=== PATIENT | male | born 1950 | race Two or more races ===

== ENCOUNTER 2016-09-25 20:20 | Inpatient (IN) | payer MEDICAID, MEDICARE, OTHER ==
[~2016-09-25] VITALS: Ht 185.4 cm; Wt 59.0 kg
[~2016-09-25 20:20] MED LIST: AMANTADINE50 MG/5 ML ORAL; AMITRIPTYLINE100 M1 ORAL; LEVAQUIN500 MG ORAL; LITHIUM CARBON300 MG ORAL
[2016-09-25] MEDS ORDERED: NS 1000ml 1,900 ML IVLG ONE (21:15)
[2016-09-25] MEDS ORDERED: Acetaminophen 500mg (ES) tab ORAL ONE (21:15)
[2016-09-25 21:49] LABS: MEAN CORPUSCULAR HEMOGLOBIN 29.8 PG (27.0-31.0); MEAN CORPUSCULAR HGB CONC 32.4 G/DL (32.0-36.0); MEAN CORPUSCULAR VOLUME 92 FL (80-99); MEAN PLATELET VOLUME 7.3 FL (6.5-10.1); PLATELET COUNT 110 K/UL (150-450); RED BLOOD COUNT 4.32 M/UL (4.70-6.10); RED CELL DISTRIBUTION WIDTH 12.6 % (11.6-14.8)
[2016-09-25 22:00] VITALS: BP 161/104
[2016-09-25 22:06] LABS: TROPONIN I < 0.30 ng/mL (<=0.30)
[2016-09-25 22:09] LABS: CALCIUM 9.4 mg/dL (8.6-10.2); CREATININE 1.5 mg/dL (0.7-1.2); GLOMERULAR FILTRATION RATE 46.7 mL/min (>60); POTASSIUM 4.1 mEQ/L (3.4-4.9); TOTAL PROTEIN 7.4 g/dL (6.6-8.7)
[2016-09-25] MEDS ORDERED: Piperacillin/Tazobactam 3.375 GM in NS 110 ML IVPB ONE (22:15)
[2016-09-25 22:19] LABS: CKMB 3.3 ng/mL (< 6.7)
[2016-09-25] MEDS ORDERED: Zosyn 3.375gm inj ONE (22:23)
[2016-09-25 22:26] LABS: REFLEX LACTIC ACID YES OR NO YES
[2016-09-25 22:37] LABS: BAND NEUTROPHILS % (MANUAL) 14 % (0-8); LYMPHOCYTES % (MANUAL) 4 % (20-45); NEUTROPHILS % (MANUAL) 81 % (45-75); TOTAL CELLS COUNTED 100
[2016-09-25 22:38] LABS: BASOPHILS % (MANUAL) 0 % (0-2); EOSINOPHILS % (MANUAL) 0 % (0-3); PLATELET ESTIMATE DECREASED; PLATELET MORPHOLOGY NORMAL
[2016-09-25 23:00] VITALS: BP 108/69
[2016-09-25] MEDS ORDERED: Nitroglycerin Subl 0.4mg tab (Bottle Of 25) SL PRN (23:15)
[2016-09-25] MEDS ORDERED: Morphine Sulfate 2mg/ml Inj IVP PRN (23:15)
[2016-09-25] MEDS ORDERED: Miralax 17gm pkt ORAL PRN (23:15)
--- NOTE | 2016-09-25 23:27 | Emergency Room Report ---
History of Present Illness General Chief Complaint: Fever Source: Patient, Family Member Present Illness HPI This is a 65-year-old male with a history of COPD. Brought in by family for weakness and shaky. Onset the last couple days. Patient said he's been coughing. [place] cold. Also with subjective fever. Coughing is nonproductive in nature. No urinary complaint. Denies any other symptom. No chest pain. Per family not eating or drinking the last couple days. Allergies: Coded Allergies: No Known Allergies (Unverified , 09/22/14) Patient History Past Medical History: see triage record, old chart reviewed Past Surgical History: other Pertinent Family History: none Social History: Denies: drug use Immunizations: other Reviewed Nursing Documentation: PMH: Agreed, PSxH: Agreed Nursing Documentation-PMH Past Medical History: No History, Except For Hx Cardiac Problems: No Hx COPD: Yes Hx Cancer: No Hx Gastrointestinal Problems: No Hx Neurological Problems: No Review of Systems Constitutional: Reports: fever, malaise, weakness Eye: Denies: blurred vision, eye pain ENT: Denies: ear pain, nose congestion, throat swelling Respiratory: Reports: cough, shortness of breath Cardiovascular: Denies: chest pain, palpitations Gastrointestinal: Denies: abdominal pain, diarrhea, nausea, vomiting Musculoskeletal: Denies: back pain, joint pain Skin: Denies: rash Neurological: Denies: headache, numbness Endocrine: Denies: increased thirst, increased urine Hematologic/Lymphatic: Denies: easy bruising All Other Systems: negative except mentioned in HPI Physical Exam Vital Signs Date Time Temp Pulse Resp B/P Pulse Ox O2 Delivery O2 Flow Rate FiO2 09/25/16 20:31 100.2 118 16 155/83 99 Room Air vitals with fever Sp02 EP Interpretation: reviewed, normal General Appearance: alert, mild distress, thin Head: normocephalic, atraumatic Eyes: bilateral eye EOMI, bilateral eye PERRL ENT: hearing grossly normal, normal pharynx Neck: full range of motion, supple, no meningismus Respiratory: chest non-tender, rhonchi Cardiovascular #1: regular rate, rhythm, no murmur, tachycardia Gastrointestinal: normal bowel sounds, non tender, no mass, no organomegaly, no bruit, non-distended Musculoskeletal: back normal, gait/station normal, normal range of motion Psychiatric: mood/affect normal Skin: warm/dry Procedures Critical Care Time Critical Care Time Critical care is mandated in this patient who presented with severe sepsis from pneumonia. Patient require my urgent intervention to attenuate the risks of metabolic collapse which may lead to cardiovascular collapse and . Critical care time is 35 minutes excluding any reportable procedure. Critical care time included evaluation, multiple reevaluation, looking at old charts, interpreting laboratory and diagnostic data, discussing case with patient and family and consultants, and charting. Medical Decision Making Diagnostic Impression: Primary Impression: Severe sepsis Additional Impression: Pneumonia Qualified Codes: J18.9 - Pneumonia, unspecified organism ER Course patient with sepsis from pneumonia. lactic acid is elevated. He has rigors and then hypoxia here. he is elevated white count with bandemia. Wide spectrum antibiotics given. IV fluid given per protocol. Patient felt better and blood pressure better. Heart rate improved. I discussed the case with Dr. Rider who will be writing orders for Dr. Elam. Lab Results Impression labs with leukocytosis EKG Diagnostic Results EKG Time: 23:26 Rate: tachycardiac Rhythm: other - baseline tremors. NSST changes Rhythm Strip Diag. Results Rhythm Strip Time: 23:26 EP Interpretation: yes Rate: 114 Rhythm: NSR, no PVC's, no ectopy Chest X-Ray Diagnostic Results Chest X-Ray Diagnostic Results : Chest X-Ray Ordered: Yes # of Views/Limited/Complete: 1 View Indication: Shortness of Breath EP Interpretation: Yes Interpretation: no effusion, no pneumothorax, other - b/l interstitial infiltrates Impression: Other - b/l interstitial infiltrates Interpreting ER Provider: Electronically signed by Navjot Silva MD Last Vital Signs Date Time Temp Pulse Resp B/P Pulse Ox O2 Delivery O2 Flow Rate FiO2 09/25/16 22:37 103.7 09/25/16 22:00 119 40 161/104 97 Room Air Status: improved Disposition: ADMITTED INPATIENT Condition: Serious Referrals: NOT CHOSEN RAKEL/,REFERRING (PCP) NAVJOT SILVA M.D. Sep 25, 2016 23:27
[2016-09-26] VITALS (8 sets, daily range): BP systolic 105–148; BP diastolic 58–88
[2016-09-26] MEDS ORDERED: Rx Monitoring Vancomycin MISC PRN (00:15)
[2016-09-26] MEDS: DuoNeb 0.5-3(2.5)mg/3ml neb HHN PRN (00:18)
[2016-09-26] MEDS ORDERED: Vancomycin 1gm inj IVPB ONE (00:21)
[2016-09-26] MEDS: Vancomycin 1 GM in D5W 275 ML IVPB SCH (00:27)
[2016-09-26] MEDS: Heparin 5000 units/ml inj SUBQ SCH ×2 (09:00→20:54)
[2016-09-26 09:23] LABS: MEAN CORPUSCULAR HEMOGLOBIN 28.9 PG (27.0-31.0); MEAN CORPUSCULAR HGB CONC 31.5 G/DL (32.0-36.0); MEAN CORPUSCULAR VOLUME 92 FL (80-99); MEAN PLATELET VOLUME 8.4 FL (6.5-10.1); PLATELET COUNT 79 K/UL (150-450); RED BLOOD COUNT 4.43 M/UL (4.70-6.10); RED CELL DISTRIBUTION WIDTH 12.7 % (11.6-14.8)
[2016-09-26 09:24] LABS: WHITE BLOOD COUNT 24.9 K/UL (4.8-10.8)
[2016-09-26 09:37] LABS: ALBUMIN/GLOBULIN RATIO 0.8 (1.0-2.7); CALCIUM 8.6 mg/dL (8.6-10.2); CREATININE 1.8 mg/dL (0.7-1.2); GLOMERULAR FILTRATION RATE 37.8 mL/min (>60); POTASSIUM 4.3 mEQ/L (3.4-4.9); TOTAL PROTEIN 6.7 g/dL (6.6-8.7)
--- NOTE | 2016-09-26 09:52 | Diagnostic Imaging Report ---
Indication: Dyspnea Comparison: None A single view chest radiograph was obtained. Findings: Interstitium of the lungs is prominent. Pulmonary vascularity is mildly prominent. Heart is borderline enlarged. Impression: Development of mild interstitial edema
[2016-09-26 10:06] LABS: MAGNESIUM 1.5 mg/dL (1.7-2.5); PHOSPHORUS 4.4 mg/dL (2.5-4.8); URIC ACID 5.6 mg/dL (3.0-7.5)
[2016-09-26] MEDS: Cefepime HCl 2 GM in D5W 110 ML IV SCH (10:15)
[2016-09-26 10:28] LABS: BAND NEUTROPHILS % (MANUAL) 12 % (0-8); BASOPHILS % (MANUAL) 0 % (0-2); EOSINOPHILS % (MANUAL) 0 % (0-3); LYMPHOCYTES % (MANUAL) 4 % (20-45); NEUTROPHILS % (MANUAL) 78 % (45-75); PLATELET ESTIMATE DECREASED; PLATELET MORPHOLOGY NORMAL; TOTAL CELLS COUNTED 100
[2016-09-26 10:29] LABS: HYPOCHROMASIA 1+
[2016-09-26 11:23] LABS: APPEARANCE,URINE SLIGHTLY CLOUDY; KETONES,URINE NEGATIVE (NEGATIVE); LEUKOCYTE ESTERASE ,URINE 3+ (NEGATIVE); NITRITE,URINE POSITIVE (NEGATIVE); PH,URINE 6 (4.5-8.0); PROTEIN,URINE 3+ (NEGATIVE); UROBILINOGEN,URINE 1 MG/DL (0.0-1.0)
[2016-09-26 11:36] LABS: BACTERIA,URINE FEW /HPF; RBC,URINE 60-80 /HPF (0 - 0); SQUAMOUS EPITHELIAL CELL,UR OCCASIONAL /LPF (NONE/OCC)
--- NOTE | 2016-09-26 13:18 | Consultation ---
History of Present Illness General Date patient seen: Sep 26, 2016 Chief Complaint: Fever Referring physician: Dr. Elam Reason for Consultation: Dyspnea Present Illness HPI 65-year-old male with a history of COPD, bipolar, Brought in by family for weakness and shakiness for couple days. Patient said he's been coughing. [place] cold. Also with subjective fever. Coughing is nonproductive in nature. No urinary complaint. Denies any other symptom. No chest pain. Per family not eating or drinking the last couple days. Allergies: Coded Allergies: No Known Allergies (Unverified , 09/22/14) Medication History Scheduled Amantadine HCl (Amantadine), 100 MG ORAL DAILY, (Reported) Amitriptyline Hcl* (Amitriptyline Hcl*), 150 MG ORAL BEDTIME, (Reported) [place] Carbonate* ([place]*), 300 MG ORAL EVERY 8 HOURS, (Reported) Discontinued Medications Levofloxacin* (Levaquin*), 500 MG ORAL DAILY Discontinued Reason: Therapy completed Patient History Healthcare decision maker Resuscitation status Full Code Advanced Directive on File Past Medical/Surgical History Past Medical/Surgical History: (1) COPD (chronic obstructive pulmonary disease) (2) Protein-calorie malnutrition, severe (3) Bipolar disorder Review of Systems All Other Systems: negative except mentioned in HPI Physical Exam General Appearance: WD/WN, no apparent distress Lines, tubes and drains: peripheral, central line HEENT: normocephalic, anicteric Neck: non-tender, normal alignment Respiratory/Chest: chest wall non-tender, lungs clear Abdomen: normal bowel sounds, non tender Genitourinary/Rectal: normal genital exam, normal rectal exam Last 24 Hour Vital Signs Date Time Temp Pulse Resp B/P Pulse Ox O2 Delivery O2 Flow Rate FiO2 09/26/16 11:57 98.2 108 20 130/70 93 Simple Mask 10.0 108 09/26/16 08:35 97.9 112 21 148/72 93 Simple Mask 112 09/26/16 04:03 99.9 119 22 123/61 96 Venturi Mask 09/26/16 04:00 115 09/26/16 02:15 98.2 113 22 105/63 95 Venturi Mask 14.0 55 09/26/16 02:10 116 09/26/16 01:15 101.5 116 35 109/58 98 Venturi Mask 14.0 55 09/26/16 01:01 101.5 116 35 109/58 98 Venturi Mask 14.0 55 09/26/16 00:27 117 15 96 Venturi Mask 14.0 55 09/26/16 00:25 Venturi Mask 14.0 55 09/26/16 00:25 96 Venturi Mask 14.0 55 09/26/16 00:18 114 23 99 Non-Rebreather 15.0 100 09/26/16 00:17 114 23 Non-Rebreather 15.0 100 09/26/16 00:00 103.7 119 48 129/58 98 Non-Rebreather 10.0 09/25/16 23:00 117 37 108/69 87 Nasal Cannula 4.0 09/25/16 22:37 103.7 09/25/16 22:00 119 40 161/104 97 Room Air 09/25/16 20:31 100.2 118 16 155/83 99 Room Air Intake and Output 09/25/16 09/26/16 19:00 07:00 Intake Total 500 ml Balance 500 ml Intake Oral 0 ml IV Total 500 ml Laboratory Tests Test 09/25/16 21:20 09/25/16 23:40 09/26/16 08:40 09/26/16 11:10 White Blood Count 20.0 K/UL (4.8-10.8) H 24.9 K/UL (4.8-10.8) *H Red Blood Count 4.32 M/UL (4.70-6.10) L 4.43 M/UL (4.70-6.10) L Hemoglobin 12.9 G/DL (14.2-18.0) L 12.8 G/DL (14.2-18.0) L Hematocrit 39.8 % (42.0-52.0) L 40.6 % (42.0-52.0) L Mean Corpuscular Volume 92 FL (80-99) 92 FL (80-99) Mean Corpuscular Hemoglobin 29.8 PG (27.0-31.0) 28.9 PG (27.0-31.0) Mean Corpuscular Hemoglobin Concent 32.4 G/DL (32.0-36.0) 31.5 G/DL (32.0-36.0) L Red Cell Distribution Width 12.6 % (11.6-14.8) 12.7 % (11.6-14.8) Platelet Count 110 K/UL (150-450) L 79 K/UL (150-450) L Mean Platelet Volume 7.3 FL (6.5-10.1) 8.4 FL (6.5-10.1) Neutrophils (%) (Auto) % (45.0-75.0) % (45.0-75.0) Lymphocytes (%) (Auto) % (20.0-45.0) % (20.0-45.0) Monocytes (%) (Auto) % (1.0-10.0) % (1.0-10.0) Eosinophils (%) (Auto) % (0.0-3.0) % (0.0-3.0) Basophils (%) (Auto) % (0.0-2.0) % (0.0-2.0) Differential Total Cells Counted 100 100 Neutrophils % (Manual) 81 % (45-75) H 78 % (45-75) H Lymphocytes % (Manual) 4 % (20-45) L 4 % (20-45) L Monocytes % (Manual) 1 % (1-10) 6 % (1-10) Eosinophils % (Manual) 0 % (0-3) 0 % (0-3) Basophils % (Manual) 0 % (0-2) 0 % (0-2) Band Neutrophils 14 % (0-8) H 12 % (0-8) H Platelet Estimate Decreased L Decreased L Platelet Morphology Normal Normal Red Blood Cell Morphology Normal Sodium Level 133 mEQ/L (135-145) L 140 mEQ/L (135-145) Potassium Level 4.1 mEQ/L (3.4-4.9) 4.3 mEQ/L (3.4-4.9) Chloride Level 98 mEQ/L (98-107) 100 mEQ/L (98-107) Carbon Dioxide Level 20 mEQ/L (20-30) 15 mEQ/L (20-30) L Anion Gap 15 (5-15) 25 (5-15) H Blood Urea Nitrogen 15 mg/dL (7-23) 20 mg/dL (7-23) Creatinine 1.5 mg/dL (0.7-1.2) H 1.8 mg/dL (0.7-1.2) H Estimat Glomerular Filtration Rate 46.7 mL/min (>60) 37.8 mL/min (>60) Glucose Level 209 mg/dL (74-106) H 145 mg/dL (74-106) H Lactic Acid Level 4.90 mmol/L (0.66-2.22) H 4.10 mmol/L (0.66-2.22) H Calcium Level 9.4 mg/dL (8.6-10.2) 8.6 mg/dL (8.6-10.2) Total Bilirubin 0.5 mg/dL (0.0-1.2) 0.7 mg/dL (0.0-1.2) Aspartate Amino Transf (AST/SGOT) 24 U/L (5-40) 52 U/L (5-40) H Alanine Aminotransferase (ALT/SGPT) 16 U/L (3-41) 16 U/L (3-41) Alkaline Phosphatase 108 U/L (40-129) 91 U/L (40-129) Total Creatine Kinase 399 U/L (38-174) H 1077 U/L (38-174) H Creatine Kinase MB 3.3 ng/mL (< 6.7) Creatine Kinase MB Relative Index 0.8 Troponin I < 0.30 ng/mL (<=0.30) Total Protein 7.4 g/dL (6.6-8.7) 6.7 g/dL (6.6-8.7) Albumin 3.7 g/dL (3.5-5.2) 3.0 g/dL (3.5-5.2) L Globulin 3.7 g/dL 3.7 g/dL Albumin/Globulin Ratio 1.0 (1.0-2.7) 0.8 (1.0-2.7) L Hypochromasia 1+ Plasma/Serum Osmolality Pending Uric Acid 5.6 mg/dL (3.0-7.5) Phosphorus Level 4.4 mg/dL (2.5-4.8) Magnesium Level 1.5 mg/dL (1.7-2.5) L Free Thyroxine 1.19 ng/dL (0.86-1.85) Urine Color Yellow Urine Appearance Slightly cloudy Urine pH 6 (4.5-8.0) Urine Specific [place] 1.005 (1.005-1.035) Urine Protein 3+ (NEGATIVE) H Urine Glucose (UA) Negative (NEGATIVE) Urine Ketones Negative (NEGATIVE) Urine Occult Blood 5+ (NEGATIVE) H Urine Nitrite Positive (NEGATIVE) H Urine Bilirubin Negative (NEGATIVE) Urine Urobilinogen 1 MG/DL (0.0-1.0) H Urine Leukocyte Esterase 3+ (NEGATIVE) H Urine RBC 60-80 /HPF (0 - 0) H Urine WBC 10-15 /HPF (0 - 0) H Urine Squamous Epithelial Cells Occasional /LPF Urine Bacteria Few /HPF (NONE) Urine Eosinophils None seen Urine Random Sodium 24 mmol/L Urine Random Chloride 15 mmol/L Urine Potassium Timed 25 mmol/L Height (Feet): 6 Height (Inches): 1.00 Weight (Pounds): 155 Medications Current Medications Medications (Trade) Dose Ordered Sig/Ramiro Route PRN Reason Start Time Stop Time Status Last Admin Dose Admin Acetaminophen (Tylenol) 650 mg Q4H PRN ORAL fever 09/25/16 23:15 10/25/16 23:14 Albuterol/ Ipratropium 3 ml 3 ml Q4H PRN HHN Shortness of Breath 09/25/16 23:15 09/30/16 23:14 09/26/16 00:18 Amitriptyline HCl (Elavil) 150 mg BEDTIME ORAL 09/26/16 21:00 10/26/16 20:59 Cefepime HCl 2 gm/ Dextrose 110 ml @ 220 mls/hr Q24H IV 09/26/16 09:00 10/03/16 08:59 09/26/16 10:15 Clonidine HCl (Catapres) 0.1 mg Q4H PRN ORAL For High Blood Pressure 09/25/16 23:30 10/25/16 23:29 Dextrose (Dextrose 50%) STAT PRN IV Hypoglycemia 09/25/16 23:15 10/25/16 23:14 Heparin Sodium (Porcine) (Heparin 5000 units/ml) 5,000 units EVERY 12 HOURS SUBQ 09/26/16 09:00 10/26/16 08:59 [place] Carbonate 300 mg 300 mg EVERY 8 HOURS ORAL 09/26/16 06:00 10/26/16 05:59 09/26/16 10:14 Morphine Sulfate (Morphine Sulfate) 2 mg Q4H PRN IVP Moderate Pain (Pain Scale 4-6) 09/25/16 23:15 10/02/16 23:14 Nitroglycerin (Ntg) 0.4 mg Every 5 Minutes PRN SL Prn Chest Pain 09/25/16 23:15 10/25/16 23:14 Ondansetron HCl (Zofran) 4 mg Q6H PRN IVP Nausea & Vomiting 09/25/16 23:15 10/25/16 23:14 Polyethylene Glycol (Miralax) 17 gm DAILYPRN PRN ORAL Constipation 09/25/16 23:15 10/25/16 23:14 Sodium Chloride (Sodium Chloride 1000ml bag) 1,000 ml @ 100 mls/hr Q10H IVLG 09/26/16 00:21 10/26/16 00:20 09/26/16 10:24 Temazepam (Restoril) 15 mg HSPRN PRN ORAL Insomnia 09/25/16 23:15 10/02/16 23:14 Vancomycin HCl (Rx Monitoring Vancomycin) 1 ea DAILY PRN MISC PER PROTOCOL 09/26/16 00:15 10/26/16 00:14 Vancomycin HCl/ Dextrose (Vancomycin/D5W) 275 ml @ 183.3 mls/ hr Q24H IVPB 09/26/16 01:00 10/01/16 00:59 09/26/16 00:27 Assessment/Plan Problem List: (1) Severe sepsis ICD Codes: A41.9 - Sepsis, unspecified organism; R65.20 - Severe sepsis without septic shock SNOMED: 89763881 (2) Tachycardia ICD Codes: R00.0 - Tachycardia, unspecified SNOMED: 8346193 (3) Protein-calorie malnutrition, severe ICD Codes: E43 - Unspecified severe protein-calorie malnutrition SNOMED: 324153210 (4) Bipolar disorder ICD Codes: F31.9 - Bipolar disorder, unspecified SNOMED: 08089641 (5) COPD (chronic obstructive pulmonary disease) ICD Codes: J44.9 - Chronic obstructive pulmonary disease, unspecified SNOMED: 06728867 Assessment/Plan nick culture Iv antibiotics ID evaluation respiratory treatment social service consult Keep teli as long as DELMI Stearns Sep 26, 2016 13:18
--- NOTE | 2016-09-26 14:01 | Consultation ---
History of Present Illness General Chief Complaint: Fever Referring physician: Dr. Elam Reason for Consultation: Dyspnea Present Illness HPI 65-year-old male with a history of COPD, bipolar, Brought in by family for weakness and shakiness for couple days. During the eval the pt didn't know the date but knew the year and situation he is in. the pt endorses anxiety and stated that he wants to be discharged. the pt had memory impairment however his manic/depressive sxs were stable. the pt is on lithium. he lacks capacity to leave ama. Allergies: Coded Allergies: No Known Allergies (Unverified , 09/22/14) Medication History Scheduled Amantadine HCl (Amantadine), 100 MG ORAL DAILY, (Reported) Amitriptyline Hcl* (Amitriptyline Hcl*), 150 MG ORAL BEDTIME, (Reported) [place] Carbonate* ([place]*), 300 MG ORAL EVERY 8 HOURS, (Reported) Discontinued Medications Levofloxacin* (Levaquin*), 500 MG ORAL DAILY Discontinued Reason: Therapy completed Patient History Limited by: medical condition History Provided By: Patient, Medical Record, PMD Healthcare decision maker Resuscitation status Full Code Advanced Directive on File Past Medical/Surgical History Past Medical/Surgical History: (1) Syncope, cardiogenic (2) NSTEMI (non-ST elevated myocardial infarction) (3) Syncope (4) Leukocytosis (5) UTI (urinary tract infection) (6) Pneumonia (7) Severe sepsis (8) COPD (chronic obstructive pulmonary disease) (9) Bipolar disorder (10) Protein-calorie malnutrition, severe (11) Tachycardia Review of Systems Constitutional: Reports: malaise, weakness Psychiatric: Reports: anxiety, depressed feelings, emotional problems, prior hx All Other Systems: negative except mentioned in HPI Physical Exam General Appearance: alert, mild distress, thin Neurologic: alert, oriented x 3, responsive, depressed affect Last 24 Hour Vital Signs Date Time Temp Pulse Resp B/P Pulse Ox O2 Delivery O2 Flow Rate FiO2 09/26/16 11:57 98.2 108 20 130/70 93 Simple Mask 10.0 108 09/26/16 08:35 97.9 112 21 148/72 93 Simple Mask 112 09/26/16 08:00 110 09/26/16 04:03 99.9 119 22 123/61 96 Venturi Mask 09/26/16 04:00 115 09/26/16 02:15 98.2 113 22 105/63 95 Venturi Mask 14.0 55 09/26/16 02:10 116 09/26/16 01:15 101.5 116 35 109/58 98 Venturi Mask 14.0 55 09/26/16 01:01 101.5 116 35 109/58 98 Venturi Mask 14.0 55 09/26/16 00:27 117 15 96 Venturi Mask 14.0 55 09/26/16 00:25 Venturi Mask 14.0 55 09/26/16 00:25 96 Venturi Mask 14.0 55 09/26/16 00:18 114 23 99 Non-Rebreather 15.0 100 09/26/16 00:17 114 23 Non-Rebreather 15.0 100 09/26/16 00:00 103.7 119 48 129/58 98 Non-Rebreather 10.0 09/25/16 23:00 117 37 108/69 87 Nasal Cannula 4.0 09/25/16 22:37 103.7 09/25/16 22:00 119 40 161/104 97 Room Air 09/25/16 20:31 100.2 118 16 155/83 99 Room Air Intake and Output 09/25/16 09/26/16 19:00 07:00 Intake Total 500 ml Balance 500 ml Intake Oral 0 ml IV Total 500 ml Laboratory Tests Test 09/25/16 21:20 09/25/16 23:40 09/26/16 08:40 09/26/16 11:10 White Blood Count 20.0 K/UL (4.8-10.8) H 24.9 K/UL (4.8-10.8) *H Red Blood Count 4.32 M/UL (4.70-6.10) L 4.43 M/UL (4.70-6.10) L Hemoglobin 12.9 G/DL (14.2-18.0) L 12.8 G/DL (14.2-18.0) L Hematocrit 39.8 % (42.0-52.0) L 40.6 % (42.0-52.0) L Mean Corpuscular Volume 92 FL (80-99) 92 FL (80-99) Mean Corpuscular Hemoglobin 29.8 PG (27.0-31.0) 28.9 PG (27.0-31.0) Mean Corpuscular Hemoglobin Concent 32.4 G/DL (32.0-36.0) 31.5 G/DL (32.0-36.0) L Red Cell Distribution Width 12.6 % (11.6-14.8) 12.7 % (11.6-14.8) Platelet Count 110 K/UL (150-450) L 79 K/UL (150-450) L Mean Platelet Volume 7.3 FL (6.5-10.1) 8.4 FL (6.5-10.1) Neutrophils (%) (Auto) % (45.0-75.0) % (45.0-75.0) Lymphocytes (%) (Auto) % (20.0-45.0) % (20.0-45.0) Monocytes (%) (Auto) % (1.0-10.0) % (1.0-10.0) Eosinophils (%) (Auto) % (0.0-3.0) % (0.0-3.0) Basophils (%) (Auto) % (0.0-2.0) % (0.0-2.0) Differential Total Cells Counted 100 100 Neutrophils % (Manual) 81 % (45-75) H 78 % (45-75) H Lymphocytes % (Manual) 4 % (20-45) L 4 % (20-45) L Monocytes % (Manual) 1 % (1-10) 6 % (1-10) Eosinophils % (Manual) 0 % (0-3) 0 % (0-3) Basophils % (Manual) 0 % (0-2) 0 % (0-2) Band Neutrophils 14 % (0-8) H 12 % (0-8) H Platelet Estimate Decreased L Decreased L Platelet Morphology Normal Normal Red Blood Cell Morphology Normal Sodium Level 133 mEQ/L (135-145) L 140 mEQ/L (135-145) Potassium Level 4.1 mEQ/L (3.4-4.9) 4.3 mEQ/L (3.4-4.9) Chloride Level 98 mEQ/L (98-107) 100 mEQ/L (98-107) Carbon Dioxide Level 20 mEQ/L (20-30) 15 mEQ/L (20-30) L Anion Gap 15 (5-15) 25 (5-15) H Blood Urea Nitrogen 15 mg/dL (7-23) 20 mg/dL (7-23) Creatinine 1.5 mg/dL (0.7-1.2) H 1.8 mg/dL (0.7-1.2) H Estimat Glomerular Filtration Rate 46.7 mL/min (>60) 37.8 mL/min (>60) Glucose Level 209 mg/dL (74-106) H 145 mg/dL (74-106) H Lactic Acid Level 4.90 mmol/L (0.66-2.22) H 4.10 mmol/L (0.66-2.22) H Calcium Level 9.4 mg/dL (8.6-10.2) 8.6 mg/dL (8.6-10.2) Total Bilirubin 0.5 mg/dL (0.0-1.2) 0.7 mg/dL (0.0-1.2) Aspartate Amino Transf (AST/SGOT) 24 U/L (5-40) 52 U/L (5-40) H Alanine Aminotransferase (ALT/SGPT) 16 U/L (3-41) 16 U/L (3-41) Alkaline Phosphatase 108 U/L (40-129) 91 U/L (40-129) Total Creatine Kinase 399 U/L (38-174) H 1077 U/L (38-174) H Creatine Kinase MB 3.3 ng/mL (< 6.7) Creatine Kinase MB Relative Index 0.8 Troponin I < 0.30 ng/mL (<=0.30) Total Protein 7.4 g/dL (6.6-8.7) 6.7 g/dL (6.6-8.7) Albumin 3.7 g/dL (3.5-5.2) 3.0 g/dL (3.5-5.2) L Globulin 3.7 g/dL 3.7 g/dL Albumin/Globulin Ratio 1.0 (1.0-2.7) 0.8 (1.0-2.7) L Hypochromasia 1+ Plasma/Serum Osmolality Pending Uric Acid 5.6 mg/dL (3.0-7.5) Phosphorus Level 4.4 mg/dL (2.5-4.8) Magnesium Level 1.5 mg/dL (1.7-2.5) L Free Thyroxine 1.19 ng/dL (0.86-1.85) Urine Color Yellow Urine Appearance Slightly cloudy Urine pH 6 (4.5-8.0) Urine Specific [place] 1.005 (1.005-1.035) Urine Protein 3+ (NEGATIVE) H Urine Glucose (UA) Negative (NEGATIVE) Urine Ketones Negative (NEGATIVE) Urine Occult Blood 5+ (NEGATIVE) H Urine Nitrite Positive (NEGATIVE) H Urine Bilirubin Negative (NEGATIVE) Urine Urobilinogen 1 MG/DL (0.0-1.0) H Urine Leukocyte Esterase 3+ (NEGATIVE) H Urine RBC 60-80 /HPF (0 - 0) H Urine WBC 10-15 /HPF (0 - 0) H Urine Squamous Epithelial Cells Occasional /LPF Urine Bacteria Few /HPF (NONE) Urine Eosinophils None seen Urine Random Sodium 24 mmol/L Urine Random Chloride 15 mmol/L Urine Potassium Timed 25 mmol/L Height (Feet): 6 Height (Inches): 1.00 Weight (Pounds): 155 Medications Current Medications Medications (Trade) Dose Ordered Sig/Ramiro Route PRN Reason Start Time Stop Time Status Last Admin Dose Admin Acetaminophen (Tylenol) 650 mg Q4H PRN ORAL fever 09/25/16 23:15 10/25/16 23:14 Albuterol/ Ipratropium 3 ml 3 ml Q4H PRN HHN Shortness of Breath 09/25/16 23:15 09/30/16 23:14 09/26/16 00:18 Amitriptyline HCl (Elavil) 150 mg BEDTIME ORAL 09/26/16 21:00 10/26/16 20:59 Cefepime HCl 2 gm/ Dextrose 110 ml @ 220 mls/hr Q24H IV 09/26/16 09:00 10/03/16 08:59 09/26/16 10:15 Clonidine HCl (Catapres) 0.1 mg Q4H PRN ORAL For High Blood Pressure 09/25/16 23:30 10/25/16 23:29 Dextrose (Dextrose 50%) STAT PRN IV Hypoglycemia 09/25/16 23:15 10/25/16 23:14 Heparin Sodium (Porcine) (Heparin 5000 units/ml) 5,000 units EVERY 12 HOURS SUBQ 09/26/16 09:00 10/26/16 08:59 [place] Carbonate 300 mg 300 mg EVERY 8 HOURS ORAL 09/26/16 06:00 10/26/16 05:59 09/26/16 10:14 Morphine Sulfate (Morphine Sulfate) 2 mg Q4H PRN IVP Moderate Pain (Pain Scale 4-6) 09/25/16 23:15 10/02/16 23:14 Nitroglycerin (Ntg) 0.4 mg Every 5 Minutes PRN SL Prn Chest Pain 09/25/16 23:15 10/25/16 23:14 Ondansetron HCl (Zofran) 4 mg Q6H PRN IVP Nausea & Vomiting 09/25/16 23:15 10/25/16 23:14 Polyethylene Glycol (Miralax) 17 gm DAILYPRN PRN ORAL Constipation 09/25/16 23:15 10/25/16 23:14 Sodium Chloride (Sodium Chloride 1000ml bag) 1,000 ml @ 100 mls/hr Q10H IVLG 09/26/16 00:21 10/26/16 00:20 09/26/16 10:24 Temazepam (Restoril) 15 mg HSPRN PRN ORAL Insomnia 09/25/16 23:15 10/02/16 23:14 Vancomycin HCl (Rx Monitoring Vancomycin) 1 ea DAILY PRN MISC PER PROTOCOL 09/26/16 00:15 10/26/16 00:14 Vancomycin HCl/ Dextrose (Vancomycin/D5W) 275 ml @ 183.3 mls/ hr Q24H IVPB 09/26/16 01:00 10/01/16 00:59 09/26/16 00:27 Assessment/Plan Status: stable Assessment/Plan Bipolar d/o, lacks capacity to leave ama. change lithium to 900mg qhs Elda Hernandez M.D. Sep 26, 2016 14:01
--- NOTE | 2016-09-26 15:38 | History & Physical ---
History and Physical History & Physicial Billy Elam MD Sep 26, 2016 15:38
[2016-09-26] MEDS ORDERED: Tubing IV Secondary IV ONE (16:47)
--- NOTE | 2016-09-26 17:08 | Consultation ---
Consult Note Consult Note Infectious Diseass consult noted dictated, covering for Dr. Razo. Wade Motley M.D. Sep 26, 2016 17:08
[2016-09-26 18:38] LABS: REFLEX LACTIC ACID YES OR NO YES
[2016-09-26] MEDS: Amitriptyline 100mg tab ORAL SCH (20:43)
--- NOTE | 2016-09-26 23:45 | History and Physical Report ---
DATE OF ADMISSION: 09/25/2016 CHIEF COMPLAINT: Shortness of breath and fever. HISTORY OF PRESENT ILLNESS: This is a 65-year-old gentleman with past medical history significant for schizophrenia as well as chronic obstructive pulmonary disease, who was brought into the emergency room accompanied with the family members due to the weakness and shaking. It has been going on for the past couple of days. The patient said that he has been having coughing and felt like having flu-like symptoms and subjective fever. Coughing is nonproductive in nature. No dysuria. Denies any loss of consciousness. Denies any palpitations. As per family member, the patient has been decreasing p.o. intake and not drinking or eating. Shortly after initial evaluation in the emergency room, the patient was admitted to the hospital due to sepsis, possibly due to pneumonia or acute urinary tract infection. PAST MEDICAL HISTORY/PAST SURGICAL HISTORY: Significant for bipolar disorder as well as chronic obstructive pulmonary disease. MEDICATIONS AT HOME: Significant for amantadine 100 mg daily, amitriptyline 150 at bedtime, and lithium 300 mg every 8 hours. ALLERGIES: No known drug allergies. SOCIAL HISTORY: The patient has a history of smoking. No substance abuse. FAMILY HISTORY: Noncontributory. REVIEW OF SYSTEMS: Mostly as above. Denies any dysuria or frequency. Complained about cough. Denies any hemoptysis or hematochezia. Complained about fever and chills. Denies any loss of consciousness. Denies any suicidal or homicidal ideation. PHYSICAL EXAMINATION: VITAL SIGNS: On admission, temperature of 100.2 degrees, T-max was 103.7 degrees, pulse of 118, respirations 16, and blood pressure 155/83 and repeat one was 148/72. GENERAL: The patient is awake, responsive, and in no acute distress. On a Ventimask. HEENT: Pupils reactive to light. Anicteric. NECK: Supple. No JVD. LUNGS: Good air entry. No wheezing or rhonchi. Decreased air in the bases. HEART: S1 and S2. Tachycardic. No murmur. ABDOMEN: Soft, nondistended, and nontender. Positive bowel sounds. EXTREMITIES: No cyanosis, clubbing, or edema. NEUROLOGIC: Cranial nerves II through XII are grossly intact. The patient is moving all the extremities. Gait was not assessed due to the patient's status, too weak to stand up. GENITOURINARY/RECTAL: Refused and deferred. PSYCHIATRIC: Bipolar. LABORATORY DATA: On admission from the ER, sodium 140, potassium 4.2, chloride 100, bicarb is 15, BUN is 20, and creatinine 1.8. Glucose is 145. Lactic acid level is 4.9. Calcium is 8.6. Total bilirubin of 0.7. AST of 52 and ALT of 16. Total CK level was 1077. Free T4 is 1.19. The patient's troponin is less than 0.30. WBC of 20, hemoglobin of 15, hematocrit 39, and platelets is 110,000 and repeat 179,000. UA is +2 protein, +5 occult blood, nitrites negative, and +3 leukocytes. Rapid human immunodeficiency virus test is negative. The patient's chest x-ray showed that there was mild interstitial edema. ASSESSMENT: 1. Fever and chills, possible sepsis secondary to the urinary tract infection versus pneumonia. 2. Severe protein-calorie malnutrition. 3. Bipolar disorder. 4. Thrombocytopenia. 5. Urinary tract infection. 6. Tachycardia. 7. History of chronic obstructive pulmonary disease. 8. Chronic kidney disease. 9. Bandemia, most likely due to the acute infection. 10. Elevated creatinine kinase level, possible early rhabdomyolysis. PLAN: Admit the patient to telemetry. Aggressive IV hydration. Broad-spectrum antibiotics with cefepime, Flagyl, and vancomycin. Follow up with the cultures. Dr. Rider from [facility] continued oxygenation with a Ventimask and we will monitor laboratory in the morning as well as culture. Psychiatry consultation with Dr. Hernandez. We will follow up with the Infectious Disease consultation. At this time, I will sign off because Dr. Lopez will be covering this patient as per request by the insurance company. Code status is Full Code. DVT prophylaxis with heparin subcutaneous. Billy Elam M.D. DR: JOHN JOB#: [id number] CC:
[2016-09-27] VITALS (7 sets, daily range): BP systolic 112–156; BP diastolic 74–97
[2016-09-27] MEDS: Vancomycin 1 GM in D5W 275 ML IVPB SCH (01:26)
--- NOTE | 2016-09-27 03:15 | Consultation ---
DATE OF CONSULTATION: 09/26/2016 INFECTIOUS DISEASES CONSULTATION Covering for Dr. Razo. CONSULTING PHYSICIAN: Wade Motley M.D. REQUESTING PHYSICIAN: Carrol Rider M.D. REASON FOR CONSULTATION: Fever, sepsis, and possible pneumonia. HISTORY OF PRESENT ILLNESS: The patient is a 65-year-old male, with a history of COPD and bipolar disease, who was brought to the emergency room last night for two to three days of subjective fevers, weakness, and shakiness. The patient complains of a dry nonproductive cough and a subjective sensation of feeling cold. The patient denies any dysuria, increased urinary frequency, or diarrhea. He denies any nausea or vomiting and denies any abdominal pain. The patient has had very poor p.o. intake in the last few days. Upon admission to the hospital, he had a single-view chest x-ray, which demonstrated prominent interstitium of the lungs and increased pulmonary vascularity, but no obvious infiltrate and no effusion. His laboratory upon admission were notable for a leukocytosis of 20 with a left shift, and that leukocytosis has now increased this morning to 24.9. He also had anemia with a hemoglobin of 12.9 and a decreased platelet count of 110,000, with no baseline prior for comparison. His chemistry panel was remarkable for a lactic acidosis with a serum bicarbonate level of 15 and initial serum lactate level of 4.9, which decreased to 4.1 at two hours after initial presentation. He also was noted to have a mild elevation in his AST at 52, but a normal ALT and normal bilirubin and a normal alkaline phosphatase. He has a mild hypoalbuminemia of 3 and his creatinine kinase was elevated at 1077. A rapid HIV screening test was negative. He also had a urinalysis that was positive for leukocyte esterases and positive for nitrites. Urinalysis also had a few bacteria and a small pyuria with 10 to 15 white blood cells. Urine and blood cultures were sent and are still pending or no growth to date less than 24 hours. PAST MEDICAL HISTORY: COPD and bipolar affective disorder. HOME MEDICATIONS: Amantadine, amitriptyline, and lithium. HOSPITAL MEDICATIONS: Cefepime, vancomycin, lithium, amitriptyline, subcutaneous heparin for DVT prophylaxis, and p.r.n. medications including as-needed Tylenol and albuterol with ipratropium nebulizer treatment. ALLERGIES: No known drug allergies. SOCIAL HISTORY: None reported. REVIEW OF SYSTEMS: A 11-point review of systems negative other than described as above. PHYSICAL EXAMINATION: GENERAL: The patient is in no distress. VITAL SIGNS: Temperature of 98.2 degrees Fahrenheit with a temperature maximum of 103.7 degrees Fahrenheit, blood pressure is 130/70, heart rate is 108 and regular, respiratory rate is 20, and the patient is saturating on 93% wearing a simple oxygen face mask with a 10-liter per minute oxygen flow rate. HEENT: Oral mucosa dry with poor dental hygiene. Sclerae anicteric. No conjunctival injection. HEART: He has a tachycardic rate. No murmurs. No S3 or S4. PULMONARY: Faint rhonchi diffusely. No dullness to percussion. ABDOMEN: Soft, nontender, and nondistended. EXTREMITIES: Cachectic. There is no edema. SKIN: No rash. LABORATORY DATA: Reviewed. As above. RADIOLOGY: Reviewed. As above in the HPI. ASSESSMENT: The patient is a 65-year-old male, admitted for fevers, severe leukocytosis, and lactic acidosis with history and exam suggestive of pneumonia, but chest x-ray on admission without infiltrate. He has no evidence of urinary tract infection at this time and I suspect up on continued intravenous fluid resuscitation once his dehydration is resolved, will be able to see an infiltrate. If he does not show clinical improvement over the next 24 hours with resolution of fevers and improvement in lactic acidosis despite empiric antibiotics and volume resuscitation, we would need to consider alternative imaging including a CT scan of his abdomen and pelvis to exclude alternative etiologies for his fevers and leukocytosis. DIAGNOSES: 1. Probable pneumonia. 2. Fevers. 3. Leukocytosis. 4. Lactic acidosis. PLAN: 1. Continue empiric intravenous cefepime and intravenous vancomycin, dose per pharmacy. 2. Monitor blood and urine cultures, which are pending. 3. Continue volume resuscitation. 4. Recheck serum lactate now to document improvement. 5. threshold. 6. CT abdomen and pelvis if no clinical improvement. Thank you for this consult, please contact me with any questions. Phone number is . Wade Motley MD DR: WES JOB#: [id number] CC:
--- NOTE | 2016-09-27 08:32 | Diagnostic Imaging Report ---
Indications: DYSPNEA Technique: Portable AP chest Findings: Comparison: 09/25/16 Inspiratory effort has improved. Diffuse bilateral interstitial infiltrates persist, mildly increased. Cardiac silhouette remains upper limits of normal in size. Pulmonary vascular redistribution persists. No pleural abnormality demonstrated. IMPRESSION: Apparent worsening of bilateral congestive changes. Underlying chronic interstitial disease not excludable.
[2016-09-27 09:00] LABS: MEAN CORPUSCULAR HEMOGLOBIN 30.1 PG (27.0-31.0); MEAN CORPUSCULAR HGB CONC 32.6 G/DL (32.0-36.0); MEAN CORPUSCULAR VOLUME 92 FL (80-99); PLATELET COUNT 75 K/UL (150-450); RED BLOOD COUNT 4.04 M/UL (4.70-6.10); RED CELL DISTRIBUTION WIDTH 13.1 % (11.6-14.8)
[2016-09-27] MEDS: Cefepime HCl 2 GM in D5W 110 ML IV SCH (09:00)
[2016-09-27] MEDS: Heparin 5000 units/ml inj SUBQ SCH ×2 (09:00→21:00)
[2016-09-27] MEDS ORDERED: Tubing IV Secondary IV ONE (09:03)
[2016-09-27 09:06] LABS: ALBUMIN/GLOBULIN RATIO 0.8 (1.0-2.7); CALCIUM 9.3 mg/dL (8.6-10.2); CREATININE 2.1 mg/dL (0.7-1.2); GLOMERULAR FILTRATION RATE 31.7 mL/min (>60); POTASSIUM 4.6 mEQ/L (3.4-4.9); TOTAL PROTEIN 6.3 g/dL (6.6-8.7)
--- NOTE | 2016-09-27 09:06 | Diagnostic Imaging Report ---
Indications: Elevated renal function tests Technique: Transabdominal real-time grayscale and duplex Doppler imaging of the kidneys, retroperitoneum, and urinary bladder was performed Findings: Comparison: None Right kidney measures 13.4 cm in length. Normal contour, echotexture, cortical thickness. No stones, other focal lesions, hydronephrosis, or obvious perinephric abnormalities. Left kidney measures 12.3 cm in length. Normal contour, echotexture, cortical thickness. No stones, other focal lesions, hydronephrosis, or obvious perinephric abnormalities. The intrahepatic portion of inferior vena cava is patent and normal caliber. The urinary bladder is distended, estimated volume 769 mL. Prostate estimated volume 20 mL.. IMPRESSION: Sonographically unremarkable kidneys Distended urinary bladder. Query outlet obstruction.
[2016-09-27 09:10] LABS: WHITE BLOOD COUNT 24.7 K/UL (4.8-10.8)
[2016-09-27 10:38] LABS: BAND NEUTROPHILS % (MANUAL) 5 % (0-8); BASOPHILS % (MANUAL) 0 % (0-2); EOSINOPHILS % (MANUAL) 0 % (0-3); LYMPHOCYTES % (MANUAL) 2 % (20-45); NEUTROPHILS % (MANUAL) 92 % (45-75); PLATELET ESTIMATE DECREASED; PLATELET MORPHOLOGY NORMAL
[2016-09-27 10:48] LABS: TOTAL CELLS COUNTED 100
--- NOTE | 2016-09-27 11:57 | Infectious Diseases Prog Note ---
Assessment/Plan Assessment/Plan 65-year-old AAM with Gram negative bacteremia of unknown, possibly urine, cannot r/o occult intraabdominal source. Initially admitted for fevers, severe leukocytosis, GASTON and lactic acidosis with history and exam suggestive of pneumonia, but chest x-ray on admission without infiltrate, and repeat CXR now with subtly worsening interstitium and increased venous congestion along with markedly elevated BNP blood cx from 7/6 PM now growing 4 of 4 bottle gram negative rods, and his u/a on admission w/o overt pyuria and scant 10k cfu of GNR. He has now defervesced , serum lactate downtrending, hemodynamically stable now, but still with profound leukocytosis, so although some clinical improvement until we can r/o intraabominal source, will change cefepime to zosyn renally dosed to provide empiric anaerobic coverage as well. his LFTs are only mildly abnormal, so i think cholecystitis or other biliary source unlikely, and he's not known to have cirrhosis but in the setting of his GASTON will obtain abd u/s now to r/o cirrhosis, acute biliary disease, or ascites. renal u/s suggested a fairly distended, so with scant GNR in his urine prostatitis is still possible, in which case might expect acutely elevated PSA d/t inflammation. DIAGNOSES: Gram negative sepsis and bacteremia, high grade Probable pneumonia. Fevers, resolved Leukocytosis, severe, persistent Lactic acidosis PLAN: continue empiric IV vancomcyin day #2 d/c cefepime, s/p #2 days, start renally dosed zosyn 3.375gm IV q12hr, first dose now monitor blood and urine cx identification and sensi of GNR abdominal u/s surveillance blood cx x2sets now PSA Subjective Constitutional: Reports: no symptoms Gastrointestinal/Abdominal: Reports: no symptoms Skin: Reports: no symptoms Allergies: Coded Allergies: No Known Allergies (Unverified , 09/22/14) Objective Vital Signs Last 24 Hour Vital Signs Date Time Temp Pulse Resp B/P Pulse Ox O2 Delivery O2 Flow Rate FiO2 09/27/16 08:10 Venturi Mask 14.0 55 09/27/16 08:10 95 Venturi Mask 14.0 55 09/27/16 08:08 102 22 Venturi Mask 14.0 55 09/27/16 08:00 96 09/27/16 07:52 97.7 93 20 139/83 95 Simple Mask 3.0 09/27/16 04:00 98.1 104 20 112/74 94 Venturi Mask 14.0 55 09/27/16 04:00 99 09/27/16 00:00 104 09/27/16 00:00 98.1 107 20 132/81 94 Venturi Mask 14.0 55 09/26/16 20:00 108 09/26/16 20:00 98.1 108 20 132/83 94 Venturi Mask 14.0 55 09/26/16 19:20 Venturi Mask 14.0 55 09/26/16 19:20 94 Venturi Mask 14.0 55 09/26/16 19:20 110 20 Venturi Mask 14.0 55 09/26/16 16:24 98.1 106 21 136/88 97 Simple Mask 10.0 106 09/26/16 16:00 114 09/26/16 12:00 109 09/26/16 11:57 98.2 108 20 130/70 93 Simple Mask 10.0 108 Height (Feet): 6 Height (Inches): 1.00 Weight (Pounds): 155 General Appearance: no acute distress HEENT: anicteric Respiratory/Chest: rhonchi - bilaterally Cardiovascular: normal rate, regular rhythm Abdomen: soft, non tender, hyperactive bowel sounds, distended Genitourinary: normal external genitalia Extremities: no clubbing, other - clubbing Skin: no rash Microbiology Date/Time Source Procedure Growth Status 09/25/16 21:20 Blood Blood Culture - Preliminary Gram Negative Eliud Resulted 09/25/16 21:00 Blood Blood Culture - Preliminary Gram Negative Eliud Resulted 09/26/16 11:10 Urine,Clean Catch Urine Culture - Preliminary Gram Negative Eliud Resulted Laboratory Tests Test 09/26/16 17:20 09/27/16 07:50 Lactic Acid Level 2.90 mmol/L (0.66-2.22) H White Blood Count 24.7 K/UL (4.8-10.8) *H Red Blood Count 4.04 M/UL (4.70-6.10) L Hemoglobin 12.1 G/DL (14.2-18.0) L Hematocrit 37.3 % (42.0-52.0) L Mean Corpuscular Volume 92 FL (80-99) Mean Corpuscular Hemoglobin 30.1 PG (27.0-31.0) Mean Corpuscular Hemoglobin Concent 32.6 G/DL (32.0-36.0) Red Cell Distribution Width 13.1 % (11.6-14.8) Platelet Count 75 K/UL (150-450) L Mean Platelet Volume 8.0 FL (6.5-10.1) Neutrophils (%) (Auto) % (45.0-75.0) Lymphocytes (%) (Auto) % (20.0-45.0) Monocytes (%) (Auto) % (1.0-10.0) Eosinophils (%) (Auto) % (0.0-3.0) Basophils (%) (Auto) % (0.0-2.0) Differential Total Cells Counted 100 Neutrophils % (Manual) 92 % (45-75) H Lymphocytes % (Manual) 2 % (20-45) L Monocytes % (Manual) 1 % (1-10) Eosinophils % (Manual) 0 % (0-3) Basophils % (Manual) 0 % (0-2) Band Neutrophils 5 % (0-8) Platelet Estimate Decreased L Platelet Morphology Normal Red Blood Cell Morphology Normal Sodium Level 148 mEQ/L (135-145) H Potassium Level 4.6 mEQ/L (3.4-4.9) Chloride Level 118 mEQ/L (98-107) H Carbon Dioxide Level 17 mEQ/L (20-30) L Anion Gap 13 (5-15) Blood Urea Nitrogen 34 mg/dL (7-23) H Creatinine 2.1 mg/dL (0.7-1.2) H Estimat Glomerular Filtration Rate 31.7 mL/min (>60) Glucose Level 130 mg/dL (74-106) H Calcium Level 9.3 mg/dL (8.6-10.2) Total Bilirubin 0.6 mg/dL (0.0-1.2) Aspartate Amino Transf (AST/SGOT) 44 U/L (5-40) H Alanine Aminotransferase (ALT/SGPT) 19 U/L (3-41) Alkaline Phosphatase 66 U/L (40-129) Pro-B-Type Natriuretic Peptide 54267 pg/mL (0-125) H Total Protein 6.3 g/dL (6.6-8.7) L Albumin 2.8 g/dL (3.5-5.2) L Globulin 3.5 g/dL Albumin/Globulin Ratio 0.8 (1.0-2.7) L Current Medications Medications (Trade) Dose Ordered Sig/Ramiro Route PRN Reason Start Time Stop Time Status Last Admin Dose Admin Acetaminophen (Tylenol) 650 mg Q4H PRN ORAL fever 09/25/16 23:15 10/25/16 23:14 Albuterol/ Ipratropium 3 ml 3 ml Q4H PRN HHN Shortness of Breath 09/25/16 23:15 09/30/16 23:14 09/26/16 00:18 Amitriptyline HCl (Elavil) 150 mg BEDTIME ORAL 09/26/16 21:00 10/26/16 20:59 09/26/16 20:43 Clonidine HCl (Catapres) 0.1 mg Q4H PRN ORAL For High Blood Pressure 09/25/16 23:30 10/25/16 23:29 Dextrose (Dextrose 50%) STAT PRN IV Hypoglycemia 09/25/16 23:15 10/25/16 23:14 Heparin Sodium (Porcine) (Heparin 5000 units/ml) 5,000 units EVERY 12 HOURS SUBQ 09/26/16 09:00 10/26/16 08:59 [place] Carbonate 900 mg 900 mg BEDTIME ORAL 09/26/16 21:00 10/26/16 20:59 09/26/16 20:43 Morphine Sulfate (Morphine Sulfate) 2 mg Q4H PRN IVP Moderate Pain (Pain Scale 4-6) 09/25/16 23:15 10/02/16 23:14 Nitroglycerin (Ntg) 0.4 mg Every 5 Minutes PRN SL Prn Chest Pain 09/25/16 23:15 10/25/16 23:14 Ondansetron HCl (Zofran) 4 mg Q6H PRN IVP Nausea & Vomiting 09/25/16 23:15 10/25/16 23:14 Piperacillin Sod/ Tazobactam Sod/ Dextrose (Zosyn/D5W) 110 ml @ 27.5 mls/hr EVERY 12 HOURS IVPB 09/27/16 12:00 10/07/16 11:59 UNV Polyethylene Glycol (Miralax) 17 gm DAILYPRN PRN ORAL Constipation 09/25/16 23:15 10/25/16 23:14 Temazepam (Restoril) 15 mg HSPRN PRN ORAL Insomnia 09/25/16 23:15 10/02/16 23:14 Vancomycin HCl (Rx Monitoring Vancomycin) 1 ea DAILY PRN MISC PER PROTOCOL 09/26/16 00:15 10/26/16 00:14 Vancomycin HCl/ Dextrose (Vancomycin/D5W) 275 ml @ 183.3 mls/ hr Q24H IVPB 09/26/16 01:00 10/01/16 00:59 09/27/16 01:26 Wade Motley M.D. Sep 27, 2016 11:57
[2016-09-27] MEDS: Piperacillin/Tazobactam 3.375 GM in D5W 110 ML IVPB SCH ×2 (13:00→21:29)
[2016-09-27] MEDS: Amitriptyline 100mg tab ORAL SCH (21:29)
--- NOTE | 2016-09-28 00:09 | General Progress Note ---
Assessment/Plan Status: doing well, stable Subjective Date patient seen: Sep 27, 2016 Neurologic/Psychiatric: Reports: anxiety, depressed, emotional problems Allergies: Coded Allergies: No Known Allergies (Unverified , 09/22/14) All Systems: reviewed and negative except above Objective Last 24 Hour Vital Signs Date Time Temp Pulse Resp B/P Pulse Ox O2 Delivery O2 Flow Rate FiO2 09/27/16 20:18 104 09/27/16 20:00 99.1 106 24 154/89 91 Venturi Mask 09/27/16 15:37 101 09/27/16 15:31 98.7 101 21 156/97 92 Simple Mask 15.0 09/27/16 12:00 101 09/27/16 11:55 98.1 92 20 131/89 96 Nasal Cannula 3.0 09/27/16 08:10 Venturi Mask 14.0 55 09/27/16 08:10 95 Venturi Mask 14.0 55 09/27/16 08:08 102 22 Venturi Mask 14.0 55 09/27/16 08:00 96 09/27/16 07:52 97.7 93 20 139/83 95 Simple Mask 3.0 09/27/16 04:00 98.1 104 20 112/74 94 Venturi Mask 14.0 55 09/27/16 04:00 99 Intake and Output 09/27/16 09/28/16 19:00 07:00 Intake Total 460 ml Output Total 2200 ml 1500 ml Balance -1740 ml -1500 ml Intake Oral 460 ml Output Urine Total 2200 ml 1000 ml Emesis 500 ml # Voids 3 1 # Bowel Movements 1 Laboratory Tests 09/27/16 07:50: White Blood Count 24.7*H, Red Blood Count 4.04L, Hemoglobin 12.1L, Hematocrit 37.3L, Mean Corpuscular Volume 92, Mean Corpuscular Hemoglobin 30.1, Mean Corpuscular Hemoglobin Concent 32.6, Red Cell Distribution Width 13.1, Platelet Count 75L, Mean Platelet Volume 8.0, Neutrophils (%) (Auto) , Lymphocytes (%) ( Auto) , Monocytes (%) (Auto) , Eosinophils (%) (Auto) , Basophils (%) (Auto) , Differential Total Cells Counted 100, Neutrophils % (Manual) 92H, Lymphocytes % (Manual) 2L, Monocytes % (Manual) 1, Eosinophils % (Manual) 0, Basophils % ( Manual) 0, Band Neutrophils 5, Platelet Estimate DecreasedL, Platelet Morphology Normal, Red Blood Cell Morphology Normal, Sodium Level 148H, Potassium Level 4.6, Chloride Level 118H, Carbon Dioxide Level 17L, Anion Gap 13 , Blood Urea Nitrogen 34H, Creatinine 2.1H, Estimat Glomerular Filtration Rate 31.7, Glucose Level 130H, Calcium Level 9.3, Total Bilirubin 0.6, Aspartate Amino Transf (AST/SGOT) 44H, Alanine Aminotransferase (ALT/SGPT) 19, Alkaline Phosphatase 66, Pro-B-Type Natriuretic Peptide 66092E, Total Protein 6.3L, Albumin 2.8L, Globulin 3.5, Albumin/Globulin Ratio 0.8L 09/27/16 12:35: Prostate Specific Antigen 2.1 Height (Feet): 6 Height (Inches): 1.00 Weight (Pounds): 155 General Appearance: no apparent distress, alert, thin Neurologic: alert, oriented x 3, responsive, depressed affect Elda Hernandez M.D. Sep 28, 2016 00:09
[2016-09-28 00:13] VITALS: BP 139/91
--- NOTE | 2016-09-28 00:15 | Consultation ---
DATE OF CONSULTATION: INTERNAL MEDICINE/PULMONARY CONSULTATION HISTORY OF PRESENT ILLNESS: This is a 65-year-old male with schizophrenia and COPD, who was brought to the hospital with shortness of breath as well as fevers. He was found to have marked leukocytosis. He was admitted to the hospital by Dr. Elam due to insurance being verified, his care is to myself. PAST MEDICAL HISTORY: Schizoaffective disorder and COPD. MEDICATIONS: Home medications, amantadine, amitriptyline, and lithium. ALLERGIES: None. SOCIAL HISTORY: He has a history of tobacco use. No substance abuse. REVIEW OF SYSTEMS: The patient at this time denies any shortness of breath or cough, urinary symptoms, or abdominal pain. PHYSICAL EXAMINATION: GENERAL: Reveals a 65-year-old male. HEENT: Unremarkable. LUNGS: Clear breath sounds bilaterally. ABDOMEN: Soft. EXTREMITIES: There is no edema. NEUROLOGIC: Nonfocal. LABORATORY AND DIAGNOSTIC DATA: Lab testing shows sodium of 148 and creatinine 2.1. ProBNP 15,291. Albumin is 2.8. White count 24.7, hemoglobin 12.1, and platelet count 25,000. Urinalysis is negative except 10 to 15 WBCs. HIV test is negative. Imaging studies, x-ray of the chest has been obtained, which shows chronic interstitial lung disease. IMPRESSION: 1. Leukocytosis. 2. Hypernatremia. 3. Renal dysfunction. 4. Schizoaffective disorder. 5. Possible pneumonia. 6. Questionable urinary tract infection. DISCUSSION: I agree with present medications. The patient has been seen by Infectious Diseases specialist as well and has been resumed on Zosyn, , Elavil, lithium, subcutaneous heparin, vancomycin, clonidine, breathing treatments, Tylenol, and morphine. We will consult Nephrology. Continue medications. We will follow as inbound sales representative and justice court deputy clerk. Rahul Lopez M.D. DR: ELIAZAR JOB#: [id number] CC:
[2016-09-28] MEDS: Vancomycin 1 GM in D5W 275 ML IVPB SCH (01:30)
[2016-09-28 04:00] VITALS: BP 145/90
[2016-09-28] MEDS: Piperacillin/Tazobactam 3.375 GM in D5W 110 ML IVPB SCH ×3 (05:27→21:29)
[2016-09-28 05:55] LABS: ABG BASE EXCESS -2.5
[2016-09-28 05:56] LABS: ABG ALLEN TEST POSITIVE
[2016-09-28 07:55] VITALS: BP 139/97
[2016-09-28 08:16] LABS: MEAN CORPUSCULAR HEMOGLOBIN 29.7 PG (27.0-31.0); MEAN CORPUSCULAR VOLUME 93 FL (80-99); MEAN PLATELET VOLUME 8.9 FL (6.5-10.1); PLATELET COUNT 82 K/UL (150-450); RED BLOOD COUNT 3.95 M/UL (4.70-6.10); RED CELL DISTRIBUTION WIDTH 13.6 % (11.6-14.8)
[2016-09-28 08:17] LABS: CALCIUM 9.8 mg/dL (8.6-10.2); GLOMERULAR FILTRATION RATE 33.5 mL/min (>60); POTASSIUM 4.2 mEQ/L (3.4-4.9)
[2016-09-28 08:26] LABS: WHITE BLOOD COUNT 24.4 K/UL (4.8-10.8)
[2016-09-28] MEDS: Heparin 5000 units/ml inj SUBQ SCH ×2 (09:00→21:00)
[2016-09-28 09:04] LABS: BAND NEUTROPHILS % (MANUAL) 2 % (0-8); BASOPHILS % (MANUAL) 0 % (0-2); EOSINOPHILS % (MANUAL) 0 % (0-3); LYMPHOCYTES % (MANUAL) 4 % (20-45); NEUTROPHILS % (MANUAL) 87 % (45-75); PLATELET ESTIMATE DECREASED; TOTAL CELLS COUNTED 100
[2016-09-28 09:05] LABS: ANISOCYTOSIS 1+; PLATELET MORPHOLOGY NORMAL
--- NOTE | 2016-09-28 09:51 | Pulmonology Progress Note ---
Assessment/Plan Assessment/Plan 1. Leukocytosis. Persistent 2. Hypernatremia. 3. Renal dysfunction. 4. Schizoaffective disorder. 5. Possible pneumonia. 6. Questionable urinary tract infection. DISCUSSION: I agree with present medications. The patient has been seen by Infectious Diseases specialist as well and has been resumed on Zosyn, , Elavil, lithium, subcutaneous heparin, vancomycin, clonidine, breathing treatments, Tylenol, and morphine. Will order CT chest ABG adequate Subjective Interval Events: Tachypnic this AM Constitutional: Reports: no symptoms HEENT: Repors: no symptoms Respiratory: Reports: no symptoms Cardiovascular: Reports: no symptoms Gastrointestinal/Abdominal: Reports: no symptoms Allergies: Coded Allergies: No Known Allergies (Unverified , 09/22/14) Objective Last 24 Hour Vital Signs Date Time Temp Pulse Resp B/P Pulse Ox O2 Delivery O2 Flow Rate FiO2 09/28/16 08:09 96 Venturi Mask 14.0 55 09/28/16 08:09 Venturi Mask 14.0 55 09/28/16 08:09 101 20 Venturi Mask 14.0 55 09/28/16 07:55 97.5 105 20 139/97 Simple Mask 09/28/16 04:29 110 09/28/16 04:00 97.7 115 24 145/90 92 Venturi Mask 15.0 55 09/28/16 00:13 98.4 110 22 139/91 95 Venturi Mask 15.0 55 09/28/16 00:00 111 09/27/16 20:30 97.3 108 22 155/91 93 Venturi Mask 15.0 55 09/27/16 20:18 104 09/27/16 20:00 99.1 106 24 154/89 91 Venturi Mask 09/27/16 15:37 101 09/27/16 15:31 98.7 101 21 156/97 92 Simple Mask 15.0 09/27/16 12:00 101 09/27/16 11:55 98.1 92 20 131/89 96 Nasal Cannula 3.0 Intake and Output 09/27/16 09/28/16 19:00 07:00 Intake Total 460 ml Output Total 2200 ml 3200 ml Balance -1740 ml -3200 ml Intake Oral 460 ml Output Urine Total 2200 ml 2700 ml Emesis 500 ml # Voids 3 1 # Bowel Movements 1 General Appearance: no acute distress HEENT: normocephalic Respiratory/Chest: chest wall non-tender, decreased breath sounds Cardiovascular: normal peripheral pulses, normal rate Abdomen: normal bowel sounds Microbiology Date/Time Source Procedure Growth Status 09/25/16 21:20 Blood Blood Culture - Preliminary Gram Negative Eliud Resulted 09/25/16 21:00 Blood Blood Culture - Preliminary Gram Negative Eliud Resulted 09/26/16 11:10 Urine,Clean Catch Urine Culture - Preliminary Gram Negative Eliud Resulted Laboratory Tests 09/27/16 12:35: Prostate Specific Antigen 2.1 09/28/16 00:31: Vancomycin Level Trough 7.3 09/28/16 05:46: Arterial Blood pH 7.443, Arterial Blood Partial Pressure CO2 31.0L, Arterial Blood Partial Pressure O2 < 64.0L, Arterial Blood HCO3 20.7L, Arterial Blood Oxygen Saturation 87.6L, Arterial Blood Base Excess -2.5, Jace Test Positive 09/28/16 06:55: White Blood Count 24.4*H, Red Blood Count 3.95L, Hemoglobin 11.7L, Hematocrit 36.7L, Mean Corpuscular Volume 93, Mean Corpuscular Hemoglobin 29.7, Mean Corpuscular Hemoglobin Concent 32.0, Red Cell Distribution Width 13.6, Platelet Count 82L, Mean Platelet Volume 8.9, Neutrophils (%) (Auto) , Lymphocytes (%) ( Auto) , Monocytes (%) (Auto) , Eosinophils (%) (Auto) , Basophils (%) (Auto) , Differential Total Cells Counted 100, Neutrophils % (Manual) 87H, Lymphocytes % (Manual) 4L, Monocytes % (Manual) 7, Eosinophils % (Manual) 0, Basophils % ( Manual) 0, Band Neutrophils 2, Platelet Estimate DecreasedL, Platelet Morphology Normal, Anisocytosis 1+, Sodium Level 146H, Potassium Level 4.2, Chloride Level 115H, Carbon Dioxide Level 17L, Anion Gap 14, Blood Urea Nitrogen 35H, Creatinine 2.0H, Estimat Glomerular Filtration Rate 33.5, Glucose Level 138H, Calcium Level 9.8, Pro-B-Type Natriuretic Peptide [id number] Current Medications Medications (Trade) Dose Ordered Sig/Ramiro Route PRN Reason Start Time Stop Time Status Last Admin Dose Admin Acetaminophen (Tylenol) 650 mg Q4H PRN ORAL fever 09/25/16 23:15 10/25/16 23:14 Albuterol/ Ipratropium 3 ml 3 ml Q4H PRN HHN Shortness of Breath 09/25/16 23:15 09/30/16 23:14 09/26/16 00:18 Amitriptyline HCl (Elavil) 150 mg BEDTIME ORAL 09/26/16 21:00 10/26/16 20:59 09/27/16 21:29 Clonidine HCl (Catapres) 0.1 mg Q4H PRN ORAL For High Blood Pressure 09/25/16 23:30 10/25/16 23:29 Dextrose (Dextrose 50%) STAT PRN IV Hypoglycemia 09/25/16 23:15 10/25/16 23:14 Heparin Sodium (Porcine) (Heparin 5000 units/ml) 5,000 units EVERY 12 HOURS SUBQ 09/26/16 09:00 10/26/16 08:59 [place] Carbonate 900 mg 900 mg BEDTIME ORAL 09/26/16 21:00 10/26/16 20:59 09/27/16 21:29 Morphine Sulfate (Morphine Sulfate) 2 mg Q4H PRN IVP Moderate Pain (Pain Scale 4-6) 09/25/16 23:15 10/02/16 23:14 Nitroglycerin (Ntg) 0.4 mg Every 5 Minutes PRN SL Prn Chest Pain 09/25/16 23:15 10/25/16 23:14 Ondansetron HCl (Zofran) 4 mg Q6H PRN IVP Nausea & Vomiting 09/25/16 23:15 10/25/16 23:14 Piperacillin Sod/ Tazobactam Sod/ Dextrose (Zosyn/D5W) 110 ml @ 27.5 mls/hr Q8HR@0500,1300,2100 IVPB 09/27/16 13:00 10/04/16 12:59 09/28/16 05:27 Polyethylene Glycol (Miralax) 17 gm DAILYPRN PRN ORAL Constipation 09/25/16 23:15 10/25/16 23:14 Temazepam (Restoril) 15 mg HSPRN PRN ORAL Insomnia 09/25/16 23:15 10/02/16 23:14 Vancomycin HCl (Rx Monitoring Vancomycin) 1 ea DAILY PRN MISC PER PROTOCOL 09/26/16 00:15 10/26/16 00:14 Vancomycin HCl/ Dextrose (Vancomycin/D5W) 275 ml @ 183.3 mls/ hr Q24H IVPB 09/26/16 01:00 10/01/16 00:59 09/28/16 01:30 Rahul Lopez MD Sep 28, 2016 09:51
[2016-09-28 12:11] VITALS: BP 148/94
[2016-09-28] MEDS: DuoNeb 0.5-3(2.5)mg/3ml neb HHN PRN (12:17)
[2016-09-28 16:00] VITALS: BP 149/98
--- NOTE | 2016-09-28 16:06 | Infectious Diseases Prog Note ---
Assessment/Plan Assessment/Plan 65-year-old AAM with Gram negative bacteremia of unknown origin, with ucx now negative except for scant diphtheroids which I consider a contaminant. Although he has defervesced, with his persistent leukocytosis despite empiric zosyn, normal PSA, bland urine, I am increasingly concerned for occult intraabominal abscess as soruce. Now with worsening pulmonary status with evidence of pulmonary edema. his LFTs are only mildly abnormal, so i think cholecystitis or other biliary source unlikely, and he's not known to have cirrhosis but in the setting of his GASTON will obtain abd u/s now to r/o cirrhosis , acute biliary disease, or ascites. Would prefer to get CT a/p with contrast, but given his acute GASTON, I think the abd u/s is preferred to start with. If that is non diagnostic and leukocytosis persists despite appropriate antibiotics , would then recommend CT a/p with IV contrast. DIAGNOSES: Gram negative sepsis and bacteremia, high grade Probable pneumonia. Fevers, resolved Leukocytosis, severe, persistent Lactic acidosis, improving PLAN: continue IV zosyn day #3 d/c IV vancomcyin as no gram positive identified. further abx recs pending identification and sensitivies of GNR abdominal u/s monitor surveillance blood cx x2sets sent 09/27 Subjective Constitutional: Reports: no symptoms Respiratory: Reports: shortness of breath Allergies: Coded Allergies: No Known Allergies (Unverified , 09/22/14) Objective Vital Signs Last 24 Hour Vital Signs Date Time Temp Pulse Resp B/P Pulse Ox O2 Delivery O2 Flow Rate FiO2 09/28/16 12:23 115 24 90 Non-Rebreather 15.0 100 09/28/16 12:20 114 24 91 Non-Rebreather 15.0 100 09/28/16 12:12 175/99 09/28/16 12:11 98.2 108 22 148/94 91 09/28/16 12:00 128 09/28/16 08:09 96 Venturi Mask 14.0 55 09/28/16 08:09 Venturi Mask 14.0 55 09/28/16 08:09 101 20 Venturi Mask 14.0 55 09/28/16 08:00 109 09/28/16 07:55 97.5 105 20 139/97 Simple Mask 09/28/16 04:29 110 09/28/16 04:00 97.7 115 24 145/90 92 Venturi Mask 15.0 55 09/28/16 00:13 98.4 110 22 139/91 95 Venturi Mask 15.0 55 09/28/16 00:00 111 09/27/16 20:30 97.3 108 22 155/91 93 Venturi Mask 15.0 55 09/27/16 20:18 104 09/27/16 20:00 99.1 106 24 154/89 91 Venturi Mask Height (Feet): 6 Height (Inches): 1.00 Weight (Pounds): 155 General Appearance: other - increased work of breathing, tachypneic, face mask with high flow O2. HEENT: other - + JVD Respiratory/Chest: crackles/rales, rhonchi - bilaterally Cardiovascular: tachycardia Abdomen: soft, non tender, hypoactive bowel sounds Extremities: no cyanosis, no edema Skin: no rash Microbiology Date/Time Source Procedure Growth Status 09/25/16 21:20 Blood Blood Culture - Preliminary Gram Negative Eliud Resulted 09/25/16 21:00 Blood Blood Culture - Preliminary Gram Negative Eliud Resulted 09/26/16 11:10 Urine,Clean Catch Urine Culture - Final Diphtheroids Complete Laboratory Tests Test 09/28/16 00:31 09/28/16 05:46 09/28/16 06:55 Vancomycin Level Trough 7.3 ug/mL (5.0-12.0) Arterial Blood pH 7.443 (7.350-7.450) Arterial Blood Partial Pressure CO2 31.0 mmHg (35.0-45.0) L Arterial Blood Partial Pressure O2 < 64.0 mmHg (75.0-100.0) L Arterial Blood HCO3 20.7 mmol/L (22.0-26.0) L Arterial Blood Oxygen Saturation 87.6 % (92.0-98.0) L Arterial Blood Base Excess -2.5 Jace Test Positive White Blood Count 24.4 K/UL (4.8-10.8) *H Red Blood Count 3.95 M/UL (4.70-6.10) L Hemoglobin 11.7 G/DL (14.2-18.0) L Hematocrit 36.7 % (42.0-52.0) L Mean Corpuscular Volume 93 FL (80-99) Mean Corpuscular Hemoglobin 29.7 PG (27.0-31.0) Mean Corpuscular Hemoglobin Concent 32.0 G/DL (32.0-36.0) Red Cell Distribution Width 13.6 % (11.6-14.8) Platelet Count 82 K/UL (150-450) L Mean Platelet Volume 8.9 FL (6.5-10.1) Neutrophils (%) (Auto) % (45.0-75.0) Lymphocytes (%) (Auto) % (20.0-45.0) Monocytes (%) (Auto) % (1.0-10.0) Eosinophils (%) (Auto) % (0.0-3.0) Basophils (%) (Auto) % (0.0-2.0) Differential Total Cells Counted 100 Neutrophils % (Manual) 87 % (45-75) H Lymphocytes % (Manual) 4 % (20-45) L Monocytes % (Manual) 7 % (1-10) Eosinophils % (Manual) 0 % (0-3) Basophils % (Manual) 0 % (0-2) Band Neutrophils 2 % (0-8) Platelet Estimate Decreased L Platelet Morphology Normal Anisocytosis 1+ Sodium Level 146 mEQ/L (135-145) H Potassium Level 4.2 mEQ/L (3.4-4.9) Chloride Level 115 mEQ/L (98-107) H Carbon Dioxide Level 17 mEQ/L (20-30) L Anion Gap 14 (5-15) Blood Urea Nitrogen 35 mg/dL (7-23) H Creatinine 2.0 mg/dL (0.7-1.2) H Estimat Glomerular Filtration Rate 33.5 mL/min (>60) Glucose Level 138 mg/dL (74-106) H Calcium Level 9.8 mg/dL (8.6-10.2) Pro-B-Type Natriuretic Peptide 04486 pg/mL (0-125) H Current Medications Medications (Trade) Dose Ordered Sig/Ramiro Route PRN Reason Start Time Stop Time Status Last Admin Dose Admin Acetaminophen (Tylenol) 650 mg Q4H PRN ORAL fever 09/25/16 23:15 10/25/16 23:14 Albuterol/ Ipratropium 3 ml 3 ml Q4H PRN HHN Shortness of Breath 09/25/16 23:15 09/30/16 23:14 09/28/16 12:17 Amitriptyline HCl (Elavil) 150 mg BEDTIME ORAL 09/26/16 21:00 10/26/16 20:59 09/27/16 21:29 Clonidine HCl (Catapres) 0.1 mg Q4H PRN ORAL For High Blood Pressure 09/25/16 23:30 10/25/16 23:29 09/28/16 12:12 Dextrose (Dextrose 50%) STAT PRN IV Hypoglycemia 09/25/16 23:15 10/25/16 23:14 Heparin Sodium (Porcine) (Heparin 5000 units/ml) 5,000 units EVERY 12 HOURS SUBQ 09/26/16 09:00 10/26/16 08:59 [place] Carbonate 900 mg 900 mg BEDTIME ORAL 09/26/16 21:00 10/26/16 20:59 09/27/16 21:29 Morphine Sulfate (Morphine Sulfate) 2 mg Q4H PRN IVP Moderate Pain (Pain Scale 4-6) 09/25/16 23:15 10/02/16 23:14 Nitroglycerin (Ntg) 0.4 mg Every 5 Minutes PRN SL Prn Chest Pain 09/25/16 23:15 10/25/16 23:14 Ondansetron HCl (Zofran) 4 mg Q6H PRN IVP Nausea & Vomiting 09/25/16 23:15 10/25/16 23:14 Piperacillin Sod/ Tazobactam Sod/ Dextrose (Zosyn/D5W) 110 ml @ 27.5 mls/hr Q8HR@0500,1300,2100 IVPB 09/27/16 13:00 10/04/16 12:59 09/28/16 13:16 Polyethylene Glycol (Miralax) 17 gm DAILYPRN PRN ORAL Constipation 09/25/16 23:15 10/25/16 23:14 Temazepam (Restoril) 15 mg HSPRN PRN ORAL Insomnia 09/25/16 23:15 10/02/16 23:14 Vancomycin HCl (Rx Monitoring Vancomycin) 1 ea DAILY PRN MISC PER PROTOCOL 09/26/16 00:15 10/26/16 00:14 Vancomycin HCl/ Dextrose (Vancomycin/D5W) 275 ml @ 183.3 mls/ hr Q24H IVPB 09/26/16 01:00 10/01/16 00:59 09/28/16 01:30 Wade Motley M.D. Sep 28, 2016 16:06
--- NOTE | 2016-09-28 17:51 | Cardiology Report ---
APPROVED REPORT EKG Measurement Heart [id number] Sinus tachycardia with frequent premature ventricular complexes Left atrial enlargement Marked ST abnormality, possible inferior subendocardial injury Marked ST abnormality, possible anterolateral subendocardial injury Abnormal ECG
[2016-09-28 20:21] VITALS: BP 142/102
[2016-09-28] MEDS ORDERED: Haloperidol 5mg/ml Inj IM PRN (20:30)
[2016-09-28] MEDS: Amitriptyline 100mg tab ORAL SCH (21:00)
[2016-09-29] VITALS (10 sets, daily range): BP systolic 84–132; BP diastolic 46–95
[2016-09-29] MEDS: Piperacillin/Tazobactam 3.375 GM in D5W 110 ML IVPB SCH ×3 (05:03→21:10)
[2016-09-29 07:52] LABS: MEAN CORPUSCULAR HEMOGLOBIN 29.2 PG (27.0-31.0); MEAN CORPUSCULAR HGB CONC 31.2 G/DL (32.0-36.0); MEAN CORPUSCULAR VOLUME 94 FL (80-99); MEAN PLATELET VOLUME 9.8 FL (6.5-10.1); PLATELET COUNT 105 K/UL (150-450); RED BLOOD COUNT 4.46 M/UL (4.70-6.10); RED CELL DISTRIBUTION WIDTH 13.4 % (11.6-14.8); WHITE BLOOD COUNT 21.9 K/UL (4.8-10.8)
[2016-09-29 08:06] LABS: CALCIUM 10.4 mg/dL (8.6-10.2); CREATININE 2.5 mg/dL (0.7-1.2); GLOMERULAR FILTRATION RATE 25.9 mL/min (>60); POTASSIUM 4.4 mEQ/L (3.4-4.9)
[2016-09-29 08:37] LABS: LYMPHOCYTES % (MANUAL) 7 % (20-45); NEUTROPHILS % (MANUAL) 89 % (45-75); TOTAL CELLS COUNTED 100
[2016-09-29 08:38] LABS: BAND NEUTROPHILS % (MANUAL) 0 % (0-8); BASOPHILS % (MANUAL) 0 % (0-2); EOSINOPHILS % (MANUAL) 0 % (0-3); HYPOCHROMASIA 1+; PLATELET MORPHOLOGY NORMAL
[2016-09-29 08:39] LABS: PLATELET ESTIMATE DECREASED
[2016-09-29 08:50] LABS: ABG ALLEN TEST POSITIVE
[2016-09-29] MEDS: Heparin 5000 units/ml inj SUBQ SCH ×2 (09:00→21:13)
--- NOTE | 2016-09-29 11:58 | Cardiology Report ---
APPROVED REPORT EKG Measurement Heart [id number] Sinus rhythm with 1st degree AV block with occasional premature atrial complexes ST elevation, consider inferior injury or acute infarct Prolonged QT Consider right ventricular involvement in acute inferior infarct Abnormal ECG
--- NOTE | 2016-09-29 13:37 | Pulmonology Progress Note ---
Assessment/Plan Assessment/Plan 1. Leukocytosis. Persistent 2. Hypernatremia. 3. Renal dysfunction. 4. Schizoaffective disorder. 5. Possible pneumonia. 6. Questionable urinary tract infection. DISCUSSION: Will consult renal Will review CT chest Ct abx O2 Subjective Interval Events: Hypernatremic; renal fxn worse; ABG adequate Constitutional: Reports: fatigue HEENT: Repors: no symptoms Respiratory: Reports: shortness of breath Cardiovascular: Reports: no symptoms Gastrointestinal/Abdominal: Reports: no symptoms Allergies: Coded Allergies: No Known Allergies (Unverified , 09/22/14) Objective Last 24 Hour Vital Signs Date Time Temp Pulse Resp B/P Pulse Ox O2 Delivery O2 Flow Rate FiO2 09/29/16 12:32 97.9 57 24 118/66 93 Non-Rebreather 15.0 09/29/16 09:00 77 09/29/16 08:04 98.6 111 24 102/55 99 Non-Rebreather 15.0 09/29/16 07:54 98.6 73 24 93/55 98 Non-Rebreather 15.0 09/29/16 07:01 Non-Rebreather 15.0 100 09/29/16 07:01 100 Non-Rebreather 15.0 100 09/29/16 07:01 58 21 Non-Rebreather 15.0 100 09/29/16 04:00 97.7 82 24 132/52 99 Non-Rebreather 09/29/16 04:00 68 09/29/16 00:00 98.7 60 24 115/70 98 Non-Rebreather 09/29/16 00:00 57 09/28/16 20:21 99.1 111 28 142/102 97 Non-Rebreather 15.0 100 09/28/16 20:00 111 09/28/16 19:15 Non-Rebreather 15.0 100 09/28/16 19:15 95 20 Venturi Mask 14.0 55 09/28/16 19:15 96 Non-Rebreather 15.0 100 09/28/16 16:00 111 09/28/16 16:00 98.4 121 22 149/98 96 Intake and Output 09/28/16 09/29/16 19:00 07:00 Intake Total 110.0 ml Output Total 2850 ml 1500 ml Balance -2740.0 ml -1500 ml IV Total 110.0 ml Output Urine Total 2850 ml 1500 ml General Appearance: no acute distress HEENT: normocephalic Respiratory/Chest: chest wall non-tender, decreased breath sounds Cardiovascular: normal peripheral pulses, normal rate Abdomen: normal bowel sounds, soft, non tender Microbiology Date/Time Source Procedure Growth Status 09/27/16 12:35 Blood Blood Culture - Preliminary NO GROWTH AFTER 24 HOURS Resulted 09/27/16 12:00 Blood Blood Culture - Preliminary NO GROWTH AFTER 24 HOURS Resulted Laboratory Tests 09/29/16 07:00: White Blood Count 21.9H, Red Blood Count 4.46L, Hemoglobin 13.0L, Hematocrit 41.7L, Mean Corpuscular Volume 94, Mean Corpuscular Hemoglobin 29.2, Mean Corpuscular Hemoglobin Concent 31.2L, Red Cell Distribution Width 13.4, Platelet Count 105L, Mean Platelet Volume 9.8, Neutrophils (%) (Auto) , Lymphocytes (%) (Auto) , Monocytes (%) (Auto) , Eosinophils (%) (Auto) , Basophils (%) (Auto) , Differential Total Cells Counted 100, Neutrophils % ( Manual) 89H, Lymphocytes % (Manual) 7L, Monocytes % (Manual) 4, Eosinophils % ( Manual) 0, Basophils % (Manual) 0, Band Neutrophils 0, Platelet Estimate DecreasedL, Platelet Morphology Normal, Hypochromasia 1+, Sodium Level 159H, Potassium Level 4.4, Chloride Level 122H, Carbon Dioxide Level 20, Anion Gap 17H , Blood Urea Nitrogen 58H, Creatinine 2.5H, Estimat Glomerular Filtration Rate 25.9, Glucose Level 183H, Calcium Level 10.4H 09/29/16 08:29: Arterial Blood pH 7.385, Arterial Blood Partial Pressure CO2 35.7, Arterial Blood Partial Pressure O2 143.8H, Arterial Blood HCO3 20.9L, Arterial Blood Oxygen Saturation 98.3H, Arterial Blood Base Excess -3.5, Jace Test Positive Current Medications Medications (Trade) Dose Ordered Sig/Ramiro Route PRN Reason Start Time Stop Time Status Last Admin Dose Admin Acetaminophen (Tylenol) 650 mg Q4H PRN ORAL fever 09/25/16 23:15 10/25/16 23:14 Albuterol/ Ipratropium (DuoNeb 0.5-3(2.5)mg/3ml) 3 ml Q4H PRN HHN Shortness of Breath 09/25/16 23:15 09/30/16 23:14 09/28/16 12:17 Amitriptyline HCl (Elavil) 150 mg BEDTIME ORAL 09/26/16 21:00 10/26/16 20:59 09/27/16 21:29 Clonidine HCl (Catapres) 0.1 mg Q4H PRN ORAL For High Blood Pressure 09/25/16 23:30 10/25/16 23:29 09/28/16 12:12 Dextrose (Dextrose 50%) STAT PRN IV Hypoglycemia 09/25/16 23:15 10/25/16 23:14 Heparin Sodium (Porcine) (Heparin 5000 units/ml) 5,000 units EVERY 12 HOURS SUBQ 09/26/16 09:00 10/26/16 08:59 [place] Carbonate 900 mg 900 mg BEDTIME ORAL 09/26/16 21:00 10/26/16 20:59 09/27/16 21:29 Morphine Sulfate (Morphine Sulfate) 2 mg Q4H PRN IVP Moderate Pain (Pain Scale 4-6) 09/25/16 23:15 10/02/16 23:14 Nitroglycerin (Ntg) 0.4 mg Every 5 Minutes PRN SL Prn Chest Pain 09/25/16 23:15 10/25/16 23:14 Ondansetron HCl (Zofran) 4 mg Q6H PRN IVP Nausea & Vomiting 09/25/16 23:15 10/25/16 23:14 Piperacillin Sod/ Tazobactam Sod/ Dextrose (Zosyn/D5W) 110 ml @ 27.5 mls/hr Q8HR@0500,1300,2100 IVPB 09/27/16 13:00 10/04/16 12:59 09/29/16 05:03 Polyethylene Glycol (Miralax) 17 gm DAILYPRN PRN ORAL Constipation 09/25/16 23:15 10/25/16 23:14 Temazepam (Restoril) 15 mg HSPRN PRN ORAL Insomnia 09/25/16 23:15 10/02/16 23:14 Rahul Lopez MD Sep 29, 2016 13:37
--- NOTE | 2016-09-29 15:14 | Diagnostic Imaging Report ---
Indication: Abdominal distention, elevated renal function tests, elevated liver function tests Technique: Mckenna-scale and duplex images of the upper abdomen were obtained Comparison: None Findings: Gallbladder demonstrates sludge. No stones. No wall thickening or pericholecystic fluid Sonographic Leon's sign is negative. Common bile duct measures 5 mm in diameter. No intrahepatic biliary ductal dilatation. Liver demonstrates normal echogenicity, no focal abnormality. Portal vein and hepatic veins are patent. Pancreas is unremarkable. Spleen is unremarkable. Left kidney measures 10.4 cm in length. Right kidney measures 12.9 cm length. Both kidneys demonstrate normal echogenicity. There is no hydronephrosis. No focal abnormality . There is a fusiform aneurysm of the infrarenal abdominal, which measures 4 cm in diameter. This demonstrates mural thrombus which occupies about half of the aortic lumen. Impression: 4 cm diameter infrarenal abdominal aortic aneurysm with mural thrombus Gallbladder sludge. Negative for stones or dilated ducts
[2016-09-29] MEDS ORDERED: Tubing IV Secondary IV ONE (16:21)
--- NOTE | 2016-09-29 16:50 | Diagnostic Imaging Report ---
Indication: Post nasogastric tube placement Technique: One view of the abdomen Comparison: none Findings: There is a nasogastric tube present, tip projected at the expected region of the left lower lobe bronchus. Bowel gas pattern is unremarkable. Lungs demonstrate diffuse interstitial disease. Impression: Malposition of nasogastric tube, tip in a left lower lobe bronchus. Patient's nurse notified of this critical value at the time of interpretation
[2016-09-29] MEDS ORDERED: D5 1/2NS 1,000 ML IV SCH (17:00)
--- NOTE | 2016-09-29 17:50 | Infectious Diseases Prog Note ---
Assessment/Plan Assessment/Plan 65-year-old AAM with E coli bacteremia of unknown origin, with ucx now negative except for scant diphtheroids which I consider a contaminant. he has defervesced almost 72 hrs ago, a profound leukocytosis has declined slightly to 24.9 with resolution of prior bandemia. With his persistent leukocytosis despite empiric zosyn, normal PSA, bland urine, I am increasingly concerned for occult intraabominal abscess as soruce, and his abdominal u/s does not suggest biliary soruce. Increased O2 requirement on NRB with pulmonary edema. since abd u/s not diagnostic, will need CT a/p with contrast, but given his acute GASTON, he'll need hydration which will be difficult given his pulmonary status. Continue current therapy, plan for CT a/p when possible. although his E coli is sensitive to ceftriaxone, wouldn't narrow him now as I'd continue empiric anaerobic coverage as well. surveillance blood cx from 09/27 so far are negative. DIAGNOSES: E coli septicemia, high grade Pulmonary edema Fevers, resolved Leukocytosis, severe, persistent Lactic acidosis, improving PLAN: continue IV zosyn day #4 s/p 09/28 D#2 IV vancomycin monitor surveillance blood cx x2sets sent 09/27 CT a/p with IV contrast in next 1-2 days if no significant improvement to r/o occult intraabdominal abscess Subjective Constitutional: Reports: drenching sweats, fatigue HEENT: Reports: visual change Respiratory: Reports: dry cough, shortness of breath Allergies: Coded Allergies: No Known Allergies (Unverified , 09/22/14) Objective Vital Signs Last 24 Hour Vital Signs Date Time Temp Pulse Resp B/P Pulse Ox O2 Delivery O2 Flow Rate FiO2 09/29/16 15:49 98.7 110 24 124/95 95 Non-Rebreather 15.0 09/29/16 12:32 97.9 57 24 118/66 93 Non-Rebreather 15.0 09/29/16 12:00 79 09/29/16 09:00 77 09/29/16 08:04 98.6 111 24 102/55 99 Non-Rebreather 15.0 09/29/16 07:54 98.6 73 24 93/55 98 Non-Rebreather 15.0 09/29/16 07:01 Non-Rebreather 15.0 100 09/29/16 07:01 100 Non-Rebreather 15.0 100 09/29/16 07:01 58 21 Non-Rebreather 15.0 100 09/29/16 04:00 97.7 82 24 132/52 99 Non-Rebreather 09/29/16 04:00 68 09/29/16 00:00 98.7 60 24 115/70 98 Non-Rebreather 09/29/16 00:00 57 09/28/16 20:21 99.1 111 28 142/102 97 Non-Rebreather 15.0 100 09/28/16 20:00 111 09/28/16 19:15 Non-Rebreather 15.0 100 09/28/16 19:15 95 20 Venturi Mask 14.0 55 09/28/16 19:15 96 Non-Rebreather 15.0 100 Height (Feet): 6 Height (Inches): 1.00 Weight (Pounds): 155 General Appearance: cachetic, other - labored breathing on NRB, intermittent tachycardiac HEENT: atraumatic, anicteric Respiratory/Chest: crackles/rales Cardiovascular: regular rhythm, tachycardia Abdomen: soft, non tender, other - palpable large pulsatbile AAA Genitourinary: normal external genitalia, other - raymond with concentrated urine Extremities: no cyanosis, no clubbing Skin: no rash, no lesions Lymphatic: no neck adenopathy Microbiology Date/Time Source Procedure Growth Status 09/27/16 12:35 Blood Blood Culture - Preliminary NO GROWTH AFTER 24 HOURS Resulted 09/27/16 12:00 Blood Blood Culture - Preliminary NO GROWTH AFTER 24 HOURS Resulted Laboratory Tests Test 09/29/16 07:00 09/29/16 08:29 White Blood Count 21.9 K/UL (4.8-10.8) H Red Blood Count 4.46 M/UL (4.70-6.10) L Hemoglobin 13.0 G/DL (14.2-18.0) L Hematocrit 41.7 % (42.0-52.0) L Mean Corpuscular Volume 94 FL (80-99) Mean Corpuscular Hemoglobin 29.2 PG (27.0-31.0) Mean Corpuscular Hemoglobin Concent 31.2 G/DL (32.0-36.0) L Red Cell Distribution Width 13.4 % (11.6-14.8) Platelet Count 105 K/UL (150-450) L Mean Platelet Volume 9.8 FL (6.5-10.1) Neutrophils (%) (Auto) % (45.0-75.0) Lymphocytes (%) (Auto) % (20.0-45.0) Monocytes (%) (Auto) % (1.0-10.0) Eosinophils (%) (Auto) % (0.0-3.0) Basophils (%) (Auto) % (0.0-2.0) Differential Total Cells Counted 100 Neutrophils % (Manual) 89 % (45-75) H Lymphocytes % (Manual) 7 % (20-45) L Monocytes % (Manual) 4 % (1-10) Eosinophils % (Manual) 0 % (0-3) Basophils % (Manual) 0 % (0-2) Band Neutrophils 0 % (0-8) Platelet Estimate Decreased L Platelet Morphology Normal Hypochromasia 1+ Sodium Level 159 mEQ/L (135-145) H Potassium Level 4.4 mEQ/L (3.4-4.9) Chloride Level 122 mEQ/L (98-107) H Carbon Dioxide Level 20 mEQ/L (20-30) Anion Gap 17 (5-15) H Blood Urea Nitrogen 58 mg/dL (7-23) H Creatinine 2.5 mg/dL (0.7-1.2) H Estimat Glomerular Filtration Rate 25.9 mL/min (>60) Glucose Level 183 mg/dL (74-106) H Calcium Level 10.4 mg/dL (8.6-10.2) H Arterial Blood pH 7.385 (7.350-7.450) Arterial Blood Partial Pressure CO2 35.7 mmHg (35.0-45.0) Arterial Blood Partial Pressure O2 143.8 mmHg (75.0-100.0) H Arterial Blood HCO3 20.9 mmol/L (22.0-26.0) L Arterial Blood Oxygen Saturation 98.3 % (92.0-98.0) H Arterial Blood Base Excess -3.5 Jace Test Positive Radiology Patient : MIKE GRIMM Referring Physician: Wade Motley M.D. ID Number: [id number] Service Date: 09/29/16 : 1950 Report Date: 09/29/16 Gender: M Accession No.: [id number] Location: 2E Procedure: US ABD Complete Indication: Abdominal distention, elevated renal function tests, elevated liver function tests Technique: Mckenna-scale and duplex images of the upper abdomen were obtained Comparison: None Findings: Gallbladder demonstrates sludge. No stones. No wall thickening or pericholecystic fluid Sonographic Leon's sign is negative. Common bile duct measures 5 mm in diameter. No intrahepatic biliary ductal dilatation. Liver demonstrates normal echogenicity, no focal abnormality. Portal vein and hepatic veins are patent. Pancreas is unremarkable. Spleen is unremarkable. Left kidney measures 10.4 cm in length. Right kidney measures 12.9 cm length. Both kidneys demonstrate normal echogenicity. There is no hydronephrosis. No focal abnormality . There is a fusiform aneurysm of the infrarenal abdominal, which measures 4 cm in diameter. This demonstrates mural thrombus which occupies about half of the aortic lumen. Impression: 4 cm diameter infrarenal abdominal aortic aneurysm with mural thrombus Gallbladder sludge. Negative for stones or dilated ducts Dictated By: JASMYNE MENDIETA M.D. Electronically Signed By: JASMYNE MENDIETA M.D. Signed Date/Time 09/29/16 1514 Current Medications Medications (Trade) Dose Ordered Sig/Ramiro Route PRN Reason Start Time Stop Time Status Last Admin Dose Admin Acetaminophen (Tylenol) 650 mg Q4H PRN ORAL fever 09/25/16 23:15 10/25/16 23:14 Albuterol/ Ipratropium (DuoNeb 0.5-3(2.5)mg/3ml) 3 ml Q4H PRN HHN Shortness of Breath 09/25/16 23:15 09/30/16 23:14 09/28/16 12:17 Amitriptyline HCl (Elavil) 150 mg BEDTIME ORAL 09/26/16 21:00 10/26/16 20:59 09/27/16 21:29 Clonidine HCl (Catapres) 0.1 mg Q4H PRN ORAL For High Blood Pressure 09/25/16 23:30 10/25/16 23:29 09/28/16 12:12 Dextrose (Dextrose 50%) STAT PRN IV Hypoglycemia 09/25/16 23:15 10/25/16 23:14 Dextrose/Sodium Chloride (D5 0.45% NS) 1,000 ml @ 75 mls/hr [id number] IV 09/29/16 17:00 10/29/16 16:59 09/29/16 17:24 Heparin Sodium (Porcine) (Heparin 5000 units/ml) 5,000 units EVERY 12 HOURS SUBQ 09/26/16 09:00 10/26/16 08:59 [place] Carbonate 900 mg 900 mg BEDTIME ORAL 09/26/16 21:00 10/26/16 20:59 09/27/16 21:29 Morphine Sulfate (Morphine Sulfate) 2 mg Q4H PRN IVP Moderate Pain (Pain Scale 4-6) 09/25/16 23:15 10/02/16 23:14 Nitroglycerin (Ntg) 0.4 mg Every 5 Minutes PRN SL Prn Chest Pain 09/25/16 23:15 10/25/16 23:14 Ondansetron HCl (Zofran) 4 mg Q6H PRN IVP Nausea & Vomiting 09/25/16 23:15 10/25/16 23:14 Piperacillin Sod/ Tazobactam Sod 3.375 gm/Dextrose 110 ml @ 27.5 mls/hr Q8HR@0500,1300,2100 IVPB 09/27/16 13:00 10/04/16 12:59 09/29/16 13:00 Polyethylene Glycol (Miralax) 17 gm DAILYPRN PRN ORAL Constipation 09/25/16 23:15 10/25/16 23:14 Temazepam (Restoril) 15 mg HSPRN PRN ORAL Insomnia 09/25/16 23:15 10/02/16 23:14 Wade Motley M.D. Sep 29, 2016 17:50
--- NOTE | 2016-09-29 18:15 | General Progress Note ---
Assessment/Plan Status: deteriorating Assessment/Plan Delirium -cont current meds -recommend low dose antipsychotics Subjective Allergies: Coded Allergies: No Known Allergies (Unverified , 09/22/14) Subjective the pt was asleep, 1:1 sitter. confused and has episodes of agitation Objective Last 24 Hour Vital Signs Date Time Temp Pulse Resp B/P Pulse Ox O2 Delivery O2 Flow Rate FiO2 09/29/16 15:49 98.7 110 24 124/95 95 Non-Rebreather 15.0 09/29/16 12:32 97.9 57 24 118/66 93 Non-Rebreather 15.0 09/29/16 12:00 79 09/29/16 09:00 77 09/29/16 08:04 98.6 111 24 102/55 99 Non-Rebreather 15.0 09/29/16 07:54 98.6 73 24 93/55 98 Non-Rebreather 15.0 09/29/16 07:01 Non-Rebreather 15.0 100 09/29/16 07:01 100 Non-Rebreather 15.0 100 09/29/16 07:01 58 21 Non-Rebreather 15.0 100 09/29/16 04:00 97.7 82 24 132/52 99 Non-Rebreather 09/29/16 04:00 68 09/29/16 00:00 98.7 60 24 115/70 98 Non-Rebreather 09/29/16 00:00 57 09/28/16 20:21 99.1 111 28 142/102 97 Non-Rebreather 15.0 100 09/28/16 20:00 111 09/28/16 19:15 Non-Rebreather 15.0 100 09/28/16 19:15 95 20 Venturi Mask 14.0 55 09/28/16 19:15 96 Non-Rebreather 15.0 100 Intake and Output 09/28/16 09/29/16 19:00 07:00 Intake Total 110.0 ml Output Total 2850 ml 1500 ml Balance -2740.0 ml -1500 ml IV Total 110.0 ml Output Urine Total 2850 ml 1500 ml Laboratory Tests 09/29/16 07:00: White Blood Count 21.9H, Red Blood Count 4.46L, Hemoglobin 13.0L, Hematocrit 41.7L, Mean Corpuscular Volume 94, Mean Corpuscular Hemoglobin 29.2, Mean Corpuscular Hemoglobin Concent 31.2L, Red Cell Distribution Width 13.4, Platelet Count 105L, Mean Platelet Volume 9.8, Neutrophils (%) (Auto) , Lymphocytes (%) (Auto) , Monocytes (%) (Auto) , Eosinophils (%) (Auto) , Basophils (%) (Auto) , Differential Total Cells Counted 100, Neutrophils % ( Manual) 89H, Lymphocytes % (Manual) 7L, Monocytes % (Manual) 4, Eosinophils % ( Manual) 0, Basophils % (Manual) 0, Band Neutrophils 0, Platelet Estimate DecreasedL, Platelet Morphology Normal, Hypochromasia 1+, Sodium Level 159H, Potassium Level 4.4, Chloride Level 122H, Carbon Dioxide Level 20, Anion Gap 17H , Blood Urea Nitrogen 58H, Creatinine 2.5H, Estimat Glomerular Filtration Rate 25.9, Glucose Level 183H, Calcium Level 10.4H 09/29/16 08:29: Arterial Blood pH 7.385, Arterial Blood Partial Pressure CO2 35.7, Arterial Blood Partial Pressure O2 143.8H, Arterial Blood HCO3 20.9L, Arterial Blood Oxygen Saturation 98.3H, Arterial Blood Base Excess -3.5, Jace Test Positive Height (Feet): 6 Height (Inches): 1.00 Weight (Pounds): 155 General Appearance: no apparent distress, confused, agitated, thin Neurologic: disoriented, unresponsive Elda Hernandez M.D. Sep 29, 2016 18:15
--- NOTE | 2016-09-29 18:28 | Emergency Room Report ---
History of Present Illness General Chief Complaint: Fever Source: Patient, Medical Record, PMD Present Illness Allergies: Coded Allergies: No Known Allergies (Unverified , 09/22/14) Nursing Documentation-[facility] Past Medical History: No History, Except For Hx Cardiac Problems: No Hx COPD: Yes Hx Cancer: No Hx Gastrointestinal Problems: No Hx Neurological Problems: No Physical Exam Vital Signs Date Time Temp Pulse Resp B/P Pulse Ox O2 Delivery O2 Flow Rate FiO2 09/25/16 20:31 100.2 118 16 155/83 99 Room Air 09/25/16 23:00 4.0 09/26/16 00:17 100 Procedures Intubation Intubation : Consent: Emergent Time of Intubation: 18:15 Intubation Method: orotracheal Tube Size (cm): 7.5 Medications: Etomidate Breath Sounds after Intubation: equal Intubation Complications: no complications Post Intubation Xray: Yes Progress/Xray Impression: Appropriate tube placement Attempts: One Patient Tolerated: Well Complications: None Progress This patient was intubated without competition or incident. The patient was being bagged and the medical staffing coordinator did not have the medications radiate for intubation. Therefore, they intubated without medications. There were no complications. Etomidate was given after intubation for sedation. Medical Decision Making Diagnostic Impression: Primary Impression: Severe sepsis Additional Impression: Pneumonia Qualified Codes: J18.9 - Pneumonia, unspecified organism ER Course I was called to the bedside of this patient. The patient had been admitted for severe sepsis and pneumonia. Apparently he had declined and became unresponsive with hypoxemia prior to my arrival. There was an [employer] called on this patient prior to my arrival. I was called to the bedside for in addition. See my procedure note. The patient was intubated without competition or incident. The patient is under the care of the inpatient physician for further evaluation and treatment. Chest X-Ray Diagnostic Results Chest X-Ray Diagnostic Results : Chest X-Ray Ordered: Yes # of Views/Limited/Complete: 1 View Indication: Other EP Interpretation: Yes Interpretation: other Impression: Other - Appropriate tube placement Interpreting ER Provider: Missy Osuna Vital Signs Date Time Temp Pulse Resp B/P Pulse Ox O2 Delivery O2 Flow Rate FiO2 09/29/16 15:49 98.7 110 24 124/95 95 Non-Rebreather 15.0 09/29/16 07:01 100 Disposition: ADMITTED INPATIENT Condition: Serious Referrals: NOT CHOSEN IPA/MD,REFERRING (PCP) JHONATAN DIAZ D.O. Sep 29, 2016 18:28
[2016-09-29 21:46] LABS: ABG PCO2 49.5 mmHg (35.0-45.0)
[2016-09-29 21:47] LABS: ABG BASE EXCESS -4.7
[2016-09-29] MEDS: D5 1/2NS 1,000 ML IV SCH (23:16)
[2016-09-30] VITALS (25 sets, daily range): BP systolic 97–139; BP diastolic 60–84
[2016-09-30 05:18] LABS: BASOPHILS % (AUTO) 0.6 % (0.0-2.0); EOSINOPHILS % (AUTO) 0.1 % (0.0-3.0); LYMPHOCYTES % (AUTO) 6.9 % (20.0-45.0); MEAN CORPUSCULAR HEMOGLOBIN 29.3 PG (27.0-31.0); MEAN CORPUSCULAR HGB CONC 30.7 G/DL (32.0-36.0); MEAN CORPUSCULAR VOLUME 95 FL (80-99); MEAN PLATELET VOLUME 8.6 FL (6.5-10.1); MONOCYTES % (AUTO) 9.1 % (1.0-10.0); NEUTROPHILS % (AUTO) 83.4 % (45.0-75.0); PLATELET COUNT 100 K/UL (150-450); RED BLOOD COUNT 4.36 M/UL (4.70-6.10); RED CELL DISTRIBUTION WIDTH 13.8 % (11.6-14.8); WHITE BLOOD COUNT 17.8 K/UL (4.8-10.8)
[2016-09-30] MEDS: Piperacillin/Tazobactam 3.375 GM in D5W 110 ML IVPB SCH ×3 (05:23→20:44)
--- NOTE | 2016-09-30 05:31 | Consultation ---
DATE OF CONSULTATION: CARDIOLOGY CONSULTATION REFERRING PHYSICIAN: Dr. Rahul Cardenas. REASON FOR CONSULTATION: Cardiac arrhythmias. HISTORY OF PRESENT ILLNESS: This is a 65-year-old male, admitted to the hospital almost a week ago with fevers and chills as well as a dry nonproductive cough. He was started on antibiotics for a community-acquired pneumonia. He also was started on IV fluids for lactic acidosis. Over the past few days, his condition has worsened. He has become increasingly withdrawn and lethargic. He has had abnormal cardiac rhythm prompting this consultation. PAST MEDICAL HISTORY: Includes bipolar disorder and COPD. ALLERGIES: None. SOCIAL HISTORY: Active smoker. No history of alcohol or substance abuse. FAMILY HISTORY: Noncontributory. MEDICATIONS: Currently reviewed and reconciled. REVIEW OF SYSTEMS: Cannot be reliably obtained from the patient at this time, as he is withdrawn and lethargic. However, review of records revealed no prior history of cardiac arrhythmias or structural heart disease. PHYSICAL EXAMINATION: GENERAL: Withdrawn lethargic poorly responsive on a face mask at this time and frail. VITALS SIGNS: Blood pressure 124/95, heart rate 110, respirations 24, afebrile. HEENT: Temporal wasting. Dry mucous membranes. NECK: Supple. Some accessory muscle use. LUNGS: With diminished breath sounds and rhonchi. CARDIAC: Regular rhythm. Rapid rate. Normal S1, S2. No murmur. ABDOMEN: Soft and nontender. EXTREMITIES: No edema. DIAGNOSTIC DATA: The patient's workup in the hospital to date has included an echocardiogram that revealed ejection fraction of about 40% to 45% with global hypokinesis. No significant valvular disease. The patient's cardiac rhythms today have been characterized as episodes of sinus rhythm, sinus arrhythmias, and sinus rhythm with PACs. There have been episodes of sinus rhythm with AV block and junctional escape rhythm at rate of 60. LABORATORY DATA: White count 21.9, hemoglobin 13. Sodium 159, potassium 4.4, chloride 122, bicarb 20, BUN 58, and creatinine 2.5. Calcium 10.4. Pronatriuretic peptide yesterday was 39,000 increased from [id number]. IMPRESSION: 1. Metabolic encephalopathy. 2. Pneumonia. 3. Sepsis. 4. Paroxysmal atrial arrhythmias. 5. Conduction system disease of the heart. 6. Severe dehydration and hypernatremia. 7. Hyperchloremia. 8. Acute renal failure. 9. Hypercalcemia. 10. Acute on chronic systolic and diastolic congestive heart failure. PLAN: 1. Hypotonic IV fluids. 2. No diuresis. 3. Discontinue lithium. 4. Haldol has already been discontinued. 5. We will hold amitriptyline at this time as well. 6. Check lithium levels. 7. Check ionized calcium levels. 8. No antiarrhythmics indicated. 9. Metabolic derangements should be corrected first. 10. Continue cardiac monitoring. Donald Baldwin M.D. DR: YENNIFER JOB#: [id number] CC:
[2016-09-30 05:38] LABS: CALCIUM 9.3 mg/dL (8.6-10.2); CREATININE 2.7 mg/dL (0.7-1.2); GLOMERULAR FILTRATION RATE 23.7 mL/min (>60); POTASSIUM 4.2 mEQ/L (3.4-4.9)
[2016-09-30] MEDS: D5 1/2NS 1,000 ML IV SCH ×4 (05:57→21:00)
[2016-09-30] MEDS ORDERED: Nitroglycerin Subl 0.4mg tab (Bottle Of 25) SL PRN (06:15)
[2016-09-30 06:27] LABS: TROPONIN I 39.27 ng/mL (<=0.30)
[2016-09-30] MEDS ORDERED: Miralax 17gm pkt ORAL PRN (06:51)
[2016-09-30] MEDS ORDERED: Morphine Sulfate 2mg/ml Inj IVP PRN (07:15)
[2016-09-30] MEDS ORDERED: DuoNeb 0.5-3(2.5)mg/3ml neb HHN PRN (07:15)
--- NOTE | 2016-09-30 08:22 | Pulmonology Progress Note ---
Assessment/Plan Assessment/Plan 1. Leukocytosis. Persistent 2. Hypernatremia. 3. Renal dysfunction. 4. Schizoaffective disorder. 5. Acute DE 6. Questionable urinary tract infection. 7. Respiratory failure DISCUSSION: Continue vent Abx Cardiology following IV fluids Subjective Interval Events: Intubated yesterday; elevated troponin noted Constitutional: Reports: no symptoms HEENT: Repors: no symptoms Respiratory: Reports: no symptoms Cardiovascular: Reports: no symptoms Gastrointestinal/Abdominal: Reports: no symptoms Genitourinary: Reports: no symptoms Allergies: Coded Allergies: No Known Allergies (Unverified , 09/22/14) Objective Last 24 Hour Vital Signs Date Time Temp Pulse Resp B/P Pulse Ox O2 Delivery O2 Flow Rate FiO2 09/30/16 07:09 114 34 50 09/30/16 07:00 111 35 123/83 96 Mechanical Ventilator 50 09/30/16 06:00 114 34 125/83 96 Mechanical Ventilator 50 09/30/16 05:13 113 37 50 09/30/16 05:00 111 34 129/84 96 Mechanical Ventilator 50 09/30/16 04:00 99.4 111 35 123/83 96 Mechanical Ventilator 50 09/30/16 04:00 108 09/30/16 03:30 112 36 50 09/30/16 03:00 111 35 126/82 96 Mechanical Ventilator 50 09/30/16 02:00 110 35 139/84 96 Mechanical Ventilator 50 09/30/16 01:30 110 36 50 09/30/16 01:00 110 35 126/83 96 Mechanical Ventilator 50 09/30/16 00:00 98.8 112 34 126/83 96 Mechanical Ventilator 50 09/30/16 00:00 110 09/29/16 23:30 113 35 50 09/29/16 23:00 112 35 116/76 96 Mechanical Ventilator 100 09/29/16 22:00 114 33 113/74 98 Mechanical Ventilator 100 09/29/16 21:30 115 37 50 09/29/16 21:00 111 34 115/73 98 Mechanical Ventilator 100 09/29/16 20:00 109 09/29/16 19:41 109 36 100 09/29/16 19:30 100 Mechanical Ventilator 100 09/29/16 19:30 109 32 Mechanical Ventilator 100 09/29/16 19:30 Mechanical Ventilator 09/29/16 18:45 97.5 77 29 84/46 100 Mechanical Ventilator 100 09/29/16 15:49 98.7 110 24 124/95 95 Non-Rebreather 15.0 09/29/16 12:32 97.9 57 24 118/66 93 Non-Rebreather 15.0 09/29/16 12:00 79 09/29/16 09:00 77 Intake and Output 09/29/16 09/30/16 19:00 07:00 Intake Total 1650 ml Output Total 650 ml 1550 ml Balance -650 ml 100 ml IV Total 1650 ml Output Urine Total 650 ml 1550 ml # Voids 1 1 General Appearance: no acute distress HEENT: normocephalic Respiratory/Chest: chest wall non-tender, decreased breath sounds Cardiovascular: normal peripheral pulses Abdomen: normal bowel sounds Extremities: no cyanosis Microbiology Date/Time Source Procedure Growth Status 09/27/16 12:35 Blood Blood Culture - Preliminary NO GROWTH AFTER 48 HOURS Resulted 09/27/16 12:00 Blood Blood Culture - Preliminary NO GROWTH AFTER 48 HOURS Resulted Laboratory Tests 09/29/16 08:29: Arterial Blood pH 7.273L, Arterial Blood Partial Pressure CO2 49.5H, Arterial Blood Partial Pressure O2 308.1H, Arterial Blood HCO3 22.4, Arterial Blood Oxygen Saturation 98.9H, Arterial Blood Base Excess -4.7, Jace Test Positive 09/30/16 04:50: White Blood Count 17.8H, Red Blood Count 4.36L, Hemoglobin 12.8L, Hematocrit 41.6L, Mean Corpuscular Volume 95, Mean Corpuscular Hemoglobin 29.3, Mean Corpuscular Hemoglobin Concent 30.7L, Red Cell Distribution Width 13.8, Platelet Count 100L, Mean Platelet Volume 8.6, Neutrophils (%) (Auto) 83.4H, Lymphocytes (%) (Auto) 6.9L, Monocytes (%) (Auto) 9.1, Eosinophils (%) (Auto) 0.1, Basophils (%) (Auto) 0.6, Sodium Level 158H, Potassium Level 4.2, Chloride Level 125H, Carbon Dioxide Level 22, Anion Gap 11, Blood Urea Nitrogen 70H, Creatinine 2.7H, Estimat Glomerular Filtration Rate 23.7, Glucose Level 191H, Calcium Level 9.3, Ionized Calcium (Measured) 1.25, Magnesium Level 2.8H, Troponin I 39.27*H, Pro-B-Type Natriuretic Peptide 41668O, [place] Level [ Pending] Current Medications Medications (Trade) Dose Ordered Sig/Ramiro Route PRN Reason Start Time Stop Time Status Last Admin Dose Admin Acetaminophen (Tylenol) 650 mg Q4H PRN ORAL fever 09/30/16 07:15 10/30/16 07:14 Albuterol/ Ipratropium (DuoNeb 0.5-3(2.5)mg/3ml) 3 ml Q4H PRN HHN Shortness of Breath 09/30/16 07:15 10/05/16 07:14 Clonidine HCl (Catapres) 0.1 mg Q4H PRN ORAL For High Blood Pressure 09/30/16 06:49 10/30/16 06:48 Dextrose (Dextrose 50%) STAT PRN IV Hypoglycemia 09/30/16 06:50 10/30/16 06:49 Dextrose/Sodium Chloride 1,000 ml @ 150 mls/hr Q6H40M IV 09/30/16 07:00 10/30/16 06:59 09/30/16 07:51 Heparin Sodium (Porcine) (Heparin 5000 units/ml) 5,000 units EVERY 12 HOURS SUBQ 09/30/16 09:00 10/30/16 08:59 Morphine Sulfate (Morphine Sulfate) 2 mg Q4H PRN IVP Moderate Pain (Pain Scale 4-6) 09/30/16 07:15 10/07/16 07:14 Nitroglycerin (Ntg) 0.4 mg Every 5 Minutes PRN SL Prn Chest Pain 09/30/16 06:15 10/30/16 06:14 Ondansetron HCl (Zofran) 4 mg Q6H PRN IVP Nausea & Vomiting 09/30/16 06:51 10/30/16 06:50 Piperacillin Sod/ Tazobactam Sod/ Dextrose (Zosyn/D5W) 110 ml @ 27.5 mls/hr Q8HR@0500,1300,2100 IVPB 09/30/16 13:00 10/07/16 12:59 Polyethylene Glycol (Miralax) 17 gm DAILYPRN PRN ORAL Constipation 09/30/16 06:51 10/30/16 06:50 Temazepam (Restoril) 15 mg HSPRN PRN ORAL Insomnia 09/30/16 06:52 10/07/16 06:51 Rahul Lopez MD Sep 30, 2016 08:22
[2016-09-30 08:39] LABS: ABG ALLEN TEST POSITIVE; ABG BASE EXCESS -3.7; ABG PCO2 40.4 mmHg (35.0-45.0)
--- NOTE | 2016-09-30 08:51 | Diagnostic Imaging Report ---
Indication: Intubation Comparison: 09/27/16 Findings: Endotracheal tube is several centimeters above the agnes in good position. Heart is enlarged. Interstitial edema is present. Impression: Interstitial edema/CHF. Endotracheal tube satisfactory in position
[2016-09-30] MEDS ORDERED: Heparin 5000 units/ml inj SUBQ SCH (09:00)
[2016-09-30] MEDS ORDERED: NS 275ml ONE (10:41)
[2016-09-30] MEDS ORDERED: D5 1/2NS 1000ml IV ONE (10:41)
--- NOTE | 2016-09-30 12:34 | Infectious Diseases Prog Note ---
Assessment/Plan Assessment/Plan 65-year-old E coli septicemia, high grade UTI ? intra-abd sepsis Pulmonary edema Fevers, low grade Leukocytosis, improving Lactic acidosis, improving PLAN: continue IV zosyn day # 5 / s/p / D#2 IV vancomycin monitor surveillance blood cx x2sets sent 09/27 CT a/p with IV contrast in next 1-2 days if no significant improvement to r/o occult intraabdominal abscess Subjective Constitutional: Denies: anorexia, chills, drenching sweats, fatigue, fever, no symptoms, other Allergies: Coded Allergies: No Known Allergies (Unverified , 09/22/14) Objective Vital Signs Last 24 Hour Vital Signs Date Time Temp Pulse Resp B/P Pulse Ox O2 Delivery O2 Flow Rate FiO2 09/30/16 11:11 114 33 40 09/30/16 11:00 113 35 118/74 96 Mechanical Ventilator 40 09/30/16 10:27 97.9 09/30/16 10:00 97.9 113 36 113/72 96 Mechanical Ventilator 40 09/30/16 09:00 100.5 115 35 121/75 92 Mechanical Ventilator 40 09/30/16 08:35 113 32 40 09/30/16 08:00 99.9 111 35 120/77 96 Mechanical Ventilator 50 09/30/16 08:00 111 09/30/16 07:09 114 34 50 09/30/16 07:00 111 35 123/83 96 Mechanical Ventilator 50 09/30/16 06:00 114 34 125/83 96 Mechanical Ventilator 50 09/30/16 05:13 113 37 50 09/30/16 05:00 111 34 129/84 96 Mechanical Ventilator 50 09/30/16 04:00 99.4 111 35 123/83 96 Mechanical Ventilator 50 09/30/16 04:00 108 09/30/16 03:30 112 36 50 09/30/16 03:00 111 35 126/82 96 Mechanical Ventilator 50 09/30/16 02:00 110 35 139/84 96 Mechanical Ventilator 50 09/30/16 01:30 110 36 50 09/30/16 01:00 110 35 126/83 96 Mechanical Ventilator 50 09/30/16 00:00 98.8 112 34 126/83 96 Mechanical Ventilator 50 09/30/16 00:00 110 09/29/16 23:30 113 35 50 09/29/16 23:00 112 35 116/76 96 Mechanical Ventilator 100 09/29/16 22:00 114 33 113/74 98 Mechanical Ventilator 100 09/29/16 21:30 115 37 50 09/29/16 21:00 111 34 115/73 98 Mechanical Ventilator 100 09/29/16 20:00 109 09/29/16 19:41 109 36 100 09/29/16 19:30 100 Mechanical Ventilator 100 09/29/16 19:30 109 32 Mechanical Ventilator 100 09/29/16 19:30 Mechanical Ventilator 09/29/16 18:45 97.5 77 29 84/46 100 Mechanical Ventilator 100 09/29/16 15:49 98.7 110 24 124/95 95 Non-Rebreather 15.0 Height (Feet): 6 Height (Inches): 1.00 Weight (Pounds): 131 HEENT: anicteric Respiratory/Chest: no respiratory distress Cardiovascular: regular rhythm Abdomen: non distended Microbiology Date/Time Source Procedure Growth Status 09/27/16 12:35 Blood Blood Culture - Preliminary NO GROWTH AFTER 48 HOURS Resulted Laboratory Tests Test 09/30/16 04:50 09/30/16 08:31 White Blood Count 17.8 K/UL (4.8-10.8) H Red Blood Count 4.36 M/UL (4.70-6.10) L Hemoglobin 12.8 G/DL (14.2-18.0) L Hematocrit 41.6 % (42.0-52.0) L Mean Corpuscular Volume 95 FL (80-99) Mean Corpuscular Hemoglobin 29.3 PG (27.0-31.0) Mean Corpuscular Hemoglobin Concent 30.7 G/DL (32.0-36.0) L Red Cell Distribution Width 13.8 % (11.6-14.8) Platelet Count 100 K/UL (150-450) L Mean Platelet Volume 8.6 FL (6.5-10.1) Neutrophils (%) (Auto) 83.4 % (45.0-75.0) H Lymphocytes (%) (Auto) 6.9 % (20.0-45.0) L Monocytes (%) (Auto) 9.1 % (1.0-10.0) Eosinophils (%) (Auto) 0.1 % (0.0-3.0) Basophils (%) (Auto) 0.6 % (0.0-2.0) Sodium Level 158 mEQ/L (135-145) H Potassium Level 4.2 mEQ/L (3.4-4.9) Chloride Level 125 mEQ/L (98-107) H Carbon Dioxide Level 22 mEQ/L (20-30) Anion Gap 11 (5-15) Blood Urea Nitrogen 70 mg/dL (7-23) H Creatinine 2.7 mg/dL (0.7-1.2) H Estimat Glomerular Filtration Rate 23.7 mL/min (>60) Glucose Level 191 mg/dL (74-106) H Calcium Level 9.3 mg/dL (8.6-10.2) Ionized Calcium (Measured) 1.25 mmol/L (1.10-1.35) Magnesium Level 2.8 mg/dL (1.7-2.5) H Troponin I 39.27 ng/mL (<=0.30) *H Pro-B-Type Natriuretic Peptide 32764 pg/mL (0-125) H [place] Level Pending Arterial Blood pH 7.347 (7.350-7.450) Arterial Blood Partial Pressure CO2 40.4 mmHg (35.0-45.0) Arterial Blood Partial Pressure O2 155.2 mmHg (75.0-100.0) H Arterial Blood HCO3 21.7 mmol/L (22.0-26.0) L Arterial Blood Oxygen Saturation 98.7 % (92.0-98.0) H Arterial Blood Base Excess -3.7 Jace Test Positive Current Medications Medications (Trade) Dose Ordered Sig/Ramiro Route PRN Reason Start Time Stop Time Status Last Admin Dose Admin Acetaminophen (Tylenol) 650 mg Q4H PRN ORAL fever 09/30/16 07:15 10/30/16 07:14 09/30/16 09:28 Albuterol/ Ipratropium (DuoNeb 0.5-3(2.5)mg/3ml) 3 ml Q4H PRN HHN Shortness of Breath 09/30/16 07:15 10/05/16 07:14 Clonidine HCl (Catapres) 0.1 mg Q4H PRN ORAL For High Blood Pressure 09/30/16 06:49 10/30/16 06:48 Dextrose (Dextrose 50%) STAT PRN IV Hypoglycemia 7/11/17 06:50 10/30/16 06:49 Dextrose/Sodium Chloride 1,000 ml @ 150 mls/hr Q6H40M IV 09/30/16 07:00 10/30/16 06:59 09/30/16 07:51 Morphine Sulfate (Morphine Sulfate) 2 mg Q4H PRN IVP Moderate Pain (Pain Scale 4-6) 09/30/16 07:15 10/07/16 07:14 Nitroglycerin (Ntg) 0.4 mg Every 5 Minutes PRN SL Prn Chest Pain 09/30/16 06:15 10/30/16 06:14 Ondansetron HCl (Zofran) 4 mg Q6H PRN IVP Nausea & Vomiting 09/30/16 06:51 10/30/16 06:50 Pantoprazole (Protonix) 40 mg EVERY 12 HOURS IVP 09/30/16 21:00 10/30/16 20:59 Piperacillin Sod/ Tazobactam Sod/ Dextrose (Zosyn/D5W) 110 ml @ 27.5 mls/hr Q8HR@0500,1300,2100 IVPB 09/30/16 13:00 10/07/16 12:59 Polyethylene Glycol (Miralax) 17 gm DAILYPRN PRN ORAL Constipation 09/30/16 06:51 10/30/16 06:50 Temazepam (Restoril) 15 mg HSPRN PRN ORAL Insomnia 09/30/16 06:52 10/07/16 06:51 RADHA VARELA M.D. Sep 30, 2016 12:34
--- NOTE | 2016-09-30 13:08 | Infectious Diseases Prog Note ---
Assessment/Plan Assessment/Plan 65-year-old E coli septicemia, high grade UTI ? intra-abd sepsis Pulmonary edema Fevers, low grade Leukocytosis, improving Lactic acidosis, improving VDRF on vent 09/29 ALOC 09/29 PLAN: continue IV zosyn day # 5 / s/p 7/ D#2 IV vancomycin monitor surveillance blood cx x2sets sent 09/27 CT a/p with IV contrast in next 1-2 days if no significant improvement to r/o occult intraabdominal abscess Subjective Allergies: Coded Allergies: No Known Allergies (Unverified , 09/22/14) Subjective intubated yesterday Objective Vital Signs Last 24 Hour Vital Signs Date Time Temp Pulse Resp B/P Pulse Ox O2 Delivery O2 Flow Rate FiO2 09/30/16 12:42 110 36 40 09/30/16 12:00 113 09/30/16 12:00 97.9 111 36 111/73 97 Mechanical Ventilator 40 09/30/16 11:11 114 33 40 09/30/16 11:00 113 35 118/74 96 Mechanical Ventilator 40 09/30/16 10:27 97.9 09/30/16 10:00 97.9 113 36 113/72 96 Mechanical Ventilator 40 09/30/16 09:00 100.5 115 35 121/75 92 Mechanical Ventilator 40 09/30/16 08:35 113 32 40 09/30/16 08:00 99.9 111 35 120/77 96 Mechanical Ventilator 50 09/30/16 08:00 111 09/30/16 07:09 114 34 50 09/30/16 07:00 111 35 123/83 96 Mechanical Ventilator 50 09/30/16 06:00 114 34 125/83 96 Mechanical Ventilator 50 09/30/16 05:13 113 37 50 09/30/16 05:00 111 34 129/84 96 Mechanical Ventilator 50 09/30/16 04:00 99.4 111 35 123/83 96 Mechanical Ventilator 50 09/30/16 04:00 108 09/30/16 03:30 112 36 50 09/30/16 03:00 111 35 126/82 96 Mechanical Ventilator 50 09/30/16 02:00 110 35 139/84 96 Mechanical Ventilator 50 09/30/16 01:30 110 36 50 09/30/16 01:00 110 35 126/83 96 Mechanical Ventilator 50 09/30/16 00:00 98.8 112 34 126/83 96 Mechanical Ventilator 50 09/30/16 00:00 110 09/29/16 23:30 113 35 50 09/29/16 23:00 112 35 116/76 96 Mechanical Ventilator 100 09/29/16 22:00 114 33 113/74 98 Mechanical Ventilator 100 09/29/16 21:30 115 37 50 09/29/16 21:00 111 34 115/73 98 Mechanical Ventilator 100 09/29/16 20:00 109 09/29/16 19:41 109 36 100 09/29/16 19:30 100 Mechanical Ventilator 100 09/29/16 19:30 109 32 Mechanical Ventilator 100 09/29/16 19:30 Mechanical Ventilator 09/29/16 18:45 97.5 77 29 84/46 100 Mechanical Ventilator 100 09/29/16 15:49 98.7 110 24 124/95 95 Non-Rebreather 15.0 Height (Feet): 6 Height (Inches): 1.00 Weight (Pounds): 131 HEENT: anicteric Respiratory/Chest: normal breath sounds Cardiovascular: normal rate Abdomen: no mass Laboratory Tests Test 09/30/16 04:50 09/30/16 08:31 White Blood Count 17.8 K/UL (4.8-10.8) H Red Blood Count 4.36 M/UL (4.70-6.10) L Hemoglobin 12.8 G/DL (14.2-18.0) L Hematocrit 41.6 % (42.0-52.0) L Mean Corpuscular Volume 95 FL (80-99) Mean Corpuscular Hemoglobin 29.3 PG (27.0-31.0) Mean Corpuscular Hemoglobin Concent 30.7 G/DL (32.0-36.0) L Red Cell Distribution Width 13.8 % (11.6-14.8) Platelet Count 100 K/UL (150-450) L Mean Platelet Volume 8.6 FL (6.5-10.1) Neutrophils (%) (Auto) 83.4 % (45.0-75.0) H Lymphocytes (%) (Auto) 6.9 % (20.0-45.0) L Monocytes (%) (Auto) 9.1 % (1.0-10.0) Eosinophils (%) (Auto) 0.1 % (0.0-3.0) Basophils (%) (Auto) 0.6 % (0.0-2.0) Sodium Level 158 mEQ/L (135-145) H Potassium Level 4.2 mEQ/L (3.4-4.9) Chloride Level 125 mEQ/L (98-107) H Carbon Dioxide Level 22 mEQ/L (20-30) Anion Gap 11 (5-15) Blood Urea Nitrogen 70 mg/dL (7-23) H Creatinine 2.7 mg/dL (0.7-1.2) H Estimat Glomerular Filtration Rate 23.7 mL/min (>60) Glucose Level 191 mg/dL (74-106) H Calcium Level 9.3 mg/dL (8.6-10.2) Ionized Calcium (Measured) 1.25 mmol/L (1.10-1.35) Magnesium Level 2.8 mg/dL (1.7-2.5) H Troponin I 39.27 ng/mL (<=0.30) *H Pro-B-Type Natriuretic Peptide 82279 pg/mL (0-125) H [place] Level Pending Arterial Blood pH 7.347 (7.350-7.450) Arterial Blood Partial Pressure CO2 40.4 mmHg (35.0-45.0) Arterial Blood Partial Pressure O2 155.2 mmHg (75.0-100.0) H Arterial Blood HCO3 21.7 mmol/L (22.0-26.0) L Arterial Blood Oxygen Saturation 98.7 % (92.0-98.0) H Arterial Blood Base Excess -3.7 Jace Test Positive Current Medications Medications (Trade) Dose Ordered Sig/Ramiro Route PRN Reason Start Time Stop Time Status Last Admin Dose Admin Acetaminophen (Tylenol) 650 mg Q4H PRN ORAL fever 09/30/16 07:15 10/30/16 07:14 09/30/16 09:28 Albuterol/ Ipratropium (DuoNeb 0.5-3(2.5)mg/3ml) 3 ml Q4H PRN HHN Shortness of Breath 09/30/16 07:15 10/05/16 07:14 Clonidine HCl (Catapres) 0.1 mg Q4H PRN ORAL For High Blood Pressure 09/30/16 06:49 10/30/16 06:48 Dextrose (Dextrose 50%) STAT PRN IV Hypoglycemia 09/30/16 06:50 10/30/16 06:49 Dextrose/Sodium Chloride 1,000 ml @ 150 mls/hr Q6H40M IV 09/30/16 07:00 10/30/16 06:59 09/30/16 07:51 Morphine Sulfate (Morphine Sulfate) 2 mg Q4H PRN IVP Moderate Pain (Pain Scale 4-6) 09/30/16 07:15 10/07/16 07:14 Nitroglycerin (Ntg) 0.4 mg Every 5 Minutes PRN SL Prn Chest Pain 09/30/16 06:15 10/30/16 06:14 Ondansetron HCl (Zofran) 4 mg Q6H PRN IVP Nausea & Vomiting 09/30/16 06:51 10/30/16 06:50 Pantoprazole (Protonix) 40 mg EVERY 12 HOURS IVP 09/30/16 21:00 10/30/16 20:59 Piperacillin Sod/ Tazobactam Sod/ Dextrose (Zosyn/D5W) 110 ml @ 27.5 mls/hr Q8HR@0500,1300,2100 IVPB 09/30/16 13:00 10/07/16 12:59 Polyethylene Glycol (Miralax) 17 gm DAILYPRN PRN ORAL Constipation 09/30/16 06:51 10/30/16 06:50 Temazepam (Restoril) 15 mg HSPRN PRN ORAL Insomnia 09/30/16 06:52 10/07/16 06:51 RADHA VARELA M.D. Sep 30, 2016 13:08
--- NOTE | 2016-09-30 13:30 | Diagnostic Imaging Report ---
Indication: Endotracheal tube placement Comparison: 09/29/2016 A single view chest radiograph was obtained. Findings: The endotracheal tube is in good position a few centimeters above the agnes. Nasogastric tube is high and should be advanced further. The tip is in the stomach but the side-port is above the EG junction. Interstitial edema again noted within the lungs. Cardiomegaly is stable. Impression: Endotracheal tube in the position Nasogastric tube is high and should be advanced several centimeters. Interstitial edema
[2016-09-30] MEDS ORDERED: Metoprolol 25mg tab ORAL ONE (14:00)
[2016-09-30 15:43] LABS: TROPONIN I 17.71 ng/mL (<=0.30)
--- NOTE | 2016-09-30 15:53 | GI Initial Consult Note ---
AlyssaPamdain Wolfe N.PKrunal 09/30/16 1553: History of Present Illness General Date patient seen: Sep 30, 2016 Time patient seen: 15:46 Reason for Hospitalization: Fever Referring physician: Dr. Elam Reason for Consultation: COFFEE GROUNDS Present Illness HPI This is a 65-year-old gentleman with past medical history significant for schizophrenia as well as chronic obstructive pulmonary disease, who was brought into the emergency room accompanied with the family members due to the weakness and shaking. It has been going on for the past couple of days. The patient said that he has been having coughing and felt like having flu-like symptoms and subjective fever. Coughing is nonproductive in nature. No dysuria. Denies any loss of consciousness. Denies any palpitations. As per family member, the patient has been decreasing p.o. intake and not drinking or eating. Shortly after initial evaluation in the emergency room, the patient was admitted to the hospital due to sepsis, possibly due to pneumonia or acute urinary tract infection. GI Consult. HPI as noted above. GI consulted for report of coffee ground emesis. ROS limited, patient in ICU intubated. Presents today with elevated troponin levels, leukocytosis, and possible UGIB. Unknown history of endoscopic procedures. Home Meds Reported Medications Amitriptyline Hcl* (AMITRIPTYLINE HCL*) 100 Mg Tablet, 150 MG ORAL BEDTIME, TAB 09/24/14 [place] Carbonate* (LITHIUM*) 300 Mg Capsule, 300 MG ORAL EVERY 8 HOURS, CAP 0 Refills 09/24/14 Amantadine HCl (Amantadine) 50 Mg/5 Ml Syrup, 100 MG ORAL DAILY, ML 09/22/14 Discontinued Scripts Levofloxacin* (LEVAQUIN*) 500 Mg Tablet, 500 MG ORAL DAILY, #10 TAB Prov:Rahul Lopez MD 09/26/14 Allergies: Coded Allergies: No Known Allergies (Unverified , 09/22/14) Patient History Limited by: medical condition History Provided By: Medical Record [facility] Narrative PAST MEDICAL HISTORY/PAST SURGICAL HISTORY: Significant for bipolar disorder as well as chronic obstructive pulmonary disease. Review of Systems All Other Systems: limited Physical Exam Vital Signs Date Time Temp Pulse Resp B/P Pulse Ox O2 Delivery O2 Flow Rate FiO2 09/26/16 08:00 110 09/26/16 08:35 97.9 21 148/72 93 Simple Mask 09/26/16 10:23 14.0 55 Sp02 EP Interpretation: reviewed Labs Laboratory Tests Test 09/30/16 04:50 09/30/16 08:31 09/30/16 15:00 White Blood Count 17.8 K/UL (4.8-10.8) H Red Blood Count 4.36 M/UL (4.70-6.10) L Hemoglobin 12.8 G/DL (14.2-18.0) L Hematocrit 41.6 % (42.0-52.0) L Mean Corpuscular Volume 95 FL (80-99) Mean Corpuscular Hemoglobin 29.3 PG (27.0-31.0) Mean Corpuscular Hemoglobin Concent 30.7 G/DL (32.0-36.0) L Red Cell Distribution Width 13.8 % (11.6-14.8) Platelet Count 100 K/UL (150-450) L Mean Platelet Volume 8.6 FL (6.5-10.1) Neutrophils (%) (Auto) 83.4 % (45.0-75.0) H Lymphocytes (%) (Auto) 6.9 % (20.0-45.0) L Monocytes (%) (Auto) 9.1 % (1.0-10.0) Eosinophils (%) (Auto) 0.1 % (0.0-3.0) Basophils (%) (Auto) 0.6 % (0.0-2.0) Sodium Level 158 mEQ/L (135-145) H Potassium Level 4.2 mEQ/L (3.4-4.9) Chloride Level 125 mEQ/L (98-107) H Carbon Dioxide Level 22 mEQ/L (20-30) Anion Gap 11 (5-15) Blood Urea Nitrogen 70 mg/dL (7-23) H Creatinine 2.7 mg/dL (0.7-1.2) H Estimat Glomerular Filtration Rate 23.7 mL/min (>60) Glucose Level 191 mg/dL (74-106) H Calcium Level 9.3 mg/dL (8.6-10.2) Ionized Calcium (Measured) 1.25 mmol/L (1.10-1.35) Magnesium Level 2.8 mg/dL (1.7-2.5) H Troponin I 39.27 ng/mL (<=0.30) *H 17.71 ng/mL (<=0.30) *H Pro-B-Type Natriuretic Peptide 82067 pg/mL (0-125) H [place] Level Pending Arterial Blood pH 7.347 (7.350-7.450) Arterial Blood Partial Pressure CO2 40.4 mmHg (35.0-45.0) Arterial Blood Partial Pressure O2 155.2 mmHg (75.0-100.0) H Arterial Blood HCO3 21.7 mmol/L (22.0-26.0) L Arterial Blood Oxygen Saturation 98.7 % (92.0-98.0) H Arterial Blood Base Excess -3.7 Jace Test Positive General Appearance: well appearing, no apparent distress, alert Head: normocephalic Neck: supple Respiratory: other - mech vent Cardiovascular: normal rate Gastrointestinal: normal inspection, ngt Skin: normal inspection, normal color, no rash, warm/dry, palpation normal Lymphatic: normal inspection, no adenopathy Current Medications Current Medications Medications (Trade) Dose Ordered Sig/Ramiro Route PRN Reason Start Time Stop Time Status Last Admin Dose Admin Acetaminophen (Tylenol) 650 mg Q4H PRN ORAL fever 09/30/16 07:15 10/30/16 07:14 09/30/16 09:28 Albuterol/ Ipratropium (DuoNeb 0.5-3(2.5)mg/3ml) 3 ml Q4H PRN HHN Shortness of Breath 09/30/16 07:15 10/05/16 07:14 Clonidine HCl (Catapres) 0.1 mg Q4H PRN ORAL For High Blood Pressure 09/30/16 06:49 10/30/16 06:48 Dextrose (Dextrose 50%) STAT PRN IV Hypoglycemia 09/30/16 06:50 10/30/16 06:49 Dextrose/Sodium Chloride 1,000 ml @ 150 mls/hr Q6H40M IV 09/30/16 07:00 10/30/16 06:59 09/30/16 13:58 Metoprolol Tartrate (Lopressor) 25 mg Q12HR ORAL 09/30/16 21:00 10/30/16 20:59 Morphine Sulfate (Morphine Sulfate) 2 mg Q4H PRN IVP Moderate Pain (Pain Scale 4-6) 09/30/16 07:15 7/18/17 07:14 Nitroglycerin (Ntg) 0.4 mg Every 5 Minutes PRN SL Prn Chest Pain 09/30/16 06:15 10/30/16 06:14 Ondansetron HCl (Zofran) 4 mg Q6H PRN IVP Nausea & Vomiting 09/30/16 06:51 10/30/16 06:50 Pantoprazole (Protonix) 40 mg EVERY 12 HOURS IVP 09/30/16 21:00 10/30/16 20:59 Piperacillin Sod/ Tazobactam Sod/ Dextrose (Zosyn/D5W) 110 ml @ 27.5 mls/hr Q8HR@0500,1300,2100 IVPB 09/30/16 13:00 10/07/16 12:59 09/30/16 13:58 Polyethylene Glycol (Miralax) 17 gm DAILYPRN PRN ORAL Constipation 09/30/16 06:51 10/30/16 06:50 Temazepam (Restoril) 15 mg HSPRN PRN ORAL Insomnia 09/30/16 06:52 10/07/16 06:51 GI: Plan Problems: (1) Coffee ground emesis (2) Severe sepsis (3) Leukocytosis (4) Protein-calorie malnutrition, severe Plan hold GI procedures, will require cardiac clearance given elevated troponin levels supportive care ordered ppi gtt ordered 500cc gastric lavage OB stool r/o GI bleed monitor H&H, transfuse prn abx fu labs Discussed with Dr. Tellez. Thank you for referring this patient, we will follow. STEVEN TELLEZ 10/03/16 0913: History of Present Illness General Reason for Hospitalization: Fever Present Illness Home Meds Reported Medications Amitriptyline Hcl* (AMITRIPTYLINE HCL*) 100 Mg Tablet, 150 MG ORAL BEDTIME, TAB 09/24/14 [place] Carbonate* (LITHIUM*) 300 Mg Capsule, 300 MG ORAL EVERY 8 HOURS, CAP 0 Refills 09/24/14 Amantadine HCl (Amantadine) 50 Mg/5 Ml Syrup, 100 MG ORAL DAILY, ML 09/22/14 Discontinued Scripts Levofloxacin* (LEVAQUIN*) 500 Mg Tablet, 500 MG ORAL DAILY, #10 TAB Prov:Rahul Lopez MD 09/26/14 Allergies: Coded Allergies: No Known Allergies (Unverified , 09/22/14) GI: Plan Plan The patient was seen and examined at bedside and all new and available data was reviewed in the patients chart. I agree with the above findings, impression and plan. (Patient seen earlier today. Signature stamp does not reflect patient encounter time.). -Steven [facility]En[facility] Aiden N.P. Sep 30, 2016 15:53 STEVEN TELLEZ Oct 03, 2016 09:13
[2016-09-30] MEDS: Pantoprazole 80 MG in NS 250 ML IV SCH (17:03)
[2016-09-30] MEDS: Nitroglycerin 50mg/250ml btl 250 ML IV SCH (17:42)
[2016-09-30] MEDS ORDERED: Metoprolol 5mg/5ml Inj IVPB STA (20:38)
[2016-09-30] MEDS: Metoprolol 25mg tab ORAL SCH (20:44)
[2016-09-30] MEDS ORDERED: Pantoprazole Inj IVP SCH (21:00)
[2016-09-30] MEDS ORDERED: Metoprolol Tartrate 10 MG in NS 55 ML IVPB ONE (21:15)
[2016-09-30] MEDS ORDERED: Aspirin Baby 81mg NG SCH (22:00)
[2016-09-30] MEDS ORDERED: Enoxaparin 60mg Inj SUBQ SCH (22:00)
--- NOTE | 2016-09-30 22:20 | General Progress Note ---
Assessment/Plan Status: not improved Assessment/Plan Delirium -cont current meds -recommend low dose antipsychotics Subjective Neurologic/Psychiatric: Reports: depressed, emotional problems Allergies: Coded Allergies: No Known Allergies (Unverified , 09/22/14) Subjective confused and has episodes of agitation Objective Last 24 Hour Vital Signs Date Time Temp Pulse Resp B/P Pulse Ox O2 Delivery O2 Flow Rate FiO2 09/30/16 21:29 95 36 40 09/30/16 21:06 113 104/66 09/30/16 20:44 113 108/66 09/30/16 20:00 112 09/30/16 19:22 112 34 40 09/30/16 19:18 111 34 109/66 98 Mechanical Ventilator 40 09/30/16 19:00 113 34 106/66 98 Mechanical Ventilator 40 09/30/16 18:16 15.0 40 09/30/16 18:00 111 34 112/71 97 Mechanical Ventilator 40 09/30/16 17:42 112/79 09/30/16 17:00 110 35 112/79 96 Mechanical Ventilator 40 09/30/16 16:30 108 34 40 09/30/16 16:00 98.1 106 34 108/68 98 Mechanical Ventilator 40 09/30/16 16:00 104 09/30/16 15:00 105 35 103/73 98 Mechanical Ventilator 40 09/30/16 14:30 111 34 40 09/30/16 14:10 111 117/77 09/30/16 14:00 107 35 118/73 96 Mechanical Ventilator 40 09/30/16 13:00 110 35 117/77 96 Mechanical Ventilator 40 09/30/16 12:42 110 36 40 09/30/16 12:00 113 09/30/16 12:00 97.9 111 36 111/73 97 Mechanical Ventilator 40 09/30/16 11:11 114 33 40 09/30/16 11:00 113 35 118/74 96 Mechanical Ventilator 40 09/30/16 10:27 97.9 09/30/16 10:00 97.9 113 36 113/72 96 Mechanical Ventilator 40 09/30/16 09:00 100.5 115 35 121/75 92 Mechanical Ventilator 40 09/30/16 08:35 113 32 40 09/30/16 08:00 99.9 111 35 120/77 96 Mechanical Ventilator 50 09/30/16 08:00 111 09/30/16 07:09 114 34 50 09/30/16 07:00 111 35 123/83 96 Mechanical Ventilator 50 09/30/16 06:00 114 34 125/83 96 Mechanical Ventilator 50 09/30/16 05:13 113 37 50 09/30/16 05:00 111 34 129/84 96 Mechanical Ventilator 50 09/30/16 04:00 99.4 111 35 123/83 96 Mechanical Ventilator 50 09/30/16 04:00 108 09/30/16 03:30 112 36 50 09/30/16 03:00 111 35 126/82 96 Mechanical Ventilator 50 09/30/16 02:00 110 35 139/84 96 Mechanical Ventilator 50 09/30/16 01:30 110 36 50 09/30/16 01:00 110 35 126/83 96 Mechanical Ventilator 50 09/30/16 00:00 98.8 112 34 126/83 96 Mechanical Ventilator 50 09/30/16 00:00 110 09/29/16 23:30 113 35 50 09/29/16 23:00 112 35 116/76 96 Mechanical Ventilator 100 Intake and Output 09/29/16 09/30/16 19:00 07:00 Intake Total 1800 ml Output Total 650 ml 1550 ml Balance -650 ml 250 ml IV Total 1800 ml Output Urine Total 650 ml 1550 ml # Voids 1 1 Laboratory Tests 09/30/16 04:50: White Blood Count 17.8H, Red Blood Count 4.36L, Hemoglobin 12.8L, Hematocrit 41.6L, Mean Corpuscular Volume 95, Mean Corpuscular Hemoglobin 29.3, Mean Corpuscular Hemoglobin Concent 30.7L, Red Cell Distribution Width 13.8, Platelet Count 100L, Mean Platelet Volume 8.6, Neutrophils (%) (Auto) 83.4H, Lymphocytes (%) (Auto) 6.9L, Monocytes (%) (Auto) 9.1, Eosinophils (%) (Auto) 0.1, Basophils (%) (Auto) 0.6, Sodium Level 158H, Potassium Level 4.2, Chloride Level 125H, Carbon Dioxide Level 22, Anion Gap 11, Blood Urea Nitrogen 70H, Creatinine 2.7H, Estimat Glomerular Filtration Rate 23.7, Glucose Level 191H, Calcium Level 9.3, Ionized Calcium (Measured) 1.25, Magnesium Level 2.8H, Troponin I 39.27*H, Pro-B-Type Natriuretic Peptide [id number], [place] Level [ Pending] 09/30/16 08:31: Arterial Blood pH 7.347L, Arterial Blood Partial Pressure CO2 40.4, Arterial Blood Partial Pressure O2 155.2H, Arterial Blood HCO3 21.7L, Arterial Blood Oxygen Saturation 98.7H, Arterial Blood Base Excess -3.7, Jace Test Positive 09/30/16 15:00: Troponin I 17.71*H Height (Feet): 6 Height (Inches): 1.00 Weight (Pounds): 131 General Appearance: no apparent distress, confused, thin Neurologic: disoriented Elda Hernandez M.D. Sep 30, 2016 22:20
--- NOTE | 2016-09-30 22:55 | Diagnostic Imaging Report ---
APPROVED REPORT CPT Code: 10098 Present Symptoms Shortness of breath BILATERAL: Imaging reveals a patent deep venous system bilaterally. There is no evidence of thrombus within the femoral, popliteal or tibial segments. The greater saphenous veins are also within normal limits. Doppler indicates normal spontaneous flow within these segments.
--- NOTE | 2016-09-30 23:48 | Nephrology Progress Note ---
Assessment/Plan Problem List: (1) Hypernatremia (2) Acute kidney injury superimposed on chronic kidney disease (3) COPD (chronic obstructive pulmonary disease) (4) NSTEMI (non-ST elevated myocardial infarction) Plan Consider changing IVF to D5W if Na continues to rise. Increase FW flush via NGT. WIll follow. Thanks. See consultation note to follow. Subjective Subjective 65 y/o male admitted with respiratory failure. in ICU. on vent. Na 158. Objective Objective Last 24 Hour Vital Signs Date Time Temp Pulse Resp B/P Pulse Ox O2 Delivery O2 Flow Rate FiO2 09/30/16 23:25 97 34 40 09/30/16 23:00 99.7 97 35 104/66 99 Mechanical Ventilator 40 09/30/16 22:00 91 35 97/60 97 Mechanical Ventilator 40 09/30/16 21:29 95 36 40 09/30/16 21:06 113 104/66 09/30/16 21:00 93 35 97/60 97 Mechanical Ventilator 40 09/30/16 20:44 113 108/66 09/30/16 20:00 98.0 113 36 104/66 97 Mechanical Ventilator 40 09/30/16 20:00 112 09/30/16 19:22 112 34 40 09/30/16 19:18 111 34 109/66 98 Mechanical Ventilator 40 09/30/16 19:00 113 34 106/66 98 Mechanical Ventilator 40 09/30/16 18:16 15.0 40 09/30/16 18:00 111 34 112/71 97 Mechanical Ventilator 40 09/30/16 17:42 112/79 09/30/16 17:00 110 35 112/79 96 Mechanical Ventilator 40 09/30/16 16:30 108 34 40 09/30/16 16:00 98.1 106 34 108/68 98 Mechanical Ventilator 40 09/30/16 16:00 104 09/30/16 15:00 105 35 103/73 98 Mechanical Ventilator 40 09/30/16 14:30 111 34 40 09/30/16 14:10 111 117/77 09/30/16 14:00 107 35 118/73 96 Mechanical Ventilator 40 09/30/16 13:00 110 35 117/77 96 Mechanical Ventilator 40 09/30/16 12:42 110 36 40 09/30/16 12:00 113 09/30/16 12:00 97.9 111 36 111/73 97 Mechanical Ventilator 40 09/30/16 11:11 114 33 40 09/30/16 11:00 113 35 118/74 96 Mechanical Ventilator 40 09/30/16 10:27 97.9 09/30/16 10:00 97.9 113 36 113/72 96 Mechanical Ventilator 40 09/30/16 09:00 100.5 115 35 121/75 92 Mechanical Ventilator 40 09/30/16 08:35 113 32 40 09/30/16 08:00 99.9 111 35 120/77 96 Mechanical Ventilator 50 09/30/16 08:00 111 09/30/16 07:09 114 34 50 09/30/16 07:00 111 35 123/83 96 Mechanical Ventilator 50 09/30/16 06:00 114 34 125/83 96 Mechanical Ventilator 50 09/30/16 05:13 113 37 50 09/30/16 05:00 111 34 129/84 96 Mechanical Ventilator 50 09/30/16 04:00 99.4 111 35 123/83 96 Mechanical Ventilator 50 09/30/16 04:00 108 09/30/16 03:30 112 36 50 09/30/16 03:00 111 35 126/82 96 Mechanical Ventilator 50 09/30/16 02:00 110 35 139/84 96 Mechanical Ventilator 50 09/30/16 01:30 110 36 50 09/30/16 01:00 110 35 126/83 96 Mechanical Ventilator 50 09/30/16 00:00 98.8 112 34 126/83 96 Mechanical Ventilator 50 09/30/16 00:00 110 Intake and Output 09/29/16 09/30/16 19:00 07:00 Intake Total 1800 ml Output Total 650 ml 1550 ml Balance -650 ml 250 ml IV Total 1800 ml Output Urine Total 650 ml 1550 ml # Voids 1 1 Laboratory Tests 09/30/16 04:50: White Blood Count 17.8H, Red Blood Count 4.36L, Hemoglobin 12.8L, Hematocrit 41.6L, Mean Corpuscular Volume 95, Mean Corpuscular Hemoglobin 29.3, Mean Corpuscular Hemoglobin Concent 30.7L, Red Cell Distribution Width 13.8, Platelet Count 100L, Mean Platelet Volume 8.6, Neutrophils (%) (Auto) 83.4H, Lymphocytes (%) (Auto) 6.9L, Monocytes (%) (Auto) 9.1, Eosinophils (%) (Auto) 0.1, Basophils (%) (Auto) 0.6, Sodium Level 158H, Potassium Level 4.2, Chloride Level 125H, Carbon Dioxide Level 22, Anion Gap 11, Blood Urea Nitrogen 70H, Creatinine 2.7H, Estimat Glomerular Filtration Rate 23.7, Glucose Level 191H, Calcium Level 9.3, Ionized Calcium (Measured) 1.25, Magnesium Level 2.8H, Troponin I 39.27*H, Pro-B-Type Natriuretic Peptide 20808I, Seffner Level [ Pending] 09/30/16 08:31: Arterial Blood pH 7.347L, Arterial Blood Partial Pressure CO2 40.4, Arterial Blood Partial Pressure O2 155.2H, Arterial Blood HCO3 21.7L, Arterial Blood Oxygen Saturation 98.7H, Arterial Blood Base Excess -3.7, Jace Test Positive 09/30/16 15:00: Troponin I 17.71*H Height (Feet): 6 Height (Inches): 1.00 Weight (Pounds): 131 GENE BRIONES Sep 30, 2016 23:48
[2016-10-01] VITALS (24 sets, daily range): BP systolic 106–135; BP diastolic 63–79
--- NOTE | 2016-10-01 | Progress Note ---
DATE: 09/30/2016 CARDIOLOGY PROGRESS NOTE SUBJECTIVE: The patient is remaining in the intensive care unit. Condition remains critical. Prognosis guarded. The patient was transferred into the intensive care unit last after noon after he was noted by me to be bradycardic and hypoxic. He required intubation and mechanical ventilation. His electrocardiogram revealed sinus tachycardia with diffuse ST depressions. His troponin level yanelis to almost 4. EKG today reveals sinus rhythm, evidence of ST elevations inferiorly and reciprocal lateral depression. The patient is orally intubated and unresponsive. NG tube is to LIMS - with coffee ground drainage since AM. OBJECTIVE: VITAL SIGNS: Blood pressure 108/66, pulse 113, respiratory rate 24, and no fevers. HEENT: Temporal wasting. Orally intubated. LUNGS: Bilateral rhonchi. HEART: Regular rhythm. Rapid rate. Normal S1 and S2. ABDOMEN: Soft. EXTREMITIES: No edema. LABORATORY AND DIAGNOSTIC DATA: Chest x-ray reveals bilateral infiltrates. White count is decreased to 17.8 and hemoglobin 12.8. Potassium is 4.2, sodium 158, chloride 125, bicarbonate 22, BUN 70 and creatinine 2.7. Pro-natriuretic peptide is 17,000. IMPRESSION: 1. Acute myocardial infarction, possible ST elevation type. 2. Acute respiratory failure. 3. Hypoxia. 4. Pneumonia. 5. Acute renal failure. 6. Severe dehydration. 7. Hypernatremia. 8. Hyperchloremia. 9. Acute on chronic diastolic and systolic congestive heart failure. 10. GI bleeding. 11. Case was discussed with the patient's brother at bedside. He is made aware of patient's critical condition and guarded prognosis. PLAN: Intravenous nitroglycerin and beta blockade. Not a candidate for intervention at this time nor thrombolytics therapy in view of his altered mentation. Hypotonic IV fluids being continued, antibiotics, ventilator support. We are holding aspirin and anti-coagulation due to active GI bleeding. Donald Baldwin M.D. DR: NETTA JOB#: [id number] CC: JUAN LUIS
[2016-10-01] MEDS: Pantoprazole 80 MG in NS 250 ML IV SCH ×2 (03:12→12:58)
[2016-10-01 05:10] LABS: MEAN CORPUSCULAR HEMOGLOBIN 28.6 PG (27.0-31.0); MEAN CORPUSCULAR HGB CONC 29.7 G/DL (32.0-36.0); MEAN CORPUSCULAR VOLUME 96 FL (80-99); MEAN PLATELET VOLUME 9.1 FL (6.5-10.1); PLATELET COUNT 109 K/UL (150-450); RED BLOOD COUNT 4.25 M/UL (4.70-6.10); WHITE BLOOD COUNT 18.8 K/UL (4.8-10.8)
[2016-10-01] MEDS: D5 1/2NS 1,000 ML IV SCH (05:23)
[2016-10-01] MEDS: Piperacillin/Tazobactam 3.375 GM in D5W 110 ML IVPB SCH ×3 (05:23→21:27)
[2016-10-01 05:24] LABS: CALCIUM 9.1 mg/dL (8.6-10.2); CREATININE 2.1 mg/dL (0.7-1.2); GLOMERULAR FILTRATION RATE 31.7 mL/min (>60); POTASSIUM 4.2 mEQ/L (3.4-4.9)
[2016-10-01 06:45] LABS: TROPONIN I 14.64 ng/mL (<=0.30)
[2016-10-01] MEDS: Metoprolol 25mg tab ORAL SCH ×2 (08:09→20:55)
[2016-10-01 08:30] LABS: ABG ALLEN TEST POSITIVE; ABG BASE EXCESS -7.1; ABG PCO2 35.9 mmHg (35.0-45.0)
[2016-10-01 08:33] LABS: BAND NEUTROPHILS % (MANUAL) 0 % (0-8); BASOPHILS % (MANUAL) 0 % (0-2); EOSINOPHILS % (MANUAL) 1 % (0-3); LYMPHOCYTES % (MANUAL) 9 % (20-45); NEUTROPHILS % (MANUAL) 82 % (45-75); PLATELET ESTIMATE DECREASED; PLATELET MORPHOLOGY NORMAL; TOTAL CELLS COUNTED 100
--- NOTE | 2016-10-01 09:45 | Pulmonology Progress Note ---
Assessment/Plan Assessment/Plan 1. Leukocytosis. Persistent 2. Hypernatremia. 3. Renal dysfunction. 4. Schizoaffective disorder. 5. Acute MO 6. Questionable urinary tract infection. 7. Respiratory failure DISCUSSION: Continue vent Abx Cardiology following IV fluids Subjective Interval Events: Remains intubated; u nable to wean Constitutional: Reports: no symptoms HEENT: Repors: no symptoms Respiratory: Reports: no symptoms Cardiovascular: Reports: no symptoms Allergies: Coded Allergies: No Known Allergies (Unverified , 09/22/14) Objective Last 24 Hour Vital Signs Date Time Temp Pulse Resp B/P Pulse Ox O2 Delivery O2 Flow Rate FiO2 10/01/16 09:06 94 34 40 10/01/16 09:00 94 33 106/65 100 Mechanical Ventilator 40 10/01/16 08:09 103 106/66 10/01/16 08:00 100.5 102 36 106/66 100 Mechanical Ventilator 40 10/01/16 07:00 102 33 123/73 100 Mechanical Ventilator 40 10/01/16 06:57 102 35 40 10/01/16 06:00 100 33 122/76 100 Mechanical Ventilator 40 10/01/16 05:06 101 35 40 10/01/16 05:00 100 33 122/79 98 Mechanical Ventilator 40 10/01/16 04:00 102 10/01/16 04:00 98.7 101 32 116/77 98 Mechanical Ventilator 40 10/01/16 04:00 40 10/01/16 03:13 102 37 40 10/01/16 03:00 98.7 101 35 111/63 98 Mechanical Ventilator 40 10/01/16 02:00 99.0 100 35 110/67 98 Mechanical Ventilator 40 10/01/16 01:29 101 35 40 10/01/16 01:00 99.2 100 35 109/63 98 Mechanical Ventilator 40 10/01/16 00:00 96 10/01/16 00:00 40 10/01/16 00:00 99.4 103 35 110/72 99 Mechanical Ventilator 40 09/30/16 23:58 99.4 09/30/16 23:25 97 34 40 09/30/16 23:00 99.7 97 35 104/66 99 Mechanical Ventilator 40 09/30/16 22:00 91 35 97/60 97 Mechanical Ventilator 40 09/30/16 21:29 95 36 40 09/30/16 21:06 113 104/66 09/30/16 21:00 93 35 97/60 97 Mechanical Ventilator 40 09/30/16 20:44 113 108/66 09/30/16 20:00 40 09/30/16 20:00 98.0 113 36 104/66 97 Mechanical Ventilator 40 09/30/16 20:00 112 09/30/16 19:22 112 34 40 09/30/16 19:18 111 34 109/66 98 Mechanical Ventilator 40 09/30/16 19:00 113 34 106/66 98 Mechanical Ventilator 40 09/30/16 18:16 15.0 40 09/30/16 18:00 111 34 112/71 97 Mechanical Ventilator 40 09/30/16 17:42 112/79 09/30/16 17:00 110 35 112/79 96 Mechanical Ventilator 40 09/30/16 16:30 108 34 40 09/30/16 16:00 98.1 106 34 108/68 98 Mechanical Ventilator 40 09/30/16 16:00 104 09/30/16 15:00 105 35 103/73 98 Mechanical Ventilator 40 09/30/16 14:30 111 34 40 09/30/16 14:10 111 117/77 09/30/16 14:00 107 35 118/73 96 Mechanical Ventilator 40 09/30/16 13:00 110 35 117/77 96 Mechanical Ventilator 40 09/30/16 12:42 110 36 40 09/30/16 12:00 113 09/30/16 12:00 97.9 111 36 111/73 97 Mechanical Ventilator 40 09/30/16 11:11 114 33 40 09/30/16 11:00 113 35 118/74 96 Mechanical Ventilator 40 09/30/16 10:00 97.9 113 36 113/72 96 Mechanical Ventilator 40 Intake and Output 09/30/16 10/01/16 19:00 07:00 Intake Total 1861.5 ml 2308.0 ml Output Total 1900 ml 1200 ml Balance -38.5 ml 1108.0 ml Free Water 50 ml 400 ml IV Total 1811.5 ml 1808.0 ml Other 100 ml Output Urine Total 1900 ml 1200 ml General Appearance: no acute distress HEENT: normocephalic Respiratory/Chest: chest wall non-tender, lungs clear Cardiovascular: normal peripheral pulses, normal rate Laboratory Tests 09/30/16 15:00: Troponin I 17.71*H 10/01/16 03:55: Troponin I 14.64*H, White Blood Count 18.8H, Red Blood Count 4.25L, Hemoglobin 12.2L, Hematocrit 40.9L, Mean Corpuscular Volume 96, Mean Corpuscular Hemoglobin 28.6, Mean Corpuscular Hemoglobin Concent 29.7L, Red Cell Distribution Width 14.0, Platelet Count 109L, Mean Platelet Volume 9.1, Neutrophils (%) (Auto) , Lymphocytes (%) (Auto) , Monocytes (%) (Auto) , Eosinophils (%) (Auto) , Basophils (%) (Auto) , Differential Total Cells Counted 100, Neutrophils % (Manual) 82H, Lymphocytes % (Manual) 9L, Monocytes % (Manual) 8, Eosinophils % (Manual) 1, Basophils % (Manual) 0, Band Neutrophils 0 , Platelet Estimate DecreasedL, Platelet Morphology Normal, Red Blood Cell Morphology Normal, Sodium Level 167*H, Potassium Level 4.2, Chloride Level 138H , Carbon Dioxide Level 20, Anion Gap 9, Blood Urea Nitrogen 48H, Creatinine 2.1H , Estimat Glomerular Filtration Rate 31.7, Glucose Level 221H, Calcium Level 9.1 , Pro-B-Type Natriuretic Peptide 7286H 10/01/16 08:14: Arterial Blood pH 7.320L, Arterial Blood Partial Pressure CO2 35.9, Arterial Blood Partial Pressure O2 134.9H, Arterial Blood HCO3 18.2L, Arterial Blood Oxygen Saturation 98.3H, Arterial Blood Base Excess -7.1, Jace Test Positive Current Medications Medications (Trade) Dose Ordered Sig/Ramiro Route PRN Reason Start Time Stop Time Status Last Admin Dose Admin Acetaminophen (Tylenol) 650 mg Q4H PRN ORAL fever 09/30/16 07:15 10/30/16 07:14 10/01/16 08:09 Albuterol/ Ipratropium (DuoNeb 0.5-3(2.5)mg/3ml) 3 ml Q4H PRN HHN Shortness of Breath 09/30/16 07:15 10/05/16 07:14 Clonidine HCl (Catapres) 0.1 mg Q4H PRN ORAL For High Blood Pressure 09/30/16 06:49 10/30/16 06:48 Dextrose (D5W 1000ml) 1,000 ml @ 100 mls/hr Q10H IV 10/01/16 06:15 10/31/16 06:14 10/01/16 06:21 Dextrose (Dextrose 50%) STAT PRN IV Hypoglycemia 09/30/16 06:50 10/30/16 06:49 Metoprolol Tartrate 25 mg 25 mg Q12HR ORAL 09/30/16 21:00 10/30/16 20:59 10/01/16 08:09 Morphine Sulfate (Morphine Sulfate) 2 mg Q4H PRN IVP Moderate Pain (Pain Scale 4-6) 09/30/16 07:15 10/07/16 07:14 Nitroglycerin 250 ml @ 1.5 mls/hr Q24H IV 09/30/16 17:00 10/30/16 16:59 09/30/16 17:42 Nitroglycerin (Ntg) 0.4 mg Every 5 Minutes PRN SL Prn Chest Pain 09/30/16 06:15 10/30/16 06:14 Ondansetron HCl (Zofran) 4 mg Q6H PRN IVP Nausea & Vomiting 09/30/16 06:51 10/30/16 06:50 Pantoprazole 80 mg/Sodium Chloride 250 ml @ 25 mls/hr Q10H IV 09/30/16 17:00 10/30/16 16:59 10/01/16 03:12 Piperacillin Sod/ Tazobactam Sod/ Dextrose (Zosyn/D5W) 110 ml @ 27.5 mls/hr Q8HR@0500,1300,2100 IVPB 09/30/16 13:00 10/07/16 12:59 10/01/16 05:23 Polyethylene Glycol (Miralax) 17 gm DAILYPRN PRN ORAL Constipation 09/30/16 06:51 10/30/16 06:50 Temazepam (Restoril) 15 mg HSPRN PRN ORAL Insomnia 09/30/16 06:52 10/07/16 06:51 Rahul Lopez MD Oct 01, 2016 09:45
[2016-10-01] MEDS ORDERED: Tubing IV Secondary IV ONE (10:48)
[2016-10-01] MEDS ORDERED: Sterile Water Irrig 1000ml IRRIG ONE (10:48)
[2016-10-01] MEDS ORDERED: D5 1/2NS 1000ml IV ONE (10:48)
--- NOTE | 2016-10-01 10:54 | Diagnostic Imaging Report ---
Indication: Dyspnea Technique: One view of the chest Comparison: 09/30/2016 Findings: Stable satisfactory position of endotracheal tube. Interim advancement of nasogastric tube, tip now projecting beyond the edge of the image, well within the stomach.. The lungs and pleural spaces remain clear. Heart size is normal. Aorta is tortuous and calcified. Some hyperinflation and scarring are seen in the upper lungs bilaterally. Lines are unchanged Impression: Improved nasogastric tube position, over one day Other stable findings as described
--- NOTE | 2016-10-01 14:07 | GI Progress Note ---
Assessment/Plan Problems: (1) Coffee ground emesis ICD Codes: K92.0 - Hematemesis SNOMED: 76976896, 178609679 (2) Severe sepsis ICD Codes: A41.9 - Sepsis, unspecified organism; R65.20 - Severe sepsis without septic shock SNOMED: 76306143 (3) Leukocytosis ICD Codes: D72.829 - Leukocytosis SNOMED: 534362024 (4) Protein-calorie malnutrition, severe ICD Codes: E43 - Unspecified severe protein-calorie malnutrition SNOMED: 451196875 Status: unchanged Status Narrative Discussed with Dr. Marion. Assessment/Plan gastric lavage >> no blood noted hold GI procedures, will require cardiac clearance given elevated troponin levels supportive care monitor H&H, transfuse prn ppi gtt >> BID OB stool r/o GI bleed bowel regime abx fu labs Subjective Subjective limited Objective Last 24 Hour Vital Signs Date Time Temp Pulse Resp B/P Pulse Ox O2 Delivery O2 Flow Rate FiO2 10/01/16 13:17 101 34 40 10/01/16 12:00 99 33 112/72 97 Mechanical Ventilator 40 10/01/16 12:00 100 10/01/16 11:00 100 33 111/63 97 Mechanical Ventilator 40 10/01/16 10:55 95 34 40 10/01/16 10:00 96 33 123/68 100 Mechanical Ventilator 40 10/01/16 09:08 98.9 10/01/16 09:06 94 34 40 10/01/16 09:00 94 33 106/65 100 Mechanical Ventilator 40 10/01/16 08:09 103 106/66 10/01/16 08:00 104 10/01/16 08:00 100.5 102 36 106/66 100 Mechanical Ventilator 40 10/01/16 07:00 102 33 123/73 100 Mechanical Ventilator 40 10/01/16 06:57 102 35 40 10/01/16 06:00 100 33 122/76 100 Mechanical Ventilator 40 10/01/16 05:06 101 35 40 10/01/16 05:00 100 33 122/79 98 Mechanical Ventilator 40 10/01/16 04:00 102 10/01/16 04:00 98.7 101 32 116/77 98 Mechanical Ventilator 40 10/01/16 04:00 40 10/01/16 03:13 102 37 40 10/01/16 03:00 98.7 101 35 111/63 98 Mechanical Ventilator 40 10/01/16 02:00 99.0 100 35 110/67 98 Mechanical Ventilator 40 10/01/16 01:29 101 35 40 10/01/16 01:00 99.2 100 35 109/63 98 Mechanical Ventilator 40 10/01/16 00:00 96 10/01/16 00:00 40 10/01/16 00:00 99.4 103 35 110/72 99 Mechanical Ventilator 40 09/30/16 23:25 97 34 40 09/30/16 23:00 99.7 97 35 104/66 99 Mechanical Ventilator 40 09/30/16 22:00 91 35 97/60 97 Mechanical Ventilator 40 09/30/16 21:29 95 36 40 09/30/16 21:06 113 104/66 09/30/16 21:00 93 35 97/60 97 Mechanical Ventilator 40 09/30/16 20:44 113 108/66 09/30/16 20:00 40 09/30/16 20:00 98.0 113 36 104/66 97 Mechanical Ventilator 40 09/30/16 20:00 112 09/30/16 19:22 112 34 40 09/30/16 19:18 111 34 109/66 98 Mechanical Ventilator 40 09/30/16 19:00 113 34 106/66 98 Mechanical Ventilator 40 09/30/16 18:16 15.0 40 09/30/16 18:00 111 34 112/71 97 Mechanical Ventilator 40 09/30/16 17:42 112/79 09/30/16 17:00 110 35 112/79 96 Mechanical Ventilator 40 09/30/16 16:30 108 34 40 09/30/16 16:00 98.1 106 34 108/68 98 Mechanical Ventilator 40 09/30/16 16:00 104 09/30/16 15:00 105 35 103/73 98 Mechanical Ventilator 40 09/30/16 14:30 111 34 40 09/30/16 14:10 111 117/77 Intake and Output 09/30/16 10/01/16 19:00 07:00 Intake Total 1861.5 ml 2308.0 ml Output Total 1900 ml 1200 ml Balance -38.5 ml 1108.0 ml Free Water 50 ml 400 ml IV Total 1811.5 ml 1808.0 ml Other 100 ml Output Urine Total 1900 ml 1200 ml Laboratory Tests Test 09/30/16 15:00 10/01/16 03:55 10/01/16 08:14 Troponin I 17.71 ng/mL (<=0.30) *H 14.64 ng/mL (<=0.30) *H White Blood Count 18.8 K/UL (4.8-10.8) H Red Blood Count 4.25 M/UL (4.70-6.10) L Hemoglobin 12.2 G/DL (14.2-18.0) L Hematocrit 40.9 % (42.0-52.0) L Mean Corpuscular Volume 96 FL (80-99) Mean Corpuscular Hemoglobin 28.6 PG (27.0-31.0) Mean Corpuscular Hemoglobin Concent 29.7 G/DL (32.0-36.0) L Red Cell Distribution Width 14.0 % (11.6-14.8) Platelet Count 109 K/UL (150-450) L Mean Platelet Volume 9.1 FL (6.5-10.1) Neutrophils (%) (Auto) % (45.0-75.0) Lymphocytes (%) (Auto) % (20.0-45.0) Monocytes (%) (Auto) % (1.0-10.0) Eosinophils (%) (Auto) % (0.0-3.0) Basophils (%) (Auto) % (0.0-2.0) Differential Total Cells Counted 100 Neutrophils % (Manual) 82 % (45-75) H Lymphocytes % (Manual) 9 % (20-45) L Monocytes % (Manual) 8 % (1-10) Eosinophils % (Manual) 1 % (0-3) Basophils % (Manual) 0 % (0-2) Band Neutrophils 0 % (0-8) Platelet Estimate Decreased L Platelet Morphology Normal Red Blood Cell Morphology Normal Sodium Level 167 mEQ/L (135-145) *H Potassium Level 4.2 mEQ/L (3.4-4.9) Chloride Level 138 mEQ/L (98-107) H Carbon Dioxide Level 20 mEQ/L (20-30) Anion Gap 9 (5-15) Blood Urea Nitrogen 48 mg/dL (7-23) H Creatinine 2.1 mg/dL (0.7-1.2) H Estimat Glomerular Filtration Rate 31.7 mL/min (>60) Glucose Level 221 mg/dL (74-106) H Calcium Level 9.1 mg/dL (8.6-10.2) Pro-B-Type Natriuretic Peptide 7286 pg/mL (0-125) H Arterial Blood pH 7.320 (7.350-7.450) Arterial Blood Partial Pressure CO2 35.9 mmHg (35.0-45.0) Arterial Blood Partial Pressure O2 134.9 mmHg (75.0-100.0) H Arterial Blood HCO3 18.2 mmol/L (22.0-26.0) L Arterial Blood Oxygen Saturation 98.3 % (92.0-98.0) H Arterial Blood Base Excess -7.1 Jace Test Positive Microbiology Date/Time Source Procedure Growth Status 09/30/16 18:00 Sputum Gram Stain - Final Resulted 09/30/16 18:00 Sputum Sputum Culture Pending Resulted Height (Feet): 6 Height (Inches): 1.00 Weight (Pounds): 127 General Appearance: no apparent distress, alert, thin Cardiovascular: normal rate Respiratory/Chest: other - [facility] prebleh vent Abdominal Exam: other - NGT Pam Shah N.PKrunal Oct 01, 2016 14:07
--- NOTE | 2016-10-01 15:40 | Consultation ---
History of Present Illness General Chief Complaint: Fever Referring physician: Dr. Elam Reason for Consultation: Hypernatremia, acute on CKD Present Illness HPI This is a 65-year-old male with a PMHx significant for COPD and bipolar disorder, admitted to the hospital a week ago with fevers and chills as well as a dry nonproductive cough and was started on antibiotics for community-acquired pneumonia, started also on IV fluids for lactic acidosis. Over the past few days, his condition has worsened. He has become increasingly withdrawn and lethargic. He has elevated sodium level and acute renal failure on CKD which prompted this consult. Allergies: Coded Allergies: No Known Allergies (Unverified , 09/22/14) Medication History Scheduled Amantadine HCl (Amantadine), 100 MG ORAL DAILY, (Reported) Amitriptyline Hcl* (Amitriptyline Hcl*), 150 MG ORAL BEDTIME, (Reported) [place] Carbonate* ([place]*), 300 MG ORAL EVERY 8 HOURS, (Reported) Discontinued Medications Levofloxacin* (Levaquin*), 500 MG ORAL DAILY Discontinued Reason: Therapy completed Patient History Healthcare decision maker Resuscitation status Full Code Advanced Directive on File Past Medical/Surgical History Past Medical/Surgical History: (1) COPD (chronic obstructive pulmonary disease) (2) Bipolar disorder (3) Protein-calorie malnutrition, severe Social History Social History: (1) Current every day smoker (2) No history of alcohol use (3) No illicit drug use Review of Systems ROS Narrative Intubated in ICU Physical Exam General Appearance: no apparent distress Neck: non-tender Respiratory/Chest: on vent Cardiovascular/Chest: normal rate, regular rhythm, no JVD Abdomen: soft, no organomegaly Extremities: other - raymond Skin Exam: normal pigmentation Neurologic: unresponsiveness Last 24 Hour Vital Signs Date Time Temp Pulse Resp B/P Pulse Ox O2 Delivery O2 Flow Rate FiO2 10/01/16 15:04 101 34 40 10/01/16 15:00 101 33 131/79 97 Mechanical Ventilator 40 10/01/16 14:00 101 33 123/67 97 Mechanical Ventilator 40 10/01/16 13:17 101 34 40 10/01/16 13:00 94 33 111/68 97 Mechanical Ventilator 40 10/01/16 12:00 99 33 112/72 97 Mechanical Ventilator 40 10/01/16 12:00 98.7 10/01/16 12:00 100 7/12/17 11:00 100 33 111/63 97 Mechanical Ventilator 40 10/01/16 10:55 95 34 40 10/01/16 10:00 96 33 123/68 100 Mechanical Ventilator 40 10/01/16 09:08 98.9 10/01/16 09:06 94 34 40 10/01/16 09:00 94 33 106/65 100 Mechanical Ventilator 40 10/01/16 08:09 103 106/66 10/01/16 08:00 104 10/01/16 08:00 100.5 102 36 106/66 100 Mechanical Ventilator 40 10/01/16 07:00 102 33 123/73 100 Mechanical Ventilator 40 10/01/16 06:57 102 35 40 10/01/16 06:00 100 33 122/76 100 Mechanical Ventilator 40 10/01/16 05:06 101 35 40 10/01/16 05:00 100 33 122/79 98 Mechanical Ventilator 40 10/01/16 04:00 102 10/01/16 04:00 98.7 101 32 116/77 98 Mechanical Ventilator 40 10/01/16 04:00 40 10/01/16 03:13 102 37 40 10/01/16 03:00 98.7 101 35 111/63 98 Mechanical Ventilator 40 10/01/16 02:00 99.0 100 35 110/67 98 Mechanical Ventilator 40 10/01/16 01:29 101 35 40 10/01/16 01:00 99.2 100 35 109/63 98 Mechanical Ventilator 40 10/01/16 00:00 96 10/01/16 00:00 40 10/01/16 00:00 99.4 103 35 110/72 99 Mechanical Ventilator 40 09/30/16 23:25 97 34 40 09/30/16 23:00 99.7 97 35 104/66 99 Mechanical Ventilator 40 09/30/16 22:00 91 35 97/60 97 Mechanical Ventilator 40 09/30/16 21:29 95 36 40 09/30/16 21:06 113 104/66 09/30/16 21:00 93 35 97/60 97 Mechanical Ventilator 40 09/30/16 20:44 113 108/66 09/30/16 20:00 40 09/30/16 20:00 98.0 113 36 104/66 97 Mechanical Ventilator 40 09/30/16 20:00 112 09/30/16 19:22 112 34 40 09/30/16 19:18 111 34 109/66 98 Mechanical Ventilator 40 09/30/16 19:00 113 34 106/66 98 Mechanical Ventilator 40 09/30/16 18:16 15.0 40 09/30/16 18:00 111 34 112/71 97 Mechanical Ventilator 40 09/30/16 17:42 112/79 09/30/16 17:00 110 35 112/79 96 Mechanical Ventilator 40 09/30/16 16:30 108 34 40 09/30/16 16:00 98.1 106 34 108/68 98 Mechanical Ventilator 40 09/30/16 16:00 104 Intake and Output 09/30/16 10/01/16 19:00 07:00 Intake Total 1861.5 ml 2308.0 ml Output Total 1900 ml 1200 ml Balance -38.5 ml 1108.0 ml Free Water 50 ml 400 ml IV Total 1811.5 ml 1808.0 ml Other 100 ml Output Urine Total 1900 ml 1200 ml Laboratory Tests Test 10/01/16 03:55 10/01/16 08:14 White Blood Count 18.8 K/UL (4.8-10.8) H Red Blood Count 4.25 M/UL (4.70-6.10) L Hemoglobin 12.2 G/DL (14.2-18.0) L Hematocrit 40.9 % (42.0-52.0) L Mean Corpuscular Volume 96 FL (80-99) Mean Corpuscular Hemoglobin 28.6 PG (27.0-31.0) Mean Corpuscular Hemoglobin Concent 29.7 G/DL (32.0-36.0) L Red Cell Distribution Width 14.0 % (11.6-14.8) Platelet Count 109 K/UL (150-450) L Mean Platelet Volume 9.1 FL (6.5-10.1) Neutrophils (%) (Auto) % (45.0-75.0) Lymphocytes (%) (Auto) % (20.0-45.0) Monocytes (%) (Auto) % (1.0-10.0) Eosinophils (%) (Auto) % (0.0-3.0) Basophils (%) (Auto) % (0.0-2.0) Differential Total Cells Counted 100 Neutrophils % (Manual) 82 % (45-75) H Lymphocytes % (Manual) 9 % (20-45) L Monocytes % (Manual) 8 % (1-10) Eosinophils % (Manual) 1 % (0-3) Basophils % (Manual) 0 % (0-2) Band Neutrophils 0 % (0-8) Platelet Estimate Decreased L Platelet Morphology Normal Red Blood Cell Morphology Normal Sodium Level 167 mEQ/L (135-145) *H Potassium Level 4.2 mEQ/L (3.4-4.9) Chloride Level 138 mEQ/L (98-107) H Carbon Dioxide Level 20 mEQ/L (20-30) Anion Gap 9 (5-15) Blood Urea Nitrogen 48 mg/dL (7-23) H Creatinine 2.1 mg/dL (0.7-1.2) H Estimat Glomerular Filtration Rate 31.7 mL/min (>60) Glucose Level 221 mg/dL (74-106) H Calcium Level 9.1 mg/dL (8.6-10.2) Troponin I 14.64 ng/mL (<=0.30) *H Pro-B-Type Natriuretic Peptide 7286 pg/mL (0-125) H Arterial Blood pH 7.320 (7.350-7.450) Arterial Blood Partial Pressure CO2 35.9 mmHg (35.0-45.0) Arterial Blood Partial Pressure O2 134.9 mmHg (75.0-100.0) H Arterial Blood HCO3 18.2 mmol/L (22.0-26.0) L Arterial Blood Oxygen Saturation 98.3 % (92.0-98.0) H Arterial Blood Base Excess -7.1 Jace Test Positive Microbiology Date/Time Source Procedure Growth Status 09/30/16 18:00 Sputum Gram Stain - Final Resulted 09/30/16 18:00 Sputum Sputum Culture Pending Resulted Height (Feet): 6 Height (Inches): 1.00 Weight (Pounds): 127 Medications Current Medications Medications (Trade) Dose Ordered Sig/Ramiro Route PRN Reason Start Time Stop Time Status Last Admin Dose Admin Acetaminophen (Tylenol) 650 mg Q4H PRN ORAL fever 09/30/16 07:15 10/30/16 07:14 10/01/16 08:09 Albuterol/ Ipratropium (DuoNeb 0.5-3(2.5)mg/3ml) 3 ml Q4H PRN HHN Shortness of Breath 09/30/16 07:15 10/05/16 07:14 Clonidine HCl (Catapres) 0.1 mg Q4H PRN ORAL For High Blood Pressure 09/30/16 06:49 10/30/16 06:48 Dextrose (D5W 1000ml) 1,000 ml @ 100 mls/hr Q10H IV 10/01/16 06:15 10/31/16 06:14 10/01/16 06:21 Dextrose (Dextrose 50%) STAT PRN IV Hypoglycemia 09/30/16 06:50 10/30/16 06:49 Metoprolol Tartrate 25 mg 25 mg Q12HR ORAL 09/30/16 21:00 10/30/16 20:59 10/01/16 08:09 Morphine Sulfate (Morphine Sulfate) 2 mg Q4H PRN IVP Moderate Pain (Pain Scale 4-6) 09/30/16 07:15 10/07/16 07:14 Nitroglycerin 250 ml @ 1.5 mls/hr Q24H IV 09/30/16 17:00 10/30/16 16:59 09/30/16 17:42 Nitroglycerin (Ntg) 0.4 mg Every 5 Minutes PRN SL Prn Chest Pain 09/30/16 06:15 10/30/16 06:14 Ondansetron HCl (Zofran) 4 mg Q6H PRN IVP Nausea & Vomiting 09/30/16 06:51 10/30/16 06:50 Pantoprazole (Protonix) 40 mg DAILY IVP 10/02/16 09:00 11/01/16 08:59 Piperacillin Sod/ Tazobactam Sod/ Dextrose (Zosyn/D5W) 110 ml @ 27.5 mls/hr Q8HR@0500,1300,2100 IVPB 09/30/16 13:00 10/07/16 12:59 10/01/16 14:17 Polyethylene Glycol (Miralax) 17 gm DAILYPRN PRN ORAL Constipation 09/30/16 06:51 10/30/16 06:50 Temazepam (Restoril) 15 mg HSPRN PRN ORAL Insomnia 09/30/16 06:52 10/07/16 06:51 Assessment/Plan Problem List: (1) Pneumonia ICD Codes: J18.9 - Pneumonia, unspecified organism SNOMED: 482659898 Qualifiers: Qualified Codes: J18.9 - Pneumonia, unspecified organism (2) Severe sepsis ICD Codes: A41.9 - Sepsis, unspecified organism; R65.20 - Severe sepsis without septic shock SNOMED: 70627825 (3) Hypernatremia ICD Codes: E87.0 - Hyperosmolality and hypernatremia SNOMED: 60391078 (4) Acute kidney injury superimposed on chronic kidney disease ICD Codes: N17.9 - Acute kidney failure, unspecified; N18.9 - Chronic kidney disease, unspecified SNOMED: 45300933, 209893284 (5) UTI (urinary tract infection) ICD Codes: N39.0 - Urinary tract infection, site not specified SNOMED: 70380812 (6) Protein-calorie malnutrition, severe ICD Codes: E43 - Unspecified severe protein-calorie malnutrition SNOMED: 514867527 (7) NSTEMI (non-ST elevated myocardial infarction) ICD Codes: I21.4 - Non-ST elevation (NSTEMI) myocardial infarction SNOMED: 038353762 Assessment/Plan Continue current IVF Monitor electrolytes Monitor renal function Avoid nephrotoxic agents Abx per ID Cardio following Monitor neuro status AM labs Shobha Nuñez N.P. Oct 01, 2016 15:40
[2016-10-01 16:49] LABS: GLOMERULAR FILTRATION RATE 33.5 mL/min (>60); POTASSIUM 3.9 mEQ/L (3.4-4.9)
--- NOTE | 2016-10-01 16:58 | Cardiology Report ---
APPROVED REPORT EKG Measurement Heart [id number] [id number] Sinus tachycardia Moderate voltage criteria for LVH, may be normal variant ST elevation, consider inferior injury or acute infarct Consider right ventricular involvement in acute inferior infarct Abnormal ECG
--- NOTE | 2016-10-01 17:58 | Geriatric Progress Note ---
Assessment/Plan Assessment/Plan intubated obtunded. critical Subjective Psychiatric: Reports: see HPI Neurologic: Reports: see HPI Subjective the pt isintubated not engaged Geriatric Geriatric Last 24 Hour Vital Signs Date Time Temp Pulse Resp B/P Pulse Ox O2 Delivery O2 Flow Rate FiO2 10/01/16 17:11 105 34 40 10/01/16 15:04 101 34 40 10/01/16 15:00 101 33 131/79 97 Mechanical Ventilator 40 10/01/16 14:00 101 33 123/67 97 Mechanical Ventilator 40 10/01/16 13:17 101 34 40 10/01/16 13:00 94 33 111/68 97 Mechanical Ventilator 40 10/01/16 12:00 99 33 112/72 97 Mechanical Ventilator 40 10/01/16 12:00 98.7 10/01/16 12:00 100 10/01/16 11:00 100 33 111/63 97 Mechanical Ventilator 40 10/01/16 10:55 95 34 40 10/01/16 10:00 96 33 123/68 100 Mechanical Ventilator 40 10/01/16 09:08 98.9 10/01/16 09:06 94 34 40 10/01/16 09:00 94 33 106/65 100 Mechanical Ventilator 40 10/01/16 08:09 103 106/66 10/01/16 08:00 104 10/01/16 08:00 100.5 102 36 106/66 100 Mechanical Ventilator 40 10/01/16 07:00 102 33 123/73 100 Mechanical Ventilator 40 10/01/16 06:57 102 35 40 10/01/16 06:00 100 33 122/76 100 Mechanical Ventilator 40 10/01/16 05:06 101 35 40 10/01/16 05:00 100 33 122/79 98 Mechanical Ventilator 40 10/01/16 04:00 102 10/01/16 04:00 98.7 101 32 116/77 98 Mechanical Ventilator 40 10/01/16 04:00 40 10/01/16 03:13 102 37 40 10/01/16 03:00 98.7 101 35 111/63 98 Mechanical Ventilator 40 10/01/16 02:00 99.0 100 35 110/67 98 Mechanical Ventilator 40 10/01/16 01:29 101 35 40 10/01/16 01:00 99.2 100 35 109/63 98 Mechanical Ventilator 40 10/01/16 00:00 96 10/01/16 00:00 40 10/01/16 00:00 99.4 103 35 110/72 99 Mechanical Ventilator 40 09/30/16 23:25 97 34 40 09/30/16 23:00 99.7 97 35 104/66 99 Mechanical Ventilator 40 09/30/16 22:00 91 35 97/60 97 Mechanical Ventilator 40 09/30/16 21:29 95 36 40 09/30/16 21:06 113 104/66 09/30/16 21:00 93 35 97/60 97 Mechanical Ventilator 40 09/30/16 20:44 113 108/66 09/30/16 20:00 40 09/30/16 20:00 98.0 113 36 104/66 97 Mechanical Ventilator 40 09/30/16 20:00 112 09/30/16 19:22 112 34 40 09/30/16 19:18 111 34 109/66 98 Mechanical Ventilator 40 09/30/16 19:00 113 34 106/66 98 Mechanical Ventilator 40 09/30/16 18:16 15.0 40 09/30/16 18:00 111 34 112/71 97 Mechanical Ventilator 40 Intake and Output 09/30/16 10/01/16 19:00 07:00 Intake Total 1861.5 ml 2308.0 ml Output Total 1900 ml 1200 ml Balance -38.5 ml 1108.0 ml Free Water 50 ml 400 ml IV Total 1811.5 ml 1808.0 ml Other 100 ml Output Urine Total 1900 ml 1200 ml Laboratory Tests Test 10/01/16 03:55 10/01/16 08:14 10/01/16 16:07 White Blood Count 18.8 K/UL (4.8-10.8) H Red Blood Count 4.25 M/UL (4.70-6.10) L Hemoglobin 12.2 G/DL (14.2-18.0) L Hematocrit 40.9 % (42.0-52.0) L Mean Corpuscular Volume 96 FL (80-99) Mean Corpuscular Hemoglobin 28.6 PG (27.0-31.0) Mean Corpuscular Hemoglobin Concent 29.7 G/DL (32.0-36.0) L Red Cell Distribution Width 14.0 % (11.6-14.8) Platelet Count 109 K/UL (150-450) L Mean Platelet Volume 9.1 FL (6.5-10.1) Neutrophils (%) (Auto) % (45.0-75.0) Lymphocytes (%) (Auto) % (20.0-45.0) Monocytes (%) (Auto) % (1.0-10.0) Eosinophils (%) (Auto) % (0.0-3.0) Basophils (%) (Auto) % (0.0-2.0) Differential Total Cells Counted 100 Neutrophils % (Manual) 82 % (45-75) H Lymphocytes % (Manual) 9 % (20-45) L Monocytes % (Manual) 8 % (1-10) Eosinophils % (Manual) 1 % (0-3) Basophils % (Manual) 0 % (0-2) Band Neutrophils 0 % (0-8) Platelet Estimate Decreased L Platelet Morphology Normal Red Blood Cell Morphology Normal Sodium Level 167 mEQ/L (135-145) *H 166 mEQ/L (135-145) *H Potassium Level 4.2 mEQ/L (3.4-4.9) 3.9 mEQ/L (3.4-4.9) Chloride Level 138 mEQ/L (98-107) H 135 mEQ/L (98-107) H Carbon Dioxide Level 20 mEQ/L (20-30) 21 mEQ/L (20-30) Anion Gap 9 (5-15) 10 (5-15) Blood Urea Nitrogen 48 mg/dL (7-23) H 41 mg/dL (7-23) H Creatinine 2.1 mg/dL (0.7-1.2) H 2.0 mg/dL (0.7-1.2) H Estimat Glomerular Filtration Rate 31.7 mL/min (>60) 33.5 mL/min (>60) Glucose Level 221 mg/dL (74-106) H 192 mg/dL (74-106) H Calcium Level 9.1 mg/dL (8.6-10.2) 9.0 mg/dL (8.6-10.2) Troponin I 14.64 ng/mL (<=0.30) *H Pro-B-Type Natriuretic Peptide 7286 pg/mL (0-125) H Arterial Blood pH 7.320 (7.350-7.450) Arterial Blood Partial Pressure CO2 35.9 mmHg (35.0-45.0) Arterial Blood Partial Pressure O2 134.9 mmHg (75.0-100.0) H Arterial Blood HCO3 18.2 mmol/L (22.0-26.0) L Arterial Blood Oxygen Saturation 98.3 % (92.0-98.0) H Arterial Blood Base Excess -7.1 Jace Test Positive Current Medications Medications (Trade) Dose Ordered Sig/Ramiro Route PRN Reason Start Time Stop Time Status Last Admin Dose Admin Acetaminophen (Tylenol) 650 mg Q4H PRN ORAL fever 09/30/16 07:15 10/30/16 07:14 10/01/16 08:09 Albuterol/ Ipratropium (DuoNeb 0.5-3(2.5)mg/3ml) 3 ml Q4H PRN HHN Shortness of Breath 09/30/16 07:15 10/05/16 07:14 Clonidine HCl (Catapres) 0.1 mg Q4H PRN ORAL For High Blood Pressure 09/30/16 06:49 10/30/16 06:48 Dextrose (D5W 1000ml) 1,000 ml @ 100 mls/hr Q10H IV 10/01/16 06:15 10/31/16 06:14 10/01/16 16:09 Dextrose (Dextrose 50%) STAT PRN IV Hypoglycemia 09/30/16 06:50 10/30/16 06:49 Metoprolol Tartrate 25 mg 25 mg Q12HR ORAL 09/30/16 21:00 10/30/16 20:59 10/01/16 08:09 Morphine Sulfate (Morphine Sulfate) 2 mg Q4H PRN IVP Moderate Pain (Pain Scale 4-6) 09/30/16 07:15 10/07/16 07:14 Nitroglycerin 250 ml @ 1.5 mls/hr Q24H IV 09/30/16 17:00 10/30/16 16:59 09/30/16 17:42 Nitroglycerin (Ntg) 0.4 mg Every 5 Minutes PRN SL Prn Chest Pain 09/30/16 06:15 10/30/16 06:14 Ondansetron HCl (Zofran) 4 mg Q6H PRN IVP Nausea & Vomiting 09/30/16 06:51 10/30/16 06:50 Pantoprazole (Protonix) 40 mg DAILY IVP 10/02/16 09:00 11/01/16 08:59 Piperacillin Sod/ Tazobactam Sod/ Dextrose (Zosyn/D5W) 110 ml @ 27.5 mls/hr Q8HR@0500,1300,2100 IVPB 09/30/16 13:00 10/07/16 12:59 10/01/16 14:17 Polyethylene Glycol (Miralax) 17 gm DAILYPRN PRN ORAL Constipation 09/30/16 06:51 10/30/16 06:50 Temazepam (Restoril) 15 mg HSPRN PRN ORAL Insomnia 09/30/16 06:52 10/07/16 06:51 Height (Feet): 6 Height (Inches): 1.00 Weight (Pounds): 127 General Appearance: no apparent distress, lethargic Psychiatric Orientation: disoriented Elda Hernandez M.D. Oct 01, 2016 17:58
[2016-10-01] MEDS: Nitroglycerin 50mg/250ml btl 250 ML IV SCH (18:16)
--- NOTE | 2016-10-01 22:27 | Infectious Diseases Prog Note ---
Assessment/Plan Assessment/Plan 65-year-old E coli septicemia, high grade UTI ? intra-abd sepsis Pulmonary edema Fevers, low grade Leukocytosis, improving Lactic acidosis, improving VDRF on vent 09/29 ALOC 09/29 PLAN: continue IV zosyn day # 6 / 14 s/p 7/9 D#2 IV vancomycin monitor surveillance blood cx x2sets sent 09/27 CT a/p with IV contrast in next 1-2 days if no significant improvement to r/o occult intraabdominal abscess Subjective Allergies: Coded Allergies: No Known Allergies (Unverified , 09/22/14) Subjective on vent Objective Vital Signs Last 24 Hour Vital Signs Date Time Temp Pulse Resp B/P Pulse Ox O2 Delivery O2 Flow Rate FiO2 10/01/16 22:00 92 30 125/71 100 Mechanical Ventilator 60 10/01/16 21:30 99 36 60 10/01/16 21:00 99 32 118/73 100 Mechanical Ventilator 60 10/01/16 20:55 106 126/69 10/01/16 20:00 104 10/01/16 20:00 99.2 104 32 126/69 100 Mechanical Ventilator 60 10/01/16 19:11 104 33 60 10/01/16 19:00 104 33 135/78 100 Mechanical Ventilator 40 10/01/16 18:16 127/79 10/01/16 18:00 104 33 127/79 97 Mechanical Ventilator 40 10/01/16 18:00 40 10/01/16 17:11 105 34 40 10/01/16 17:00 103 33 122/70 97 Mechanical Ventilator 40 10/01/16 16:00 98.8 104 33 132/69 97 Mechanical Ventilator 40 10/01/16 16:00 102 10/01/16 15:04 101 34 40 10/01/16 15:00 101 33 131/79 97 Mechanical Ventilator 40 10/01/16 14:00 101 33 123/67 97 Mechanical Ventilator 40 10/01/16 13:17 101 34 40 10/01/16 13:00 94 33 111/68 97 Mechanical Ventilator 40 10/01/16 12:00 99 33 112/72 97 Mechanical Ventilator 40 10/01/16 12:00 98.7 10/01/16 12:00 100 10/01/16 11:00 100 33 111/63 97 Mechanical Ventilator 40 10/01/16 10:55 95 34 40 10/01/16 10:00 96 33 123/68 100 Mechanical Ventilator 40 10/01/16 09:08 98.9 10/01/16 09:06 94 34 40 10/01/16 09:00 94 33 106/65 100 Mechanical Ventilator 40 10/01/16 08:09 103 106/66 10/01/16 08:00 104 10/01/16 08:00 100.5 102 36 106/66 100 Mechanical Ventilator 40 10/01/16 07:00 102 33 123/73 100 Mechanical Ventilator 40 10/01/16 06:57 102 35 40 10/01/16 06:00 100 33 122/76 100 Mechanical Ventilator 40 10/01/16 05:06 101 35 40 10/01/16 05:00 100 33 122/79 98 Mechanical Ventilator 40 10/01/16 04:00 102 10/01/16 04:00 98.7 101 32 116/77 98 Mechanical Ventilator 40 10/01/16 04:00 40 10/01/16 03:13 102 37 40 10/01/16 03:00 98.7 101 35 111/63 98 Mechanical Ventilator 40 10/01/16 02:00 99.0 100 35 110/67 98 Mechanical Ventilator 40 10/01/16 01:29 101 35 40 10/01/16 01:00 99.2 100 35 109/63 98 Mechanical Ventilator 40 10/01/16 00:00 96 10/01/16 00:00 40 10/01/16 00:00 99.4 103 35 110/72 99 Mechanical Ventilator 40 09/30/16 23:25 97 34 40 09/30/16 23:00 99.7 97 35 104/66 99 Mechanical Ventilator 40 Height (Feet): 6 Height (Inches): 1.00 Weight (Pounds): 127 HEENT: atraumatic Respiratory/Chest: lungs clear Cardiovascular: normal rate Abdomen: no mass Microbiology Date/Time Source Procedure Growth Status 09/30/16 18:00 Sputum Gram Stain - Final Resulted 09/30/16 18:00 Sputum Sputum Culture Pending Resulted Laboratory Tests Test 10/01/16 03:55 10/01/16 08:14 10/01/16 16:07 White Blood Count 18.8 K/UL (4.8-10.8) H Red Blood Count 4.25 M/UL (4.70-6.10) L Hemoglobin 12.2 G/DL (14.2-18.0) L Hematocrit 40.9 % (42.0-52.0) L Mean Corpuscular Volume 96 FL (80-99) Mean Corpuscular Hemoglobin 28.6 PG (27.0-31.0) Mean Corpuscular Hemoglobin Concent 29.7 G/DL (32.0-36.0) L Red Cell Distribution Width 14.0 % (11.6-14.8) Platelet Count 109 K/UL (150-450) L Mean Platelet Volume 9.1 FL (6.5-10.1) Neutrophils (%) (Auto) % (45.0-75.0) Lymphocytes (%) (Auto) % (20.0-45.0) Monocytes (%) (Auto) % (1.0-10.0) Eosinophils (%) (Auto) % (0.0-3.0) Basophils (%) (Auto) % (0.0-2.0) Differential Total Cells Counted 100 Neutrophils % (Manual) 82 % (45-75) H Lymphocytes % (Manual) 9 % (20-45) L Monocytes % (Manual) 8 % (1-10) Eosinophils % (Manual) 1 % (0-3) Basophils % (Manual) 0 % (0-2) Band Neutrophils 0 % (0-8) Platelet Estimate Decreased L Platelet Morphology Normal Red Blood Cell Morphology Normal Sodium Level 167 mEQ/L (135-145) *H 166 mEQ/L (135-145) *H Potassium Level 4.2 mEQ/L (3.4-4.9) 3.9 mEQ/L (3.4-4.9) Chloride Level 138 mEQ/L (98-107) H 135 mEQ/L (98-107) H Carbon Dioxide Level 20 mEQ/L (20-30) 21 mEQ/L (20-30) Anion Gap 9 (5-15) 10 (5-15) Blood Urea Nitrogen 48 mg/dL (7-23) H 41 mg/dL (7-23) H Creatinine 2.1 mg/dL (0.7-1.2) H 2.0 mg/dL (0.7-1.2) H Estimat Glomerular Filtration Rate 31.7 mL/min (>60) 33.5 mL/min (>60) Glucose Level 221 mg/dL (74-106) H 192 mg/dL (74-106) H Calcium Level 9.1 mg/dL (8.6-10.2) 9.0 mg/dL (8.6-10.2) Troponin I 14.64 ng/mL (<=0.30) *H Pro-B-Type Natriuretic Peptide 7286 pg/mL (0-125) H Arterial Blood pH 7.320 (7.350-7.450) Arterial Blood Partial Pressure CO2 35.9 mmHg (35.0-45.0) Arterial Blood Partial Pressure O2 134.9 mmHg (75.0-100.0) H Arterial Blood HCO3 18.2 mmol/L (22.0-26.0) L Arterial Blood Oxygen Saturation 98.3 % (92.0-98.0) H Arterial Blood Base Excess -7.1 Jace Test Positive Current Medications Medications (Trade) Dose Ordered Sig/Ramiro Route PRN Reason Start Time Stop Time Status Last Admin Dose Admin Acetaminophen (Tylenol) 650 mg Q4H PRN ORAL fever 09/30/16 07:15 10/30/16 07:14 10/01/16 08:09 Albuterol/ Ipratropium (DuoNeb 0.5-3(2.5)mg/3ml) 3 ml Q4H PRN HHN Shortness of Breath 09/30/16 07:15 10/05/16 07:14 Clonidine HCl (Catapres) 0.1 mg Q4H PRN ORAL For High Blood Pressure 09/30/16 06:49 10/30/16 06:48 Dextrose (D5W 1000ml) 1,000 ml @ 100 mls/hr Q10H IV 10/01/16 06:15 10/31/16 06:14 10/01/16 16:09 Dextrose (Dextrose 50%) STAT PRN IV Hypoglycemia 09/30/16 06:50 10/30/16 06:49 Metoprolol Tartrate 25 mg 25 mg Q12HR ORAL 09/30/16 21:00 10/30/16 20:59 10/01/16 20:55 Morphine Sulfate (Morphine Sulfate) 2 mg Q4H PRN IVP Moderate Pain (Pain Scale 4-6) 09/30/16 07:15 10/07/16 07:14 Nitroglycerin 250 ml @ 1.5 mls/hr Q24H IV 09/30/16 17:00 10/30/16 16:59 10/01/16 18:16 Nitroglycerin (Ntg) 0.4 mg Every 5 Minutes PRN SL Prn Chest Pain 09/30/16 06:15 10/30/16 06:14 Ondansetron HCl (Zofran) 4 mg Q6H PRN IVP Nausea & Vomiting 09/30/16 06:51 10/30/16 06:50 Pantoprazole (Protonix) 40 mg DAILY IVP 10/02/16 09:00 11/01/16 08:59 Piperacillin Sod/ Tazobactam Sod/ Dextrose (Zosyn/D5W) 110 ml @ 27.5 mls/hr Q8HR@0500,1300,2100 IVPB 09/30/16 13:00 10/07/16 12:59 10/01/16 21:27 Polyethylene Glycol (Miralax) 17 gm DAILYPRN PRN ORAL Constipation 09/30/16 06:51 10/30/16 06:50 Temazepam (Restoril) 15 mg HSPRN PRN ORAL Insomnia 09/30/16 06:52 10/07/16 06:51 RADHA VARELA M.D. Oct 01, 2016 22:27
[2016-10-02] VITALS (25 sets, daily range): BP systolic 88–130; BP diastolic 57–75
[2016-10-02 04:25] LABS: MEAN CORPUSCULAR HEMOGLOBIN 29.2 PG (27.0-31.0); MEAN CORPUSCULAR VOLUME 98 FL (80-99); MEAN PLATELET VOLUME 10.9 FL (6.5-10.1); PLATELET COUNT 112 K/UL (150-450); RED BLOOD COUNT 3.95 M/UL (4.70-6.10); RED CELL DISTRIBUTION WIDTH 14.5 % (11.6-14.8)
[2016-10-02 04:43] LABS: ALBUMIN/GLOBULIN RATIO 0.6 (1.0-2.7); CALCIUM 9.5 mg/dL (8.6-10.2); CREATININE 1.9 mg/dL (0.7-1.2); GLOMERULAR FILTRATION RATE 35.5 mL/min (>60); POTASSIUM 4.1 mEQ/L (3.4-4.9); TOTAL PROTEIN 6.6 g/dL (6.6-8.7)
[2016-10-02] MEDS: Piperacillin/Tazobactam 3.375 GM in D5W 110 ML IVPB SCH ×3 (05:18→20:48)
[2016-10-02 07:18] LABS: BAND NEUTROPHILS % (MANUAL) 0 % (0-8); BASOPHILS % (MANUAL) 0 % (0-2); EOSINOPHILS % (MANUAL) 0 % (0-3); HYPOCHROMASIA 1+; LYMPHOCYTES % (MANUAL) 4 % (20-45); NEUTROPHILS % (MANUAL) 91 % (45-75); PLATELET ESTIMATE DECREASED; PLATELET MORPHOLOGY NORMAL; TOTAL CELLS COUNTED 100
[2016-10-02 07:28] LABS: BILIRUBIN,DIRECT 1.3 mg/dL (0.1-0.3)
--- NOTE | 2016-10-02 09:55 | Pulmonology Progress Note ---
Assessment/Plan Assessment/Plan 1. Leukocytosis. Persistent 2. Hypernatremia. 3. Renal dysfunction. 4. Schizoaffective disorder. 5. Acute MS 6. Questionable urinary tract infection. 7. Respiratory failure DISCUSSION: Continue vent Abx Cardiology following IV fluids Discussed with family Subjective Interval Events: Remains intubated Constitutional: Reports: no symptoms HEENT: Repors: no symptoms Respiratory: Reports: no symptoms Cardiovascular: Reports: no symptoms Allergies: Coded Allergies: No Known Allergies (Unverified , 09/22/14) Objective Last 24 Hour Vital Signs Date Time Temp Pulse Resp B/P Pulse Ox O2 Delivery O2 Flow Rate FiO2 10/02/16 09:16 99 10/02/16 09:12 95 31 60 10/02/16 08:00 60 10/02/16 08:00 98.6 99 31 113/70 99 Mechanical Ventilator 60 10/02/16 08:00 101 10/02/16 07:00 101 30 127/65 99 Mechanical Ventilator 60 10/02/16 06:58 99 29 60 10/02/16 06:00 99 30 120/74 99 Mechanical Ventilator 60 10/02/16 05:12 97 33 60 10/02/16 05:00 99 33 127/74 99 Mechanical Ventilator 60 10/02/16 04:00 60 10/02/16 04:00 99 10/02/16 04:00 98.8 99 33 121/62 99 Mechanical Ventilator 60 10/02/16 03:26 98 34 60 10/02/16 03:00 98 33 116/75 99 Mechanical Ventilator 60 10/02/16 02:00 96 33 119/67 99 Mechanical Ventilator 60 10/02/16 01:30 99 35 60 10/02/16 00:50 92 30 125/71 100 Mechanical Ventilator 60 10/02/16 00:00 60 10/02/16 00:00 99 10/02/16 00:00 99.0 97 30 130/69 100 Mechanical Ventilator 60 10/01/16 23:24 96 34 60 10/01/16 23:00 95 30 126/74 100 Mechanical Ventilator 60 10/01/16 22:00 92 30 125/71 100 Mechanical Ventilator 60 10/01/16 21:30 99 36 60 10/01/16 21:00 99 32 118/73 100 Mechanical Ventilator 60 10/01/16 20:55 106 126/69 10/01/16 20:00 104 10/01/16 20:00 60 10/01/16 20:00 99.2 104 32 126/69 100 Mechanical Ventilator 60 10/01/16 19:11 104 33 60 10/01/16 19:00 104 33 135/78 100 Mechanical Ventilator 40 10/01/16 18:16 127/79 10/01/16 18:00 104 33 127/79 97 Mechanical Ventilator 40 10/01/16 18:00 40 10/01/16 17:11 105 34 40 10/01/16 17:00 103 33 122/70 97 Mechanical Ventilator 40 10/01/16 16:00 98.8 104 33 132/69 97 Mechanical Ventilator 40 10/01/16 16:00 102 10/01/16 15:04 101 34 40 10/01/16 15:00 101 33 131/79 97 Mechanical Ventilator 40 10/01/16 14:00 101 33 123/67 97 Mechanical Ventilator 40 10/01/16 13:17 101 34 40 10/01/16 13:00 94 33 111/68 97 Mechanical Ventilator 40 10/01/16 12:00 99 33 112/72 97 Mechanical Ventilator 40 10/01/16 12:00 98.7 10/01/16 12:00 100 10/01/16 11:00 100 33 111/63 97 Mechanical Ventilator 40 10/01/16 10:55 95 34 40 10/01/16 10:00 96 33 123/68 100 Mechanical Ventilator 40 Intake and Output 10/01/16 10/02/16 19:00 07:00 Intake Total 1781.5 ml 1218.0 ml Output Total 1900 ml 1760 ml Balance -118.5 ml -542.0 ml Free Water 500 ml IV Total 1281.5 ml 1218.0 ml Output Urine Total 1900 ml 1760 ml General Appearance: no acute distress HEENT: normocephalic Respiratory/Chest: chest wall non-tender, decreased breath sounds Cardiovascular: normal peripheral pulses, normal rate Microbiology Date/Time Source Procedure Growth Status 09/30/16 18:00 Sputum Gram Stain - Final Resulted 09/30/16 18:00 Sputum Culture - Preliminary YEAST Resulted Laboratory Tests 10/01/16 16:07: Sodium Level 166*H, Potassium Level 3.9, Chloride Level 135H, Carbon Dioxide Level 21, Anion Gap 10, Blood Urea Nitrogen 41H, Creatinine 2.0H, Estimat Glomerular Filtration Rate 33.5, Glucose Level 192H, Calcium Level 9.0 10/02/16 03:25: Sodium Level 165*H, Potassium Level 4.1, Chloride Level 132H, Carbon Dioxide Level 19L, Anion Gap 14, Blood Urea Nitrogen 38H, Creatinine 1.9H, Estimat Glomerular Filtration Rate 35.5, Glucose Level 194H, Calcium Level 9.5, White Blood Count 22.0H, Red Blood Count 3.95L, Hemoglobin 11.6L, Hematocrit 38.5L, Mean Corpuscular Volume 98, Mean Corpuscular Hemoglobin 29.2, Mean Corpuscular Hemoglobin Concent 30.0L, Red Cell Distribution Width 14.5, Platelet Count 112L , Mean Platelet Volume 10.9H, Neutrophils (%) (Auto) , Lymphocytes (%) (Auto) , Monocytes (%) (Auto) , Eosinophils (%) (Auto) , Basophils (%) (Auto) , Differential Total Cells Counted 100, Neutrophils % (Manual) 91H, Lymphocytes % (Manual) 4L, Monocytes % (Manual) 5, Eosinophils % (Manual) 0, Basophils % ( Manual) 0, Band Neutrophils 0, Platelet Estimate DecreasedL, Platelet Morphology Normal, Hypochromasia 1+, Total Bilirubin 2.5H, Direct Bilirubin 1.3H , Aspartate Amino Transf (AST/SGOT) 97H, Alanine Aminotransferase (ALT/SGPT) 107H, Alkaline Phosphatase 90, Total Protein 6.6, Albumin 2.5L, Globulin 4.1, Albumin/Globulin Ratio 0.6L 10/02/16 08:50: Troponin I [Pending] Current Medications Medications (Trade) Dose Ordered Sig/Ramiro Route PRN Reason Start Time Stop Time Status Last Admin Dose Admin Acetaminophen (Tylenol) 650 mg Q4H PRN ORAL fever 09/30/16 07:15 10/30/16 07:14 10/01/16 08:09 Albuterol/ Ipratropium (DuoNeb 0.5-3(2.5)mg/3ml) 3 ml Q4H PRN HHN Shortness of Breath 09/30/16 07:15 10/05/16 07:14 Clonidine HCl (Catapres) 0.1 mg Q4H PRN ORAL For High Blood Pressure 09/30/16 06:49 10/30/16 06:48 Dextrose (D5W 1000ml) 1,000 ml @ 100 mls/hr Q10H IV 10/01/16 06:15 10/31/16 06:14 10/02/16 02:52 Dextrose (Dextrose 50%) STAT PRN IV Hypoglycemia 09/30/16 06:50 10/30/16 06:49 Metoprolol Tartrate 25 mg 25 mg Q12HR ORAL 09/30/16 21:00 10/30/16 20:59 10/01/16 20:55 Morphine Sulfate (Morphine Sulfate) 2 mg Q4H PRN IVP Moderate Pain (Pain Scale 4-6) 09/30/16 07:15 10/07/16 07:14 Nitroglycerin 250 ml @ 1.5 mls/hr Q24H IV 09/30/16 17:00 10/30/16 16:59 10/01/16 18:16 Nitroglycerin (Ntg) 0.4 mg Every 5 Minutes PRN SL Prn Chest Pain 09/30/16 06:15 10/30/16 06:14 Ondansetron HCl (Zofran) 4 mg Q6H PRN IVP Nausea & Vomiting 09/30/16 06:51 10/30/16 06:50 Pantoprazole (Protonix) 40 mg DAILY IVP 10/02/16 09:00 11/01/16 08:59 Piperacillin Sod/ Tazobactam Sod/ Dextrose (Zosyn/D5W) 110 ml @ 27.5 mls/hr Q8HR@0500,1300,2100 IVPB 09/30/16 13:00 10/07/16 12:59 10/02/16 05:18 Polyethylene Glycol (Miralax) 17 gm DAILYPRN PRN ORAL Constipation 09/30/16 06:51 10/30/16 06:50 Temazepam (Restoril) 15 mg HSPRN PRN ORAL Insomnia 09/30/16 06:52 10/07/16 06:51 Rahul Lopez MD Oct 02, 2016 09:55
[2016-10-02] MEDS: Pantoprazole Inj IVP SCH (10:00)
[2016-10-02] MEDS: Metoprolol 25mg tab ORAL SCH (10:00)
[2016-10-02 10:09] LABS: TROPONIN I 17.79 ng/mL (<=0.30)
[2016-10-02 10:22] LABS: ABG ALLEN TEST POSITIVE; ABG BASE EXCESS -4.5; ABG PCO2 39.1 mmHg (35.0-45.0)
--- NOTE | 2016-10-02 11:30 | GI Progress Note ---
Assessment/Plan Problems: (1) Coffee ground emesis ICD Codes: K92.0 - Hematemesis SNOMED: 85864961, 416151894 (2) Severe sepsis ICD Codes: A41.9 - Sepsis, unspecified organism; R65.20 - Severe sepsis without septic shock SNOMED: 66212679 (3) Leukocytosis ICD Codes: D72.829 - Leukocytosis SNOMED: 368195056 (4) Protein-calorie malnutrition, severe ICD Codes: E43 - Unspecified severe protein-calorie malnutrition SNOMED: 853998089 Status: unchanged Status Narrative Discussed with Dr. Marion. Assessment/Plan gastric lavage >> no blood noted hold GI procedures, will require cardiac clearance given elevated troponin levels supportive care monitor H&H, transfuse prn ppi gtt >> BID OB stool r/o GI bleed bowel regime abx fu labs Subjective Subjective limited Objective Last 24 Hour Vital Signs Date Time Temp Pulse Resp B/P Pulse Ox O2 Delivery O2 Flow Rate FiO2 10/02/16 11:12 86 33 60 10/02/16 10:00 96 124/65 10/02/16 10:00 96 29 107/60 99 Mechanical Ventilator 60 10/02/16 09:16 99 10/02/16 09:12 95 31 60 10/02/16 09:00 97 31 109/64 98 Mechanical Ventilator 60 10/02/16 08:00 60 10/02/16 08:00 98.6 99 31 113/70 99 Mechanical Ventilator 60 10/02/16 08:00 101 10/02/16 07:00 101 30 127/65 99 Mechanical Ventilator 60 10/02/16 06:58 99 29 60 10/02/16 06:00 99 30 120/74 99 Mechanical Ventilator 60 10/02/16 05:12 97 33 60 10/02/16 05:00 99 33 127/74 99 Mechanical Ventilator 60 10/02/16 04:00 60 10/02/16 04:00 99 10/02/16 04:00 98.8 99 33 121/62 99 Mechanical Ventilator 60 10/02/16 03:26 98 34 60 10/02/16 03:00 98 33 116/75 99 Mechanical Ventilator 60 10/02/16 02:00 96 33 119/67 99 Mechanical Ventilator 60 10/02/16 01:30 99 35 60 10/02/16 00:50 92 30 125/71 100 Mechanical Ventilator 60 10/02/16 00:00 60 10/02/16 00:00 99 10/02/16 00:00 99.0 97 30 130/69 100 Mechanical Ventilator 60 10/01/16 23:24 96 34 60 10/01/16 23:00 95 30 126/74 100 Mechanical Ventilator 60 10/01/16 22:00 92 30 125/71 100 Mechanical Ventilator 60 10/01/16 21:30 99 36 60 10/01/16 21:00 99 32 118/73 100 Mechanical Ventilator 60 10/01/16 20:55 106 126/69 10/01/16 20:00 104 10/01/16 20:00 60 10/01/16 20:00 99.2 104 32 126/69 100 Mechanical Ventilator 60 10/01/16 19:11 104 33 60 10/01/16 19:00 104 33 135/78 100 Mechanical Ventilator 40 10/01/16 18:16 127/79 10/01/16 18:00 104 33 127/79 97 Mechanical Ventilator 40 10/01/16 18:00 40 10/01/16 17:11 105 34 40 10/01/16 17:00 103 33 122/70 97 Mechanical Ventilator 40 10/01/16 16:00 98.8 104 33 132/69 97 Mechanical Ventilator 40 10/01/16 16:00 102 10/01/16 15:04 101 34 40 10/01/16 15:00 101 33 131/79 97 Mechanical Ventilator 40 10/01/16 14:00 101 33 123/67 97 Mechanical Ventilator 40 10/01/16 13:17 101 34 40 10/01/16 13:00 94 33 111/68 97 Mechanical Ventilator 40 10/01/16 12:00 99 33 112/72 97 Mechanical Ventilator 40 10/01/16 12:00 98.7 10/01/16 12:00 100 Intake and Output 10/01/16 10/02/16 19:00 07:00 Intake Total 1781.5 ml 1218.0 ml Output Total 1900 ml 1760 ml Balance -118.5 ml -542.0 ml Free Water 500 ml IV Total 1281.5 ml 1218.0 ml Output Urine Total 1900 ml 1760 ml Laboratory Tests Test 10/01/16 16:07 10/02/16 03:25 10/02/16 08:50 10/02/16 10:05 Sodium Level 166 mEQ/L (135-145) *H 165 mEQ/L (135-145) *H Potassium Level 3.9 mEQ/L (3.4-4.9) 4.1 mEQ/L (3.4-4.9) Chloride Level 135 mEQ/L (98-107) H 132 mEQ/L (98-107) H Carbon Dioxide Level 21 mEQ/L (20-30) 19 mEQ/L (20-30) L Anion Gap 10 (5-15) 14 (5-15) Blood Urea Nitrogen 41 mg/dL (7-23) H 38 mg/dL (7-23) H Creatinine 2.0 mg/dL (0.7-1.2) H 1.9 mg/dL (0.7-1.2) H Estimat Glomerular Filtration Rate 33.5 mL/min (>60) 35.5 mL/min (>60) Glucose Level 192 mg/dL (74-106) H 194 mg/dL (74-106) H Calcium Level 9.0 mg/dL (8.6-10.2) 9.5 mg/dL (8.6-10.2) White Blood Count 22.0 K/UL (4.8-10.8) H Red Blood Count 3.95 M/UL (4.70-6.10) L Hemoglobin 11.6 G/DL (14.2-18.0) L Hematocrit 38.5 % (42.0-52.0) L Mean Corpuscular Volume 98 FL (80-99) Mean Corpuscular Hemoglobin 29.2 PG (27.0-31.0) Mean Corpuscular Hemoglobin Concent 30.0 G/DL (32.0-36.0) L Red Cell Distribution Width 14.5 % (11.6-14.8) Platelet Count 112 K/UL (150-450) L Mean Platelet Volume 10.9 FL (6.5-10.1) H Neutrophils (%) (Auto) % (45.0-75.0) Lymphocytes (%) (Auto) % (20.0-45.0) Monocytes (%) (Auto) % (1.0-10.0) Eosinophils (%) (Auto) % (0.0-3.0) Basophils (%) (Auto) % (0.0-2.0) Differential Total Cells Counted 100 Neutrophils % (Manual) 91 % (45-75) H Lymphocytes % (Manual) 4 % (20-45) L Monocytes % (Manual) 5 % (1-10) Eosinophils % (Manual) 0 % (0-3) Basophils % (Manual) 0 % (0-2) Band Neutrophils 0 % (0-8) Platelet Estimate Decreased L Platelet Morphology Normal Hypochromasia 1+ Total Bilirubin 2.5 mg/dL (0.0-1.2) H Direct Bilirubin 1.3 mg/dL (0.1-0.3) H Aspartate Amino Transf (AST/SGOT) 97 U/L (5-40) H Alanine Aminotransferase (ALT/SGPT) 107 U/L (3-41) H Alkaline Phosphatase 90 U/L (40-129) Total Protein 6.6 g/dL (6.6-8.7) Albumin 2.5 g/dL (3.5-5.2) L Globulin 4.1 g/dL Albumin/Globulin Ratio 0.6 (1.0-2.7) L Troponin I 17.79 ng/mL (<=0.30) *H Arterial Blood pH 7.340 (7.350-7.450) Arterial Blood Partial Pressure CO2 39.1 mmHg (35.0-45.0) Arterial Blood Partial Pressure O2 275.0 mmHg (75.0-100.0) H Arterial Blood HCO3 20.8 mmol/L (22.0-26.0) L Arterial Blood Oxygen Saturation 99.0 % (92.0-98.0) H Arterial Blood Base Excess -4.5 Jace Test Positive Height (Feet): 6 Height (Inches): 1.00 Weight (Pounds): 130 General Appearance: no apparent distress, alert, thin Cardiovascular: normal rate Respiratory/Chest: normal breath sounds, no respiratory distress Abdominal Exam: other - ALICET Pam Shah N.P. Oct 02, 2016 11:30
[2016-10-02] MEDS: Nitroglycerin 50mg/250ml btl 250 ML IV SCH (17:23)
--- NOTE | 2016-10-02 18:47 | Infectious Diseases Prog Note ---
Assessment/Plan Assessment/Plan 65-year-old E coli bacteremia UTI ? intra-abd sepsis Pulmonary edema Fevers, low grade Leukocytosis, improving Lactic acidosis, improving VDRF on vent 09/29 ALOC 09/29 PLAN: continue IV zosyn day # s/p 09/28 IV vancomycin D#2 monitor surveillance blood cx x2sets sent 09/27 CT a/p with IV contrast , when cr improves further to r/o occult intraabdominal abscess Subjective Allergies: Coded Allergies: No Known Allergies (Unverified , 09/22/14) Subjective family at the bedside on vent Objective Vital Signs Last 24 Hour Vital Signs Date Time Temp Pulse Resp B/P Pulse Ox O2 Delivery O2 Flow Rate FiO2 10/02/16 18:30 94 32 120/70 99 Mechanical Ventilator 50 10/02/16 18:00 95 31 121/63 99 Mechanical Ventilator 50 10/02/16 17:23 125/74 10/02/16 17:13 94 33 50 10/02/16 17:00 95 33 125/74 98 Mechanical Ventilator 50 10/02/16 16:00 50 10/02/16 16:00 98.5 94 33 104/57 98 Mechanical Ventilator 50 10/02/16 16:00 94 10/02/16 15:30 94 33 50 10/02/16 15:00 97 29 104/75 100 Mechanical Ventilator 50 10/02/16 14:00 98 33 124/70 97 Mechanical Ventilator 50 10/02/16 13:00 91 30 105/67 98 Mechanical Ventilator 50 10/02/16 13:00 92 31 50 10/02/16 12:00 84 10/02/16 12:00 98.3 87 31 88/57 98 Mechanical Ventilator 50 10/02/16 12:00 50 10/02/16 11:12 86 33 60 10/02/16 11:00 86 31 117/66 98 Mechanical Ventilator 60 10/02/16 10:00 96 124/65 10/02/16 10:00 96 29 107/60 99 Mechanical Ventilator 60 10/02/16 09:16 99 10/02/16 09:12 95 31 60 10/02/16 09:00 97 31 109/64 98 Mechanical Ventilator 60 10/02/16 08:00 60 10/02/16 08:00 98.6 99 31 113/70 99 Mechanical Ventilator 60 10/02/16 08:00 101 10/02/16 07:00 101 30 127/65 99 Mechanical Ventilator 60 10/02/16 06:58 99 29 60 10/02/16 06:00 99 30 120/74 99 Mechanical Ventilator 60 10/02/16 05:12 97 33 60 10/02/16 05:00 99 33 127/74 99 Mechanical Ventilator 60 10/02/16 04:00 60 10/02/16 04:00 99 10/02/16 04:00 98.8 99 33 121/62 99 Mechanical Ventilator 60 10/02/16 03:26 98 34 60 10/02/16 03:00 98 33 116/75 99 Mechanical Ventilator 60 10/02/16 02:00 96 33 119/67 99 Mechanical Ventilator 60 10/02/16 01:30 99 35 60 10/02/16 00:50 92 30 125/71 100 Mechanical Ventilator 60 10/02/16 00:00 60 10/02/16 00:00 99 10/02/16 00:00 99.0 97 30 130/69 100 Mechanical Ventilator 60 10/01/16 23:24 96 34 60 10/01/16 23:00 95 30 126/74 100 Mechanical Ventilator 60 10/01/16 22:00 92 30 125/71 100 Mechanical Ventilator 60 10/01/16 21:30 99 36 60 10/01/16 21:00 99 32 118/73 100 Mechanical Ventilator 60 10/01/16 20:55 106 126/69 10/01/16 20:00 104 10/01/16 20:00 60 10/01/16 20:00 99.2 104 32 126/69 100 Mechanical Ventilator 60 10/01/16 19:11 104 33 60 10/01/16 19:00 104 33 135/78 100 Mechanical Ventilator 40 Height (Feet): 6 Height (Inches): 1.00 Weight (Pounds): 130 HEENT: anicteric Respiratory/Chest: no accessory muscle use Cardiovascular: no gallop/murmur Abdomen: no organomegaly Microbiology Date/Time Source Procedure Growth Status 09/30/16 18:00 Sputum Gram Stain - Final Resulted 09/30/16 18:00 Sputum Culture - Preliminary YEAST Resulted Laboratory Tests Test 10/02/16 03:25 10/02/16 08:50 10/02/16 10:05 White Blood Count 22.0 K/UL (4.8-10.8) H Red Blood Count 3.95 M/UL (4.70-6.10) L Hemoglobin 11.6 G/DL (14.2-18.0) L Hematocrit 38.5 % (42.0-52.0) L Mean Corpuscular Volume 98 FL (80-99) Mean Corpuscular Hemoglobin 29.2 PG (27.0-31.0) Mean Corpuscular Hemoglobin Concent 30.0 G/DL (32.0-36.0) L Red Cell Distribution Width 14.5 % (11.6-14.8) Platelet Count 112 K/UL (150-450) L Mean Platelet Volume 10.9 FL (6.5-10.1) H Neutrophils (%) (Auto) % (45.0-75.0) Lymphocytes (%) (Auto) % (20.0-45.0) Monocytes (%) (Auto) % (1.0-10.0) Eosinophils (%) (Auto) % (0.0-3.0) Basophils (%) (Auto) % (0.0-2.0) Differential Total Cells Counted 100 Neutrophils % (Manual) 91 % (45-75) H Lymphocytes % (Manual) 4 % (20-45) L Monocytes % (Manual) 5 % (1-10) Eosinophils % (Manual) 0 % (0-3) Basophils % (Manual) 0 % (0-2) Band Neutrophils 0 % (0-8) Platelet Estimate Decreased L Platelet Morphology Normal Hypochromasia 1+ Sodium Level 165 mEQ/L (135-145) *H Potassium Level 4.1 mEQ/L (3.4-4.9) Chloride Level 132 mEQ/L (98-107) H Carbon Dioxide Level 19 mEQ/L (20-30) L Anion Gap 14 (5-15) Blood Urea Nitrogen 38 mg/dL (7-23) H Creatinine 1.9 mg/dL (0.7-1.2) H Estimat Glomerular Filtration Rate 35.5 mL/min (>60) Glucose Level 194 mg/dL (74-106) H Calcium Level 9.5 mg/dL (8.6-10.2) Total Bilirubin 2.5 mg/dL (0.0-1.2) H Direct Bilirubin 1.3 mg/dL (0.1-0.3) H Aspartate Amino Transf (AST/SGOT) 97 U/L (5-40) H Alanine Aminotransferase (ALT/SGPT) 107 U/L (3-41) H Alkaline Phosphatase 90 U/L (40-129) Total Protein 6.6 g/dL (6.6-8.7) Albumin 2.5 g/dL (3.5-5.2) L Globulin 4.1 g/dL Albumin/Globulin Ratio 0.6 (1.0-2.7) L Troponin I 17.79 ng/mL (<=0.30) *H Arterial Blood pH 7.340 (7.350-7.450) Arterial Blood Partial Pressure CO2 39.1 mmHg (35.0-45.0) Arterial Blood Partial Pressure O2 275.0 mmHg (75.0-100.0) H Arterial Blood HCO3 20.8 mmol/L (22.0-26.0) L Arterial Blood Oxygen Saturation 99.0 % (92.0-98.0) H Arterial Blood Base Excess -4.5 Jace Test Positive Current Medications Medications (Trade) Dose Ordered Sig/Ramiro Route PRN Reason Start Time Stop Time Status Last Admin Dose Admin Acetaminophen (Tylenol) 650 mg Q4H PRN ORAL fever 09/30/16 07:15 10/30/16 07:14 10/01/16 08:09 Albuterol/ Ipratropium (DuoNeb 0.5-3(2.5)mg/3ml) 3 ml Q4H PRN HHN Shortness of Breath 09/30/16 07:15 10/05/16 07:14 Clonidine HCl (Catapres) 0.1 mg Q4H PRN ORAL For High Blood Pressure 09/30/16 06:49 10/30/16 06:48 Dextrose (D5W 1000ml) 1,000 ml @ 100 mls/hr Q10H IV 10/01/16 06:15 10/31/16 06:14 10/02/16 12:54 Dextrose (Dextrose 50%) STAT PRN IV Hypoglycemia 09/30/16 06:50 10/30/16 06:49 Metoprolol Tartrate 25 mg 25 mg Q12HR ORAL 09/30/16 21:00 10/30/16 20:59 10/02/16 10:00 Morphine Sulfate (Morphine Sulfate) 2 mg Q4H PRN IVP Moderate Pain (Pain Scale 4-6) 09/30/16 07:15 10/07/16 07:14 Nitroglycerin 250 ml @ 1.5 mls/hr Q24H IV 09/30/16 17:00 10/30/16 16:59 10/02/16 17:23 Nitroglycerin (Ntg) 0.4 mg Every 5 Minutes PRN SL Prn Chest Pain 09/30/16 06:15 10/30/16 06:14 Ondansetron HCl (Zofran) 4 mg Q6H PRN IVP Nausea & Vomiting 09/30/16 06:51 10/30/16 06:50 Pantoprazole (Protonix) 40 mg DAILY IVP 10/02/16 09:00 11/01/16 08:59 10/02/16 10:00 Piperacillin Sod/ Tazobactam Sod/ Dextrose (Zosyn/D5W) 110 ml @ 27.5 mls/hr Q8HR@0500,1300,2100 IVPB 09/30/16 13:00 10/07/16 12:59 10/02/16 12:54 Polyethylene Glycol (Miralax) 17 gm DAILYPRN PRN ORAL Constipation 09/30/16 06:51 10/30/16 06:50 Temazepam (Restoril) 15 mg HSPRN PRN ORAL Insomnia 09/30/16 06:52 10/07/16 06:51 RADHA VARELA M.D. Oct 02, 2016 18:47
[2016-10-02] MEDS: Metoprolol 50mg tab ORAL SCH (20:49)
--- NOTE | 2016-10-02 22:47 | Nephrology Progress Note ---
Assessment/Plan Problem List: (1) Hypernatremia (2) Acute kidney injury superimposed on chronic kidney disease (3) COPD (chronic obstructive pulmonary disease) (4) NSTEMI (non-ST elevated myocardial infarction) (5) Sepsis (6) Septicemia (7) Leukocytosis (8) Tachycardia (9) UTI (urinary tract infection) Plan Agree with D5W. Cont FW flush via NGT. Monitor Labs. Subjective Subjective Na worse. remains intubated in ICU. Objective Objective Last 24 Hour Vital Signs Date Time Temp Pulse Resp B/P Pulse Ox O2 Delivery O2 Flow Rate FiO2 10/02/16 21:20 94 39 40 10/02/16 20:49 98 116/67 10/02/16 19:40 97 33 40 10/02/16 18:30 94 32 120/70 99 Mechanical Ventilator 50 10/02/16 18:00 95 31 121/63 99 Mechanical Ventilator 50 10/02/16 17:23 125/74 10/02/16 17:13 94 33 50 10/02/16 17:00 95 33 125/74 98 Mechanical Ventilator 50 10/02/16 16:00 50 10/02/16 16:00 98.5 94 33 104/57 98 Mechanical Ventilator 50 10/02/16 16:00 94 10/02/16 15:30 94 33 50 10/02/16 15:00 97 29 104/75 100 Mechanical Ventilator 50 10/02/16 14:00 98 33 124/70 97 Mechanical Ventilator 50 10/02/16 13:00 91 30 105/67 98 Mechanical Ventilator 50 10/02/16 13:00 92 31 50 10/02/16 12:00 84 10/02/16 12:00 98.3 87 31 88/57 98 Mechanical Ventilator 50 10/02/16 12:00 50 10/02/16 11:12 86 33 60 10/02/16 11:00 86 31 117/66 98 Mechanical Ventilator 60 10/02/16 10:00 96 124/65 10/02/16 10:00 96 29 107/60 99 Mechanical Ventilator 60 10/02/16 09:16 99 10/02/16 09:12 95 31 60 10/02/16 09:00 97 31 109/64 98 Mechanical Ventilator 60 10/02/16 08:00 60 10/02/16 08:00 98.6 99 31 113/70 99 Mechanical Ventilator 60 10/02/16 08:00 101 10/02/16 07:00 101 30 127/65 99 Mechanical Ventilator 60 10/02/16 06:58 99 29 60 10/02/16 06:00 99 30 120/74 99 Mechanical Ventilator 60 10/02/16 05:12 97 33 60 10/02/16 05:00 99 33 127/74 99 Mechanical Ventilator 60 10/02/16 04:00 60 10/02/16 04:00 99 10/02/16 04:00 98.8 99 33 121/62 99 Mechanical Ventilator 60 10/02/16 03:26 98 34 60 10/02/16 03:00 98 33 116/75 99 Mechanical Ventilator 60 10/02/16 02:00 96 33 119/67 99 Mechanical Ventilator 60 10/02/16 01:30 99 35 60 10/02/16 00:50 92 30 125/71 100 Mechanical Ventilator 60 10/02/16 00:00 60 10/02/16 00:00 99 10/02/16 00:00 99.0 97 30 130/69 100 Mechanical Ventilator 60 10/01/16 23:24 96 34 60 10/01/16 23:00 95 30 126/74 100 Mechanical Ventilator 60 Intake and Output 10/01/16 10/02/16 19:00 07:00 Intake Total 1781.5 ml 1218.0 ml Output Total 1900 ml 1760 ml Balance -118.5 ml -542.0 ml Free Water 500 ml IV Total 1281.5 ml 1218.0 ml Output Urine Total 1900 ml 1760 ml Laboratory Tests 10/02/16 03:25: White Blood Count 22.0H, Red Blood Count 3.95L, Hemoglobin 11.6L, Hematocrit 38.5L, Mean Corpuscular Volume 98, Mean Corpuscular Hemoglobin 29.2, Mean Corpuscular Hemoglobin Concent 30.0L, Red Cell Distribution Width 14.5, Platelet Count 112L, Mean Platelet Volume 10.9H, Neutrophils (%) (Auto) , Lymphocytes (%) (Auto) , Monocytes (%) (Auto) , Eosinophils (%) (Auto) , Basophils (%) (Auto) , Differential Total Cells Counted 100, Neutrophils % ( Manual) 91H, Lymphocytes % (Manual) 4L, Monocytes % (Manual) 5, Eosinophils % ( Manual) 0, Basophils % (Manual) 0, Band Neutrophils 0, Platelet Estimate DecreasedL, Platelet Morphology Normal, Hypochromasia 1+, Sodium Level 165*H, Potassium Level 4.1, Chloride Level 132H, Carbon Dioxide Level 19L, Anion Gap 14 , Blood Urea Nitrogen 38H, Creatinine 1.9H, Estimat Glomerular Filtration Rate 35.5, Glucose Level 194H, Calcium Level 9.5, Total Bilirubin 2.5H, Direct Bilirubin 1.3H, Aspartate Amino Transf (AST/SGOT) 97H, Alanine Aminotransferase (ALT/SGPT) 107H, Alkaline Phosphatase 90, Total Protein 6.6, Albumin 2.5L, Globulin 4.1, Albumin/Globulin Ratio 0.6L 10/02/16 08:50: Troponin I 17.79*H 10/02/16 10:05: Arterial Blood pH 7.340L, Arterial Blood Partial Pressure CO2 39.1, Arterial Blood Partial Pressure O2 275.0H, Arterial Blood HCO3 20.8L, Arterial Blood Oxygen Saturation 99.0H, Arterial Blood Base Excess -4.5, Jace Test Positive Height (Feet): 6 Height (Inches): 1.00 Weight (Pounds): 130 General Appearance: lethargic Cardiovascular: regular rhythm Respiratory/Chest: decreased breath sounds Abdomen: non tender, soft Extremities: trace edema GENE BRIONES Oct 02, 2016 22:47
--- NOTE | 2016-10-02 23:25 | General Progress Note ---
Assessment/Plan Assessment/Plan Delirium -cont current meds -recommend low dose antipsychotics Subjective Allergies: Coded Allergies: No Known Allergies (Unverified , 09/22/14) Subjective intubated, critical Objective Last 24 Hour Vital Signs Date Time Temp Pulse Resp B/P Pulse Ox O2 Delivery O2 Flow Rate FiO2 10/02/16 22:00 88 34 100/65 98 Mechanical Ventilator 50 10/02/16 21:20 94 39 40 10/02/16 21:00 98 31 106/68 98 Mechanical Ventilator 50 10/02/16 20:49 98 116/67 10/02/16 20:00 99 10/02/16 20:00 98.8 99 33 121/58 98 Mechanical Ventilator 50 10/02/16 19:40 97 33 40 10/02/16 19:00 97 33 119/75 99 Mechanical Ventilator 50 10/02/16 18:30 94 32 120/70 99 Mechanical Ventilator 50 10/02/16 18:00 95 31 121/63 99 Mechanical Ventilator 50 10/02/16 17:23 125/74 10/02/16 17:13 94 33 50 10/02/16 17:00 95 33 125/74 98 Mechanical Ventilator 50 10/02/16 16:00 50 10/02/16 16:00 98.5 94 33 104/57 98 Mechanical Ventilator 50 10/02/16 16:00 94 10/02/16 15:30 94 33 50 10/02/16 15:00 97 29 104/75 100 Mechanical Ventilator 50 10/02/16 14:00 98 33 124/70 97 Mechanical Ventilator 50 10/02/16 13:00 91 30 105/67 98 Mechanical Ventilator 50 10/02/16 13:00 92 31 50 10/02/16 12:00 84 10/02/16 12:00 98.3 87 31 88/57 98 Mechanical Ventilator 50 10/02/16 12:00 50 10/02/16 11:12 86 33 60 10/02/16 11:00 86 31 117/66 98 Mechanical Ventilator 60 10/02/16 10:00 96 124/65 10/02/16 10:00 96 29 107/60 99 Mechanical Ventilator 60 10/02/16 09:16 99 10/02/16 09:12 95 31 60 10/02/16 09:00 97 31 109/64 98 Mechanical Ventilator 60 10/02/16 08:00 60 10/02/16 08:00 98.6 99 31 113/70 99 Mechanical Ventilator 60 10/02/16 08:00 101 10/02/16 07:00 101 30 127/65 99 Mechanical Ventilator 60 10/02/16 06:58 99 29 60 10/02/16 06:00 99 30 120/74 99 Mechanical Ventilator 60 10/02/16 05:12 97 33 60 10/02/16 05:00 99 33 127/74 99 Mechanical Ventilator 60 10/02/16 04:00 60 10/02/16 04:00 99 10/02/16 04:00 98.8 99 33 121/62 99 Mechanical Ventilator 60 10/02/16 03:26 98 34 60 10/02/16 03:00 98 33 116/75 99 Mechanical Ventilator 60 10/02/16 02:00 96 33 119/67 99 Mechanical Ventilator 60 10/02/16 01:30 99 35 60 10/02/16 00:50 92 30 125/71 100 Mechanical Ventilator 60 10/02/16 00:00 60 10/02/16 00:00 99 10/02/16 00:00 99.0 97 30 130/69 100 Mechanical Ventilator 60 10/01/16 23:24 96 34 60 Intake and Output 10/01/16 10/02/16 19:00 07:00 Intake Total 1781.5 ml 1218.0 ml Output Total 1900 ml 1760 ml Balance -118.5 ml -542.0 ml Free Water 500 ml IV Total 1281.5 ml 1218.0 ml Output Urine Total 1900 ml 1760 ml Laboratory Tests 10/02/16 03:25: White Blood Count 22.0H, Red Blood Count 3.95L, Hemoglobin 11.6L, Hematocrit 38.5L, Mean Corpuscular Volume 98, Mean Corpuscular Hemoglobin 29.2, Mean Corpuscular Hemoglobin Concent 30.0L, Red Cell Distribution Width 14.5, Platelet Count 112L, Mean Platelet Volume 10.9H, Neutrophils (%) (Auto) , Lymphocytes (%) (Auto) , Monocytes (%) (Auto) , Eosinophils (%) (Auto) , Basophils (%) (Auto) , Differential Total Cells Counted 100, Neutrophils % ( Manual) 91H, Lymphocytes % (Manual) 4L, Monocytes % (Manual) 5, Eosinophils % ( Manual) 0, Basophils % (Manual) 0, Band Neutrophils 0, Platelet Estimate DecreasedL, Platelet Morphology Normal, Hypochromasia 1+, Sodium Level 165*H, Potassium Level 4.1, Chloride Level 132H, Carbon Dioxide Level 19L, Anion Gap 14 , Blood Urea Nitrogen 38H, Creatinine 1.9H, Estimat Glomerular Filtration Rate 35.5, Glucose Level 194H, Calcium Level 9.5, Total Bilirubin 2.5H, Direct Bilirubin 1.3H, Aspartate Amino Transf (AST/SGOT) 97H, Alanine Aminotransferase (ALT/SGPT) 107H, Alkaline Phosphatase 90, Total Protein 6.6, Albumin 2.5L, Globulin 4.1, Albumin/Globulin Ratio 0.6L 10/02/16 08:50: Troponin I 17.79*H 10/02/16 10:05: Arterial Blood pH 7.340L, Arterial Blood Partial Pressure CO2 39.1, Arterial Blood Partial Pressure O2 275.0H, Arterial Blood HCO3 20.8L, Arterial Blood Oxygen Saturation 99.0H, Arterial Blood Base Excess -4.5, Jace Test Positive Height (Feet): 6 Height (Inches): 1.00 Weight (Pounds): 130 General Appearance: no apparent distress, lethargic Elda Hernandez M.D. Oct 02, 2016 23:25
[2016-10-03] VITALS (26 sets, daily range): BP systolic 104–164; BP diastolic 53–78
[2016-10-03] MEDS: Piperacillin/Tazobactam 3.375 GM in D5W 110 ML IVPB SCH ×3 (05:13→20:59)
[2016-10-03 05:21] LABS: MEAN CORPUSCULAR HEMOGLOBIN 28.9 PG (27.0-31.0); MEAN CORPUSCULAR HGB CONC 29.8 G/DL (32.0-36.0); MEAN CORPUSCULAR VOLUME 97 FL (80-99); MEAN PLATELET VOLUME 9.5 FL (6.5-10.1); PLATELET COUNT 98 K/UL (150-450); RED BLOOD COUNT 3.68 M/UL (4.70-6.10); RED CELL DISTRIBUTION WIDTH 14.2 % (11.6-14.8); WHITE BLOOD COUNT 20.5 K/UL (4.8-10.8)
[2016-10-03 05:38] LABS: CALCIUM 9.1 mg/dL (8.6-10.2); CREATININE 1.7 mg/dL (0.7-1.2); GLOMERULAR FILTRATION RATE 40.4 mL/min (>60); POTASSIUM 3.7 mEQ/L (3.4-4.9)
[2016-10-03 06:12] LABS: TROPONIN I 11.22 ng/mL (<=0.30)
--- NOTE | 2016-10-03 06:15 | Progress Note ---
DATE: 10/02/2016 CARDIOLOGY PROGRESS NOTE SUBJECTIVE: The patient's condition remains critical. He remains in the intensive care unit. He is poorly responsive. Orally intubated. No new bleeding noted from NG tube site. OBJECTIVE: VITAL SIGNS: Blood pressure 113/70, heart rate 99, respirations 31, and afebrile. GENERAL: Withdrawn, lethargic. LUNGS: Bilateral breath sounds with rhonchi. HEART: Regular rhythm. Rapid rate. Normal S1 and S2. ABDOMEN: Soft. EXTREMITIES: No edema. LABORATORY DATA: Sodium 165, potassium 4.1, chloride 132, bicarbonate 19, BUN 38, and creatinine 1.9. Troponin 17.79. Albumin 2.5. White count is 22, hemoglobin is 11.6, and platelet count is 112,000. IMPRESSION: 1. Sepsis. 2. Respiratory failure. 3. Acute myocardial infarction. 4. Metabolic and toxic encephalopathy. 5. Severe dehydration. 6. Severe hypernatremia. 7. Metabolic acidosis. 8. Acute renal failure. 9. Severe protein-calorie malnutrition. PLAN: Increase hypotonic IV fluid hydration. Add aspirin. Monitor for recurring gastrointestinal bleeding. Advance beta-blockade. Transition from IV to topical nitrates. Antimicrobials and ventilator support per primary physician. Condition remains critical and prognosis is guarded. Donald Baldwin M.D. DR: Joellen JOB#: [id number] CC:
--- NOTE | 2016-10-03 06:15 | Progress Note ---
DATE: 10/01/2016 LATE ENTRY CARDIOLOGY PROGRESS NOTE: SUBJECTIVE: The patient's condition remains critical. Prognosis guarded. Family members were updated. Thus, mainly, his brother was updated at bedside. OBJECTIVE: GENERAL: The patient remains on ventilator support. Orally intubated. Poorly responsive. VITAL SIGNS: Blood pressure is 106/66, heart rate 102, respiratory rate 36, and temperature 100.5 degrees. HEENT: Temporal wasting. Dry mucous membranes. NECK: Supple. LUNGS: With few rhonchi bilaterally. CARDIAC: Regular rhythm. Rapid rate. Normal S1 and S2. ABDOMEN: Soft. EXTREMITIES: No edema. DIAGNOSTIC DATA: Chest x-ray today reveals improved NG tube position. Lungs are clear. LABORATORY DATA: White count is 18.8 and hemoglobin 12.2. Sodium is 166, potassium 3.9, chloride 135, bicarbonate 21, BUN 41, and creatinine 2. Troponin is 14.6. IMPRESSION: 1. Acute myocardial infarction. 2. Acute respiratory failure. 3. Acute renal failure. 4. Severe dehydration. 5. Hypernatremia. 6. Hyperchloremia. 7. Metabolic and toxic encephalopathies. 8. Sepsis. 9. Probable aspiration pneumonia. 10. Paroxysmal sinus tachycardia. PLAN: Hypotonic IV fluid hydration, beta-blockade, hold antiplatelets due to recent gastrointestinal bleeding noted, monitor blood counts, intravenous nitrates, and empiric antibiotics. Donald Balwdin M.D. DR: Verito JOB#: [id number] CC:
[2016-10-03] MEDS: Nitroglycerin 2% oint pkt TOPIC SCH ×3 (06:24→17:47)
[2016-10-03 06:51] LABS: ABG PCO2 40.6 mmHg (35.0-45.0)
[2016-10-03 06:52] LABS: ABG ALLEN TEST POSITIVE; ABG BASE EXCESS -4.9
[2016-10-03 08:12] LABS: BAND NEUTROPHILS % (MANUAL) 0 % (0-8); BASOPHILS % (MANUAL) 0 % (0-2); EOSINOPHILS % (MANUAL) 0 % (0-3); HYPOCHROMASIA 1+; LYMPHOCYTES % (MANUAL) 12 % (20-45); NEUTROPHILS % (MANUAL) 86 % (45-75); PLATELET ESTIMATE DECREASED; PLATELET MORPHOLOGY NORMAL; TOTAL CELLS COUNTED 100
--- NOTE | 2016-10-03 08:26 | Infectious Diseases Prog Note ---
Assessment/Plan Assessment/Plan ASSESSMENT: 65-year-old male with: E coli bacteremia - repeat BCx(-) UTI ? intra-abd sepsis Negative HIV Severe sepsis - improved lactic acidosis Fevers, low grade - intermittent Leukocytosis - improved Acute VDRF - intubated 09/29 NSTEMI - troponin downtrending - EF 35-40% AAA 4cm with mural thrombus ARF - improved Hypernatremia - improved TCP NKDA Full Code PLAN: continue IV zosyn day # / ( 09/28 SP IV vancomycin D#2 ) monitor CBC, temperatures monitor BMP CT a/p with IV contrast , when cr improves further to r/o occult intraabdominal abscess vent support, wean as tolerated Subjective Allergies: Coded Allergies: No Known Allergies (Unverified , 09/22/14) Subjective pt unable to provide any information intermittent low grade fevers on vent Objective Vital Signs Last 24 Hour Vital Signs Date Time Temp Pulse Resp B/P Pulse Ox O2 Delivery O2 Flow Rate FiO2 10/03/16 08:00 98.1 93 32 109/70 100 Mechanical Ventilator 40 10/03/16 07:13 99 34 40 10/03/16 07:00 93 32 122/64 96 Mechanical Ventilator 50 10/03/16 06:24 134/70 10/03/16 06:00 94 33 134/70 96 Mechanical Ventilator 50 10/03/16 05:22 92 5 40 10/03/16 05:00 92 32 104/56 99 Mechanical Ventilator 50 10/03/16 04:00 98.4 92 35 119/62 98 Mechanical Ventilator 50 10/03/16 04:00 92 10/03/16 03:13 90 34 40 10/03/16 03:00 93 32 107/59 98 Mechanical Ventilator 50 10/03/16 02:30 93 33 122/59 98 Mechanical Ventilator 50 10/03/16 02:00 94 34 129/66 98 Mechanical Ventilator 50 10/03/16 01:30 94 34 122/67 98 Mechanical Ventilator 50 10/03/16 01:23 97 33 40 10/03/16 01:00 93 34 110/59 98 Mechanical Ventilator 50 10/03/16 00:00 92 10/03/16 00:00 98.4 92 33 105/53 98 Mechanical Ventilator 50 10/02/16 23:25 90 33 40 10/02/16 23:00 89 34 103/59 98 Mechanical Ventilator 50 10/02/16 22:00 88 34 100/65 98 Mechanical Ventilator 50 10/02/16 21:20 94 39 40 10/02/16 21:00 98 31 106/68 98 Mechanical Ventilator 50 10/02/16 20:49 98 116/67 10/02/16 20:00 99 10/02/16 20:00 98.8 99 33 121/58 98 Mechanical Ventilator 50 10/02/16 19:40 97 33 40 10/02/16 19:00 97 33 119/75 99 Mechanical Ventilator 50 10/02/16 18:30 94 32 120/70 99 Mechanical Ventilator 50 10/02/16 18:00 95 31 121/63 99 Mechanical Ventilator 50 10/02/16 17:23 125/74 10/02/16 17:13 94 33 50 10/02/16 17:00 95 33 125/74 98 Mechanical Ventilator 50 10/02/16 16:00 50 10/02/16 16:00 98.5 94 33 104/57 98 Mechanical Ventilator 50 10/02/16 16:00 94 10/02/16 15:30 94 33 50 10/02/16 15:00 97 29 104/75 100 Mechanical Ventilator 50 10/02/16 14:00 98 33 124/70 97 Mechanical Ventilator 50 10/02/16 13:00 91 30 105/67 98 Mechanical Ventilator 50 10/02/16 13:00 92 31 50 10/02/16 12:00 84 10/02/16 12:00 98.3 87 31 88/57 98 Mechanical Ventilator 50 10/02/16 12:00 50 10/02/16 11:12 86 33 60 10/02/16 11:00 86 31 117/66 98 Mechanical Ventilator 60 10/02/16 10:00 96 124/65 10/02/16 10:00 96 29 107/60 99 Mechanical Ventilator 60 10/02/16 09:16 99 10/02/16 09:12 95 31 60 10/02/16 09:00 97 31 109/64 98 Mechanical Ventilator 60 Height (Feet): 6 Height (Inches): 1.00 Weight (Pounds): 126 General Appearance: other - intubated Respiratory/Chest: decreased breath sounds Cardiovascular: normal rate, regular rhythm Abdomen: normal bowel sounds, soft, non tender, non distended Microbiology Date/Time Source Procedure Growth Status 09/30/16 18:00 Sputum Gram Stain - Final Complete 09/30/16 18:00 Sputum Culture - Final Oma Tropicalis Complete Laboratory Tests Test 10/02/16 08:50 10/02/16 10:05 10/03/16 05:00 10/03/16 06:45 Troponin I 17.79 ng/mL (<=0.30) *H 11.22 ng/mL (<=0.30) *H Arterial Blood pH 7.340 (7.350-7.450) 7.320 (7.350-7.450) Arterial Blood Partial Pressure CO2 39.1 mmHg (35.0-45.0) 40.6 mmHg (35.0-45.0) Arterial Blood Partial Pressure O2 275.0 mmHg (75.0-100.0) H 71.4 mmHg (75.0-100.0) L Arterial Blood HCO3 20.8 mmol/L (22.0-26.0) L 20.7 mmol/L (22.0-26.0) L Arterial Blood Oxygen Saturation 99.0 % (92.0-98.0) H 93.4 % (92.0-98.0) Arterial Blood Base Excess -4.5 -4.9 Jace Test Positive Positive White Blood Count 20.5 K/UL (4.8-10.8) H Red Blood Count 3.68 M/UL (4.70-6.10) L Hemoglobin 10.6 G/DL (14.2-18.0) L Hematocrit 35.6 % (42.0-52.0) L Mean Corpuscular Volume 97 FL (80-99) Mean Corpuscular Hemoglobin 28.9 PG (27.0-31.0) Mean Corpuscular Hemoglobin Concent 29.8 G/DL (32.0-36.0) L Red Cell Distribution Width 14.2 % (11.6-14.8) Platelet Count 98 K/UL (150-450) L Mean Platelet Volume 9.5 FL (6.5-10.1) Neutrophils (%) (Auto) % (45.0-75.0) Lymphocytes (%) (Auto) % (20.0-45.0) Monocytes (%) (Auto) % (1.0-10.0) Eosinophils (%) (Auto) % (0.0-3.0) Basophils (%) (Auto) % (0.0-2.0) Differential Total Cells Counted 100 Neutrophils % (Manual) 86 % (45-75) H Lymphocytes % (Manual) 12 % (20-45) L Monocytes % (Manual) 2 % (1-10) Eosinophils % (Manual) 0 % (0-3) Basophils % (Manual) 0 % (0-2) Band Neutrophils 0 % (0-8) Platelet Estimate Decreased L Platelet Morphology Normal Hypochromasia 1+ Stool Occult Blood Pending Sodium Level 160 mEQ/L (135-145) H Potassium Level 3.7 mEQ/L (3.4-4.9) Chloride Level 126 mEQ/L (98-107) H Carbon Dioxide Level 21 mEQ/L (20-30) Anion Gap 13 (5-15) Blood Urea Nitrogen 37 mg/dL (7-23) H Creatinine 1.7 mg/dL (0.7-1.2) H Estimat Glomerular Filtration Rate 40.4 mL/min (>60) Glucose Level 236 mg/dL (74-106) H Calcium Level 9.1 mg/dL (8.6-10.2) Current Medications Medications (Trade) Dose Ordered Sig/Ramiro Route PRN Reason Start Time Stop Time Status Last Admin Dose Admin Acetaminophen (Tylenol) 650 mg Q4H PRN ORAL fever 09/30/16 07:15 10/30/16 07:14 10/01/16 08:09 Albuterol/ Ipratropium (DuoNeb 0.5-3(2.5)mg/3ml) 3 ml Q4H PRN HHN Shortness of Breath 09/30/16 07:15 10/05/16 07:14 Aspirin (ASA) 81 mg DAILY NG 10/03/16 09:00 11/02/16 08:59 Clonidine HCl (Catapres) 0.1 mg Q4H PRN ORAL For High Blood Pressure 09/30/16 06:49 10/30/16 06:48 Dextrose (D5W 1000ml) 1,000 ml @ 150 mls/hr Q6H40M IV 10/02/16 20:30 11/01/16 20:29 10/03/16 03:28 Dextrose (Dextrose 50%) STAT PRN IV Hypoglycemia 09/30/16 06:50 10/30/16 06:49 Metoprolol Tartrate 50 mg 50 mg Q12HR ORAL 10/02/16 21:00 11/01/16 20:59 10/02/16 20:49 Morphine Sulfate (Morphine Sulfate) 2 mg Q4H PRN IVP Moderate Pain (Pain Scale 4-6) 09/30/16 07:15 10/07/16 07:14 Nitroglycerin (Nitro-Bid) 1 inch TID@0600,1200,1800 TOPIC 10/03/16 06:00 11/02/16 05:59 10/03/16 06:24 Nitroglycerin (Ntg) 0.4 mg Every 5 Minutes PRN SL Prn Chest Pain 09/30/16 06:15 10/30/16 06:14 Ondansetron HCl (Zofran) 4 mg Q6H PRN IVP Nausea & Vomiting 09/30/16 06:51 10/30/16 06:50 Pantoprazole (Protonix) 40 mg DAILY IVP 10/02/16 09:00 11/01/16 08:59 10/02/16 10:00 Piperacillin Sod/ Tazobactam Sod/ Dextrose (Zosyn/D5W) 110 ml @ 27.5 mls/hr Q8HR@0500,1300,2100 IVPB 09/30/16 13:00 10/07/16 12:59 10/03/16 05:13 Polyethylene Glycol (Miralax) 17 gm DAILYPRN PRN ORAL Constipation 09/30/16 06:51 10/30/16 06:50 Temazepam (Restoril) 15 mg HSPRN PRN ORAL Insomnia 09/30/16 06:52 10/07/16 06:51 BLAYNE PEDROZA Oct 03, 2016 08:26
[2016-10-03] MEDS: Metoprolol 50mg tab ORAL SCH ×2 (08:59→20:59)
[2016-10-03] MEDS: Aspirin Baby 81mg NG SCH (08:59)
[2016-10-03] MEDS: Pantoprazole Inj IVP SCH (09:00)
--- NOTE | 2016-10-03 13:01 | GI Progress Note ---
Assessment/Plan Problems: (1) Coffee ground emesis ICD Codes: K92.0 - Hematemesis SNOMED: 65797398, 710903872 (2) Severe sepsis ICD Codes: A41.9 - Sepsis, unspecified organism; R65.20 - Severe sepsis without septic shock SNOMED: 40177947 (3) Leukocytosis ICD Codes: D72.829 - Leukocytosis SNOMED: 511450694 (4) Protein-calorie malnutrition, severe ICD Codes: E43 - Unspecified severe protein-calorie malnutrition SNOMED: 996549099 Status: unchanged Status Narrative Discussed with Dr. Marion. Assessment/Plan gastric lavage >> no blood noted stable H&H hold GI procedures, will require cardiac clearance given elevated troponin levels supportive care start GTFs per dietary monitor H&H, transfuse prn ppi gtt >> BID OB stool r/o GI bleed bowel regime abx fu labs Subjective Subjective limited Objective Last 24 Hour Vital Signs Date Time Temp Pulse Resp B/P Pulse Ox O2 Delivery O2 Flow Rate FiO2 10/03/16 12:20 108/65 10/03/16 12:00 88 10/03/16 12:00 98.7 90 34 108/65 95 Mechanical Ventilator 40 10/03/16 11:00 83 33 117/67 94 Mechanical Ventilator 40 10/03/16 10:58 101 34 40 10/03/16 10:00 79 33 104/58 99 Mechanical Ventilator 40 10/03/16 09:29 85 29 40 10/03/16 09:16 99 10/03/16 09:00 93 29 118/68 99 Mechanical Ventilator 40 10/03/16 08:59 93 109/70 10/03/16 08:00 98.1 93 32 109/70 100 Mechanical Ventilator 40 10/03/16 08:00 95 10/03/16 07:13 99 34 40 10/03/16 07:00 93 32 122/64 96 Mechanical Ventilator 50 10/03/16 06:24 134/70 10/03/16 06:00 94 33 134/70 96 Mechanical Ventilator 50 10/03/16 05:22 92 5 40 10/03/16 05:00 92 32 104/56 99 Mechanical Ventilator 50 10/03/16 04:00 98.4 92 35 119/62 98 Mechanical Ventilator 50 10/03/16 04:00 92 10/03/16 03:13 90 34 40 10/03/16 03:00 93 32 107/59 98 Mechanical Ventilator 50 10/03/16 02:30 93 33 122/59 98 Mechanical Ventilator 50 10/03/16 02:00 94 34 129/66 98 Mechanical Ventilator 50 10/03/16 01:30 94 34 122/67 98 Mechanical Ventilator 50 10/03/16 01:23 97 33 40 10/03/16 01:00 93 34 110/59 98 Mechanical Ventilator 50 10/03/16 00:00 92 10/03/16 00:00 98.4 92 33 105/53 98 Mechanical Ventilator 50 10/02/16 23:25 90 33 40 10/02/16 23:00 89 34 103/59 98 Mechanical Ventilator 50 10/02/16 22:00 88 34 100/65 98 Mechanical Ventilator 50 10/02/16 21:20 94 39 40 10/02/16 21:00 98 31 106/68 98 Mechanical Ventilator 50 10/02/16 20:49 98 116/67 10/02/16 20:00 99 10/02/16 20:00 98.8 99 33 121/58 98 Mechanical Ventilator 50 10/02/16 19:40 97 33 40 10/02/16 19:00 97 33 119/75 99 Mechanical Ventilator 50 10/02/16 18:30 94 32 120/70 99 Mechanical Ventilator 50 10/02/16 18:00 95 31 121/63 99 Mechanical Ventilator 50 10/02/16 17:23 125/74 10/02/16 17:13 94 33 50 10/02/16 17:00 95 33 125/74 98 Mechanical Ventilator 50 10/02/16 16:00 50 10/02/16 16:00 98.5 94 33 104/57 98 Mechanical Ventilator 50 10/02/16 16:00 94 10/02/16 15:30 94 33 50 10/02/16 15:00 97 29 104/75 100 Mechanical Ventilator 50 10/02/16 14:00 98 33 124/70 97 Mechanical Ventilator 50 10/02/16 13:00 91 30 105/67 98 Mechanical Ventilator 50 10/02/16 13:00 92 31 50 Intake and Output 10/02/16 10/03/16 18:59 06:59 Intake Total 1493.0 ml 2127.5 ml Output Total 1340 ml 700 ml Balance 153.0 ml 1427.5 ml Free Water 200 ml 400 ml IV Total 1243.0 ml 1727.5 ml Other 50 ml Output Urine Total 1340 ml 700 ml # Bowel Movements 1 Laboratory Tests Test 10/03/16 05:00 10/03/16 06:45 White Blood Count 20.5 K/UL (4.8-10.8) H Red Blood Count 3.68 M/UL (4.70-6.10) L Hemoglobin 10.6 G/DL (14.2-18.0) L Hematocrit 35.6 % (42.0-52.0) L Mean Corpuscular Volume 97 FL (80-99) Mean Corpuscular Hemoglobin 28.9 PG (27.0-31.0) Mean Corpuscular Hemoglobin Concent 29.8 G/DL (32.0-36.0) L Red Cell Distribution Width 14.2 % (11.6-14.8) Platelet Count 98 K/UL (150-450) L Mean Platelet Volume 9.5 FL (6.5-10.1) Neutrophils (%) (Auto) % (45.0-75.0) Lymphocytes (%) (Auto) % (20.0-45.0) Monocytes (%) (Auto) % (1.0-10.0) Eosinophils (%) (Auto) % (0.0-3.0) Basophils (%) (Auto) % (0.0-2.0) Differential Total Cells Counted 100 Neutrophils % (Manual) 86 % (45-75) H Lymphocytes % (Manual) 12 % (20-45) L Monocytes % (Manual) 2 % (1-10) Eosinophils % (Manual) 0 % (0-3) Basophils % (Manual) 0 % (0-2) Band Neutrophils 0 % (0-8) Platelet Estimate Decreased L Platelet Morphology Normal Hypochromasia 1+ Stool Occult Blood Positive (NEGATIVE) Sodium Level 160 mEQ/L (135-145) H Potassium Level 3.7 mEQ/L (3.4-4.9) Chloride Level 126 mEQ/L (98-107) H Carbon Dioxide Level 21 mEQ/L (20-30) Anion Gap 13 (5-15) Blood Urea Nitrogen 37 mg/dL (7-23) H Creatinine 1.7 mg/dL (0.7-1.2) H Estimat Glomerular Filtration Rate 40.4 mL/min (>60) Glucose Level 236 mg/dL (74-106) H Calcium Level 9.1 mg/dL (8.6-10.2) Troponin I 11.22 ng/mL (<=0.30) *H Arterial Blood pH 7.320 (7.350-7.450) Arterial Blood Partial Pressure CO2 40.6 mmHg (35.0-45.0) Arterial Blood Partial Pressure O2 71.4 mmHg (75.0-100.0) L Arterial Blood HCO3 20.7 mmol/L (22.0-26.0) L Arterial Blood Oxygen Saturation 93.4 % (92.0-98.0) Arterial Blood Base Excess -4.9 Jace Test Positive Height (Feet): 6 Height (Inches): 1.00 Weight (Pounds): 126 General Appearance: no apparent distress, alert Cardiovascular: normal rate Respiratory/Chest: normal breath sounds, no respiratory distress Abdominal Exam: normal bowel sounds, non tender, soft Pam Shah N.Caio Oct 03, 2016 13:01
--- NOTE | 2016-10-03 13:21 | Nephrology Progress Note ---
Sohbha Nuñez N.P. 10/03/16 1321: Assessment/Plan Problem List: (1) Pneumonia (2) Severe sepsis (3) Hypernatremia (4) Acute kidney injury superimposed on chronic kidney disease (5) UTI (urinary tract infection) (6) Protein-calorie malnutrition, severe (7) NSTEMI (non-ST elevated myocardial infarction) Plan Continue vent PEG pending Continue current IVF Continue free water flushes Monitor sodium Monitor renal function Avoid nephrotoxic agents Abx per ID Cardio following Monitor neuro status AM labs Subjective ROS Limited/Unobtainable: Yes Subjective intubated, in ICU, non responsive Objective Objective Last 24 Hour Vital Signs Date Time Temp Pulse Resp B/P Pulse Ox O2 Delivery O2 Flow Rate FiO2 10/03/16 13:00 93 20 108/64 96 Mechanical Ventilator 40 10/03/16 12:20 108/65 10/03/16 12:00 88 10/03/16 12:00 98.7 90 34 108/65 95 Mechanical Ventilator 40 10/03/16 11:00 83 33 117/67 94 Mechanical Ventilator 40 10/03/16 10:58 101 34 40 10/03/16 10:00 79 33 104/58 99 Mechanical Ventilator 40 10/03/16 09:29 85 29 40 10/03/16 09:16 99 10/03/16 09:00 93 29 118/68 99 Mechanical Ventilator 40 10/03/16 08:59 93 109/70 10/03/16 08:00 98.1 93 32 109/70 100 Mechanical Ventilator 40 10/03/16 08:00 95 10/03/16 07:13 99 34 40 10/03/16 07:00 93 32 122/64 96 Mechanical Ventilator 50 10/03/16 06:24 134/70 10/03/16 06:00 94 33 134/70 96 Mechanical Ventilator 50 10/03/16 05:22 92 5 40 10/03/16 05:00 92 32 104/56 99 Mechanical Ventilator 50 10/03/16 04:00 98.4 92 35 119/62 98 Mechanical Ventilator 50 10/03/16 04:00 92 10/03/16 03:13 90 34 40 10/03/16 03:00 93 32 107/59 98 Mechanical Ventilator 50 10/03/16 02:30 93 33 122/59 98 Mechanical Ventilator 50 10/03/16 02:00 94 34 129/66 98 Mechanical Ventilator 50 10/03/16 01:30 94 34 122/67 98 Mechanical Ventilator 50 10/03/16 01:23 97 33 40 10/03/16 01:00 93 34 110/59 98 Mechanical Ventilator 50 10/03/16 00:00 92 10/03/16 00:00 98.4 92 33 105/53 98 Mechanical Ventilator 50 10/02/16 23:25 90 33 40 10/02/16 23:00 89 34 103/59 98 Mechanical Ventilator 50 10/02/16 22:00 88 34 100/65 98 Mechanical Ventilator 50 10/02/16 21:20 94 39 40 10/02/16 21:00 98 31 106/68 98 Mechanical Ventilator 50 10/02/16 20:49 98 116/67 10/02/16 20:00 99 10/02/16 20:00 98.8 99 33 121/58 98 Mechanical Ventilator 50 10/02/16 19:40 97 33 40 10/02/16 19:00 97 33 119/75 99 Mechanical Ventilator 50 10/02/16 18:30 94 32 120/70 99 Mechanical Ventilator 50 10/02/16 18:00 95 31 121/63 99 Mechanical Ventilator 50 10/02/16 17:23 125/74 10/02/16 17:13 94 33 50 10/02/16 17:00 95 33 125/74 98 Mechanical Ventilator 50 10/02/16 16:00 50 10/02/16 16:00 98.5 94 33 104/57 98 Mechanical Ventilator 50 10/02/16 16:00 94 10/02/16 15:30 94 33 50 10/02/16 15:00 97 29 104/75 100 Mechanical Ventilator 50 10/02/16 14:00 98 33 124/70 97 Mechanical Ventilator 50 Intake and Output 10/02/16 10/03/16 19:00 07:00 Intake Total 1393.0 ml 2276.0 ml Output Total 1190 ml 700 ml Balance 203.0 ml 1576.0 ml Free Water 200 ml 400 ml IV Total 1143.0 ml 1876.0 ml Other 50 ml Output Urine Total 1190 ml 700 ml # Bowel Movements 1 Laboratory Tests 10/03/16 05:00: White Blood Count 20.5H, Red Blood Count 3.68L, Hemoglobin 10.6L, Hematocrit 35.6L, Mean Corpuscular Volume 97, Mean Corpuscular Hemoglobin 28.9, Mean Corpuscular Hemoglobin Concent 29.8L, Red Cell Distribution Width 14.2, Platelet Count 98L, Mean Platelet Volume 9.5, Neutrophils (%) (Auto) , Lymphocytes (%) (Auto) , Monocytes (%) (Auto) , Eosinophils (%) (Auto) , Basophils (%) (Auto) , Differential Total Cells Counted 100, Neutrophils % ( Manual) 86H, Lymphocytes % (Manual) 12L, Monocytes % (Manual) 2, Eosinophils % ( Manual) 0, Basophils % (Manual) 0, Band Neutrophils 0, Platelet Estimate DecreasedL, Platelet Morphology Normal, Hypochromasia 1+, Stool Occult Blood Positive, Sodium Level 160H, Potassium Level 3.7, Chloride Level 126H, Carbon Dioxide Level 21, Anion Gap 13, Blood Urea Nitrogen 37H, Creatinine 1.7H, Estimat Glomerular Filtration Rate 40.4, Glucose Level 236H, Calcium Level 9.1, Troponin I 11.22*H 10/03/16 06:45: Arterial Blood pH 7.320L, Arterial Blood Partial Pressure CO2 40.6, Arterial Blood Partial Pressure O2 71.4L, Arterial Blood HCO3 20.7L, Arterial Blood Oxygen Saturation 93.4, Arterial Blood Base Excess -4.9, Jace Test Positive Height (Feet): 6 Height (Inches): 1.00 Weight (Pounds): 126 General Appearance: no apparent distress EENT: normal ENT inspection Neck: non-tender Cardiovascular: normal rate, regular rhythm, no JVD Abdomen: soft, no organomegaly Genitourinary/Rectal: other - raymond Extremities: non-tender Neurologic: unresponsive CHLOEGENE TELLO 10/04/16 0953: Assessment/Plan Problem List: (1) Protein-calorie malnutrition, severe (2) UTI (urinary tract infection) (3) NSTEMI (non-ST elevated myocardial infarction) (4) Hypernatremia (5) Acute kidney injury superimposed on chronic kidney disease (6) Respiratory failure (7) Severe sepsis Plan Continue vent PEG tube pending Continue current IVF Continue free water flushes Monitor sodium Monitor renal function Avoid nephrotoxic agents Abx per ID Cardio following Monitor neuro status AM labs Subjective ROS Limited/Unobtainable: Yes Subjective In ICU on vent Shobha Nuñez N.P. Oct 03, 2016 13:21 GENE BRIONES Oct 04, 2016 09:53
--- NOTE | 2016-10-03 17:24 | Pulmonology Progress Note ---
Assessment/Plan Assessment/Plan 1. Sepsis. 2. Respiratory failure. 3. Acute myocardial infarction. 4. Metabolic and toxic encephalopathy. 5. Severe dehydration. 6. Severe hypernatremia. 7. Metabolic acidosis. 8. Acute renal failure. 9. Severe protein-calorie malnutrition. PLAN: Increase hypotonic IV fluid hydration. Add aspirin. Monitor for recurring gastrointestinal bleeding. Advance beta-blockade. Transition from IV to topical nitrates. Antimicrobials and ventilator support per primary physician. Condition remains critical and prognosis is guarded. Discussed with family (brother and son) Full code for now DISCUSSION: Continue vent Abx Cardiology following IV fluids Discussed with family Subjective Interval Events: Remains intubated; unresponsive Constitutional: Reports: no symptoms HEENT: Repors: no symptoms Respiratory: Reports: no symptoms Cardiovascular: Reports: no symptoms Gastrointestinal/Abdominal: Reports: no symptoms Genitourinary: Reports: no symptoms Allergies: Coded Allergies: No Known Allergies (Unverified , 09/22/14) Objective Last 24 Hour Vital Signs Date Time Temp Pulse Resp B/P Pulse Ox O2 Delivery O2 Flow Rate FiO2 10/03/16 17:05 92 33 40 10/03/16 17:00 92 32 120/72 94 Mechanical Ventilator 40 10/03/16 16:00 98.8 90 34 121/70 94 Mechanical Ventilator 40 10/03/16 16:00 90 10/03/16 15:00 91 30 115/70 94 Mechanical Ventilator 40 10/03/16 14:55 89 32 40 10/03/16 14:00 89 26 122/67 95 Mechanical Ventilator 40 10/03/16 13:40 91 25 40 10/03/16 13:00 93 20 108/64 96 Mechanical Ventilator 40 10/03/16 12:20 108/65 10/03/16 12:00 88 10/03/16 12:00 98.7 90 34 108/65 95 Mechanical Ventilator 40 10/03/16 11:00 83 33 117/67 94 Mechanical Ventilator 40 10/03/16 10:58 101 34 40 10/03/16 10:00 79 33 104/58 99 Mechanical Ventilator 40 10/03/16 09:29 85 29 40 10/03/16 09:16 99 10/03/16 09:00 93 29 118/68 99 Mechanical Ventilator 40 10/03/16 08:59 93 109/70 10/03/16 08:00 98.1 93 32 109/70 100 Mechanical Ventilator 40 10/03/16 08:00 95 10/03/16 07:13 99 34 40 10/03/16 07:00 93 32 122/64 96 Mechanical Ventilator 50 10/03/16 06:24 134/70 10/03/16 06:00 94 33 134/70 96 Mechanical Ventilator 50 10/03/16 05:22 92 5 40 10/03/16 05:00 92 32 104/56 99 Mechanical Ventilator 50 10/03/16 04:00 98.4 92 35 119/62 98 Mechanical Ventilator 50 10/03/16 04:00 92 10/03/16 03:13 90 34 40 10/03/16 03:00 93 32 107/59 98 Mechanical Ventilator 50 10/03/16 02:30 93 33 122/59 98 Mechanical Ventilator 50 10/03/16 02:00 94 34 129/66 98 Mechanical Ventilator 50 10/03/16 01:30 94 34 122/67 98 Mechanical Ventilator 50 10/03/16 01:23 97 33 40 10/03/16 01:00 93 34 110/59 98 Mechanical Ventilator 50 10/03/16 00:00 92 10/03/16 00:00 98.4 92 33 105/53 98 Mechanical Ventilator 50 10/02/16 23:25 90 33 40 10/02/16 23:00 89 34 103/59 98 Mechanical Ventilator 50 10/02/16 22:00 88 34 100/65 98 Mechanical Ventilator 50 10/02/16 21:20 94 39 40 10/02/16 21:00 98 31 106/68 98 Mechanical Ventilator 50 10/02/16 20:49 98 116/67 10/02/16 20:00 99 10/02/16 20:00 98.8 99 33 121/58 98 Mechanical Ventilator 50 10/02/16 19:40 97 33 40 10/02/16 19:00 97 33 119/75 99 Mechanical Ventilator 50 10/02/16 18:30 94 32 120/70 99 Mechanical Ventilator 50 10/02/16 18:00 95 31 121/63 99 Mechanical Ventilator 50 Intake and Output 10/02/16 10/03/16 19:00 07:00 Intake Total 1393.0 ml 2276.0 ml Output Total 1190 ml 700 ml Balance 203.0 ml 1576.0 ml Free Water 200 ml 400 ml IV Total 1143.0 ml 1876.0 ml Other 50 ml Output Urine Total 1190 ml 700 ml # Bowel Movements 1 General Appearance: no acute distress HEENT: normocephalic Respiratory/Chest: chest wall non-tender, decreased breath sounds Cardiovascular: normal peripheral pulses, normal rate Abdomen: normal bowel sounds, soft, non tender Extremities: no cyanosis Microbiology Date/Time Source Procedure Growth Status 09/30/16 18:00 Sputum Gram Stain - Final Complete 09/30/16 18:00 Sputum Culture - Final Oma Tropicalis Complete Laboratory Tests 10/03/16 05:00: White Blood Count 20.5H, Red Blood Count 3.68L, Hemoglobin 10.6L, Hematocrit 35.6L, Mean Corpuscular Volume 97, Mean Corpuscular Hemoglobin 28.9, Mean Corpuscular Hemoglobin Concent 29.8L, Red Cell Distribution Width 14.2, Platelet Count 98L, Mean Platelet Volume 9.5, Neutrophils (%) (Auto) , Lymphocytes (%) (Auto) , Monocytes (%) (Auto) , Eosinophils (%) (Auto) , Basophils (%) (Auto) , Differential Total Cells Counted 100, Neutrophils % ( Manual) 86H, Lymphocytes % (Manual) 12L, Monocytes % (Manual) 2, Eosinophils % ( Manual) 0, Basophils % (Manual) 0, Band Neutrophils 0, Platelet Estimate DecreasedL, Platelet Morphology Normal, Hypochromasia 1+, Stool Occult Blood Positive, Sodium Level 160H, Potassium Level 3.7, Chloride Level 126H, Carbon Dioxide Level 21, Anion Gap 13, Blood Urea Nitrogen 37H, Creatinine 1.7H, Estimat Glomerular Filtration Rate 40.4, Glucose Level 236H, Calcium Level 9.1, Troponin I 11.22*H 10/03/16 06:45: Arterial Blood pH 7.320L, Arterial Blood Partial Pressure CO2 40.6, Arterial Blood Partial Pressure O2 71.4L, Arterial Blood HCO3 20.7L, Arterial Blood Oxygen Saturation 93.4, Arterial Blood Base Excess -4.9, Jace Test Positive Current Medications Medications (Trade) Dose Ordered Sig/Ramiro Route PRN Reason Start Time Stop Time Status Last Admin Dose Admin Acetaminophen (Tylenol) 650 mg Q4H PRN ORAL fever 09/30/16 07:15 10/30/16 07:14 10/01/16 08:09 Albuterol/ Ipratropium (DuoNeb 0.5-3(2.5)mg/3ml) 3 ml Q4H PRN HHN Shortness of Breath 09/30/16 07:15 10/05/16 07:14 Aspirin (ASA) 81 mg DAILY NG 10/03/16 09:00 11/02/16 08:59 10/03/16 08:59 Clonidine HCl (Catapres) 0.1 mg Q4H PRN ORAL For High Blood Pressure 09/30/16 06:49 10/30/16 06:48 Dextrose (D5W 1000ml) 1,000 ml @ 150 mls/hr Q6H40M IV 10/02/16 20:30 11/01/16 20:29 10/03/16 16:44 Dextrose (Dextrose 50%) STAT PRN IV Hypoglycemia 09/30/16 06:50 10/30/16 06:49 Metoprolol Tartrate 50 mg 50 mg Q12HR ORAL 10/02/16 21:00 11/01/16 20:59 10/03/16 08:59 Morphine Sulfate (Morphine Sulfate) 2 mg Q4H PRN IVP Moderate Pain (Pain Scale 4-6) 09/30/16 07:15 10/07/16 07:14 Nitroglycerin (Nitro-Bid) 1 inch TID@0600,1200,1800 TOPIC 10/03/16 06:00 11/02/16 05:59 10/03/16 12:20 Nitroglycerin (Ntg) 0.4 mg Every 5 Minutes PRN SL Prn Chest Pain 09/30/16 06:15 10/30/16 06:14 Ondansetron HCl (Zofran) 4 mg Q6H PRN IVP Nausea & Vomiting 09/30/16 06:51 10/30/16 06:50 Pantoprazole (Protonix) 40 mg DAILY IVP 10/02/16 09:00 11/01/16 08:59 10/03/16 09:00 Piperacillin Sod/ Tazobactam Sod/ Dextrose (Zosyn/D5W) 110 ml @ 27.5 mls/hr Q8HR@0500,1300,2100 IVPB 09/30/16 13:00 10/07/16 12:59 10/03/16 12:20 Polyethylene Glycol (Miralax) 17 gm DAILYPRN PRN ORAL Constipation 09/30/16 06:51 10/30/16 06:50 Temazepam (Restoril) 15 mg HSPRN PRN ORAL Insomnia 09/30/16 06:52 10/07/16 06:51 Rahul Lopez MD Oct 03, 2016 17:24
--- NOTE | 2016-10-03 23:28 | General Progress Note ---
Assessment/Plan Assessment/Plan Delirium -cont current meds -recommend low dose antipsychotics Subjective Allergies: Coded Allergies: No Known Allergies (Unverified , 09/22/14) Subjective intubated, critical, unresponsive Objective Last 24 Hour Vital Signs Date Time Temp Pulse Resp B/P Pulse Ox O2 Delivery O2 Flow Rate FiO2 10/03/16 23:00 85 33 40 10/03/16 21:01 95 32 40 10/03/16 21:00 92 32 111/65 99 Mechanical Ventilator 40 10/03/16 20:59 93 113/63 10/03/16 20:00 99.2 90 32 113/63 99 Mechanical Ventilator 40 10/03/16 19:05 90 36 40 10/03/16 19:00 86 20 118/60 96 Mechanical Ventilator 40 10/03/16 18:00 40 10/03/16 18:00 93 30 164/78 100 Mechanical Ventilator 40 10/03/16 17:47 120/72 10/03/16 17:05 92 33 40 10/03/16 17:00 92 32 120/72 94 Mechanical Ventilator 40 10/03/16 16:00 98.8 90 34 121/70 94 Mechanical Ventilator 40 10/03/16 16:00 90 10/03/16 15:00 91 30 115/70 94 Mechanical Ventilator 40 10/03/16 14:55 89 32 40 10/03/16 14:00 89 26 122/67 95 Mechanical Ventilator 40 10/03/16 13:40 91 25 40 10/03/16 13:00 93 20 108/64 96 Mechanical Ventilator 40 10/03/16 12:20 108/65 10/03/16 12:00 40 10/03/16 12:00 88 10/03/16 12:00 98.7 90 34 108/65 95 Mechanical Ventilator 40 10/03/16 11:00 83 33 117/67 94 Mechanical Ventilator 40 10/03/16 10:58 101 34 40 10/03/16 10:00 79 33 104/58 99 Mechanical Ventilator 40 10/03/16 09:29 85 29 40 10/03/16 09:16 99 10/03/16 09:00 93 29 118/68 99 Mechanical Ventilator 40 10/03/16 08:59 93 109/70 10/03/16 08:00 40 10/03/16 08:00 98.1 93 32 109/70 100 Mechanical Ventilator 40 10/03/16 08:00 95 10/03/16 07:13 99 34 40 10/03/16 07:00 93 32 122/64 96 Mechanical Ventilator 50 10/03/16 06:24 134/70 10/03/16 06:00 94 33 134/70 96 Mechanical Ventilator 50 10/03/16 05:22 92 5 40 10/03/16 05:00 92 32 104/56 99 Mechanical Ventilator 50 10/03/16 04:00 98.4 92 35 119/62 98 Mechanical Ventilator 50 10/03/16 04:00 92 10/03/16 03:13 90 34 40 10/03/16 03:00 93 32 107/59 98 Mechanical Ventilator 50 10/03/16 02:30 93 33 122/59 98 Mechanical Ventilator 50 10/03/16 02:00 94 34 129/66 98 Mechanical Ventilator 50 10/03/16 01:30 94 34 122/67 98 Mechanical Ventilator 50 10/03/16 01:23 97 33 40 10/03/16 01:00 93 34 110/59 98 Mechanical Ventilator 50 10/03/16 00:00 92 10/03/16 00:00 98.4 92 33 105/53 98 Mechanical Ventilator 50 Intake and Output 10/02/16 10/03/16 19:00 07:00 Intake Total 1393.0 ml 2276.0 ml Output Total 1190 ml 700 ml Balance 203.0 ml 1576.0 ml Free Water 200 ml 400 ml IV Total 1143.0 ml 1876.0 ml Other 50 ml Output Urine Total 1190 ml 700 ml # Bowel Movements 1 Laboratory Tests 10/03/16 05:00: White Blood Count 20.5H, Red Blood Count 3.68L, Hemoglobin 10.6L, Hematocrit 35.6L, Mean Corpuscular Volume 97, Mean Corpuscular Hemoglobin 28.9, Mean Corpuscular Hemoglobin Concent 29.8L, Red Cell Distribution Width 14.2, Platelet Count 98L, Mean Platelet Volume 9.5, Neutrophils (%) (Auto) , Lymphocytes (%) (Auto) , Monocytes (%) (Auto) , Eosinophils (%) (Auto) , Basophils (%) (Auto) , Differential Total Cells Counted 100, Neutrophils % ( Manual) 86H, Lymphocytes % (Manual) 12L, Monocytes % (Manual) 2, Eosinophils % ( Manual) 0, Basophils % (Manual) 0, Band Neutrophils 0, Platelet Estimate DecreasedL, Platelet Morphology Normal, Hypochromasia 1+, Stool Occult Blood Positive, Sodium Level 160H, Potassium Level 3.7, Chloride Level 126H, Carbon Dioxide Level 21, Anion Gap 13, Blood Urea Nitrogen 37H, Creatinine 1.7H, Estimat Glomerular Filtration Rate 40.4, Glucose Level 236H, Calcium Level 9.1, Troponin I 11.22*H 10/03/16 06:45: Arterial Blood pH 7.320L, Arterial Blood Partial Pressure CO2 40.6, Arterial Blood Partial Pressure O2 71.4L, Arterial Blood HCO3 20.7L, Arterial Blood Oxygen Saturation 93.4, Arterial Blood Base Excess -4.9, Jace Test Positive Height (Feet): 6 Height (Inches): 1.00 Weight (Pounds): 126 General Appearance: no apparent distress, lethargic Elda Hernandez M.D. Oct 03, 2016 23:28
[2016-10-04] VITALS (23 sets, daily range): BP systolic 99–129; BP diastolic 55–76
--- NOTE | 2016-10-04 03:15 | Progress Note ---
DATE: 10/03/2016 CARDIOLOGY PROGRESS NOTE SUBJECTIVE: The patient's condition remains critical. Prognosis guarded. He is in the intensive care unit. He remains with marginal blood pressure readings. Poorly responsive. Orally intubated. The patient's troponin levels remained elevated and are slowly decreasing. OBJECTIVE: VITAL SIGNS: Blood pressure 120/70, pulse 92, and respirations 32. LUNGS: Bilateral breath sounds. Scattered rhonchi. HEART: Regular rhythm and rate. Normal S1 and S2. ABDOMEN: Soft. EXTREMITIES: Trace edema. LABORATORY STUDIES: White count 20.5 and hemoglobin 10.6. Sodium 160, potassium 3.7, chloride 126, bicarbonate 21, BUN 37, and creatinine 1.7. Troponin 11. IMPRESSION: 1. Acute myocardial infarction. 2. Severe dehydration. 3. Hypernatremia. 4. Hyperchloremia. 5. Respiratory failure. 6. Toxic metabolic encephalopathy. 7. Acute renal failure, improved. 8. Leukocytosis. 9. Severe sepsis. 10. Recovering shock. 11. Escherichia coli bacteremia. PLAN: 1. Anti-platelet therapy. 2. Monitor for signs of bleeding. 3. Beta-blockade. 4. Topical nitrates. 5. Hypotonic IV fluids. 6. Antibiotics per Infectious Disease mainframe consultant. Donald Baldwin M.D. DR: MARY JOB#: [id number] CC:
[2016-10-04] MEDS: Piperacillin/Tazobactam 3.375 GM in D5W 110 ML IVPB SCH ×3 (05:17→21:34)
[2016-10-04 05:27] LABS: MEAN CORPUSCULAR HEMOGLOBIN 28.3 PG (27.0-31.0); MEAN CORPUSCULAR HGB CONC 29.3 G/DL (32.0-36.0); MEAN CORPUSCULAR VOLUME 96 FL (80-99); MEAN PLATELET VOLUME 10.9 FL (6.5-10.1); PLATELET COUNT 112 K/UL (150-450); RED BLOOD COUNT 4.06 M/UL (4.70-6.10)
[2016-10-04 05:48] LABS: ALBUMIN/GLOBULIN RATIO 0.6 (1.0-2.7); CALCIUM 8.8 mg/dL (8.6-10.2); CREATININE 1.4 mg/dL (0.7-1.2); GLOMERULAR FILTRATION RATE 50.5 mL/min (>60); POTASSIUM 3.8 mEQ/L (3.4-4.9); TOTAL PROTEIN 6.7 g/dL (6.6-8.7)
[2016-10-04 06:40] LABS: BILIRUBIN,DIRECT 1.4 mg/dL (0.1-0.3)
[2016-10-04] MEDS: Nitroglycerin 2% oint pkt TOPIC SCH ×3 (06:51→17:23)
[2016-10-04 07:05] LABS: BAND NEUTROPHILS % (MANUAL) 2 % (0-8); BASOPHILS % (MANUAL) 0 % (0-2); EOSINOPHILS % (MANUAL) 0 % (0-3); LYMPHOCYTES % (MANUAL) 9 % (20-45); NEUTROPHILS % (MANUAL) 87 % (45-75); PLATELET ESTIMATE DECREASED; PLATELET MORPHOLOGY NORMAL; TOTAL CELLS COUNTED 100
[2016-10-04] MEDS: Pantoprazole Inj IVP SCH (08:01)
[2016-10-04] MEDS: Aspirin Baby 81mg NG SCH (08:01)
[2016-10-04] MEDS: Metoprolol 50mg tab ORAL SCH ×2 (08:01→21:35)
[2016-10-04] MEDS ORDERED: Metoclopramide 10mg/2ml Inj IVP PRN (08:45)
--- NOTE | 2016-10-04 08:47 | General Progress Note ---
Assessment/Plan Problem List: (1) Respiratory failure ICD Codes: J96.90 - Respiratory failure, unspecified, unspecified whether with hypoxia or hypercapnia SNOMED: 730713324 (2) COPD (chronic obstructive pulmonary disease) ICD Codes: J44.9 - Chronic obstructive pulmonary disease, unspecified SNOMED: 08214194 (3) Protein-calorie malnutrition, severe ICD Codes: E43 - Unspecified severe protein-calorie malnutrition SNOMED: 222981937 (4) NSTEMI (non-ST elevated myocardial infarction) ICD Codes: I21.4 - Non-ST elevation (NSTEMI) myocardial infarction SNOMED: 864059510 (5) Coffee ground emesis ICD Codes: K92.0 - Hematemesis SNOMED: 54307730, 340537948 (6) Sepsis ICD Codes: A41.9 - Sepsis, unspecified organism SNOMED: 44707778 Assessment/Plan add reglan ppi fu H&H prn blood transfusion patient not stable for GI procedures at this time Subjective ROS Limited/Unobtainable: No Allergies: Coded Allergies: No Known Allergies (Unverified , 09/22/14) Subjective elevated residuals Objective Last 24 Hour Vital Signs Date Time Temp Pulse Resp B/P Pulse Ox O2 Delivery O2 Flow Rate FiO2 10/04/16 08:01 98 129/69 10/04/16 08:00 99 10/04/16 08:00 95 32 116/55 100 Mechanical Ventilator 40 10/04/16 07:58 40 10/04/16 07:00 95 20 40 10/04/16 07:00 91 24 129/69 96 Mechanical Ventilator 40 10/04/16 06:51 123/64 10/04/16 06:00 90 24 123/64 96 Mechanical Ventilator 40 10/04/16 05:15 92 32 40 10/04/16 05:00 91 24 120/65 96 Mechanical Ventilator 40 10/04/16 04:00 98.8 93 24 116/65 96 Mechanical Ventilator 40 10/04/16 04:00 40 10/04/16 04:00 90 10/04/16 03:00 91 24 121/68 97 Mechanical Ventilator 40 10/04/16 03:00 89 30 40 10/04/16 02:00 90 24 107/62 92 Mechanical Ventilator 40 10/04/16 01:00 94 32 129/76 99 Mechanical Ventilator 40 10/04/16 00:50 92 32 40 10/04/16 00:00 99.0 88 33 115/60 99 Mechanical Ventilator 40 10/04/16 00:00 88 10/04/16 00:00 40 10/03/16 23:00 87 32 116/64 99 Mechanical Ventilator 40 10/03/16 23:00 85 33 40 10/03/16 22:00 84 31 111/59 99 Mechanical Ventilator 40 10/03/16 21:01 95 32 40 10/03/16 21:00 92 32 111/65 99 Mechanical Ventilator 40 10/03/16 20:59 93 113/63 10/03/16 20:00 99.2 90 32 113/63 99 Mechanical Ventilator 40 10/03/16 20:00 92 10/03/16 20:00 90 10/03/16 19:05 90 36 40 10/03/16 19:00 86 20 118/60 96 Mechanical Ventilator 40 10/03/16 18:00 40 10/03/16 18:00 93 30 164/78 100 Mechanical Ventilator 40 10/03/16 17:47 120/72 10/03/16 17:05 92 33 40 10/03/16 17:00 92 32 120/72 94 Mechanical Ventilator 40 10/03/16 16:00 98.8 90 34 121/70 94 Mechanical Ventilator 40 10/03/16 16:00 90 10/03/16 15:00 91 30 115/70 94 Mechanical Ventilator 40 10/03/16 14:55 89 32 40 10/03/16 14:00 89 26 122/67 95 Mechanical Ventilator 40 10/03/16 13:40 91 25 40 10/03/16 13:00 93 20 108/64 96 Mechanical Ventilator 40 10/03/16 12:20 108/65 10/03/16 12:00 40 10/03/16 12:00 88 10/03/16 12:00 98.7 90 34 108/65 95 Mechanical Ventilator 40 10/03/16 11:00 83 33 117/67 94 Mechanical Ventilator 40 10/03/16 10:58 101 34 40 10/03/16 10:00 79 33 104/58 99 Mechanical Ventilator 40 10/03/16 09:29 85 29 40 10/03/16 09:16 99 10/03/16 09:00 93 29 118/68 99 Mechanical Ventilator 40 10/03/16 08:59 93 109/70 Intake and Output 10/03/16 10/04/16 19:00 07:00 Intake Total 1836.0 ml 2691 ml Output Total 1605 ml 1600 ml Balance 231.0 ml 1091 ml Free Water 100 ml 401 ml IV Total 1616.0 ml 1950 ml Tube Feeding 20 ml 340 ml Other 100 ml Output Urine Total 1605 ml 1600 ml Laboratory Tests 10/04/16 04:10: White Blood Count 18.0H, Red Blood Count 4.06L, Hemoglobin 11.5L, Hematocrit 39.2L, Mean Corpuscular Volume 96, Mean Corpuscular Hemoglobin 28.3, Mean Corpuscular Hemoglobin Concent 29.3L, Red Cell Distribution Width 14.0, Platelet Count 112L, Mean Platelet Volume 10.9H, Neutrophils (%) (Auto) , Lymphocytes (%) (Auto) , Monocytes (%) (Auto) , Eosinophils (%) (Auto) , Basophils (%) (Auto) , Differential Total Cells Counted 100, Neutrophils % ( Manual) 87H, Lymphocytes % (Manual) 9L, Monocytes % (Manual) 2, Eosinophils % ( Manual) 0, Basophils % (Manual) 0, Band Neutrophils 2, Platelet Estimate DecreasedL, Platelet Morphology Normal, Red Blood Cell Morphology Normal, Sodium Level 156H, Potassium Level 3.8, Chloride Level 118H, Carbon Dioxide Level 21, Anion Gap 17H, Blood Urea Nitrogen 31H, Creatinine 1.4H, Estimat Glomerular Filtration Rate 50.5, Glucose Level 244H, Calcium Level 8.8, Total Bilirubin 2.4H, Direct Bilirubin 1.4H, Aspartate Amino Transf (AST/SGOT) 139H, Alanine Aminotransferase (ALT/SGPT) 115H, Alkaline Phosphatase 117, Total Protein 6.7, Albumin 2.6L, Globulin 4.1, Albumin/Globulin Ratio 0.6L Height (Feet): 6 Height (Inches): 1.00 Weight (Pounds): 131 General Appearance: no apparent distress EENT: normal ENT inspection Neck: supple Cardiovascular: normal rate Respiratory/Chest: decreased breath sounds Abdomen: normal bowel sounds, non tender, soft Extremities: non-tender AIMEE TELLEZ Oct 04, 2016 08:47
--- NOTE | 2016-10-04 10:10 | Pulmonology Progress Note ---
Assessment/Plan Assessment/Plan 1. Sepsis. 2. Respiratory failure. 3. Acute myocardial infarction. 4. Metabolic and toxic encephalopathy. 5. Severe dehydration. 6. Severe hypernatremia. 7. Metabolic acidosis. 8. Acute renal failure. 9. Severe protein-calorie malnutrition. PLAN: Increase hypotonic IV fluid hydration. Monitor for recurring gastrointestinal bleeding. Advance beta-blockade. Transition from IV to topical nitrates. Antimicrobials and ventilator support. Condition remains critical and prognosis is guarded. Discussed with family (brother and son) Full code for now DISCUSSION: Continue vent Abx Cardiology following IV fluids Discussed with family Subjective Interval Events: Unresponsive; off all pressors Constitutional: Reports: no symptoms HEENT: Repors: no symptoms Respiratory: Reports: no symptoms Cardiovascular: Reports: no symptoms Gastrointestinal/Abdominal: Reports: no symptoms Genitourinary: Reports: no symptoms Allergies: Coded Allergies: No Known Allergies (Unverified , 09/22/14) Objective Last 24 Hour Vital Signs Date Time Temp Pulse Resp B/P Pulse Ox O2 Delivery O2 Flow Rate FiO2 10/04/16 09:10 99.2 10/04/16 09:00 86 25 100/59 100 Mechanical Ventilator 40 10/04/16 08:52 87 26 40 10/04/16 08:01 98 129/69 10/04/16 08:00 99 10/04/16 08:00 95 32 116/55 100 Mechanical Ventilator 40 10/04/16 07:58 40 10/04/16 07:00 95 20 40 10/04/16 07:00 91 24 129/69 96 Mechanical Ventilator 40 10/04/16 06:51 123/64 10/04/16 06:00 90 24 123/64 96 Mechanical Ventilator 40 10/04/16 05:15 92 32 40 10/04/16 05:00 91 24 120/65 96 Mechanical Ventilator 40 10/04/16 04:00 98.8 93 24 116/65 96 Mechanical Ventilator 40 10/04/16 04:00 40 10/04/16 04:00 90 10/04/16 03:00 91 24 121/68 97 Mechanical Ventilator 40 10/04/16 03:00 89 30 40 10/04/16 02:00 90 24 107/62 92 Mechanical Ventilator 40 10/04/16 01:00 94 32 129/76 99 Mechanical Ventilator 40 10/04/16 00:50 92 32 40 10/04/16 00:00 99.0 88 33 115/60 99 Mechanical Ventilator 40 10/04/16 00:00 88 10/04/16 00:00 40 10/03/16 23:00 87 32 116/64 99 Mechanical Ventilator 40 10/03/16 23:00 85 33 40 10/03/16 22:00 84 31 111/59 99 Mechanical Ventilator 40 10/03/16 21:01 95 32 40 10/03/16 21:00 92 32 111/65 99 Mechanical Ventilator 40 10/03/16 20:59 93 113/63 10/03/16 20:00 99.2 90 32 113/63 99 Mechanical Ventilator 40 10/03/16 20:00 92 10/03/16 20:00 90 10/03/16 19:05 90 36 40 10/03/16 19:00 86 20 118/60 96 Mechanical Ventilator 40 10/03/16 18:00 40 10/03/16 18:00 93 30 164/78 100 Mechanical Ventilator 40 10/03/16 17:47 120/72 10/03/16 17:05 92 33 40 10/03/16 17:00 92 32 120/72 94 Mechanical Ventilator 40 10/03/16 16:00 98.8 90 34 121/70 94 Mechanical Ventilator 40 10/03/16 16:00 90 10/03/16 15:00 91 30 115/70 94 Mechanical Ventilator 40 10/03/16 14:55 89 32 40 10/03/16 14:00 89 26 122/67 95 Mechanical Ventilator 40 10/03/16 13:40 91 25 40 10/03/16 13:00 93 20 108/64 96 Mechanical Ventilator 40 10/03/16 12:20 108/65 10/03/16 12:00 40 10/03/16 12:00 88 10/03/16 12:00 98.7 90 34 108/65 95 Mechanical Ventilator 40 10/03/16 11:00 83 33 117/67 94 Mechanical Ventilator 40 10/03/16 10:58 101 34 40 Intake and Output 10/03/16 10/04/16 19:00 07:00 Intake Total 1836.0 ml 2841 ml Output Total 1605 ml 1600 ml Balance 231.0 ml 1241 ml Free Water 100 ml 401 ml IV Total 1616.0 ml 2100 ml Tube Feeding 20 ml 340 ml Other 100 ml Output Urine Total 1605 ml 1600 ml General Appearance: no acute distress HEENT: normocephalic Respiratory/Chest: chest wall non-tender, decreased breath sounds Cardiovascular: normal peripheral pulses, normal rate Abdomen: normal bowel sounds, soft, non tender Laboratory Tests 10/04/16 04:10: White Blood Count 18.0H, Red Blood Count 4.06L, Hemoglobin 11.5L, Hematocrit 39.2L, Mean Corpuscular Volume 96, Mean Corpuscular Hemoglobin 28.3, Mean Corpuscular Hemoglobin Concent 29.3L, Red Cell Distribution Width 14.0, Platelet Count 112L, Mean Platelet Volume 10.9H, Neutrophils (%) (Auto) , Lymphocytes (%) (Auto) , Monocytes (%) (Auto) , Eosinophils (%) (Auto) , Basophils (%) (Auto) , Differential Total Cells Counted 100, Neutrophils % ( Manual) 87H, Lymphocytes % (Manual) 9L, Monocytes % (Manual) 2, Eosinophils % ( Manual) 0, Basophils % (Manual) 0, Band Neutrophils 2, Platelet Estimate DecreasedL, Platelet Morphology Normal, Red Blood Cell Morphology Normal, Sodium Level 156H, Potassium Level 3.8, Chloride Level 118H, Carbon Dioxide Level 21, Anion Gap 17H, Blood Urea Nitrogen 31H, Creatinine 1.4H, Estimat Glomerular Filtration Rate 50.5, Glucose Level 244H, Calcium Level 8.8, Total Bilirubin 2.4H, Direct Bilirubin 1.4H, Aspartate Amino Transf (AST/SGOT) 139H, Alanine Aminotransferase (ALT/SGPT) 115H, Alkaline Phosphatase 117, Total Protein 6.7, Albumin 2.6L, Globulin 4.1, Albumin/Globulin Ratio 0.6L Current Medications Medications (Trade) Dose Ordered Sig/Ramiro Route PRN Reason Start Time Stop Time Status Last Admin Dose Admin Acetaminophen (Tylenol) 650 mg Q4H PRN ORAL fever 09/30/16 07:15 10/30/16 07:14 10/01/16 08:09 Albuterol/ Ipratropium (DuoNeb 0.5-3(2.5)mg/3ml) 3 ml Q4H PRN HHN Shortness of Breath 09/30/16 07:15 10/05/16 07:14 Aspirin (ASA) 81 mg DAILY NG 10/03/16 09:00 11/02/16 08:59 10/04/16 08:01 Clonidine HCl (Catapres) 0.1 mg Q4H PRN ORAL For High Blood Pressure 09/30/16 06:49 10/30/16 06:48 Dextrose (D5W 1000ml) 1,000 ml @ 150 mls/hr Q6H40M IV 10/02/16 20:30 11/01/16 20:29 10/04/16 05:18 Dextrose (Dextrose 50%) STAT PRN IV Hypoglycemia 09/30/16 06:50 10/30/16 06:49 Metoclopramide HCl (Reglan) 5 mg Q8H PRN IVP Nausea & Vomiting 10/04/16 08:45 11/03/16 08:44 Metoprolol Tartrate 50 mg 50 mg Q12HR ORAL 10/02/16 21:00 11/01/16 20:59 10/04/16 08:01 Morphine Sulfate (Morphine Sulfate) 2 mg Q4H PRN IVP Moderate Pain (Pain Scale 4-6) 09/30/16 07:15 10/07/16 07:14 10/04/16 08:40 Nitroglycerin (Nitro-Bid) 1 inch TID@0600,1200,1800 TOPIC 10/03/16 06:00 11/02/16 05:59 10/04/16 06:51 Nitroglycerin (Ntg) 0.4 mg Every 5 Minutes PRN SL Prn Chest Pain 09/30/16 06:15 10/30/16 06:14 Ondansetron HCl (Zofran) 4 mg Q6H PRN IVP Nausea & Vomiting 09/30/16 06:51 10/30/16 06:50 Pantoprazole (Protonix) 40 mg DAILY IVP 10/02/16 09:00 11/01/16 08:59 10/04/16 08:01 Piperacillin Sod/ Tazobactam Sod/ Dextrose (Zosyn/D5W) 110 ml @ 27.5 mls/hr Q8HR@0500,1300,2100 IVPB 09/30/16 13:00 10/07/16 12:59 10/04/16 05:17 Polyethylene Glycol (Miralax) 17 gm DAILYPRN PRN ORAL Constipation 09/30/16 06:51 8/10/17 06:50 Temazepam (Restoril) 15 mg HSPRN PRN ORAL Insomnia 09/30/16 06:52 10/07/16 06:51 Rahul Lopez MD Oct 04, 2016 10:10
--- NOTE | 2016-10-04 11:45 | Progress Note ---
DATE: 10/04/2016 CARDIOLOGY PROGRESS NOTE SUBJECTIVE: The patient remains in the intensive care unit. Condition remains critical. Prognosis remains guarded. The patient is on ventilator support. His blood pressure parameters are more stable. OBJECTIVE: VITAL SIGNS: Blood pressure 129/69, pulse 98, and respirations 32. No fevers. GENERAL: Poorly responsive. LUNGS: Coarse breath sounds. HEART: Regular rhythm. Rapid rate. Normal S1 and S2. ABDOMEN: Soft. No edema. LABORATORY DATA: White count 18, hemoglobin 11.5. Sodium 156, potassium 3.8, bicarb 21, BUN 31, and creatinine 1.4. Albumin 2.6. IMPRESSION: 1. Severe dehydration. 2. Hypernatremia. 3. Hyperkalemia. 4. Acute on chronic renal failure. 5. Sepsis. 6. Respiratory failure. 7. Acute myocardial infarction. 8. 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 PLAN: 1. Continue hypotonic hydration, but antibiotics per Infectious Disease [facility] consultant. 2. Beta-blockade with titration. 3. Topical nitrates. 4. Anti-platelet therapy. 5. Monitor for signs of GI blood loss. 6. Nutrition by NG tube. Donald Baldwin M.D. DR: MANDIE JOB#: [id number] CC:
--- NOTE | 2016-10-04 20:06 | Infectious Diseases Prog Note ---
Assessment/Plan Assessment/Plan ASSESSMENT: 65-year-old male with: E coli bacteremia - repeat BCx(-) UTI ? intra-abd sepsis Negative HIV Severe sepsis - improved lactic acidosis Fevers, low grade - intermittent Leukocytosis - improved Acute VDRF - intubated 09/29 NSTEMI - troponin downtrending - EF 35-40% AAA 4cm with mural thrombus ARF - improved Hypernatremia - improved Elevated LFTs TCP NKDA Full Code PLAN: continue IV zosyn day # ( 09/28 SP IV vancomycin D#2 ) monitor CBC, temperatures monitor BMP CT a/p with IV contrast , when cr improves further to r/o occult intraabdominal abscess vent support, wean as tolerated Subjective Allergies: Coded Allergies: No Known Allergies (Unverified , 09/22/14) Subjective pt unable to provide any information intermittent low grade fevers, leukocytosis improved on vent Objective Vital Signs Last 24 Hour Vital Signs Date Time Temp Pulse Resp B/P Pulse Ox O2 Delivery O2 Flow Rate FiO2 10/04/16 19:07 96 32 40 10/04/16 18:00 93 31 108/58 98 Mechanical Ventilator 40 10/04/16 17:23 116/59 10/04/16 17:00 93 31 116/59 98 Mechanical Ventilator 40 10/04/16 16:53 89 24 40 10/04/16 16:00 40 10/04/16 16:00 88 10/04/16 16:00 81 30 121/63 98 Mechanical Ventilator 40 10/04/16 15:00 84 28 114/58 98 Mechanical Ventilator 40 10/04/16 14:30 82 32 40 10/04/16 14:00 82 31 111/62 99 Mechanical Ventilator 40 10/04/16 13:27 83 33 40 10/04/16 13:00 92 29 105/59 99 Mechanical Ventilator 40 10/04/16 12:00 82 10/04/16 11:58 111/65 10/04/16 11:52 40 10/04/16 11:52 83 20 102/65 99 Mechanical Ventilator 40 10/04/16 11:00 81 24 111/65 99 Mechanical Ventilator 40 10/04/16 10:57 121 31 40 10/04/16 10:00 83 24 99/56 100 Mechanical Ventilator 40 10/04/16 09:10 99.2 10/04/16 09:00 86 25 100/59 100 Mechanical Ventilator 40 10/04/16 08:52 87 26 40 10/04/16 08:01 98 129/69 10/04/16 08:00 99 10/04/16 08:00 95 32 116/55 100 Mechanical Ventilator 40 10/04/16 07:58 40 10/04/16 07:00 95 20 40 10/04/16 07:00 91 24 129/69 96 Mechanical Ventilator 40 10/04/16 06:51 123/64 10/04/16 06:00 90 24 123/64 96 Mechanical Ventilator 40 10/04/16 05:15 92 32 40 10/04/16 05:00 91 24 120/65 96 Mechanical Ventilator 40 10/04/16 04:00 98.8 93 24 116/65 96 Mechanical Ventilator 40 10/04/16 04:00 40 10/04/16 04:00 90 10/04/16 03:00 91 24 121/68 97 Mechanical Ventilator 40 10/04/16 03:00 89 30 40 10/04/16 02:00 90 24 107/62 92 Mechanical Ventilator 40 10/04/16 01:00 94 32 129/76 99 Mechanical Ventilator 40 10/04/16 00:50 92 32 40 10/04/16 00:00 99.0 88 33 115/60 99 Mechanical Ventilator 40 10/04/16 00:00 88 10/04/16 00:00 40 10/03/16 23:00 87 32 116/64 99 Mechanical Ventilator 40 10/03/16 23:00 85 33 40 10/03/16 22:00 84 31 111/59 99 Mechanical Ventilator 40 10/03/16 21:01 95 32 40 10/03/16 21:00 92 32 111/65 99 Mechanical Ventilator 40 10/03/16 20:59 93 113/63 Height (Feet): 6 Height (Inches): 1.00 Weight (Pounds): 131 General Appearance: other - intubated Respiratory/Chest: decreased breath sounds Cardiovascular: normal rate, regular rhythm Abdomen: normal bowel sounds, soft, non tender, non distended Laboratory Tests Test 10/04/16 04:10 White Blood Count 18.0 K/UL (4.8-10.8) H Red Blood Count 4.06 M/UL (4.70-6.10) L Hemoglobin 11.5 G/DL (14.2-18.0) L Hematocrit 39.2 % (42.0-52.0) L Mean Corpuscular Volume 96 FL (80-99) Mean Corpuscular Hemoglobin 28.3 PG (27.0-31.0) Mean Corpuscular Hemoglobin Concent 29.3 G/DL (32.0-36.0) L Red Cell Distribution Width 14.0 % (11.6-14.8) Platelet Count 112 K/UL (150-450) L Mean Platelet Volume 10.9 FL (6.5-10.1) H Neutrophils (%) (Auto) % (45.0-75.0) Lymphocytes (%) (Auto) % (20.0-45.0) Monocytes (%) (Auto) % (1.0-10.0) Eosinophils (%) (Auto) % (0.0-3.0) Basophils (%) (Auto) % (0.0-2.0) Differential Total Cells Counted 100 Neutrophils % (Manual) 87 % (45-75) H Lymphocytes % (Manual) 9 % (20-45) L Monocytes % (Manual) 2 % (1-10) Eosinophils % (Manual) 0 % (0-3) Basophils % (Manual) 0 % (0-2) Band Neutrophils 2 % (0-8) Platelet Estimate Decreased L Platelet Morphology Normal Red Blood Cell Morphology Normal Sodium Level 156 mEQ/L (135-145) H Potassium Level 3.8 mEQ/L (3.4-4.9) Chloride Level 118 mEQ/L (98-107) H Carbon Dioxide Level 21 mEQ/L (20-30) Anion Gap 17 (5-15) H Blood Urea Nitrogen 31 mg/dL (7-23) H Creatinine 1.4 mg/dL (0.7-1.2) H Estimat Glomerular Filtration Rate 50.5 mL/min (>60) Glucose Level 244 mg/dL (74-106) H Calcium Level 8.8 mg/dL (8.6-10.2) Total Bilirubin 2.4 mg/dL (0.0-1.2) H Direct Bilirubin 1.4 mg/dL (0.1-0.3) H Aspartate Amino Transf (AST/SGOT) 139 U/L (5-40) H Alanine Aminotransferase (ALT/SGPT) 115 U/L (3-41) H Alkaline Phosphatase 117 U/L (40-129) Total Protein 6.7 g/dL (6.6-8.7) Albumin 2.6 g/dL (3.5-5.2) L Globulin 4.1 g/dL Albumin/Globulin Ratio 0.6 (1.0-2.7) L Current Medications Medications (Trade) Dose Ordered Sig/Ramiro Route PRN Reason Start Time Stop Time Status Last Admin Dose Admin Acetaminophen (Tylenol) 650 mg Q4H PRN ORAL fever 09/30/16 07:15 10/30/16 07:14 10/01/16 08:09 Albuterol/ Ipratropium (DuoNeb 0.5-3(2.5)mg/3ml) 3 ml Q4H PRN HHN Shortness of Breath 09/30/16 07:15 10/05/16 07:14 Aspirin (ASA) 81 mg DAILY NG 10/03/16 09:00 11/02/16 08:59 10/04/16 08:01 Clonidine HCl (Catapres) 0.1 mg Q4H PRN ORAL For High Blood Pressure 09/30/16 06:49 10/30/16 06:48 Dextrose (D5W 1000ml) 1,000 ml @ 150 mls/hr Q6H40M IV 10/02/16 20:30 11/01/16 20:29 10/04/16 19:15 Dextrose (Dextrose 50%) STAT PRN IV Hypoglycemia 09/30/16 06:50 10/30/16 06:49 Metoclopramide HCl (Reglan) 5 mg Q8H PRN IVP Nausea & Vomiting 10/04/16 08:45 11/03/16 08:44 Metoprolol Tartrate 50 mg 50 mg Q12HR ORAL 10/02/16 21:00 11/01/16 20:59 10/04/16 08:01 Morphine Sulfate (Morphine Sulfate) 2 mg Q4H PRN IVP Moderate Pain (Pain Scale 4-6) 09/30/16 07:15 10/07/16 07:14 10/04/16 08:40 Nitroglycerin (Nitro-Bid) 1 inch TID@0600,1200,1800 TOPIC 10/03/16 06:00 11/02/16 05:59 10/04/16 17:23 Nitroglycerin (Ntg) 0.4 mg Every 5 Minutes PRN SL Prn Chest Pain 09/30/16 06:15 10/30/16 06:14 Ondansetron HCl (Zofran) 4 mg Q6H PRN IVP Nausea & Vomiting 09/30/16 06:51 10/30/16 06:50 Pantoprazole (Protonix) 40 mg DAILY IVP 10/02/16 09:00 11/01/16 08:59 10/04/16 08:01 Piperacillin Sod/ Tazobactam Sod/ Dextrose (Zosyn/D5W) 110 ml @ 27.5 mls/hr Q8HR@0500,1300,2100 IVPB 09/30/16 13:00 10/07/16 12:59 10/04/16 12:00 Polyethylene Glycol (Miralax) 17 gm DAILYPRN PRN ORAL Constipation 09/30/16 06:51 10/30/16 06:50 Temazepam (Restoril) 15 mg HSPRN PRN ORAL Insomnia 09/30/16 06:52 10/07/16 06:51 BLAYNE PEDROZA Oct 04, 2016 20:05
[2016-10-05] VITALS (24 sets, daily range): BP systolic 101–128; BP diastolic 56–66
[2016-10-05 05:12] LABS: MEAN CORPUSCULAR HEMOGLOBIN 28.6 PG (27.0-31.0); MEAN CORPUSCULAR HGB CONC 29.9 G/DL (32.0-36.0); MEAN CORPUSCULAR VOLUME 96 FL (80-99); MEAN PLATELET VOLUME 10.6 FL (6.5-10.1); PLATELET COUNT 121 K/UL (150-450); RED BLOOD COUNT 3.55 M/UL (4.70-6.10); RED CELL DISTRIBUTION WIDTH 13.9 % (11.6-14.8)
[2016-10-05] MEDS: Piperacillin/Tazobactam 3.375 GM in D5W 110 ML IVPB SCH ×3 (05:17→20:30)
[2016-10-05] MEDS: Nitroglycerin 2% oint pkt TOPIC SCH ×3 (05:32→17:06)
[2016-10-05 06:00] LABS: CALCIUM 8.6 mg/dL (8.6-10.2); CREATININE 1.4 mg/dL (0.7-1.2); GLOMERULAR FILTRATION RATE 50.5 mL/min (>60); POTASSIUM 3.8 mEQ/L (3.4-4.9)
--- NOTE | 2016-10-05 07:49 | Infectious Diseases Prog Note ---
Assessment/Plan Assessment/Plan ASSESSMENT: 65-year-old male with: E coli bacteremia - repeat BCx(-) UTI ? intra-abd sepsis Negative HIV Severe sepsis - improved lactic acidosis Fevers, low grade - resolved Leukocytosis - persistent, improved Acute VDRF - intubated 09/29 NSTEMI - troponin downtrending - EF 35-40% AAA 4cm with mural thrombus ARF - improved Hypernatremia - improved Elevated LFTs TCP NKDA Full Code PLAN: continue IV zosyn day # 10 / ( 09/28 SP IV vancomycin D#2 ) monitor CBC, temperatures monitor BMP CT a/p with IV contrast , when cr improves further to r/o occult intraabdominal abscess vent support, wean as tolerated Subjective Allergies: Coded Allergies: No Known Allergies (Unverified , 09/22/14) Subjective pt unable to provide any information fevers resolved, persistent leukocytosis on vent Objective Vital Signs Last 24 Hour Vital Signs Date Time Temp Pulse Resp B/P Pulse Ox O2 Delivery O2 Flow Rate FiO2 10/05/16 07:10 95 34 40 10/05/16 07:00 95 32 117/63 100 Mechanical Ventilator 40 10/05/16 06:00 96 32 120/63 100 Mechanical Ventilator 40 10/05/16 05:32 116/59 10/05/16 05:13 40 10/05/16 05:08 94 32 116/59 100 Mechanical Ventilator 40 10/05/16 04:45 93 32 40 10/05/16 04:00 94 10/05/16 04:00 98.2 94 33 117/58 99 Mechanical Ventilator 40 10/05/16 03:00 96 34 128/66 99 Mechanical Ventilator 40 10/05/16 02:31 94 32 40 10/05/16 02:00 96 34 122/66 100 Mechanical Ventilator 40 10/05/16 01:00 95 33 117/62 99 Mechanical Ventilator 40 10/05/16 00:40 94 32 40 10/05/16 00:00 98.8 94 32 110/60 99 Mechanical Ventilator 40 10/05/16 00:00 94 10/05/16 00:00 40 10/04/16 23:04 92 35 40 10/04/16 23:00 96 35 113/59 100 Mechanical Ventilator 40 10/04/16 22:10 93 33 117/63 99 Mechanical Ventilator 40 10/04/16 21:35 92 117/63 7/15/17 20:57 92 35 40 10/04/16 20:00 98.7 93 32 116/61 99 Mechanical Ventilator 40 10/04/16 20:00 93 10/04/16 20:00 40 10/04/16 19:40 92 33 Mechanical Ventilator 40 10/04/16 19:07 96 32 40 10/04/16 19:00 95 32 110/61 99 Mechanical Ventilator 40 10/04/16 18:00 93 31 108/58 98 Mechanical Ventilator 40 10/04/16 17:23 116/59 10/04/16 17:00 93 31 116/59 98 Mechanical Ventilator 40 10/04/16 16:53 89 24 40 10/04/16 16:00 40 10/04/16 16:00 88 10/04/16 16:00 81 30 121/63 98 Mechanical Ventilator 40 10/04/16 15:00 84 28 114/58 98 Mechanical Ventilator 40 10/04/16 14:30 82 32 40 10/04/16 14:00 82 31 111/62 99 Mechanical Ventilator 40 10/04/16 13:27 83 33 40 10/04/16 13:00 92 29 105/59 99 Mechanical Ventilator 40 10/04/16 12:00 82 10/04/16 11:58 111/65 10/04/16 11:52 40 10/04/16 11:52 83 20 102/65 99 Mechanical Ventilator 40 10/04/16 11:00 81 24 111/65 99 Mechanical Ventilator 40 10/04/16 10:57 121 31 40 10/04/16 10:00 83 24 99/56 100 Mechanical Ventilator 40 10/04/16 09:10 99.2 10/04/16 09:00 86 25 100/59 100 Mechanical Ventilator 40 10/04/16 08:52 87 26 40 10/04/16 08:01 98 129/69 10/04/16 08:00 99 10/04/16 08:00 95 32 116/55 100 Mechanical Ventilator 40 10/04/16 07:58 40 Height (Feet): 6 Height (Inches): 1.00 Weight (Pounds): 127 General Appearance: other - intubated Respiratory/Chest: decreased breath sounds Cardiovascular: normal rate, regular rhythm Abdomen: normal bowel sounds, soft, non tender, non distended Laboratory Tests Test 10/05/16 04:30 White Blood Count 19.0 K/UL (4.8-10.8) H Red Blood Count 3.55 M/UL (4.70-6.10) L Hemoglobin 10.1 G/DL (14.2-18.0) L Hematocrit 34.0 % (42.0-52.0) L Mean Corpuscular Volume 96 FL (80-99) Mean Corpuscular Hemoglobin 28.6 PG (27.0-31.0) Mean Corpuscular Hemoglobin Concent 29.9 G/DL (32.0-36.0) L Red Cell Distribution Width 13.9 % (11.6-14.8) Platelet Count 121 K/UL (150-450) L Mean Platelet Volume 10.6 FL (6.5-10.1) H Neutrophils (%) (Auto) % (45.0-75.0) Lymphocytes (%) (Auto) % (20.0-45.0) Monocytes (%) (Auto) % (1.0-10.0) Eosinophils (%) (Auto) % (0.0-3.0) Basophils (%) (Auto) % (0.0-2.0) Neutrophils % (Manual) Pending Lymphocytes % (Manual) Pending Platelet Estimate Pending Platelet Morphology Pending Sodium Level 152 mEQ/L (135-145) H Potassium Level 3.8 mEQ/L (3.4-4.9) Chloride Level 118 mEQ/L (98-107) H Carbon Dioxide Level 21 mEQ/L (20-30) Anion Gap 13 (5-15) Blood Urea Nitrogen 28 mg/dL (7-23) H Creatinine 1.4 mg/dL (0.7-1.2) H Estimat Glomerular Filtration Rate 50.5 mL/min (>60) Glucose Level 282 mg/dL (74-106) H Calcium Level 8.6 mg/dL (8.6-10.2) Current Medications Medications (Trade) Dose Ordered Sig/Ramiro Route PRN Reason Start Time Stop Time Status Last Admin Dose Admin Acetaminophen (Tylenol) 650 mg Q4H PRN ORAL fever 09/30/16 07:15 10/30/16 07:14 10/01/16 08:09 Aspirin (ASA) 81 mg DAILY NG 10/03/16 09:00 11/02/16 08:59 10/04/16 08:01 Clonidine HCl (Catapres) 0.1 mg Q4H PRN ORAL For High Blood Pressure 09/30/16 06:49 10/30/16 06:48 Dextrose (D5W 1000ml) 1,000 ml @ 150 mls/hr Q6H40M IV 10/02/16 20:30 11/01/16 20:29 10/05/16 01:59 Dextrose (Dextrose 50%) STAT PRN IV Hypoglycemia 09/30/16 06:50 10/30/16 06:49 Metoclopramide HCl (Reglan) 5 mg Q8H PRN IVP Nausea & Vomiting 10/04/16 08:45 11/03/16 08:44 Metoprolol Tartrate 50 mg 50 mg Q12HR ORAL 10/02/16 21:00 11/01/16 20:59 10/04/16 21:35 Morphine Sulfate (Morphine Sulfate) 2 mg Q4H PRN IVP Moderate Pain (Pain Scale 4-6) 09/30/16 07:15 10/07/16 07:14 10/04/16 08:40 Nitroglycerin (Nitro-Bid) 1 inch TID@0600,1200,1800 TOPIC 10/03/16 06:00 11/02/16 05:59 10/05/16 05:32 Nitroglycerin (Ntg) 0.4 mg Every 5 Minutes PRN SL Prn Chest Pain 09/30/16 06:15 10/30/16 06:14 Ondansetron HCl (Zofran) 4 mg Q6H PRN IVP Nausea & Vomiting 09/30/16 06:51 10/30/16 06:50 Pantoprazole (Protonix) 40 mg DAILY IVP 10/02/16 09:00 11/01/16 08:59 10/04/16 08:01 Piperacillin Sod/ Tazobactam Sod/ Dextrose (Zosyn/D5W) 110 ml @ 27.5 mls/hr Q8HR@0500,1300,2100 IVPB 09/30/16 13:00 10/07/16 12:59 10/05/16 05:17 Polyethylene Glycol (Miralax) 17 gm DAILYPRN PRN ORAL Constipation 09/30/16 06:51 10/30/16 06:50 Temazepam (Restoril) 15 mg HSPRN PRN ORAL Insomnia 09/30/16 06:52 10/07/16 06:51 BLAYNE PEDROZA Oct 05, 2016 07:49
[2016-10-05 08:05] LABS: BAND NEUTROPHILS % (MANUAL) 0 % (0-8); BASOPHILS % (MANUAL) 0 % (0-2); EOSINOPHILS % (MANUAL) 0 % (0-3); LYMPHOCYTES % (MANUAL) 3 % (20-45); NEUTROPHILS % (MANUAL) 96 % (45-75); PLATELET ESTIMATE DECREASED; TOTAL CELLS COUNTED 100
[2016-10-05 08:06] LABS: HYPOCHROMASIA 1+; PLATELET MORPHOLOGY NORMAL
[2016-10-05] MEDS: Aspirin Baby 81mg NG SCH (08:35)
[2016-10-05] MEDS: Pantoprazole Inj IVP SCH (08:35)
[2016-10-05] MEDS: Metoprolol 50mg tab ORAL SCH ×2 (08:36→20:30)
[2016-10-05 09:28] LABS: ABG ALLEN TEST POSITIVE; ABG BASE EXCESS -2.3; ABG PCO2 40.7 mmHg (35.0-45.0)
--- NOTE | 2016-10-05 10:02 | Pulmonology Progress Note ---
Assessment/Plan Assessment/Plan 1. Sepsis. 2. Respiratory failure. 3. Acute myocardial infarction. 4. Metabolic and toxic encephalopathy. 5. Severe dehydration. 6. Severe hypernatremia. 7. Metabolic acidosis. 8. Acute renal failure. 9. Severe protein-calorie malnutrition. 10. 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 Monitor for recurring gastrointestinal bleeding. On beta-blockade. Antimicrobials and ventilator support. Condition remains critical and prognosis is guarded. Discussed with family (brother and son) Full code for now Subjective Interval Events: Remains on vent; unresponsive Constitutional: Reports: no symptoms HEENT: Repors: no symptoms Respiratory: Reports: no symptoms Cardiovascular: Reports: no symptoms Gastrointestinal/Abdominal: Reports: no symptoms Allergies: Coded Allergies: No Known Allergies (Unverified , 09/22/14) Objective Last 24 Hour Vital Signs Date Time Temp Pulse Resp B/P Pulse Ox O2 Delivery O2 Flow Rate FiO2 10/05/16 09:07 92 32 40 10/05/16 09:00 94 32 119/61 100 Mechanical Ventilator 40 10/05/16 08:36 98 107/57 10/05/16 08:00 40 10/05/16 08:00 93 10/05/16 08:00 98.7 93 28 107/57 100 Mechanical Ventilator 40 10/05/16 07:10 95 34 40 10/05/16 07:00 95 32 117/63 100 Mechanical Ventilator 40 10/05/16 06:00 96 32 120/63 100 Mechanical Ventilator 40 10/05/16 05:32 116/59 10/05/16 05:13 40 10/05/16 05:08 94 32 116/59 100 Mechanical Ventilator 40 10/05/16 04:45 93 32 40 10/05/16 04:00 94 10/05/16 04:00 98.2 94 33 117/58 99 Mechanical Ventilator 40 10/05/16 03:00 96 34 128/66 99 Mechanical Ventilator 40 10/05/16 02:31 94 32 40 10/05/16 02:00 96 34 122/66 100 Mechanical Ventilator 40 10/05/16 01:00 95 33 117/62 99 Mechanical Ventilator 40 10/05/16 00:40 94 32 40 10/05/16 00:00 98.8 94 32 110/60 99 Mechanical Ventilator 40 10/05/16 00:00 94 10/05/16 00:00 40 10/04/16 23:04 92 35 40 10/04/16 23:00 96 35 113/59 100 Mechanical Ventilator 40 10/04/16 22:10 93 33 117/63 99 Mechanical Ventilator 40 10/04/16 21:35 92 117/63 10/04/16 20:57 92 35 40 10/04/16 20:00 98.7 93 32 116/61 99 Mechanical Ventilator 40 10/04/16 20:00 93 10/04/16 20:00 40 10/04/16 19:40 92 33 Mechanical Ventilator 40 10/04/16 19:07 96 32 40 10/04/16 19:00 95 32 110/61 99 Mechanical Ventilator 40 10/04/16 18:00 93 31 108/58 98 Mechanical Ventilator 40 10/04/16 17:23 116/59 10/04/16 17:00 93 31 116/59 98 Mechanical Ventilator 40 10/04/16 16:53 89 24 40 10/04/16 16:00 40 10/04/16 16:00 88 10/04/16 16:00 81 30 121/63 98 Mechanical Ventilator 40 10/04/16 15:00 84 28 114/58 98 Mechanical Ventilator 40 10/04/16 14:30 82 32 40 10/04/16 14:00 82 31 111/62 99 Mechanical Ventilator 40 10/04/16 13:27 83 33 40 10/04/16 13:00 92 29 105/59 99 Mechanical Ventilator 40 10/04/16 12:00 82 10/04/16 11:58 111/65 10/04/16 11:52 40 10/04/16 11:52 83 20 102/65 99 Mechanical Ventilator 40 10/04/16 11:00 81 24 111/65 99 Mechanical Ventilator 40 10/04/16 10:57 121 31 40 Intake and Output 10/04/16 10/05/16 19:00 07:00 Intake Total 2206 ml 2600.0 ml Output Total 1350 ml 900 ml Balance 856 ml 1700.0 ml Free Water 456 ml 200 ml IV Total 1650 ml 2020.0 ml Tube Feeding 100 ml 380 ml Output Urine Total 1350 ml 900 ml General Appearance: no acute distress HEENT: normocephalic Respiratory/Chest: chest wall non-tender, lungs clear Cardiovascular: normal peripheral pulses, normal rate Abdomen: normal bowel sounds Laboratory Tests 10/05/16 04:30: White Blood Count 19.0H, Red Blood Count 3.55L, Hemoglobin 10.1L, Hematocrit 34.0L, Mean Corpuscular Volume 96, Mean Corpuscular Hemoglobin 28.6, Mean Corpuscular Hemoglobin Concent 29.9L, Red Cell Distribution Width 13.9, Platelet Count 121L, Mean Platelet Volume 10.6H, Neutrophils (%) (Auto) , Lymphocytes (%) (Auto) , Monocytes (%) (Auto) , Eosinophils (%) (Auto) , Basophils (%) (Auto) , Differential Total Cells Counted 100, Neutrophils % ( Manual) 96H, Lymphocytes % (Manual) 3L, Monocytes % (Manual) 1, Eosinophils % ( Manual) 0, Basophils % (Manual) 0, Band Neutrophils 0, Platelet Estimate DecreasedL, Platelet Morphology Normal, Hypochromasia 1+, Sodium Level 152H, Potassium Level 3.8, Chloride Level 118H, Carbon Dioxide Level 21, Anion Gap 13 , Blood Urea Nitrogen 28H, Creatinine 1.4H, Estimat Glomerular Filtration Rate 50.5, Glucose Level 282H, Calcium Level 8.6 10/05/16 09:20: Arterial Blood pH 7.367, Arterial Blood Partial Pressure CO2 40.7, Arterial Blood Partial Pressure O2 135.0H, Arterial Blood HCO3 22.8, Arterial Blood Oxygen Saturation 98.1H, Arterial Blood Base Excess -2.3, Jace Test Positive Current Medications Medications (Trade) Dose Ordered Sig/Ramiro Route PRN Reason Start Time Stop Time Status Last Admin Dose Admin Acetaminophen (Tylenol) 650 mg Q4H PRN ORAL fever 09/30/16 07:15 10/30/16 07:14 10/01/16 08:09 Aspirin (ASA) 81 mg DAILY NG 10/03/16 09:00 11/02/16 08:59 10/05/16 08:35 Clonidine HCl (Catapres) 0.1 mg Q4H PRN ORAL For High Blood Pressure 09/30/16 06:49 10/30/16 06:48 Dextrose (D5W 1000ml) 1,000 ml @ 150 mls/hr Q6H40M IV 10/02/16 20:30 11/01/16 20:29 10/05/16 08:35 Dextrose (Dextrose 50%) STAT PRN IV Hypoglycemia 09/30/16 06:50 10/30/16 06:49 Metoclopramide HCl (Reglan) 5 mg Q8H PRN IVP Nausea & Vomiting 10/04/16 08:45 11/03/16 08:44 Metoprolol Tartrate 50 mg 50 mg Q12HR ORAL 10/02/16 21:00 11/01/16 20:59 10/05/16 08:36 Morphine Sulfate (Morphine Sulfate) 2 mg Q4H PRN IVP Moderate Pain (Pain Scale 4-6) 09/30/16 07:15 10/07/16 07:14 10/04/16 08:40 Nitroglycerin (Nitro-Bid) 1 inch TID@0600,1200,1800 TOPIC 10/03/16 06:00 11/02/16 05:59 10/05/16 05:32 Nitroglycerin (Ntg) 0.4 mg Every 5 Minutes PRN SL Prn Chest Pain 09/30/16 06:15 10/30/16 06:14 Ondansetron HCl (Zofran) 4 mg Q6H PRN IVP Nausea & Vomiting 09/30/16 06:51 10/30/16 06:50 Pantoprazole (Protonix) 40 mg DAILY IVP 10/02/16 09:00 11/01/16 08:59 10/05/16 08:35 Piperacillin Sod/ Tazobactam Sod/ Dextrose (Zosyn/D5W) 110 ml @ 27.5 mls/hr Q8HR@0500,1300,2100 IVPB 09/30/16 13:00 10/07/16 12:59 10/05/16 05:17 Polyethylene Glycol (Miralax) 17 gm DAILYPRN PRN ORAL Constipation 09/30/16 06:51 10/30/16 06:50 Temazepam (Restoril) 15 mg HSPRN PRN ORAL Insomnia 09/30/16 06:52 10/07/16 06:51 Rahul Lopez MD Oct 05, 2016 10:02
--- NOTE | 2016-10-05 10:07 | Diagnostic Imaging Report ---
Indication: Shortness of breath Technique: XRAY CHEST 1 V Comparison: 10/01/16 Findings: Endotracheal tube and nasogastric tube are unchanged. The cardiomediastinal silhouette is stable. The lungs are again hyperinflated. No new consolidation is identified. Nodules of the right upper chest are again seen probably calcified granulomas. Impression: No significant change from 10/01/16.
[2016-10-05] MEDS ORDERED: D5W 275ml ONE (11:15)
[2016-10-05] MEDS ORDERED: Tubing IV Secondary IV ONE ×2 (11:15→11:20)
[2016-10-05] MEDS ORDERED: NS 275ml ONE (11:15)
[2016-10-05] MEDS ORDERED: Sterile Water Irrig 1000ml IRRIG ONE (11:20)
--- NOTE | 2016-10-05 13:39 | Nephrology Progress Note ---
Assessment/Plan Problem List: (1) Protein-calorie malnutrition, severe (2) UTI (urinary tract infection) (3) NSTEMI (non-ST elevated myocardial infarction) (4) Hypernatremia (5) Acute kidney injury superimposed on chronic kidney disease (6) Respiratory failure (7) Severe sepsis Plan Continue vent PEG tube pending Continue current IVF Continue free water flushes Monitor sodium Monitor renal function Avoid nephrotoxic agents Abx per ID Cardio following Monitor neuro status AM labs Subjective Subjective In ICU on vent Objective Objective Last 24 Hour Vital Signs Date Time Temp Pulse Resp B/P Pulse Ox O2 Delivery O2 Flow Rate FiO2 10/05/16 13:18 95 32 40 10/05/16 13:00 98.7 93 28 111/64 100 Mechanical Ventilator 40 10/05/16 12:58 114/58 10/05/16 12:00 40 10/05/16 12:00 92 24 114/58 100 Mechanical Ventilator 40 10/05/16 12:00 95 10/05/16 11:09 89 17 40 10/05/16 11:00 94 20 112/63 100 Mechanical Ventilator 40 10/05/16 10:00 93 20 107/65 100 Mechanical Ventilator 40 10/05/16 09:07 92 32 40 10/05/16 09:00 94 32 119/61 100 Mechanical Ventilator 40 10/05/16 08:36 98 107/57 10/05/16 08:00 40 10/05/16 08:00 93 10/05/16 08:00 98.7 93 28 107/57 100 Mechanical Ventilator 40 10/05/16 07:10 95 34 40 10/05/16 07:00 95 32 117/63 100 Mechanical Ventilator 40 10/05/16 06:00 96 32 120/63 100 Mechanical Ventilator 40 10/05/16 05:32 116/59 10/05/16 05:13 40 10/05/16 05:08 94 32 116/59 100 Mechanical Ventilator 40 10/05/16 04:45 93 32 40 10/05/16 04:00 94 10/05/16 04:00 98.2 94 33 117/58 99 Mechanical Ventilator 40 10/05/16 03:00 96 34 128/66 99 Mechanical Ventilator 40 10/05/16 02:31 94 32 40 10/05/16 02:00 96 34 122/66 100 Mechanical Ventilator 40 10/05/16 01:00 95 33 117/62 99 Mechanical Ventilator 40 10/05/16 00:40 94 32 40 10/05/16 00:00 98.8 94 32 110/60 99 Mechanical Ventilator 40 10/05/16 00:00 94 10/05/16 00:00 40 10/04/16 23:04 92 35 40 10/04/16 23:00 96 35 113/59 100 Mechanical Ventilator 40 10/04/16 22:10 93 33 117/63 99 Mechanical Ventilator 40 10/04/16 21:35 92 117/63 10/04/16 20:57 92 35 40 10/04/16 20:00 98.7 93 32 116/61 99 Mechanical Ventilator 40 10/04/16 20:00 93 10/04/16 20:00 40 10/04/16 19:40 92 33 Mechanical Ventilator 40 10/04/16 19:07 96 32 40 10/04/16 19:00 95 32 110/61 99 Mechanical Ventilator 40 10/04/16 18:00 93 31 108/58 98 Mechanical Ventilator 40 10/04/16 17:23 116/59 10/04/16 17:00 93 31 116/59 98 Mechanical Ventilator 40 10/04/16 16:53 89 24 40 10/04/16 16:00 40 10/04/16 16:00 88 10/04/16 16:00 81 30 121/63 98 Mechanical Ventilator 40 10/04/16 15:00 84 28 114/58 98 Mechanical Ventilator 40 10/04/16 14:30 82 32 40 10/04/16 14:00 82 31 111/62 99 Mechanical Ventilator 40 Intake and Output 10/04/16 10/05/16 19:00 07:00 Intake Total 2206 ml 2600.0 ml Output Total 1350 ml 900 ml Balance 856 ml 1700.0 ml Free Water 456 ml 200 ml IV Total 1650 ml 2020.0 ml Tube Feeding 100 ml 380 ml Output Urine Total 1350 ml 900 ml Laboratory Tests 10/05/16 04:30: White Blood Count 19.0H, Red Blood Count 3.55L, Hemoglobin 10.1L, Hematocrit 34.0L, Mean Corpuscular Volume 96, Mean Corpuscular Hemoglobin 28.6, Mean Corpuscular Hemoglobin Concent 29.9L, Red Cell Distribution Width 13.9, Platelet Count 121L, Mean Platelet Volume 10.6H, Neutrophils (%) (Auto) , Lymphocytes (%) (Auto) , Monocytes (%) (Auto) , Eosinophils (%) (Auto) , Basophils (%) (Auto) , Differential Total Cells Counted 100, Neutrophils % ( Manual) 96H, Lymphocytes % (Manual) 3L, Monocytes % (Manual) 1, Eosinophils % ( Manual) 0, Basophils % (Manual) 0, Band Neutrophils 0, Platelet Estimate DecreasedL, Platelet Morphology Normal, Hypochromasia 1+, Sodium Level 152H, Potassium Level 3.8, Chloride Level 118H, Carbon Dioxide Level 21, Anion Gap 13 , Blood Urea Nitrogen 28H, Creatinine 1.4H, Estimat Glomerular Filtration Rate 50.5, Glucose Level 282H, Calcium Level 8.6 10/05/16 09:20: Arterial Blood pH 7.367, Arterial Blood Partial Pressure CO2 40.7, Arterial Blood Partial Pressure O2 135.0H, Arterial Blood HCO3 22.8, Arterial Blood Oxygen Saturation 98.1H, Arterial Blood Base Excess -2.3, Jace Test Positive Height (Feet): 6 Height (Inches): 1.00 Weight (Pounds): 127 General Appearance: no apparent distress EENT: normal ENT inspection Neck: supple Cardiovascular: normal rate Respiratory/Chest: decreased breath sounds Abdomen: soft Genitourinary/Rectal: other - raymond Extremities: trace edema Neurologic: unresponsive GENE BRIONES Oct 05, 2016 13:39
--- NOTE | 2016-10-05 13:44 | Nephrology Progress Note ---
Assessment/Plan Problem List: (1) Protein-calorie malnutrition, severe (2) UTI (urinary tract infection) (3) Hypernatremia Assessment: improving (4) Acute kidney injury superimposed on chronic kidney disease (5) Respiratory failure Assessment: intubated, on vent (6) Severe sepsis (7) Acute myocardial infarction Plan Continue vent PEG tube pending Continue current IVF Continue free water flushes Monitor sodium Monitor renal function Avoid nephrotoxic agents Abx per ID Cardio following Monitor neuro status AM labs Subjective ROS Limited/Unobtainable: Yes Subjective LATE ENTRY FOR 10/04/16 In ICU on vent Objective Objective Last 24 Hour Vital Signs Date Time Temp Pulse Resp B/P Pulse Ox O2 Delivery O2 Flow Rate FiO2 10/05/16 13:18 95 32 40 10/05/16 13:00 98.7 93 28 111/64 100 Mechanical Ventilator 40 10/05/16 12:58 114/58 10/05/16 12:00 40 10/05/16 12:00 92 24 114/58 100 Mechanical Ventilator 40 10/05/16 12:00 95 10/05/16 11:09 89 17 40 10/05/16 11:00 94 20 112/63 100 Mechanical Ventilator 40 10/05/16 10:00 93 20 107/65 100 Mechanical Ventilator 40 10/05/16 09:07 92 32 40 10/05/16 09:00 94 32 119/61 100 Mechanical Ventilator 40 10/05/16 08:36 98 107/57 10/05/16 08:00 40 10/05/16 08:00 93 10/05/16 08:00 98.7 93 28 107/57 100 Mechanical Ventilator 40 10/05/16 07:10 95 34 40 10/05/16 07:00 95 32 117/63 100 Mechanical Ventilator 40 10/05/16 06:00 96 32 120/63 100 Mechanical Ventilator 40 10/05/16 05:32 116/59 10/05/16 05:13 40 10/05/16 05:08 94 32 116/59 100 Mechanical Ventilator 40 10/05/16 04:45 93 32 40 10/05/16 04:00 94 10/05/16 04:00 98.2 94 33 117/58 99 Mechanical Ventilator 40 10/05/16 03:00 96 34 128/66 99 Mechanical Ventilator 40 10/05/16 02:31 94 32 40 10/05/16 02:00 96 34 122/66 100 Mechanical Ventilator 40 10/05/16 01:00 95 33 117/62 99 Mechanical Ventilator 40 10/05/16 00:40 94 32 40 10/05/16 00:00 98.8 94 32 110/60 99 Mechanical Ventilator 40 10/05/16 00:00 94 10/05/16 00:00 40 10/04/16 23:04 92 35 40 10/04/16 23:00 96 35 113/59 100 Mechanical Ventilator 40 10/04/16 22:10 93 33 117/63 99 Mechanical Ventilator 40 10/04/16 21:35 92 117/63 10/04/16 20:57 92 35 40 10/04/16 20:00 98.7 93 32 116/61 99 Mechanical Ventilator 40 10/04/16 20:00 93 10/04/16 20:00 40 10/04/16 19:40 92 33 Mechanical Ventilator 40 10/04/16 19:07 96 32 40 10/04/16 19:00 95 32 110/61 99 Mechanical Ventilator 40 10/04/16 18:00 93 31 108/58 98 Mechanical Ventilator 40 10/04/16 17:23 116/59 10/04/16 17:00 93 31 116/59 98 Mechanical Ventilator 40 10/04/16 16:53 89 24 40 10/04/16 16:00 40 10/04/16 16:00 88 10/04/16 16:00 81 30 121/63 98 Mechanical Ventilator 40 10/04/16 15:00 84 28 114/58 98 Mechanical Ventilator 40 10/04/16 14:30 82 32 40 10/04/16 14:00 82 31 111/62 99 Mechanical Ventilator 40 Intake and Output 10/04/16 10/05/16 19:00 07:00 Intake Total 2206 ml 2600.0 ml Output Total 1350 ml 900 ml Balance 856 ml 1700.0 ml Free Water 456 ml 200 ml IV Total 1650 ml 2020.0 ml Tube Feeding 100 ml 380 ml Output Urine Total 1350 ml 900 ml Laboratory Tests 10/05/16 04:30: White Blood Count 19.0H, Red Blood Count 3.55L, Hemoglobin 10.1L, Hematocrit 34.0L, Mean Corpuscular Volume 96, Mean Corpuscular Hemoglobin 28.6, Mean Corpuscular Hemoglobin Concent 29.9L, Red Cell Distribution Width 13.9, Platelet Count 121L, Mean Platelet Volume 10.6H, Neutrophils (%) (Auto) , Lymphocytes (%) (Auto) , Monocytes (%) (Auto) , Eosinophils (%) (Auto) , Basophils (%) (Auto) , Differential Total Cells Counted 100, Neutrophils % ( Manual) 96H, Lymphocytes % (Manual) 3L, Monocytes % (Manual) 1, Eosinophils % ( Manual) 0, Basophils % (Manual) 0, Band Neutrophils 0, Platelet Estimate DecreasedL, Platelet Morphology Normal, Hypochromasia 1+, Sodium Level 152H, Potassium Level 3.8, Chloride Level 118H, Carbon Dioxide Level 21, Anion Gap 13 , Blood Urea Nitrogen 28H, Creatinine 1.4H, Estimat Glomerular Filtration Rate 50.5, Glucose Level 282H, Calcium Level 8.6 10/05/16 09:20: Arterial Blood pH 7.367, Arterial Blood Partial Pressure CO2 40.7, Arterial Blood Partial Pressure O2 135.0H, Arterial Blood HCO3 22.8, Arterial Blood Oxygen Saturation 98.1H, Arterial Blood Base Excess -2.3, Jace Test Positive Height (Feet): 6 Height (Inches): 1.00 Weight (Pounds): 127 General Appearance: no apparent distress Neck: non-tender Cardiovascular: no JVD Respiratory/Chest: other - on vent Genitourinary/Rectal: other - raymond Neurologic: unresponsive GENE BRIONES Oct 05, 2016 13:44
[2016-10-06] VITALS (24 sets, daily range): BP systolic 109–130; BP diastolic 56–74
[2016-10-06] MEDS: Piperacillin/Tazobactam 3.375 GM in D5W 110 ML IVPB SCH ×3 (05:13→20:11)
[2016-10-06 05:26] LABS: MEAN CORPUSCULAR HEMOGLOBIN 29.4 PG (27.0-31.0); MEAN CORPUSCULAR VOLUME 95 FL (80-99); MEAN PLATELET VOLUME 11.2 FL (6.5-10.1); PLATELET COUNT 134 K/UL (150-450); RED BLOOD COUNT 3.36 M/UL (4.70-6.10); RED CELL DISTRIBUTION WIDTH 13.6 % (11.6-14.8); WHITE BLOOD COUNT 18.7 K/UL (4.8-10.8)
[2016-10-06] MEDS: Nitroglycerin 2% oint pkt TOPIC SCH ×3 (05:32→17:35)
--- NOTE | 2016-10-06 05:45 | Progress Note ---
DATE: 10/05/2016 CARDIOLOGY PROGRESS NOTE SUBJECTIVE: The patient remains in the intensive care unit. Critical condition and guarded prognosis. He continues on hypotonic IV fluids. Blood pressure is marginal. He has sinus tachycardia noted. CT scan of the brain has confirmed an acute frontal stroke. OBJECTIVE: VITAL SIGNS: Blood pressure 119/61, pulse 94, and respiratory rate 32. Orally intubated. LUNGS: Bilateral breath sounds with rhonchi. HEART: Regular rhythm and rate. Normal S1 and S2. ABDOMEN: Soft. EXTREMITIES: No edema. LABORATORY DATA: White count 19 and hemoglobin 10. Sodium 152, potassium 3.8, chloride 119, bicarbonate 21, BUN 20, and creatinine 1.4. ABG, 7.37, 41, and 135. IMPRESSION: 1. Acute cerebrovascular accident. 2. Acute myocardial infarction. 3. Secondary sinus tachycardia. 4. Pneumonia. 5. Respiratory failure. 6. Sepsis with shock. 7. Dehydration. 8. Hypernatremia. 9. Acute renal failure. 10. Remains critical and guarded. PLAN: 1. Hypotonic IV fluids. 2. Antiplatelet therapy, nitrates and beta blockade. 3. DVT and stress ulcer prophylaxis. 4. Ventilator support. 5. Antimicrobials and respiratory hygiene. Donald Baldwin M.D. DR: CHELSEA JOB#: [id number] CC:
[2016-10-06 06:20] LABS: CALCIUM 8.4 mg/dL (8.6-10.2); CREATININE 1.5 mg/dL (0.7-1.2); GLOMERULAR FILTRATION RATE 46.7 mL/min (>60); POTASSIUM 3.9 mEQ/L (3.4-4.9)
[2016-10-06 07:40] LABS: ANISOCYTOSIS 1+; BAND NEUTROPHILS % (MANUAL) 0 % (0-8); BASOPHILS % (MANUAL) 0 % (0-2); EOSINOPHILS % (MANUAL) 0 % (0-3); HYPOCHROMASIA 1+; LYMPHOCYTES % (MANUAL) 4 % (20-45); NEUTROPHILS % (MANUAL) 95 % (45-75); PLATELET ESTIMATE DECREASED; PLATELET MORPHOLOGY NORMAL; TOTAL CELLS COUNTED 100
--- NOTE | 2016-10-06 08:40 | Diagnostic Imaging Report ---
Indication: Altered level of consciousness Technique: Continuous helical CT scanning of the head was performed utilizing automated exposure control without intravenous contrast material. Axial and coronal reconstructions were obtained. Comparison: 09/22/14 CT dose: Total DLP 1372 mGycm; CTDI vol 70.4 mGy Findings: Motion and artifact limit evaluation. There is no gross Acute intracranial hemorrhage. There is an approximately 2.5 cm area of low density involving the right frontal lobe. The ventricles, cisterns and sulci are prominent consistent with atrophy. Periventricular hypoattenuation is seen, a nonspecific finding. The posterior fossa and fourth ventricle are unremarkable. Sellar and suprasellar regions are grossly unremarkable. Visualized mastoid air cells and paranasal sinuses are unremarkable. No focal lesions of the bony calvarium or soft tissues of the scalp are seen. Impression: Evaluation limited by motion. Approximately 2.5 cm area of low density involving the right frontal lobe suggestive of an acute infarct. MRI recommended for further evaluation. Apparent 1.3 cm area of low density in the left cerebellum series 3 image 7 possibly an acute indeterminate infarct. Again correlation with MRI recommended. Atrophy and chronic ischemic microvascular changes. Findings discussed with Dr. Sumner on 10/05/[address] scanner at [facility] is accredited by the [employer] and the scans are performed using protocols designed to limit radiation exposure to as low as reasonably achievable to attain images of sufficient resolution adequate for diagnostic evaluation.
[2016-10-06] MEDS: Aspirin Baby 81mg NG SCH (08:41)
[2016-10-06] MEDS: Pantoprazole Inj IVP SCH (08:42)
[2016-10-06] MEDS: Metoprolol 50mg tab ORAL SCH ×2 (08:42→20:39)
--- NOTE | 2016-10-06 10:33 | Pulmonology Progress Note ---
Assessment/Plan Assessment/Plan 1. Sepsis. 2. Respiratory failure. 3. Acute myocardial infarction. 4. Metabolic and toxic encephalopathy. 5. Severe dehydration. 6. Severe hypernatremia. 7. Metabolic acidosis. 8. Acute renal failure. 9. Severe protein-calorie malnutrition. 10. 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 Monitor for recurring gastrointestinal bleeding. On beta-blockade. Antimicrobials and ventilator support. Condition remains critical and prognosis is guarded. CT brain shows frontal infarct Discussed with family (brother and son) Full code for now Subjective Interval Events: No change; remains unresponsive Constitutional: Reports: no symptoms HEENT: Repors: no symptoms Respiratory: Reports: no symptoms Cardiovascular: Reports: no symptoms Gastrointestinal/Abdominal: Reports: no symptoms Allergies: Coded Allergies: No Known Allergies (Unverified , 09/22/14) Objective Last 24 Hour Vital Signs Date Time Temp Pulse Resp B/P Pulse Ox O2 Delivery O2 Flow Rate FiO2 10/06/16 10:00 83 26 114/59 100 Mechanical Ventilator 40 10/06/16 09:04 89 22 40 10/06/16 09:00 88 27 122/63 100 Mechanical Ventilator 40 10/06/16 08:42 99 117/67 10/06/16 08:00 98.1 99 28 117/67 100 Mechanical Ventilator 40 10/06/16 08:00 99 10/06/16 08:00 40 10/06/16 07:21 91 18 40 10/06/16 07:00 97 29 124/63 100 Mechanical Ventilator 40 10/06/16 06:00 92 29 110/56 100 Mechanical Ventilator 40 10/06/16 05:32 128/67 10/06/16 05:00 88 31 128/67 100 Mechanical Ventilator 40 10/06/16 04:49 88 32 40 10/06/16 04:00 98.6 94 29 113/60 99 Mechanical Ventilator 40 10/06/16 04:00 94 10/06/16 04:00 40 10/06/16 03:03 95 31 40 10/06/16 03:00 96 28 113/61 100 Mechanical Ventilator 40 10/06/16 02:00 95 33 128/68 100 Mechanical Ventilator 40 10/06/16 01:00 95 29 124/65 100 Mechanical Ventilator 40 10/06/16 00:35 92 26 40 10/06/16 00:00 98.7 91 30 122/65 100 Mechanical Ventilator 40 10/06/17 00:00 91 10/06/16 00:00 40 16 23:02 91 31 40 10/05/16 23:00 92 29 114/57 100 Mechanical Ventilator 40 716/17 22:00 95 33 110/56 100 Mechanical Ventilator 40 716/17 21:00 96 33 106/62 100 Mechanical Ventilator 40 17 20:55 96 24 40 1617 20:30 95 114/56 1617 20:00 40 1617 20:00 93 1617 20:00 98.8 93 32 114/56 100 Mechanical Ventilator 40 7/17 19:00 96 20 107/58 100 Mechanical Ventilator 40 17 18:51 94 34 40 16/17 18:00 94 20 115/57 100 Mechanical Ventilator 40 16/17 17:13 93 34 40 1617 17:06 101/62 17 17:00 94 20 101/62 100 Mechanical Ventilator 40 16/17 17:00 40 17 16:00 93 16/17 16:00 98 22 112/59 99 Mechanical Ventilator 40 16/17 15:24 93 33 40 16/17 15:00 94 22 106/59 99 Mechanical Ventilator 40 16/17 14:00 92 24 108/64 99 Mechanical Ventilator 40 16/17 13:18 95 32 40 17 13:00 98.7 93 28 111/64 100 Mechanical Ventilator 40 10/05/16 12:58 114/58 10/05/16 12:00 40 17 12:00 92 24 114/58 100 Mechanical Ventilator 40 16/17 12:00 95 10/05/16 11:09 89 17 40 10/05/16 11:00 94 20 112/63 100 Mechanical Ventilator 40 Intake and Output 10/05/17 10/06/16 19:00 07:00 Intake Total 2730.0 ml 2920.0 ml Output Total 1390 ml 1500 ml Balance 1340.0 ml 1420.0 ml Free Water 300 ml 300 ml IV Total 1760.0 ml 2020.0 ml Tube Feeding 570 ml 600 ml Other 100 ml Output Urine Total 1390 ml 1500 ml General Appearance: no acute distress HEENT: normocephalic Respiratory/Chest: chest wall non-tender, lungs clear Cardiovascular: normal peripheral pulses, normal rate Abdomen: normal bowel sounds Laboratory Tests 10/06/16 05:00: White Blood Count 18.7H, Red Blood Count 3.36L, Hemoglobin 9.9L, Hematocrit 31.9L, Mean Corpuscular Volume 95, Mean Corpuscular Hemoglobin 29.4, Mean Corpuscular Hemoglobin Concent 31.0L, Red Cell Distribution Width 13.6, Platelet Count 134L, Mean Platelet Volume 11.2H, Neutrophils (%) (Auto) , Lymphocytes (%) (Auto) , Monocytes (%) (Auto) , Eosinophils (%) (Auto) , Basophils (%) (Auto) , Differential Total Cells Counted 100, Neutrophils % ( Manual) 95H, Lymphocytes % (Manual) 4L, Monocytes % (Manual) 1, Eosinophils % ( Manual) 0, Basophils % (Manual) 0, Band Neutrophils 0, Platelet Estimate DecreasedL, Platelet Morphology Normal, Hypochromasia 1+, Anisocytosis 1+, Sodium Level 151H, Potassium Level 3.9, Chloride Level 115H, Carbon Dioxide Level 23, Anion Gap 13, Blood Urea Nitrogen 32H, Creatinine 1.5H, Estimat Glomerular Filtration Rate 46.7, Glucose Level 326H, Calcium Level 8.4L Current Medications Medications (Trade) Dose Ordered Sig/Ramiro Route PRN Reason Start Time Stop Time Status Last Admin Dose Admin Acetaminophen (Tylenol) 650 mg Q4H PRN ORAL fever 09/30/16 07:15 10/30/16 07:14 10/01/16 08:09 Aspirin (ASA) 81 mg DAILY NG 10/03/16 09:00 11/02/16 08:59 10/06/16 08:41 Clonidine HCl (Catapres) 0.1 mg Q4H PRN ORAL For High Blood Pressure 09/30/16 06:49 10/30/16 06:48 Dextrose (D5W 1000ml) 1,000 ml @ 150 mls/hr Q6H40M IV 10/02/16 20:30 11/01/16 20:29 10/06/16 04:30 Dextrose (Dextrose 50%) STAT PRN IV Hypoglycemia 09/30/16 06:50 10/30/16 06:49 Metoclopramide HCl (Reglan) 5 mg Q8H PRN IVP Nausea & Vomiting 10/04/16 08:45 11/03/16 08:44 Metoprolol Tartrate 50 mg 50 mg Q12HR ORAL 10/02/16 21:00 11/01/16 20:59 10/06/16 08:42 Morphine Sulfate (Morphine Sulfate) 2 mg Q4H PRN IVP Moderate Pain (Pain Scale 4-6) 09/30/16 07:15 10/07/16 07:14 10/04/16 08:40 Nitroglycerin (Nitro-Bid) 1 inch TID@0600,1200,1800 TOPIC 10/03/16 06:00 11/02/16 05:59 10/06/16 05:32 Nitroglycerin (Ntg) 0.4 mg Every 5 Minutes PRN SL Prn Chest Pain 09/30/16 06:15 10/30/16 06:14 Ondansetron HCl (Zofran) 4 mg Q6H PRN IVP Nausea & Vomiting 09/30/16 06:51 10/30/16 06:50 Pantoprazole (Protonix) 40 mg DAILY IVP 10/02/16 09:00 11/01/16 08:59 10/06/16 08:42 Piperacillin Sod/ Tazobactam Sod/ Dextrose (Zosyn/D5W) 110 ml @ 27.5 mls/hr Q8HR@0500,1300,2100 IVPB 09/30/16 13:00 10/07/16 12:59 10/06/16 05:13 Polyethylene Glycol (Miralax) 17 gm DAILYPRN PRN ORAL Constipation 09/30/16 06:51 10/30/16 06:50 Temazepam (Restoril) 15 mg HSPRN PRN ORAL Insomnia 09/30/16 06:52 10/07/16 06:51 Rahul Lopez MD Oct 06, 2016 10:33
--- NOTE | 2016-10-06 10:50 | General Progress Note ---
Assessment/Plan Problem List: (1) Respiratory failure ICD Codes: J96.90 - Respiratory failure, unspecified, unspecified whether with hypoxia or hypercapnia SNOMED: 613506136 (2) COPD (chronic obstructive pulmonary disease) ICD Codes: J44.9 - Chronic obstructive pulmonary disease, unspecified SNOMED: 48866676 (3) Protein-calorie malnutrition, severe ICD Codes: E43 - Unspecified severe protein-calorie malnutrition SNOMED: 193763569 (4) NSTEMI (non-ST elevated myocardial infarction) ICD Codes: I21.4 - Non-ST elevation (NSTEMI) myocardial infarction SNOMED: 449549973 (5) Coffee ground emesis ICD Codes: K92.0 - Hematemesis SNOMED: 95694324, 098660748 (6) Sepsis ICD Codes: A41.9 - Sepsis, unspecified organism SNOMED: 69260071 Assessment/Plan reglan ppi fu H&H prn blood transfusion patient not stable for GI procedures at this time Subjective ROS Limited/Unobtainable: No Allergies: Coded Allergies: No Known Allergies (Unverified , 09/22/14) Subjective elevated residuals Objective Last 24 Hour Vital Signs Date Time Temp Pulse Resp B/P Pulse Ox O2 Delivery O2 Flow Rate FiO2 10/06/16 10:00 83 26 114/59 100 Mechanical Ventilator 40 10/06/16 09:04 89 22 40 10/06/16 09:00 88 27 122/63 100 Mechanical Ventilator 40 10/06/16 08:42 99 117/67 10/06/16 08:00 98.1 99 28 117/67 100 Mechanical Ventilator 40 10/06/16 08:00 99 10/06/16 08:00 40 10/06/16 07:21 91 18 40 10/06/16 07:00 97 29 124/63 100 Mechanical Ventilator 40 10/06/16 06:00 92 29 110/56 100 Mechanical Ventilator 40 10/06/16 05:32 128/67 10/06/16 05:00 88 31 128/67 100 Mechanical Ventilator 40 10/06/16 04:49 88 32 40 10/06/16 04:00 98.6 94 29 113/60 99 Mechanical Ventilator 40 10/06/16 04:00 94 10/06/16 04:00 40 10/06/16 03:03 95 31 40 10/06/16 03:00 96 28 113/61 100 Mechanical Ventilator 40 7/ 02:00 95 33 128/68 100 Mechanical Ventilator 40 7/17 01:00 95 29 124/65 100 Mechanical Ventilator 40 17/17 00:35 92 26 40 17/17 00:00 98.7 91 30 122/65 100 Mechanical Ventilator 40 10/06/16 00:00 91 10/06/16 00:00 40 17 23:02 91 31 40 16/17 23:00 92 29 114/57 100 Mechanical Ventilator 40 16/17 22:00 95 33 110/56 100 Mechanical Ventilator 40 16/17 21:00 96 33 106/62 100 Mechanical Ventilator 40 16/17 20:55 96 24 40 16/17 20:30 95 114/56 16/17 20:00 40 1617 20:00 93 10/05/16 20:00 98.8 93 32 114/56 100 Mechanical Ventilator 40 10/05/16 19:00 96 20 107/58 100 Mechanical Ventilator 40 16/17 18:51 94 34 40 16/17 18:00 94 20 115/57 100 Mechanical Ventilator 40 16/17 17:13 93 34 40 16/17 17:06 101/62 16/17 17:00 94 20 101/62 100 Mechanical Ventilator 40 16/17 17:00 40 16/17 16:00 93 16 16:00 98 22 112/59 99 Mechanical Ventilator 40 16/17 15:24 93 33 40 16/17 15:00 94 22 106/59 99 Mechanical Ventilator 40 16/17 14:00 92 24 108/64 99 Mechanical Ventilator 40 16/17 13:18 95 32 40 16/17 13:00 98.7 93 28 111/64 100 Mechanical Ventilator 40 17 12:58 114/58 17 12:00 40 17 12:00 92 24 114/58 100 Mechanical Ventilator 40 10/05/17 12:00 95 10/05/16 11:09 89 17 40 10/05/16 11:00 94 20 112/63 100 Mechanical Ventilator 40 Intake and Output 10/05/16 10/06/16 19:00 07:00 Intake Total 2730.0 ml 2920.0 ml Output Total 1390 ml 1500 ml Balance 1340.0 ml 1420.0 ml Free Water 300 ml 300 ml IV Total 1760.0 ml 2020.0 ml Tube Feeding 570 ml 600 ml Other 100 ml Output Urine Total 1390 ml 1500 ml Laboratory Tests 10/06/16 05:00: White Blood Count 18.7H, Red Blood Count 3.36L, Hemoglobin 9.9L, Hematocrit 31.9L, Mean Corpuscular Volume 95, Mean Corpuscular Hemoglobin 29.4, Mean Corpuscular Hemoglobin Concent 31.0L, Red Cell Distribution Width 13.6, Platelet Count 134L, Mean Platelet Volume 11.2H, Neutrophils (%) (Auto) , Lymphocytes (%) (Auto) , Monocytes (%) (Auto) , Eosinophils (%) (Auto) , Basophils (%) (Auto) , Differential Total Cells Counted 100, Neutrophils % ( Manual) 95H, Lymphocytes % (Manual) 4L, Monocytes % (Manual) 1, Eosinophils % ( Manual) 0, Basophils % (Manual) 0, Band Neutrophils 0, Platelet Estimate DecreasedL, Platelet Morphology Normal, Hypochromasia 1+, Anisocytosis 1+, Sodium Level 151H, Potassium Level 3.9, Chloride Level 115H, Carbon Dioxide Level 23, Anion Gap 13, Blood Urea Nitrogen 32H, Creatinine 1.5H, Estimat Glomerular Filtration Rate 46.7, Glucose Level 326H, Calcium Level 8.4L Height (Feet): 6 Height (Inches): 1.00 Weight (Pounds): 126 General Appearance: no apparent distress EENT: normal ENT inspection Neck: supple Cardiovascular: normal rate Respiratory/Chest: decreased breath sounds Abdomen: normal bowel sounds, non tender, soft Extremities: non-tender AIMEE TELLEZ Oct 06, 2016 10:49
--- NOTE | 2016-10-06 11:55 | Infectious Diseases Prog Note ---
Assessment/Plan Assessment/Plan A: [age] male with: E coli bacteremia - repeat BCx(-) UTI ? intra-abd sepsis Negative HIV Severe sepsis - improved lactic acidosis Fevers, low grade - resolved Leukocytosis - persistent, improved Acute VDRF - intubated 09/29 NSTEMI - troponin downtrending - EF 35-40% AAA 4cm with mural thrombus ARF - improving Hypernatremia - improved Elevated LFTs TCP NKDA Full Code PLAN: continue IV zosyn day # / ( 09/28 SP IV vancomycin D#2 ) monitor CBC, temperatures monitor BMP CT a/p with IV contrast , when cr improves further to r/o occult intraabdominal abscess vent support, wean as tolerated Subjective Allergies: Coded Allergies: No Known Allergies (Unverified , 09/22/14) Subjective AFEBRILE Objective Vital Signs Last 24 Hour Vital Signs Date Time Temp Pulse Resp B/P Pulse Ox O2 Delivery O2 Flow Rate FiO2 10/06/16 11:00 90 25 121/74 100 Mechanical Ventilator 40 10/06/16 10:49 87 24 40 10/06/16 10:00 83 26 114/59 100 Mechanical Ventilator 40 10/06/16 09:04 89 22 40 10/06/16 09:00 88 27 122/63 100 Mechanical Ventilator 40 10/06/16 08:42 99 117/67 10/06/16 08:00 98.1 99 28 117/67 100 Mechanical Ventilator 40 10/06/16 08:00 99 10/06/16 08:00 40 10/06/16 07:21 91 18 40 10/06/16 07:00 97 29 124/63 100 Mechanical Ventilator 40 10/06/16 06:00 92 29 110/56 100 Mechanical Ventilator 40 10/06/16 05:32 128/67 10/06/16 05:00 88 31 128/67 100 Mechanical Ventilator 40 10/06/16 04:49 88 32 40 10/06/16 04:00 98.6 94 29 113/60 99 Mechanical Ventilator 40 10/06/16 04:00 94 10/06/16 04:00 40 10/06/16 03:03 95 31 40 10/06/16 03:00 96 28 113/61 100 Mechanical Ventilator 40 10/06/16 02:00 95 33 128/68 100 Mechanical Ventilator 40 10/06/16 01:00 95 29 124/65 100 Mechanical Ventilator 40 10/06/16 00:35 92 26 40 10/06/16 00:00 98.7 91 30 122/65 100 Mechanical Ventilator 40 10/06/16 00:00 91 10/06/16 00:00 40 10/05/16 23:02 91 31 40 10/05/16 23:00 92 29 114/57 100 Mechanical Ventilator 40 10/05/16 22:00 95 33 110/56 100 Mechanical Ventilator 40 10/05/16 21:00 96 33 106/62 100 Mechanical Ventilator 40 10/05/16 20:55 96 24 40 10/05/16 20:30 95 114/56 10/05/16 20:00 40 10/05/16 20:00 93 10/05/16 20:00 98.8 93 32 114/56 100 Mechanical Ventilator 40 10/05/16 19:00 96 20 107/58 100 Mechanical Ventilator 40 10/05/16 18:51 94 34 40 10/05/16 18:00 94 20 115/57 100 Mechanical Ventilator 40 10/05/16 17:13 93 34 40 10/05/16 17:06 101/62 10/05/16 17:00 94 20 101/62 100 Mechanical Ventilator 40 10/05/16 17:00 40 10/05/16 16:00 93 10/05/16 16:00 98 22 112/59 99 Mechanical Ventilator 40 10/05/16 15:24 93 33 40 10/05/16 15:00 94 22 106/59 99 Mechanical Ventilator 40 10/05/16 14:00 92 24 108/64 99 Mechanical Ventilator 40 10/05/16 13:18 95 32 40 10/05/16 13:00 98.7 93 28 111/64 100 Mechanical Ventilator 40 10/05/16 12:58 114/58 10/05/16 12:00 40 10/05/16 12:00 92 24 114/58 100 Mechanical Ventilator 40 10/05/16 12:00 95 Height (Feet): 6 Height (Inches): 1.00 Weight (Pounds): 126 HEENT: anicteric Respiratory/Chest: no respiratory distress Cardiovascular: regular rhythm Abdomen: no organomegaly Laboratory Tests Test 10/06/16 05:00 White Blood Count 18.7 K/UL (4.8-10.8) H Red Blood Count 3.36 M/UL (4.70-6.10) L Hemoglobin 9.9 G/DL (14.2-18.0) L Hematocrit 31.9 % (42.0-52.0) L Mean Corpuscular Volume 95 FL (80-99) Mean Corpuscular Hemoglobin 29.4 PG (27.0-31.0) Mean Corpuscular Hemoglobin Concent 31.0 G/DL (32.0-36.0) L Red Cell Distribution Width 13.6 % (11.6-14.8) Platelet Count 134 K/UL (150-450) L Mean Platelet Volume 11.2 FL (6.5-10.1) H Neutrophils (%) (Auto) % (45.0-75.0) Lymphocytes (%) (Auto) % (20.0-45.0) Monocytes (%) (Auto) % (1.0-10.0) Eosinophils (%) (Auto) % (0.0-3.0) Basophils (%) (Auto) % (0.0-2.0) Differential Total Cells Counted 100 Neutrophils % (Manual) 95 % (45-75) H Lymphocytes % (Manual) 4 % (20-45) L Monocytes % (Manual) 1 % (1-10) Eosinophils % (Manual) 0 % (0-3) Basophils % (Manual) 0 % (0-2) Band Neutrophils 0 % (0-8) Platelet Estimate Decreased L Platelet Morphology Normal Hypochromasia 1+ Anisocytosis 1+ Sodium Level 151 mEQ/L (135-145) H Potassium Level 3.9 mEQ/L (3.4-4.9) Chloride Level 115 mEQ/L (98-107) H Carbon Dioxide Level 23 mEQ/L (20-30) Anion Gap 13 (5-15) Blood Urea Nitrogen 32 mg/dL (7-23) H Creatinine 1.5 mg/dL (0.7-1.2) H Estimat Glomerular Filtration Rate 46.7 mL/min (>60) Glucose Level 326 mg/dL (74-106) H Calcium Level 8.4 mg/dL (8.6-10.2) L Current Medications Medications (Trade) Dose Ordered Sig/Ramiro Route PRN Reason Start Time Stop Time Status Last Admin Dose Admin Acetaminophen (Tylenol) 650 mg Q4H PRN ORAL fever 09/30/16 07:15 10/30/16 07:14 10/01/16 08:09 Aspirin (ASA) 81 mg DAILY NG 10/03/16 09:00 11/02/16 08:59 10/06/16 08:41 Clonidine HCl (Catapres) 0.1 mg Q4H PRN ORAL For High Blood Pressure 09/30/16 06:49 10/30/16 06:48 Dextrose (D5W 1000ml) 1,000 ml @ 150 mls/hr Q6H40M IV 10/02/16 20:30 11/01/16 20:29 10/06/16 10:42 Dextrose (Dextrose 50%) STAT PRN IV Hypoglycemia 09/30/16 06:50 10/30/16 06:49 Metoclopramide HCl (Reglan) 5 mg Q8H PRN IVP Nausea & Vomiting 10/04/16 08:45 11/03/16 08:44 Metoprolol Tartrate 50 mg 50 mg Q12HR ORAL 10/02/16 21:00 11/01/16 20:59 10/06/16 08:42 Morphine Sulfate (Morphine Sulfate) 2 mg Q4H PRN IVP Moderate Pain (Pain Scale 4-6) 09/30/16 07:15 10/07/16 07:14 10/04/16 08:40 Nitroglycerin (Nitro-Bid) 1 inch TID@0600,1200,1800 TOPIC 10/03/16 06:00 11/02/16 05:59 10/06/16 05:32 Nitroglycerin (Ntg) 0.4 mg Every 5 Minutes PRN SL Prn Chest Pain 09/30/16 06:15 10/30/16 06:14 Ondansetron HCl (Zofran) 4 mg Q6H PRN IVP Nausea & Vomiting 09/30/16 06:51 10/30/16 06:50 Pantoprazole (Protonix) 40 mg DAILY IVP 10/02/16 09:00 11/01/16 08:59 10/06/16 08:42 Piperacillin Sod/ Tazobactam Sod/ Dextrose (Zosyn/D5W) 110 ml @ 27.5 mls/hr Q8HR@0500,1300,2100 IVPB 09/30/16 13:00 10/07/16 12:59 10/06/16 05:13 Polyethylene Glycol (Miralax) 17 gm DAILYPRN PRN ORAL Constipation 09/30/16 06:51 10/30/16 06:50 Temazepam (Restoril) 15 mg HSPRN PRN ORAL Insomnia 09/30/16 06:52 10/07/16 06:51 RADHA VARELA M.D. Oct 06, 2016 11:55
--- NOTE | 2016-10-06 14:04 | General Progress Note ---
Assessment/Plan Assessment/Plan Delirium -cont current meds -recommend low dose antipsychotics Subjective Allergies: Coded Allergies: No Known Allergies (Unverified , 09/22/14) Subjective intubated, critical, unresponsive Objective Last 24 Hour Vital Signs Date Time Temp Pulse Resp B/P Pulse Ox O2 Delivery O2 Flow Rate FiO2 10/06/16 13:04 91 22 40 10/06/16 13:00 95 25 112/63 100 Mechanical Ventilator 40 10/06/16 12:10 121/62 10/06/16 12:00 97.8 92 27 121/62 100 Mechanical Ventilator 40 10/06/16 12:00 78 10/06/16 12:00 40 10/06/16 11:00 90 25 121/74 100 Mechanical Ventilator 40 10/06/16 10:49 87 24 40 10/06/16 10:00 83 26 114/59 100 Mechanical Ventilator 40 10/06/16 09:04 89 22 40 10/06/16 09:00 88 27 122/63 100 Mechanical Ventilator 40 10/06/16 08:42 99 117/67 10/06/16 08:00 98.1 99 28 117/67 100 Mechanical Ventilator 40 10/06/16 08:00 99 10/06/16 08:00 40 10/06/16 07:21 91 18 40 10/06/16 07:00 97 29 124/63 100 Mechanical Ventilator 40 10/06/16 06:00 92 29 110/56 100 Mechanical Ventilator 40 10/06/16 05:32 128/67 10/06/16 05:00 88 31 128/67 100 Mechanical Ventilator 40 10/06/16 04:49 88 32 40 10/06/16 04:00 98.6 94 29 113/60 99 Mechanical Ventilator 40 10/06/16 04:00 94 10/06/16 04:00 40 10/06/16 03:03 95 31 40 10/06/16 03:00 96 28 113/61 100 Mechanical Ventilator 40 10/06/16 02:00 95 33 128/68 100 Mechanical Ventilator 40 10/06/16 01:00 95 29 124/65 100 Mechanical Ventilator 40 10/06/16 00:35 92 26 40 10/06/16 00:00 98.7 91 30 122/65 100 Mechanical Ventilator 40 10/06/16 00:00 91 10/06/16 00:00 40 10/05/16 23:02 91 31 40 10/05/16 23:00 92 29 114/57 100 Mechanical Ventilator 40 10/05/16 22:00 95 33 110/56 100 Mechanical Ventilator 40 10/05/16 21:00 96 33 106/62 100 Mechanical Ventilator 40 10/05/16 20:55 96 24 40 10/05/16 20:30 95 114/56 10/05/16 20:00 40 10/05/16 20:00 93 10/05/16 20:00 98.8 93 32 114/56 100 Mechanical Ventilator 40 10/05/16 19:00 96 20 107/58 100 Mechanical Ventilator 40 10/05/16 18:51 94 34 40 10/05/16 18:00 94 20 115/57 100 Mechanical Ventilator 40 10/05/16 17:13 93 34 40 10/05/16 17:06 101/62 10/05/16 17:00 94 20 101/62 100 Mechanical Ventilator 40 10/05/16 17:00 40 10/05/16 16:00 93 10/05/16 16:00 98 22 112/59 99 Mechanical Ventilator 40 10/05/16 15:24 93 33 40 10/05/16 15:00 94 22 106/59 99 Mechanical Ventilator 40 Intake and Output 10/05/16 10/06/16 19:00 07:00 Intake Total 2730.0 ml 2920.0 ml Output Total 1390 ml 1500 ml Balance 1340.0 ml 1420.0 ml Free Water 300 ml 300 ml IV Total 1760.0 ml 2020.0 ml Tube Feeding 570 ml 600 ml Other 100 ml Output Urine Total 1390 ml 1500 ml Laboratory Tests 10/06/16 05:00: White Blood Count 18.7H, Red Blood Count 3.36L, Hemoglobin 9.9L, Hematocrit 31.9L, Mean Corpuscular Volume 95, Mean Corpuscular Hemoglobin 29.4, Mean Corpuscular Hemoglobin Concent 31.0L, Red Cell Distribution Width 13.6, Platelet Count 134L, Mean Platelet Volume 11.2H, Neutrophils (%) (Auto) , Lymphocytes (%) (Auto) , Monocytes (%) (Auto) , Eosinophils (%) (Auto) , Basophils (%) (Auto) , Differential Total Cells Counted 100, Neutrophils % ( Manual) 95H, Lymphocytes % (Manual) 4L, Monocytes % (Manual) 1, Eosinophils % ( Manual) 0, Basophils % (Manual) 0, Band Neutrophils 0, Platelet Estimate DecreasedL, Platelet Morphology Normal, Hypochromasia 1+, Anisocytosis 1+, Sodium Level 151H, Potassium Level 3.9, Chloride Level 115H, Carbon Dioxide Level 23, Anion Gap 13, Blood Urea Nitrogen 32H, Creatinine 1.5H, Estimat Glomerular Filtration Rate 46.7, Glucose Level 326H, Calcium Level 8.4L Height (Feet): 6 Height (Inches): 1.00 Weight (Pounds): 126 General Appearance: no apparent distress Neurologic: unresponsive Elda Hernandez M.D. Oct 06, 2016 14:04
[2016-10-06] MEDS ORDERED: NS 275ml ONE (14:42)
[2016-10-06] MEDS ORDERED: Tubing IV Secondary IV ONE (14:42)
--- NOTE | 2016-10-06 17:01 | Nephrology Progress Note ---
Assessment/Plan Problem List: (1) Pneumonia (2) Severe sepsis (3) Hypernatremia (4) Acute kidney injury superimposed on chronic kidney disease (5) UTI (urinary tract infection) (6) Protein-calorie malnutrition, severe (7) NSTEMI (non-ST elevated myocardial infarction) Plan Continue vent settings Continue current IVF Continue free water flushes Monitor sodium Monitor renal function Avoid nephrotoxic agents Abx per ID Glycemic control Cardio following Monitor neuro status AM labs Subjective ROS Limited/Unobtainable: Yes Subjective In ICU on vent Objective Objective Last 24 Hour Vital Signs Date Time Temp Pulse Resp B/P Pulse Ox O2 Delivery O2 Flow Rate FiO2 10/06/16 16:34 100 27 40 10/06/16 16:00 96 23 113/64 100 Mechanical Ventilator 40 10/06/16 16:00 99 10/06/16 16:00 40 10/06/16 15:00 99 25 130/62 99 Mechanical Ventilator 40 10/06/16 14:32 89 26 40 10/06/16 14:00 92 25 114/59 99 Mechanical Ventilator 40 10/06/16 13:04 91 22 40 10/06/16 13:00 95 25 112/63 100 Mechanical Ventilator 40 10/06/16 12:10 121/62 10/06/16 12:00 97.8 92 27 121/62 100 Mechanical Ventilator 40 10/06/16 12:00 91 10/06/16 12:00 40 10/06/16 11:00 90 25 121/74 100 Mechanical Ventilator 40 10/06/16 10:49 87 24 40 10/06/16 10:00 83 26 114/59 100 Mechanical Ventilator 40 10/06/16 09:04 89 22 40 10/06/16 09:00 88 27 122/63 100 Mechanical Ventilator 40 10/06/16 08:42 99 117/67 10/06/16 08:00 98.1 99 28 117/67 100 Mechanical Ventilator 40 10/06/16 08:00 99 10/06/16 08:00 40 10/06/16 07:21 91 18 40 10/06/16 07:00 97 29 124/63 100 Mechanical Ventilator 40 10/06/16 06:00 92 29 110/56 100 Mechanical Ventilator 40 10/06/16 05:32 128/67 10/06/16 05:00 88 31 128/67 100 Mechanical Ventilator 40 10/06/16 04:49 88 32 40 10/06/16 04:00 98.6 94 29 113/60 99 Mechanical Ventilator 40 10/06/16 04:00 94 10/06/16 04:00 40 10/06/16 03:03 95 31 40 10/06/16 03:00 96 28 113/61 100 Mechanical Ventilator 40 10/06/16 02:00 95 33 128/68 100 Mechanical Ventilator 40 10/06/16 01:00 95 29 124/65 100 Mechanical Ventilator 40 10/06/16 00:35 92 26 40 10/06/16 00:00 98.7 91 30 122/65 100 Mechanical Ventilator 40 10/06/16 00:00 91 10/06/16 00:00 40 10/05/16 23:02 91 31 40 10/05/16 23:00 92 29 114/57 100 Mechanical Ventilator 40 10/05/16 22:00 95 33 110/56 100 Mechanical Ventilator 40 10/05/16 21:00 96 33 106/62 100 Mechanical Ventilator 40 10/05/16 20:55 96 24 40 10/05/16 20:30 95 114/56 10/05/16 20:00 40 10/05/16 20:00 93 10/05/16 20:00 98.8 93 32 114/56 100 Mechanical Ventilator 40 10/05/16 19:00 96 20 107/58 100 Mechanical Ventilator 40 10/05/16 18:51 94 34 40 10/05/16 18:00 94 20 115/57 100 Mechanical Ventilator 40 10/05/16 17:13 93 34 40 10/05/16 17:06 101/62 10/05/16 17:00 94 20 101/62 100 Mechanical Ventilator 40 10/05/16 17:00 40 Intake and Output 10/05/16 10/06/16 19:00 07:00 Intake Total 2730.0 ml 2920.0 ml Output Total 1390 ml 1500 ml Balance 1340.0 ml 1420.0 ml Free Water 300 ml 300 ml IV Total 1760.0 ml 2020.0 ml Tube Feeding 570 ml 600 ml Other 100 ml Output Urine Total 1390 ml 1500 ml Laboratory Tests 10/06/16 05:00: White Blood Count 18.7H, Red Blood Count 3.36L, Hemoglobin 9.9L, Hematocrit 31.9L, Mean Corpuscular Volume 95, Mean Corpuscular Hemoglobin 29.4, Mean Corpuscular Hemoglobin Concent 31.0L, Red Cell Distribution Width 13.6, Platelet Count 134L, Mean Platelet Volume 11.2H, Neutrophils (%) (Auto) , Lymphocytes (%) (Auto) , Monocytes (%) (Auto) , Eosinophils (%) (Auto) , Basophils (%) (Auto) , Differential Total Cells Counted 100, Neutrophils % ( Manual) 95H, Lymphocytes % (Manual) 4L, Monocytes % (Manual) 1, Eosinophils % ( Manual) 0, Basophils % (Manual) 0, Band Neutrophils 0, Platelet Estimate DecreasedL, Platelet Morphology Normal, Hypochromasia 1+, Anisocytosis 1+, Sodium Level 151H, Potassium Level 3.9, Chloride Level 115H, Carbon Dioxide Level 23, Anion Gap 13, Blood Urea Nitrogen 32H, Creatinine 1.5H, Estimat Glomerular Filtration Rate 46.7, Glucose Level 326H, Calcium Level 8.4L Height (Feet): 6 Height (Inches): 1.00 Weight (Pounds): 126 General Appearance: no apparent distress EENT: normal ENT inspection Neck: normal alignment Cardiovascular: normal rate, no JVD Respiratory/Chest: decreased breath sounds, other - on vent Abdomen: soft Genitourinary/Rectal: other - raymond Extremities: normal inspection Neurologic: unresponsive Shobha Nuñez N.P. Oct 06, 2016 17:01
[2016-10-07] VITALS (24 sets, daily range): BP systolic 92–122; BP diastolic 53–82
[2016-10-07 05:34] LABS: MEAN CORPUSCULAR HEMOGLOBIN 29.7 PG (27.0-31.0); MEAN CORPUSCULAR HGB CONC 30.9 G/DL (32.0-36.0); MEAN CORPUSCULAR VOLUME 96 FL (80-99); MEAN PLATELET VOLUME 10.2 FL (6.5-10.1); PLATELET COUNT 148 K/UL (150-450); RED BLOOD COUNT 3.44 M/UL (4.70-6.10); RED CELL DISTRIBUTION WIDTH 13.8 % (11.6-14.8); WHITE BLOOD COUNT 18.3 K/UL (4.8-10.8)
[2016-10-07] MEDS: Nitroglycerin 2% oint pkt TOPIC SCH ×3 (05:44→17:35)
[2016-10-07] MEDS: Piperacillin/Tazobactam 3.375 GM in D5W 110 ML IVPB SCH ×3 (05:44→21:15)
[2016-10-07 06:04] LABS: CREATININE 1.3 mg/dL (0.7-1.2); GLOMERULAR FILTRATION RATE 55.1 mL/min (>60); POTASSIUM 4.8 mEQ/L (3.4-4.9)
[2016-10-07 07:49] LABS: ANISOCYTOSIS 1+; BAND NEUTROPHILS % (MANUAL) 0 % (0-8); BASOPHILS % (MANUAL) 0 % (0-2); EOSINOPHILS % (MANUAL) 0 % (0-3); HYPOCHROMASIA 1+; LYMPHOCYTES % (MANUAL) 4 % (20-45); NEUTROPHILS % (MANUAL) 91 % (45-75); PLATELET ESTIMATE DECREASED; PLATELET MORPHOLOGY NORMAL; TOTAL CELLS COUNTED 100
[2016-10-07] MEDS: Pantoprazole Inj IVP SCH (08:49)
[2016-10-07] MEDS: Aspirin Baby 81mg NG SCH (08:49)
[2016-10-07] MEDS: Metoprolol 50mg tab ORAL SCH ×2 (08:49→21:00)
--- NOTE | 2016-10-07 12:08 | Pulmonology Progress Note ---
Assessment/Plan Assessment/Plan 1. Sepsis. 2. Respiratory failure. 3. Acute myocardial infarction. 4. Metabolic and toxic encephalopathy. 5. Severe dehydration. 6. Severe hypernatremia. 7. Metabolic acidosis. 8. Acute renal failure. 9. Severe protein-calorie malnutrition. 10. 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 Monitor for recurring gastrointestinal bleeding. On beta-blockade. Antimicrobials and ventilator support. Condition remains critical and prognosis is guarded. CT brain shows frontal infarct Discussed with family (brother and son) Full code for now Family leaning towards PEG and trach Subjective Interval Events: Day 11 of intubation; remains unchanged Constitutional: Reports: no symptoms HEENT: Repors: no symptoms Respiratory: Reports: no symptoms Cardiovascular: Reports: no symptoms Gastrointestinal/Abdominal: Reports: no symptoms Allergies: Coded Allergies: No Known Allergies (Unverified , 09/22/14) Objective Last 24 Hour Vital Signs Date Time Temp Pulse Resp B/P Pulse Ox O2 Delivery O2 Flow Rate FiO2 10/07/16 11:22 82 28 40 10/07/16 11:00 82 24 120/69 98 Mechanical Ventilator 40 10/07/16 10:00 78 24 112/82 98 Mechanical Ventilator 40 10/07/16 09:27 83 25 40 10/07/16 09:00 99.1 87 28 115/67 100 Mechanical Ventilator 40 10/07/16 08:49 102 113/75 10/07/16 08:00 101 28 113/75 100 Mechanical Ventilator 40 10/07/16 08:00 40 10/07/16 08:00 102 10/07/16 07:30 101 27 40 10/07/16 07:00 102 26 120/72 100 Mechanical Ventilator 40 10/07/16 06:00 97 28 121/72 100 Mechanical Ventilator 40 10/07/16 05:44 121/72 10/07/16 05:00 97 28 99/62 100 Mechanical Ventilator 40 10/07/16 04:52 96 27 40 10/07/16 04:00 98 10/07/16 04:00 97.7 99 24 119/62 100 Mechanical Ventilator 40 10/07/16 04:00 40 10/07/16 03:00 90 26 121/79 100 Mechanical Ventilator 40 10/07/16 02:51 92 32 40 10/07/16 02:00 89 25 96/59 98 Mechanical Ventilator 40 10/07/16 01:07 96 31 40 17 01:00 96 28 100/64 98 Mechanical Ventilator 40 10/07/16 00:00 92 10/07/16 00:00 40 10/07/16 00:00 97.6 92 29 100/64 99 Mechanical Ventilator 40 10/06/16 23:00 89 25 122/64 100 Mechanical Ventilator 40 10/06/16 22:56 88 32 40 10/06/16 22:00 84 26 111/63 100 Mechanical Ventilator 40 10/06/16 21:09 91 33 40 10/06/16 21:00 88 30 116/69 99 Mechanical Ventilator 40 10/06/16 20:39 94 109/72 10/06/16 20:00 40 10/06/16 20:00 98.5 99 29 109/72 99 Mechanical Ventilator 40 10/06/16 20:00 99 10/06/16 19:02 99 30 40 10/06/16 19:00 98 26 116/69 100 Mechanical Ventilator 40 10/06/16 18:00 94 26 110/67 100 Mechanical Ventilator 40 10/06/16 17:35 121/68 10/06/16 17:00 98.1 99 24 113/64 100 Mechanical Ventilator 40 10/06/16 16:34 100 27 40 10/06/16 16:00 96 23 113/64 100 Mechanical Ventilator 40 10/06/16 16:00 99 10/06/16 16:00 40 10/06/16 15:00 99 25 130/62 99 Mechanical Ventilator 40 10/06/16 14:32 89 26 40 10/06/16 14:00 92 25 114/59 99 Mechanical Ventilator 40 10/06/16 13:04 91 22 40 10/06/16 13:00 95 25 112/63 100 Mechanical Ventilator 40 10/06/16 12:10 121/62 Intake and Output 17 10/07/16 19:00 07:00 Intake Total 2640.0 ml 2710.0 ml Output Total 1680 ml 1500 ml Balance 960.0 ml 1210.0 ml Free Water 200 ml 400 ml IV Total 1760.0 ml 1760.0 ml Tube Feeding 600 ml 550 ml Other 80 ml Output Urine Total 1680 ml 1500 ml General Appearance: no acute distress HEENT: normocephalic Respiratory/Chest: chest wall non-tender, decreased breath sounds Cardiovascular: normal peripheral pulses Abdomen: normal bowel sounds, soft, non tender Extremities: no cyanosis Laboratory Tests 10/07/16 04:35: White Blood Count 18.3H, Red Blood Count 3.44L, Hemoglobin 10.2L, Hematocrit 33.0L, Mean Corpuscular Volume 96, Mean Corpuscular Hemoglobin 29.7, Mean Corpuscular Hemoglobin Concent 30.9L, Red Cell Distribution Width 13.8, Platelet Count 148L, Mean Platelet Volume 10.2H, Neutrophils (%) (Auto) , Lymphocytes (%) (Auto) , Monocytes (%) (Auto) , Eosinophils (%) (Auto) , Basophils (%) (Auto) , Differential Total Cells Counted 100, Neutrophils % ( Manual) 91H, Lymphocytes % (Manual) 4L, Monocytes % (Manual) 5, Eosinophils % ( Manual) 0, Basophils % (Manual) 0, Band Neutrophils 0, Platelet Estimate DecreasedL, Platelet Morphology Normal, Hypochromasia 1+, Anisocytosis 1+, Sodium Level 147H, Potassium Level 4.8, Chloride Level 109H, Carbon Dioxide Level 23, Anion Gap 15, Blood Urea Nitrogen 37H, Creatinine 1.3H, Estimat Glomerular Filtration Rate 55.1, Glucose Level 433#H, Calcium Level 9.0 Current Medications Medications (Trade) Dose Ordered Sig/Ramiro Route PRN Reason Start Time Stop Time Status Last Admin Dose Admin Acetaminophen (Tylenol) 650 mg Q4H PRN ORAL fever 09/30/16 07:15 10/30/16 07:14 10/01/16 08:09 Aspirin (ASA) 81 mg DAILY NG 10/03/16 09:00 11/02/16 08:59 10/07/16 08:49 Clonidine HCl (Catapres) 0.1 mg Q4H PRN ORAL For High Blood Pressure 09/30/16 06:49 10/30/16 06:48 Dextrose (D5W 1000ml) 1,000 ml @ 150 mls/hr Q6H40M IV 10/02/16 20:30 11/01/16 20:29 10/07/16 08:48 Dextrose (Dextrose 50%) STAT PRN IV Hypoglycemia 09/30/16 06:50 10/30/16 06:49 Insulin Aspart (NovoLOG) Q6HR SUBQ 10/07/16 12:00 11/06/16 11:59 Metoclopramide HCl (Reglan) 5 mg Q8H PRN IVP Nausea & Vomiting 10/04/16 08:45 11/03/16 08:44 Metoprolol Tartrate 50 mg 50 mg Q12HR ORAL 10/02/16 21:00 11/01/16 20:59 10/07/16 08:49 Nitroglycerin (Nitro-Bid) 1 inch TID@0600,1200,1800 TOPIC 10/03/16 06:00 11/02/16 05:59 10/07/16 05:44 Nitroglycerin (Ntg) 0.4 mg Every 5 Minutes PRN SL Prn Chest Pain 09/30/16 06:15 10/30/16 06:14 Ondansetron HCl (Zofran) 4 mg Q6H PRN IVP Nausea & Vomiting 09/30/16 06:51 10/30/16 06:50 Pantoprazole (Protonix) 40 mg DAILY IVP 10/02/16 09:00 11/01/16 08:59 10/07/16 08:49 Piperacillin Sod/ Tazobactam Sod/ Dextrose (Zosyn/D5W) 110 ml @ 27.5 mls/hr Q8HR@0500,1300,2100 IVPB 09/30/16 13:00 10/09/16 23:59 10/07/16 05:44 Polyethylene Glycol (Miralax) 17 gm DAILYPRN PRN ORAL Constipation 09/30/16 06:51 10/30/16 06:50 Rahul Lopez MD Oct 07, 2016 12:08
[2016-10-07] MEDS: NovoLOG Insulin Flexpen SUBQ SCH ×3 (12:20→23:40)
--- NOTE | 2016-10-07 13:46 | Infectious Diseases Prog Note ---
Assessment/Plan Assessment/Plan A: [age]-old male with: E coli bacteremia - repeat BCx(-) UTI ? intra-abd sepsis Negative HIV Severe sepsis - improved lactic acidosis Fevers, low grade - resolved Leukocytosis - persistent, Acute VDRF - intubated 09/29 NSTEMI - troponin downtrending - EF 35-40% AAA 4cm with mural thrombus ARF - improving Hypernatremia - improved Elevated LFTs TCP NKDA Full Code PLAN: continue IV zosyn day # 12 / ( 09/28 SP IV vancomycin D#2 ) monitor CBC, temperatures monitor BMP CT a/p with IV contrast , when cr improves further , 1.2 to r/o occult intraabdominal abscess vent support, wean as tolerated PEG and trach Subjective Constitutional: Denies: anorexia, chills, drenching sweats, fatigue, fever, no symptoms, other Allergies: Coded Allergies: No Known Allergies (Unverified , 09/22/14) Subjective AFEBRILE Objective Vital Signs Last 24 Hour Vital Signs Date Time Temp Pulse Resp B/P Pulse Ox O2 Delivery O2 Flow Rate FiO2 10/07/16 13:00 93 24 108/65 100 Mechanical Ventilator 40 10/07/16 12:45 94 30 40 10/07/16 12:19 128/65 10/07/16 12:00 95 10/07/16 12:00 40 10/07/16 12:00 99.0 95 28 122/69 98 Mechanical Ventilator 40 10/07/16 11:22 82 28 40 10/07/16 11:00 82 24 120/69 98 Mechanical Ventilator 40 10/07/16 10:00 78 24 112/82 98 Mechanical Ventilator 40 10/07/16 09:27 83 25 40 10/07/16 09:00 99.1 87 28 115/67 100 Mechanical Ventilator 40 10/07/16 08:49 102 113/75 10/07/16 08:00 101 28 113/75 100 Mechanical Ventilator 40 10/07/16 08:00 40 10/07/16 08:00 102 10/07/16 07:30 101 27 40 10/07/16 07:00 102 26 120/72 100 Mechanical Ventilator 40 10/07/16 06:00 97 28 121/72 100 Mechanical Ventilator 40 10/07/16 05:44 121/72 10/07/16 05:00 97 28 99/62 100 Mechanical Ventilator 40 7/18/17 04:52 96 27 40 7/18/17 04:00 98 7/18/17 04:00 97.7 99 24 119/62 100 Mechanical Ventilator 40 7/18/17 04:00 40 7/18/17 03:00 90 26 121/79 100 Mechanical Ventilator 40 7/18/17 02:51 92 32 40 7/18/17 02:00 89 25 96/59 98 Mechanical Ventilator 40 7/18/17 01:07 96 31 40 7/18/17 01:00 96 28 100/64 98 Mechanical Ventilator 40 7/18/17 00:00 92 7/18/17 00:00 40 7/18/17 00:00 97.6 92 29 100/64 99 Mechanical Ventilator 40 7/17/17 23:00 89 25 122/64 100 Mechanical Ventilator 40 7/17/17 22:56 88 32 40 7/17/17 22:00 84 26 111/63 100 Mechanical Ventilator 40 7/17/17 21:09 91 33 40 7/17/17 21:00 88 30 116/69 99 Mechanical Ventilator 40 7/17/17 20:39 94 109/72 7/17/17 20:00 40 7/17/17 20:00 98.5 99 29 109/72 99 Mechanical Ventilator 40 7/17/17 20:00 99 7/17/17 19:02 99 30 40 7/17/17 19:00 98 26 116/69 100 Mechanical Ventilator 40 7/17/17 18:00 94 26 110/67 100 Mechanical Ventilator 40 7/17/17 17:35 121/68 7/17/17 17:00 98.1 99 24 113/64 100 Mechanical Ventilator 40 7/17/17 16:34 100 27 40 7/17/17 16:00 96 23 113/64 100 Mechanical Ventilator 40 7/17/17 16:00 99 7/17/17 16:00 40 7/17/17 15:00 99 25 130/62 99 Mechanical Ventilator 40 7/17/17 14:32 89 26 40 7/17/17 14:00 92 25 114/59 99 Mechanical Ventilator 40 Height (Feet): 6 Height (Inches): 1.00 Weight (Pounds): 129 HEENT: anicteric Respiratory/Chest: normal breath sounds Cardiovascular: regularly irregular Abdomen: no organomegaly Laboratory Tests Test 10/07/16 04:35 White Blood Count 18.3 K/UL (4.8-10.8) H Red Blood Count 3.44 M/UL (4.70-6.10) L Hemoglobin 10.2 G/DL (14.2-18.0) L Hematocrit 33.0 % (42.0-52.0) L Mean Corpuscular Volume 96 FL (80-99) Mean Corpuscular Hemoglobin 29.7 PG (27.0-31.0) Mean Corpuscular Hemoglobin Concent 30.9 G/DL (32.0-36.0) L Red Cell Distribution Width 13.8 % (11.6-14.8) Platelet Count 148 K/UL (150-450) L Mean Platelet Volume 10.2 FL (6.5-10.1) H Neutrophils (%) (Auto) % (45.0-75.0) Lymphocytes (%) (Auto) % (20.0-45.0) Monocytes (%) (Auto) % (1.0-10.0) Eosinophils (%) (Auto) % (0.0-3.0) Basophils (%) (Auto) % (0.0-2.0) Differential Total Cells Counted 100 Neutrophils % (Manual) 91 % (45-75) H Lymphocytes % (Manual) 4 % (20-45) L Monocytes % (Manual) 5 % (1-10) Eosinophils % (Manual) 0 % (0-3) Basophils % (Manual) 0 % (0-2) Band Neutrophils 0 % (0-8) Platelet Estimate Decreased L Platelet Morphology Normal Hypochromasia 1+ Anisocytosis 1+ Sodium Level 147 mEQ/L (135-145) H Potassium Level 4.8 mEQ/L (3.4-4.9) Chloride Level 109 mEQ/L (98-107) H Carbon Dioxide Level 23 mEQ/L (20-30) Anion Gap 15 (5-15) Blood Urea Nitrogen 37 mg/dL (7-23) H Creatinine 1.3 mg/dL (0.7-1.2) H Estimat Glomerular Filtration Rate 55.1 mL/min (>60) Glucose Level 433 mg/dL (74-106) #H Calcium Level 9.0 mg/dL (8.6-10.2) Current Medications Medications (Trade) Dose Ordered Sig/Ramiro Route PRN Reason Start Time Stop Time Status Last Admin Dose Admin Acetaminophen (Tylenol) 650 mg Q4H PRN ORAL fever 09/30/16 07:15 10/30/16 07:14 10/01/16 08:09 Aspirin (ASA) 81 mg DAILY NG 10/03/16 09:00 11/02/16 08:59 10/07/16 08:49 Clonidine HCl (Catapres) 0.1 mg Q4H PRN ORAL For High Blood Pressure 09/30/16 06:49 10/30/16 06:48 Dextrose (D5W 1000ml) 1,000 ml @ 150 mls/hr Q6H40M IV 10/02/16 20:30 11/01/16 20:29 10/07/16 08:48 Dextrose (Dextrose 50%) STAT PRN IV Hypoglycemia 09/30/16 06:50 10/30/16 06:49 Insulin Aspart (NovoLOG) Q6HR SUBQ 10/07/16 12:00 11/06/16 11:59 10/07/16 12:20 Metoclopramide HCl (Reglan) 5 mg Q8H PRN IVP Nausea & Vomiting 10/04/16 08:45 11/03/16 08:44 Metoprolol Tartrate 50 mg 50 mg Q12HR ORAL 10/02/16 21:00 11/01/16 20:59 10/07/16 08:49 Nitroglycerin (Nitro-Bid) 1 inch TID@0600,1200,1800 TOPIC 10/03/16 06:00 11/02/16 05:59 10/07/16 12:19 Nitroglycerin (Ntg) 0.4 mg Every 5 Minutes PRN SL Prn Chest Pain 09/30/16 06:15 10/30/16 06:14 Ondansetron HCl (Zofran) 4 mg Q6H PRN IVP Nausea & Vomiting 09/30/16 06:51 10/30/16 06:50 Pantoprazole (Protonix) 40 mg DAILY IVP 10/02/16 09:00 11/01/16 08:59 10/07/16 08:49 Piperacillin Sod/ Tazobactam Sod/ Dextrose (Zosyn/D5W) 110 ml @ 27.5 mls/hr Q8HR@0500,1300,2100 IVPB 09/30/16 13:00 10/09/16 23:59 10/07/16 12:20 Polyethylene Glycol (Miralax) 17 gm DAILYPRN PRN ORAL Constipation 09/30/16 06:51 10/30/16 06:50 RADHA VARELA M.D. Oct 07, 2016 13:46
--- NOTE | 2016-10-07 16:54 | GI Progress Note ---
Assessment/Plan Problems: (1) Coffee ground emesis ICD Codes: K92.0 - Hematemesis SNOMED: 57812261, 824978769 (2) Severe sepsis ICD Codes: A41.9 - Sepsis, unspecified organism; R65.20 - Severe sepsis without septic shock SNOMED: 71373095 (3) Leukocytosis ICD Codes: D72.829 - Leukocytosis SNOMED: 564582122 (4) Protein-calorie malnutrition, severe ICD Codes: E43 - Unspecified severe protein-calorie malnutrition SNOMED: 402572290 Status: unchanged Status Narrative Discussed with Dr. Marion. Assessment/Plan gastric lavage >> no blood noted stable H&H OB stool positive hold GI procedures, will require cardiac clearance given elevated troponin levels supportive care GTFs per dietary monitor H&H, transfuse prn ppi gtt >> BID bowel regime abx fu labs Subjective Subjective limited Objective Last 24 Hour Vital Signs Date Time Temp Pulse Resp B/P Pulse Ox O2 Delivery O2 Flow Rate FiO2 10/07/16 16:00 98 10/07/16 16:00 99.2 98 28 94/68 100 Mechanical Ventilator 40 10/07/16 16:00 40 10/07/16 15:00 99 28 113/64 100 Mechanical Ventilator 40 10/07/16 14:45 97 29 40 10/07/16 14:00 98 24 106/65 100 Mechanical Ventilator 40 10/07/16 13:00 93 24 108/65 100 Mechanical Ventilator 40 10/07/16 12:45 94 30 40 10/07/16 12:19 128/65 10/07/16 12:00 95 10/07/16 12:00 40 10/07/16 12:00 99.0 95 28 122/69 98 Mechanical Ventilator 40 10/07/16 11:22 82 28 40 10/07/16 11:00 82 24 120/69 98 Mechanical Ventilator 40 10/07/16 10:00 78 24 112/82 98 Mechanical Ventilator 40 10/07/16 09:27 83 25 40 10/07/16 09:00 99.1 87 28 115/67 100 Mechanical Ventilator 40 10/07/16 08:49 102 113/75 10/07/16 08:00 101 28 113/75 100 Mechanical Ventilator 40 10/07/16 08:00 40 10/07/16 08:00 102 10/07/16 07:30 101 27 40 7/18/17 07:00 102 26 120/72 100 Mechanical Ventilator 40 718/17 06:00 97 28 121/72 100 Mechanical Ventilator 40 718/17 05:44 121/72 718/17 05:00 97 28 99/62 100 Mechanical Ventilator 40 718/17 04:52 96 27 40 7/18/17 04:00 98 718/17 04:00 97.7 99 24 119/62 100 Mechanical Ventilator 40 718/17 04:00 40 718/17 03:00 90 26 121/79 100 Mechanical Ventilator 40 718/17 02:51 92 32 40 718/17 02:00 89 25 96/59 98 Mechanical Ventilator 40 718/17 01:07 96 31 40 718/17 01:00 96 28 100/64 98 Mechanical Ventilator 40 718/17 00:00 92 18/17 00:00 40 17 00:00 97.6 92 29 100/64 99 Mechanical Ventilator 40 10/06/16 23:00 89 25 122/64 100 Mechanical Ventilator 40 7/17 22:56 88 32 40 7/17 22:00 84 26 111/63 100 Mechanical Ventilator 40 10/06/17 21:09 91 33 40 7/17 21:00 88 30 116/69 99 Mechanical Ventilator 40 10/06/17 20:39 94 109/72 10/06/17 20:00 40 10/06/17 20:00 98.5 99 29 109/72 99 Mechanical Ventilator 40 17 20:00 99 10/06/16 19:02 99 30 40 10/06/17 19:00 98 26 116/69 100 Mechanical Ventilator 40 7/17 18:00 94 26 110/67 100 Mechanical Ventilator 40 1717 17:35 121/68 10/06/17 17:00 98.1 99 24 113/64 100 Mechanical Ventilator 40 Intake and Output 10/06/17 718/17 19:00 07:00 Intake Total 2640.0 ml 2710.0 ml Output Total 1680 ml 1500 ml Balance 960.0 ml 1210.0 ml Free Water 200 ml 400 ml IV Total 1760.0 ml 1760.0 ml Tube Feeding 600 ml 550 ml Other 80 ml Output Urine Total 1680 ml 1500 ml Laboratory Tests Test 10/07/16 04:35 White Blood Count 18.3 K/UL (4.8-10.8) H Red Blood Count 3.44 M/UL (4.70-6.10) L Hemoglobin 10.2 G/DL (14.2-18.0) L Hematocrit 33.0 % (42.0-52.0) L Mean Corpuscular Volume 96 FL (80-99) Mean Corpuscular Hemoglobin 29.7 PG (27.0-31.0) Mean Corpuscular Hemoglobin Concent 30.9 G/DL (32.0-36.0) L Red Cell Distribution Width 13.8 % (11.6-14.8) Platelet Count 148 K/UL (150-450) L Mean Platelet Volume 10.2 FL (6.5-10.1) H Neutrophils (%) (Auto) % (45.0-75.0) Lymphocytes (%) (Auto) % (20.0-45.0) Monocytes (%) (Auto) % (1.0-10.0) Eosinophils (%) (Auto) % (0.0-3.0) Basophils (%) (Auto) % (0.0-2.0) Differential Total Cells Counted 100 Neutrophils % (Manual) 91 % (45-75) H Lymphocytes % (Manual) 4 % (20-45) L Monocytes % (Manual) 5 % (1-10) Eosinophils % (Manual) 0 % (0-3) Basophils % (Manual) 0 % (0-2) Band Neutrophils 0 % (0-8) Platelet Estimate Decreased L Platelet Morphology Normal Hypochromasia 1+ Anisocytosis 1+ Sodium Level 147 mEQ/L (135-145) H Potassium Level 4.8 mEQ/L (3.4-4.9) Chloride Level 109 mEQ/L (98-107) H Carbon Dioxide Level 23 mEQ/L (20-30) Anion Gap 15 (5-15) Blood Urea Nitrogen 37 mg/dL (7-23) H Creatinine 1.3 mg/dL (0.7-1.2) H Estimat Glomerular Filtration Rate 55.1 mL/min (>60) Glucose Level 433 mg/dL (74-106) #H Calcium Level 9.0 mg/dL (8.6-10.2) Height (Feet): 6 Height (Inches): 1.00 Weight (Pounds): 129 General Appearance: no apparent distress, thin Cardiovascular: normal rate Respiratory/Chest: other - mech vent Abdominal Exam: other - NGT Pam Shah N.P. Oct 07, 2016 16:54
[2016-10-08] VITALS (24 sets, daily range): BP systolic 99–116; BP diastolic 51–80
--- NOTE | 2016-10-08 00:16 | Nephrology Progress Note ---
Assessment/Plan Problem List: (1) Protein-calorie malnutrition, severe (2) UTI (urinary tract infection) (3) Hypernatremia Assessment: improving (4) Acute kidney injury superimposed on chronic kidney disease (5) Respiratory failure Assessment: intubated, on vent (6) Severe sepsis (7) Acute myocardial infarction Plan Continue vent PEG tube pending Continue current IVF Continue free water flushes Monitor sodium Monitor renal function Avoid nephrotoxic agents Abx per ID Cardio following Monitor neuro status AM labs Subjective Subjective late entry for 10/07 - remains on vent in ICU. Objective Objective Last 24 Hour Vital Signs Date Time Temp Pulse Resp B/P Pulse Ox O2 Delivery O2 Flow Rate FiO2 10/07/16 23:16 95 33 40 10/07/16 23:00 87 27 105/63 99 Mechanical Ventilator 40 10/07/16 22:00 94 29 102/61 99 Mechanical Ventilator 40 10/07/16 21:30 96 34 40 10/07/16 21:00 95 92/57 10/07/16 21:00 95 26 92/57 98 Mechanical Ventilator 40 10/07/16 20:00 97 10/07/16 20:00 98.5 94 27 112/74 98 Mechanical Ventilator 40 17 20:00 40 18/17 19:30 97 37 40 10/07/16 19:00 97 30 95/53 98 Mechanical Ventilator 40 10/07/16 18:00 99.0 99 28 92/55 100 Mechanical Ventilator 40 17 17:35 108/73 17 17:00 97 30 107/58 100 Mechanical Ventilator 40 10/07/16 16:36 98 31 40 17 16:00 98 18 16:00 99.2 98 28 94/68 100 Mechanical Ventilator 40 1817 16:00 40 18/17 15:00 99 28 113/64 100 Mechanical Ventilator 40 17 14:45 97 29 40 18/17 14:00 98 24 106/65 100 Mechanical Ventilator 40 18/17 13:00 93 24 108/65 100 Mechanical Ventilator 40 18/17 12:45 94 30 40 18/17 12:19 128/65 18/17 12:00 95 1817 12:00 40 17 12:00 99.0 95 28 122/69 98 Mechanical Ventilator 40 10/07/16 11:22 82 28 40 10/07/16 11:00 82 24 120/69 98 Mechanical Ventilator 40 10/07/16 10:00 78 24 112/82 98 Mechanical Ventilator 40 10/07/16 09:27 83 25 40 10/07/16 09:00 99.1 87 28 115/67 100 Mechanical Ventilator 40 10/07/16 08:49 102 113/75 10/07/16 08:00 101 28 113/75 100 Mechanical Ventilator 40 10/07/16 08:00 40 10/07/16 08:00 102 10/07/16 07:30 101 27 40 10/07/16 07:00 102 26 120/72 100 Mechanical Ventilator 40 10/07/16 06:00 97 28 121/72 100 Mechanical Ventilator 40 10/07/16 05:44 121/72 10/07/16 05:00 97 28 99/62 100 Mechanical Ventilator 40 10/07/16 04:52 96 27 40 10/07/16 04:00 98 10/07/16 04:00 97.7 99 24 119/62 100 Mechanical Ventilator 40 10/07/16 04:00 40 10/07/16 03:00 90 26 121/79 100 Mechanical Ventilator 40 10/07/16 02:51 92 32 40 10/07/16 02:00 89 25 96/59 98 Mechanical Ventilator 40 10/07/16 01:07 96 31 40 10/07/16 01:00 96 28 100/64 98 Mechanical Ventilator 40 Intake and Output 10/07/16 10/08/16 19:00 07:00 Intake Total 2660.0 ml 877.5 ml Output Total 1480 ml 650 ml Balance 1180.0 ml 227.5 ml Free Water 300 ml 200 ml IV Total 1760.0 ml 477.5 ml Tube Feeding 600 ml 200 ml Output Urine Total 1480 ml 650 ml Laboratory Tests 10/07/16 04:35: White Blood Count 18.3H, Red Blood Count 3.44L, Hemoglobin 10.2L, Hematocrit 33.0L, Mean Corpuscular Volume 96, Mean Corpuscular Hemoglobin 29.7, Mean Corpuscular Hemoglobin Concent 30.9L, Red Cell Distribution Width 13.8, Platelet Count 148L, Mean Platelet Volume 10.2H, Neutrophils (%) (Auto) , Lymphocytes (%) (Auto) , Monocytes (%) (Auto) , Eosinophils (%) (Auto) , Basophils (%) (Auto) , Differential Total Cells Counted 100, Neutrophils % ( Manual) 91H, Lymphocytes % (Manual) 4L, Monocytes % (Manual) 5, Eosinophils % ( Manual) 0, Basophils % (Manual) 0, Band Neutrophils 0, Platelet Estimate DecreasedL, Platelet Morphology Normal, Hypochromasia 1+, Anisocytosis 1+, Sodium Level 147H, Potassium Level 4.8, Chloride Level 109H, Carbon Dioxide Level 23, Anion Gap 15, Blood Urea Nitrogen 37H, Creatinine 1.3H, Estimat Glomerular Filtration Rate 55.1, Glucose Level 433#H, Calcium Level 9.0 Height (Feet): 6 Height (Inches): 1.00 Weight (Pounds): 129 General Appearance: no apparent distress Cardiovascular: normal rate, regular rhythm Respiratory/Chest: decreased breath sounds Abdomen: non tender, soft GENE BRIONES Oct 08, 2016 00:16
--- NOTE | 2016-10-08 01:45 | Progress Note ---
DATE: 10/06/2016 LATE ENTRY CARDIOLOGY PROGRESS NOTE: SUBJECTIVE: The patient remains in the intensive care unit. Condition remains critical. He remains on ventilator support. Poorly responsive. OBJECTIVE: VITAL SIGNS: Blood pressure is 114/59, pulse rate 83, and respiratory rate 26. NECK: Supple. LUNGS: Bilateral breath sounds with rhonchi. CARDIAC: Regular. Normal S1 and S2. ABDOMEN: Soft. EXTREMITIES: Trace edema sacrally. LABORATORY DATA: White count is 18.7 and hemoglobin 9.9. Sodium 151, potassium 3.9, bicarbonate 23, BUN 32, and creatinine 1.5. IMPRESSION: 1. Acute cerebrovascular accident. 2. Acute myocardial infarction. 3. Severe protein-calorie malnutrition. 4. Respiratory failure. 5. Acute renal failure. 6. Severe dehydration. 7. Hypernatremia. 8. Hypovolemia. 9. Hyperchloremia. 10. Anemia. 11. Sepsis. 12. Remains critical with guarded prognosis. PLAN: 1. Hypotonic IV fluids. 2. Antibiotics. 3. Ventilator support, not weanable at this time. 4. Continue beta-blockade, antiplatelet therapy, and nitrate. 5. Prognosis remains guarded. Donald Baldwin M.D. DR: Verito JOB#: [id number] CC:
--- NOTE | 2016-10-08 02:00 | Progress Note ---
DATE: 10/07/2016 CARDIOLOGY PROGRESS NOTE SUBJECTIVE: The patient is without significant change. Remains on ventilator support. Poorly responsive. OBJECTIVE: VITAL SIGNS: Blood pressure 92/57, pulse 95, respiratory rate 26, and afebrile. HEENT: Orally intubated. LUNGS: Bilateral breath sounds with rhonchi. HEART: Regular rhythm and rate. Normal S1 and S2. ABDOMEN: Soft. EXTREMITIES: Trace edema. LABORATORY DATA: White count 18 and hemoglobin 10. Sodium 147, potassium 4.8, chloride 109, bicarbonate 23, BUN 37, and creatinine 1.3. IMPRESSION: 1. Acute myocardial infarction. 2. Acute respiratory failure. 3. Acute cerebrovascular disease. 4. Recovering renal failure. 5. Severe dehydration. 6. Hypernatremia. 7. Hyperchloremia finally improved. 8. Sepsis with persistent leukocytosis. 9. Pneumonia. 10. Remains critical and guarded. PLAN: 1. Hypotonic IV fluids. 2. Beta-blockade, nitrates and aspirin. 3. Antibiotics. 4. Bronchodilators. 5. Respiratory hygiene. 6. Stress ulcer and DVT prophylaxis. 7. Presently not weanable. 8. Prognosis remains grave as well. Donald Baldwin M.D. DR: CHELSEA JOB#: [id number] CC:
[2016-10-08] MEDS: Piperacillin/Tazobactam 3.375 GM in D5W 110 ML IVPB SCH ×3 (04:29→21:00)
[2016-10-08 05:43] LABS: MEAN CORPUSCULAR HEMOGLOBIN 28.6 PG (27.0-31.0); MEAN CORPUSCULAR HGB CONC 30.1 G/DL (32.0-36.0); MEAN CORPUSCULAR VOLUME 95 FL (80-99); MEAN PLATELET VOLUME 11.2 FL (6.5-10.1); PLATELET COUNT 169 K/UL (150-450); RED BLOOD COUNT 3.37 M/UL (4.70-6.10); RED CELL DISTRIBUTION WIDTH 13.7 % (11.6-14.8); WHITE BLOOD COUNT 15.7 K/UL (4.8-10.8)
[2016-10-08] MEDS: NovoLOG Insulin Flexpen SUBQ SCH ×3 (05:53→18:19)
[2016-10-08] MEDS: Nitroglycerin 2% oint pkt TOPIC SCH ×3 (05:55→18:00)
[2016-10-08 06:19] LABS: ALBUMIN/GLOBULIN RATIO 0.5 (1.0-2.7); CREATININE 1.4 mg/dL (0.7-1.2); GLOMERULAR FILTRATION RATE 50.5 mL/min (>60); POTASSIUM 4.4 mEQ/L (3.4-4.9); TOTAL PROTEIN 6.8 g/dL (6.6-8.7)
--- NOTE | 2016-10-08 08:14 | Cardiology Report ---
APPROVED REPORT EXAM: Two-dimensional and M-mode echocardiogram with Doppler and color Doppler. INDICATION Elevated Troponin Other Information Technically limited study due to patient on ventilator M-mode measurements could not be obtained due to cardiac position. Global left ventricular hypokinesis with septal dyskinesis. Normal left ventricular chamber size. Left ventricular ejection fraction estimated to be 30-35 %. No evidence of ventricular hypertrophy. No evidence of pericardial fat or effusion. All other cardiac chamber sizes are within normal limits. Mild focal aortic valve sclerosis with adequate cusp excursion. Mildly thickened mitral valve leaflets with normal excursion. Mild mitral annulus and aortic root calcification. Pulmonic valve not visualized. Normal tricuspid valve structure. IVC is normal in size with minimal physiologic collapse. A color flow and spectral Doppler study was performed and revealed: Mild to moderate aortic regurgitation. Trace mitral regurgitation. Mitral diastolic velocities suggest reduced left ventricular relaxation (Grade I). Trace tricuspid regurgitation. Tricuspid systolic velocities suggests peak right ventricular systolic pressure of 22 mmHg.
--- NOTE | 2016-10-08 08:14 | Cardiology Report ---
APPROVED REPORT EKG Measurement Heart [id number] Normal sinus rhythm Possible Left atrial enlargement Left ventricular hypertrophy Inferior infarct, possibly acute T wave abnormality, consider anterolateral ischemia Prolonged QT Consider right ventricular involvement in acute inferior infarct Abnormal ECG
[2016-10-08 08:17] LABS: BAND NEUTROPHILS % (MANUAL) 0 % (0-8); BASOPHILS % (MANUAL) 0 % (0-2); EOSINOPHILS % (MANUAL) 0 % (0-3); HYPOCHROMASIA 1+; LYMPHOCYTES % (MANUAL) 7 % (20-45); NEUTROPHILS % (MANUAL) 88 % (45-75); PLATELET ESTIMATE ADEQUATE; PLATELET MORPHOLOGY NORMAL; TOTAL CELLS COUNTED 100
--- NOTE | 2016-10-08 09:02 | Pulmonology Progress Note ---
Assessment/Plan Assessment/Plan 1. Sepsis. 2. Respiratory failure. 3. Acute myocardial infarction. 4. Metabolic and toxic encephalopathy. 5. Severe dehydration. 6. Severe hypernatremia. 7. Metabolic acidosis. 8. Acute renal failure. 9. Severe protein-calorie malnutrition. 10. 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 Monitor for recurring gastrointestinal bleeding. On beta-blockade. Antimicrobials and ventilator support. Condition remains critical and prognosis is guarded. CT brain shows frontal infarct Discussed with family (brother and son) Full code for now Family leaning towards PEG and trach Will need to transfer to [place] for trach/PEG Subjective Interval Events: Remains comatose; unresponsive. On vent; day #12 Constitutional: Reports: no symptoms HEENT: Repors: no symptoms Respiratory: Reports: no symptoms Cardiovascular: Reports: no symptoms Gastrointestinal/Abdominal: Reports: no symptoms Genitourinary: Reports: no symptoms Neurologic: Reports: no symptoms Psychiatric: Reports: no symptoms Allergies: Coded Allergies: No Known Allergies (Unverified , 09/22/14) Objective Last 24 Hour Vital Signs Date Time Temp Pulse Resp B/P Pulse Ox O2 Delivery O2 Flow Rate FiO2 10/08/16 08:35 103 37 40 10/08/16 08:00 40 10/08/16 08:00 97.5 102 28 107/61 100 Mechanical Ventilator 40 10/08/16 08:00 105 10/08/16 07:00 100 29 116/63 100 Mechanical Ventilator 40 10/08/16 06:56 98 35 40 10/08/16 06:00 96 27 111/62 100 Mechanical Ventilator 40 10/08/16 05:55 111/55 10/08/16 05:00 92 28 111/55 100 Mechanical Ventilator 40 10/08/16 04:57 91 30 40 10/08/16 04:00 90 10/08/16 04:00 98.7 90 28 104/80 99 Mechanical Ventilator 40 10/08/16 04:00 40 10/08/16 03:30 90 33 40 10/08/16 03:00 98 28 101/63 99 Mechanical Ventilator 40 10/08/16 02:00 98 27 107/57 99 Mechanical Ventilator 40 10/08/16 01:30 95 35 40 10/08/16 01:00 97 26 109/59 99 Mechanical Ventilator 40 7/19/17 00:00 98.7 95 27 107/62 99 Mechanical Ventilator 40 7/19/17 00:00 95 7/19/17 00:00 40 7/18/17 23:16 95 33 40 7/18/17 23:00 87 27 105/63 99 Mechanical Ventilator 40 7/18/17 22:00 94 29 102/61 99 Mechanical Ventilator 40 7/18/17 21:30 96 34 40 7/18/17 21:00 95 92/57 7/18/17 21:00 95 26 92/57 98 Mechanical Ventilator 40 7/18/17 20:00 97 7/18/17 20:00 98.5 94 27 112/74 98 Mechanical Ventilator 40 7/18/17 20:00 40 7/18/17 19:30 97 37 40 7/18/17 19:00 97 30 95/53 98 Mechanical Ventilator 40 7/18/17 18:00 99.0 99 28 92/55 100 Mechanical Ventilator 40 7/18/17 17:35 108/73 7/18/17 17:00 97 30 107/58 100 Mechanical Ventilator 40 7/18/17 16:36 98 31 40 7/18/17 16:00 98 7/18/17 16:00 99.2 98 28 94/68 100 Mechanical Ventilator 40 7/18/17 16:00 40 7/18/17 15:00 99 28 113/64 100 Mechanical Ventilator 40 7/18/17 14:45 97 29 40 7/18/17 14:00 98 24 106/65 100 Mechanical Ventilator 40 7/18/17 13:00 93 24 108/65 100 Mechanical Ventilator 40 7/18/17 12:45 94 30 40 7/18/17 12:19 128/65 7/18/17 12:00 95 7/18/17 12:00 40 7/18/17 12:00 99.0 95 28 122/69 98 Mechanical Ventilator 40 7/18/17 11:22 82 28 40 7/18/17 11:00 82 24 120/69 98 Mechanical Ventilator 40 7/18/17 10:00 78 24 112/82 98 Mechanical Ventilator 40 7/18/17 09:27 83 25 40 Intake and Output 7/18/17 7/19/17 19:00 07:00 Intake Total 2660.0 ml 2965.0 ml Output Total 1480 ml 1950 ml Balance 1180.0 ml 1015.0 ml Free Water 300 ml 400 ml IV Total 1760.0 ml 1965.0 ml Tube Feeding 600 ml 600 ml Output Urine Total 1480 ml 1950 ml General Appearance: no acute distress HEENT: normocephalic Respiratory/Chest: chest wall non-tender, lungs clear Cardiovascular: normal peripheral pulses, normal rate Abdomen: normal bowel sounds, soft, non tender Laboratory Tests 10/08/16 04:25: White Blood Count 15.7H, Red Blood Count 3.37L, Hemoglobin 9.7L, Hematocrit 32.1L, Mean Corpuscular Volume 95, Mean Corpuscular Hemoglobin 28.6, Mean Corpuscular Hemoglobin Concent 30.1L, Red Cell Distribution Width 13.7, Platelet Count 169, Mean Platelet Volume 11.2H, Neutrophils (%) (Auto) , Lymphocytes (%) (Auto) , Monocytes (%) (Auto) , Eosinophils (%) (Auto) , Basophils (%) (Auto) , Differential Total Cells Counted 100, Neutrophils % ( Manual) 88H, Lymphocytes % (Manual) 7L, Monocytes % (Manual) 5, Eosinophils % ( Manual) 0, Basophils % (Manual) 0, Band Neutrophils 0, Platelet Estimate Adequate, Platelet Morphology Normal, Hypochromasia 1+, Sodium Level 149H, Potassium Level 4.4, Chloride Level 110H, Carbon Dioxide Level 24, Anion Gap 15 , Blood Urea Nitrogen 39H, Creatinine 1.4H, Estimat Glomerular Filtration Rate 50.5, Glucose Level 362H, Calcium Level 9.0, Total Bilirubin 1.0, Aspartate Amino Transf (AST/SGOT) 40, Alanine Aminotransferase (ALT/SGPT) 59H, Alkaline Phosphatase 178H, Total Protein 6.8, Albumin 2.4L, Globulin 4.4, Albumin/ Globulin Ratio 0.5L Current Medications Medications (Trade) Dose Ordered Sig/Ramiro Route PRN Reason Start Time Stop Time Status Last Admin Dose Admin Acetaminophen (Tylenol) 650 mg Q4H PRN ORAL fever 09/30/16 07:15 10/30/16 07:14 10/01/16 08:09 Aspirin (ASA) 81 mg DAILY NG 10/03/16 09:00 11/02/16 08:59 10/07/16 08:49 Clonidine HCl (Catapres) 0.1 mg Q4H PRN ORAL For High Blood Pressure 09/30/16 06:49 10/30/16 06:48 Dextrose (D5W 1000ml) 1,000 ml @ 150 mls/hr Q6H40M IV 10/02/16 20:30 11/01/16 20:29 10/08/16 04:30 Dextrose (Dextrose 50%) STAT PRN IV Hypoglycemia 09/30/16 06:50 10/30/16 06:49 Insulin Aspart (NovoLOG) Q6HR SUBQ 10/07/16 12:00 11/06/16 11:59 10/08/16 05:53 Metoclopramide HCl (Reglan) 5 mg Q8H PRN IVP Nausea & Vomiting 10/04/16 08:45 11/03/16 08:44 Metoprolol Tartrate 50 mg 50 mg Q12HR ORAL 10/02/16 21:00 11/01/16 20:59 10/07/16 08:49 Nitroglycerin (Nitro-Bid) 1 inch TID@0600,1200,1800 TOPIC 10/03/16 06:00 11/02/16 05:59 10/08/16 05:55 Nitroglycerin (Ntg) 0.4 mg Every 5 Minutes PRN SL Prn Chest Pain 09/30/16 06:15 10/30/16 06:14 Ondansetron HCl (Zofran) 4 mg Q6H PRN IVP Nausea & Vomiting 09/30/16 06:51 10/30/16 06:50 Pantoprazole (Protonix) 40 mg DAILY IVP 10/02/16 09:00 11/01/16 08:59 10/07/16 08:49 Piperacillin Sod/ Tazobactam Sod/ Dextrose (Zosyn/D5W) 110 ml @ 27.5 mls/hr Q8HR@0500,1300,2100 IVPB 09/30/16 13:00 10/09/16 23:59 10/08/16 04:29 Polyethylene Glycol (Miralax) 17 gm DAILYPRN PRN ORAL Constipation 09/30/16 06:51 10/30/16 06:50 10/07/16 21:15 Rahul Lopez MD Oct 08, 2016 09:02
[2016-10-08] MEDS: Aspirin Baby 81mg NG SCH (09:06)
[2016-10-08] MEDS: Pantoprazole Inj IVP SCH (09:06)
[2016-10-08] MEDS: Metoprolol 50mg tab ORAL SCH ×2 (09:06→21:01)
--- NOTE | 2016-10-08 11:57 | GI Progress Note ---
Assessment/Plan Problems: (1) Coffee ground emesis ICD Codes: K92.0 - Hematemesis SNOMED: 67078430, 600537667 (2) Severe sepsis ICD Codes: A41.9 - Sepsis, unspecified organism; R65.20 - Severe sepsis without septic shock SNOMED: 39650569 (3) Leukocytosis ICD Codes: D72.829 - Leukocytosis SNOMED: 104502521 (4) Protein-calorie malnutrition, severe ICD Codes: E43 - Unspecified severe protein-calorie malnutrition SNOMED: 234823963 Status: unchanged Status Narrative Discussed with Dr. Marion. Assessment/Plan gastric lavage >> no blood noted stable H&H OB stool positive hold GI procedures, will require cardiac clearance given elevated troponin levels supportive care GTFs per dietary monitor H&H, transfuse prn ppi gtt >> BID bowel regime abx fu labs Subjective Subjective limited Objective Last 24 Hour Vital Signs Date Time Temp Pulse Resp B/P Pulse Ox O2 Delivery O2 Flow Rate FiO2 10/08/16 11:00 101 35 40 10/08/16 11:00 98.5 99 32 99/53 100 Mechanical Ventilator 40 10/08/16 10:00 100 30 105/59 100 Mechanical Ventilator 40 10/08/16 09:06 104 107/51 10/08/16 09:00 103 33 107/51 100 Mechanical Ventilator 40 10/08/16 08:35 103 37 40 10/08/16 08:00 40 10/08/16 08:00 97.5 102 28 107/61 100 Mechanical Ventilator 40 10/08/16 08:00 105 10/08/16 07:00 100 29 116/63 100 Mechanical Ventilator 40 10/08/16 06:56 98 35 40 10/08/16 06:00 96 27 111/62 100 Mechanical Ventilator 40 10/08/16 05:55 111/55 10/08/16 05:00 92 28 111/55 100 Mechanical Ventilator 40 10/08/16 04:57 91 30 40 10/08/16 04:00 90 10/08/16 04:00 98.7 90 28 104/80 99 Mechanical Ventilator 40 10/08/16 04:00 40 10/08/16 03:30 90 33 40 10/08/16 03:00 98 28 101/63 99 Mechanical Ventilator 40 10/08/16 02:00 98 27 107/57 99 Mechanical Ventilator 40 7/19/17 01:30 95 35 40 7/19/17 01:00 97 26 109/59 99 Mechanical Ventilator 40 7/19/17 00:00 98.7 95 27 107/62 99 Mechanical Ventilator 40 7/19/17 00:00 95 7/19/17 00:00 40 7/18/17 23:16 95 33 40 7/18/17 23:00 87 27 105/63 99 Mechanical Ventilator 40 7/18/17 22:00 94 29 102/61 99 Mechanical Ventilator 40 7/18/17 21:30 96 34 40 7/18/17 21:00 95 92/57 7/18/17 21:00 95 26 92/57 98 Mechanical Ventilator 40 7/18/17 20:00 97 7/18/17 20:00 98.5 94 27 112/74 98 Mechanical Ventilator 40 7/18/17 20:00 40 7/18/17 19:30 97 37 40 7/18/17 19:00 97 30 95/53 98 Mechanical Ventilator 40 7/18/17 18:00 99.0 99 28 92/55 100 Mechanical Ventilator 40 7/18/17 17:35 108/73 7/18/17 17:00 97 30 107/58 100 Mechanical Ventilator 40 7/18/17 16:36 98 31 40 7/18/17 16:00 98 7/18/17 16:00 99.2 98 28 94/68 100 Mechanical Ventilator 40 7/18/17 16:00 40 7/18/17 15:00 99 28 113/64 100 Mechanical Ventilator 40 7/18/17 14:45 97 29 40 7/18/17 14:00 98 24 106/65 100 Mechanical Ventilator 40 7/18/17 13:00 93 24 108/65 100 Mechanical Ventilator 40 7/18/17 12:45 94 30 40 7/18/17 12:19 128/65 7/18/17 12:00 95 7/18/17 12:00 40 7/18/17 12:00 99.0 95 28 122/69 98 Mechanical Ventilator 40 Intake and Output 7/18/17 7/19/17 19:00 07:00 Intake Total 2660.0 ml 2965.0 ml Output Total 1480 ml 1950 ml Balance 1180.0 ml 1015.0 ml Free Water 300 ml 400 ml IV Total 1760.0 ml 1965.0 ml Tube Feeding 600 ml 600 ml Output Urine Total 1480 ml 1950 ml Laboratory Tests Test 10/08/16 04:25 White Blood Count 15.7 K/UL (4.8-10.8) H Red Blood Count 3.37 M/UL (4.70-6.10) L Hemoglobin 9.7 G/DL (14.2-18.0) L Hematocrit 32.1 % (42.0-52.0) L Mean Corpuscular Volume 95 FL (80-99) Mean Corpuscular Hemoglobin 28.6 PG (27.0-31.0) Mean Corpuscular Hemoglobin Concent 30.1 G/DL (32.0-36.0) L Red Cell Distribution Width 13.7 % (11.6-14.8) Platelet Count 169 K/UL (150-450) Mean Platelet Volume 11.2 FL (6.5-10.1) H Neutrophils (%) (Auto) % (45.0-75.0) Lymphocytes (%) (Auto) % (20.0-45.0) Monocytes (%) (Auto) % (1.0-10.0) Eosinophils (%) (Auto) % (0.0-3.0) Basophils (%) (Auto) % (0.0-2.0) Differential Total Cells Counted 100 Neutrophils % (Manual) 88 % (45-75) H Lymphocytes % (Manual) 7 % (20-45) L Monocytes % (Manual) 5 % (1-10) Eosinophils % (Manual) 0 % (0-3) Basophils % (Manual) 0 % (0-2) Band Neutrophils 0 % (0-8) Platelet Estimate Adequate Platelet Morphology Normal Hypochromasia 1+ Sodium Level 149 mEQ/L (135-145) H Potassium Level 4.4 mEQ/L (3.4-4.9) Chloride Level 110 mEQ/L (98-107) H Carbon Dioxide Level 24 mEQ/L (20-30) Anion Gap 15 (5-15) Blood Urea Nitrogen 39 mg/dL (7-23) H Creatinine 1.4 mg/dL (0.7-1.2) H Estimat Glomerular Filtration Rate 50.5 mL/min (>60) Glucose Level 362 mg/dL (74-106) H Calcium Level 9.0 mg/dL (8.6-10.2) Total Bilirubin 1.0 mg/dL (0.0-1.2) Aspartate Amino Transf (AST/SGOT) 40 U/L (5-40) Alanine Aminotransferase (ALT/SGPT) 59 U/L (3-41) H Alkaline Phosphatase 178 U/L (40-129) H Total Protein 6.8 g/dL (6.6-8.7) Albumin 2.4 g/dL (3.5-5.2) L Globulin 4.4 g/dL Albumin/Globulin Ratio 0.5 (1.0-2.7) L Height (Feet): 6 Height (Inches): 1.00 Weight (Pounds): 126 General Appearance: no apparent distress, alert Cardiovascular: normal rate Respiratory/Chest: normal breath sounds, no respiratory distress, other - mech vent Abdominal Exam: normal bowel sounds, non tender, soft, other - ngt Pam Shah N.P. Oct 08, 2016 11:57
--- NOTE | 2016-10-08 17:30 | Progress Note ---
DATE: 10/08/2016 SUBJECTIVE: The patient's mental condition is unchanged. He still remains in intensive care unit. He is not engaged during the evaluation. MENTAL STATUS EXAMINATION: The patient is not engaged. The patient is obtunded, unresponsive on vent. ASSESSMENT: Critical, no agitation. PLAN: No new medication. Elda Hernandez M.D. DR: KARTHIKEYAN JOB#: [id number] CC:
--- NOTE | 2016-10-08 18:00 | Infectious Diseases Prog Note ---
Assessment/Plan Assessment/Plan A: 74 yold M w E coli bacteremia - repeat BCx(-) UTI ? intra-abd sepsis Negative HIV Severe sepsis - improved lactic acidosis Fevers, low grade - resolved Leukocytosis - improved , Acute VDRF - intubated 09/29 NSTEMI - troponin downtrending - EF 35-40% AAA 4cm with mural thrombus ARF - improving Hypernatremia - improved Elevated LFTs TCP NKDA Full Code PLAN: continue IV zosyn day # 13 / 14 ( 09/28 SP IV vancomycin D#2 ) monitor CBC, temperatures monitor BMP CT a/p with IV contrast , when cr improves further , 1.2 to r/o occult intraabdominal abscess vent support, wean as tolerated PEG and trach possible Subjective Allergies: Coded Allergies: No Known Allergies (Unverified , 09/22/14) Subjective AFEBRILE Objective Vital Signs Last 24 Hour Vital Signs Date Time Temp Pulse Resp B/P Pulse Ox O2 Delivery O2 Flow Rate FiO2 10/08/16 17:00 103 21 114/71 100 Mechanical Ventilator 40 10/08/16 16:56 99 35 40 10/08/16 16:00 98.8 103 26 115/68 100 Mechanical Ventilator 40 10/08/16 16:00 103 10/08/16 15:00 101 22 108/65 100 Mechanical Ventilator 100 10/08/16 14:43 99 35 40 10/08/16 14:00 99 22 106/68 Mechanical Ventilator 100 10/08/16 13:00 103 28 109/66 98 Mechanical Ventilator 40 10/08/16 12:42 102 37 40 10/08/16 12:00 103 32 108/63 98 Mechanical Ventilator 40 10/08/16 12:00 103 10/08/16 12:00 99/63 10/08/16 12:00 40 10/08/16 11:00 101 35 40 10/08/16 11:00 98.5 99 32 99/53 100 Mechanical Ventilator 40 10/08/16 10:00 100 30 105/59 100 Mechanical Ventilator 40 10/08/16 09:06 104 107/51 10/08/16 09:00 103 33 107/51 100 Mechanical Ventilator 40 10/08/16 08:35 103 37 40 10/08/16 08:00 40 10/08/16 08:00 97.5 102 28 107/61 100 Mechanical Ventilator 40 10/08/16 08:00 105 10/08/16 07:00 100 29 116/63 100 Mechanical Ventilator 40 10/08/16 06:56 98 35 40 10/08/16 06:00 96 27 111/62 100 Mechanical Ventilator 40 10/08/16 05:55 111/55 10/08/16 05:00 92 28 111/55 100 Mechanical Ventilator 40 10/08/16 04:57 91 30 40 10/08/16 04:00 90 10/08/16 04:00 98.7 90 28 104/80 99 Mechanical Ventilator 40 10/08/16 04:00 40 10/08/16 03:30 90 33 40 10/08/16 03:00 98 28 101/63 99 Mechanical Ventilator 40 10/08/16 02:00 98 27 107/57 99 Mechanical Ventilator 40 10/08/16 01:30 95 35 40 10/08/16 01:00 97 26 109/59 99 Mechanical Ventilator 40 10/08/16 00:00 98.7 95 27 107/62 99 Mechanical Ventilator 40 10/08/16 00:00 95 10/08/16 00:00 40 10/07/16 23:16 95 33 40 10/07/16 23:00 87 27 105/63 99 Mechanical Ventilator 40 10/07/16 22:00 94 29 102/61 99 Mechanical Ventilator 40 10/07/16 21:30 96 34 40 10/07/16 21:00 95 92/57 10/07/16 21:00 95 26 92/57 98 Mechanical Ventilator 40 10/07/16 20:00 97 10/07/16 20:00 98.5 94 27 112/74 98 Mechanical Ventilator 40 10/07/16 20:00 40 10/07/16 19:30 97 37 40 10/07/16 19:00 97 30 95/53 98 Mechanical Ventilator 40 10/07/16 18:00 99.0 99 28 92/55 100 Mechanical Ventilator 40 Height (Feet): 6 Height (Inches): 1.00 Weight (Pounds): 126 HEENT: atraumatic Respiratory/Chest: no respiratory distress Cardiovascular: normal rate Abdomen: no organomegaly Laboratory Tests Test 10/08/16 04:25 White Blood Count 15.7 K/UL (4.8-10.8) H Red Blood Count 3.37 M/UL (4.70-6.10) L Hemoglobin 9.7 G/DL (14.2-18.0) L Hematocrit 32.1 % (42.0-52.0) L Mean Corpuscular Volume 95 FL (80-99) Mean Corpuscular Hemoglobin 28.6 PG (27.0-31.0) Mean Corpuscular Hemoglobin Concent 30.1 G/DL (32.0-36.0) L Red Cell Distribution Width 13.7 % (11.6-14.8) Platelet Count 169 K/UL (150-450) Mean Platelet Volume 11.2 FL (6.5-10.1) H Neutrophils (%) (Auto) % (45.0-75.0) Lymphocytes (%) (Auto) % (20.0-45.0) Monocytes (%) (Auto) % (1.0-10.0) Eosinophils (%) (Auto) % (0.0-3.0) Basophils (%) (Auto) % (0.0-2.0) Differential Total Cells Counted 100 Neutrophils % (Manual) 88 % (45-75) H Lymphocytes % (Manual) 7 % (20-45) L Monocytes % (Manual) 5 % (1-10) Eosinophils % (Manual) 0 % (0-3) Basophils % (Manual) 0 % (0-2) Band Neutrophils 0 % (0-8) Platelet Estimate Adequate Platelet Morphology Normal Hypochromasia 1+ Sodium Level 149 mEQ/L (135-145) H Potassium Level 4.4 mEQ/L (3.4-4.9) Chloride Level 110 mEQ/L (98-107) H Carbon Dioxide Level 24 mEQ/L (20-30) Anion Gap 15 (5-15) Blood Urea Nitrogen 39 mg/dL (7-23) H Creatinine 1.4 mg/dL (0.7-1.2) H Estimat Glomerular Filtration Rate 50.5 mL/min (>60) Glucose Level 362 mg/dL (74-106) H Calcium Level 9.0 mg/dL (8.6-10.2) Total Bilirubin 1.0 mg/dL (0.0-1.2) Aspartate Amino Transf (AST/SGOT) 40 U/L (5-40) Alanine Aminotransferase (ALT/SGPT) 59 U/L (3-41) H Alkaline Phosphatase 178 U/L (40-129) H Total Protein 6.8 g/dL (6.6-8.7) Albumin 2.4 g/dL (3.5-5.2) L Globulin 4.4 g/dL Albumin/Globulin Ratio 0.5 (1.0-2.7) L Current Medications Medications (Trade) Dose Ordered Sig/Ramiro Route PRN Reason Start Time Stop Time Status Last Admin Dose Admin Acetaminophen (Tylenol) 650 mg Q4H PRN ORAL fever 09/30/16 07:15 10/30/16 07:14 10/01/16 08:09 Aspirin (ASA) 81 mg DAILY NG 10/03/16 09:00 11/02/16 08:59 10/08/16 09:06 Clonidine HCl (Catapres) 0.1 mg Q4H PRN ORAL For High Blood Pressure 09/30/16 06:49 10/30/16 06:48 Dextrose (D5W 1000ml) 1,000 ml @ 150 mls/hr Q6H40M IV 10/02/16 20:30 11/01/16 20:29 10/08/16 11:00 Dextrose (Dextrose 50%) STAT PRN IV Hypoglycemia 09/30/16 06:50 10/30/16 06:49 Insulin Aspart (NovoLOG) Q6HR SUBQ 10/07/16 12:00 11/06/16 11:59 10/08/16 05:53 Metoclopramide HCl (Reglan) 5 mg Q8H PRN IVP Nausea & Vomiting 10/04/16 08:45 11/03/16 08:44 Metoprolol Tartrate 50 mg 50 mg Q12HR ORAL 10/02/16 21:00 11/01/16 20:59 10/08/16 09:06 Nitroglycerin (Nitro-Bid) 1 inch TID@0600,1200,1800 TOPIC 10/03/16 06:00 11/02/16 05:59 10/08/16 05:55 Nitroglycerin (Ntg) 0.4 mg Every 5 Minutes PRN SL Prn Chest Pain 09/30/16 06:15 10/30/16 06:14 Ondansetron HCl (Zofran) 4 mg Q6H PRN IVP Nausea & Vomiting 09/30/16 06:51 10/30/16 06:50 Pantoprazole (Protonix) 40 mg DAILY IVP 10/02/16 09:00 11/01/16 08:59 10/08/16 09:06 Piperacillin Sod/ Tazobactam Sod/ Dextrose (Zosyn/D5W) 110 ml @ 27.5 mls/hr Q8HR@0500,1300,2100 IVPB 09/30/16 13:00 10/09/16 23:59 10/08/16 12:28 Polyethylene Glycol (Miralax) 17 gm DAILYPRN PRN ORAL Constipation 09/30/16 06:51 10/30/16 06:50 10/07/16 21:15 RADHA VARELA M.D. Oct 08, 2016 18:00
--- NOTE | 2016-10-08 18:01 | Nephrology Progress Note ---
Assessment/Plan Problem List: (1) Pneumonia (2) Severe sepsis (3) Hypernatremia (4) Acute kidney injury superimposed on chronic kidney disease (5) UTI (urinary tract infection) (6) Protein-calorie malnutrition, severe (7) NSTEMI (non-ST elevated myocardial infarction) Plan Continue vent settings Continue current IVF Continue free water flushes Monitor sodium Monitor renal function - adequate urine output Avoid nephrotoxic agents Abx per ID Glycemic control Cardio following Monitor neuro status AM labs Subjective Subjective intubated, in ICU, non responsive Objective Objective Last 24 Hour Vital Signs Date Time Temp Pulse Resp B/P Pulse Ox O2 Delivery O2 Flow Rate FiO2 10/08/16 17:00 103 21 114/71 100 Mechanical Ventilator 40 10/08/16 16:56 99 35 40 10/08/16 16:00 98.8 103 26 115/68 100 Mechanical Ventilator 40 10/08/16 16:00 103 10/08/16 15:00 101 22 108/65 100 Mechanical Ventilator 100 10/08/16 14:43 99 35 40 10/08/16 14:00 99 22 106/68 Mechanical Ventilator 100 10/08/16 13:00 103 28 109/66 98 Mechanical Ventilator 40 10/08/16 12:42 102 37 40 10/08/16 12:00 103 32 108/63 98 Mechanical Ventilator 40 10/08/16 12:00 103 10/08/16 12:00 99/63 10/08/16 12:00 40 10/08/16 11:00 101 35 40 10/08/16 11:00 98.5 99 32 99/53 100 Mechanical Ventilator 40 10/08/16 10:00 100 30 105/59 100 Mechanical Ventilator 40 10/08/16 09:06 104 107/51 10/08/16 09:00 103 33 107/51 100 Mechanical Ventilator 40 10/08/16 08:35 103 37 40 10/08/16 08:00 40 10/08/16 08:00 97.5 102 28 107/61 100 Mechanical Ventilator 40 10/08/16 08:00 105 10/08/16 07:00 100 29 116/63 100 Mechanical Ventilator 40 10/08/16 06:56 98 35 40 10/08/16 06:00 96 27 111/62 100 Mechanical Ventilator 40 10/08/16 05:55 111/55 10/08/16 05:00 92 28 111/55 100 Mechanical Ventilator 40 10/08/16 04:57 91 30 40 10/08/16 04:00 90 10/08/16 04:00 98.7 90 28 104/80 99 Mechanical Ventilator 40 10/08/16 04:00 40 10/08/16 03:30 90 33 40 10/08/16 03:00 98 28 101/63 99 Mechanical Ventilator 40 10/08/16 02:00 98 27 107/57 99 Mechanical Ventilator 40 10/08/16 01:30 95 35 40 10/08/16 01:00 97 26 109/59 99 Mechanical Ventilator 40 10/08/16 00:00 98.7 95 27 107/62 99 Mechanical Ventilator 40 10/08/16 00:00 95 10/08/16 00:00 40 10/07/16 23:16 95 33 40 10/07/16 23:00 87 27 105/63 99 Mechanical Ventilator 40 10/07/16 22:00 94 29 102/61 99 Mechanical Ventilator 40 10/07/16 21:30 96 34 40 10/07/16 21:00 95 92/57 10/07/16 21:00 95 26 92/57 98 Mechanical Ventilator 40 10/07/16 20:00 97 10/07/16 20:00 98.5 94 27 112/74 98 Mechanical Ventilator 40 10/07/16 20:00 40 10/07/16 19:30 97 37 40 10/07/16 19:00 97 30 95/53 98 Mechanical Ventilator 40 10/07/16 18:00 99.0 99 28 92/55 100 Mechanical Ventilator 40 Intake and Output 10/07/16 10/08/16 19:00 07:00 Intake Total 2660.0 ml 2965.0 ml Output Total 1480 ml 1950 ml Balance 1180.0 ml 1015.0 ml Free Water 300 ml 400 ml IV Total 1760.0 ml 1965.0 ml Tube Feeding 600 ml 600 ml Output Urine Total 1480 ml 1950 ml Laboratory Tests 10/08/16 04:25: White Blood Count 15.7H, Red Blood Count 3.37L, Hemoglobin 9.7L, Hematocrit 32.1L, Mean Corpuscular Volume 95, Mean Corpuscular Hemoglobin 28.6, Mean Corpuscular Hemoglobin Concent 30.1L, Red Cell Distribution Width 13.7, Platelet Count 169, Mean Platelet Volume 11.2H, Neutrophils (%) (Auto) , Lymphocytes (%) (Auto) , Monocytes (%) (Auto) , Eosinophils (%) (Auto) , Basophils (%) (Auto) , Differential Total Cells Counted 100, Neutrophils % ( Manual) 88H, Lymphocytes % (Manual) 7L, Monocytes % (Manual) 5, Eosinophils % ( Manual) 0, Basophils % (Manual) 0, Band Neutrophils 0, Platelet Estimate Adequate, Platelet Morphology Normal, Hypochromasia 1+, Sodium Level 149H, Potassium Level 4.4, Chloride Level 110H, Carbon Dioxide Level 24, Anion Gap 15 , Blood Urea Nitrogen 39H, Creatinine 1.4H, Estimat Glomerular Filtration Rate 50.5, Glucose Level 362H, Calcium Level 9.0, Total Bilirubin 1.0, Aspartate Amino Transf (AST/SGOT) 40, Alanine Aminotransferase (ALT/SGPT) 59H, Alkaline Phosphatase 178H, Total Protein 6.8, Albumin 2.4L, Globulin 4.4, Albumin/ Globulin Ratio 0.5L Height (Feet): 6 Height (Inches): 1.00 Weight (Pounds): 126 General Appearance: no apparent distress Cardiovascular: normal rate, regular rhythm Respiratory/Chest: decreased breath sounds, other - on vent Abdomen: soft Extremities: other - raymond Neurologic: unresponsive Shobha Nuñez N.P. Oct 08, 2016 18:01
--- NOTE | 2016-10-08 18:55 | Wound Care Consultation ---
Wound Assessment Wound Assessment #1: Wound Number: #1 Wound Present on Admission: No New Wound: Yes Status Change of Wound: No Wound Location Body Site Modif: mid Wound Location Body Site: sacral Wound Type: pressure ulcer Lisa Test: Does not Lisa Pressure Ulcer Stage: II Wound Thickness: Partial Thickness Wound Length: 2.0 Wound Width: 2.0 Wound Depth: 0.2 Percent of Wound [place]/Red: 100 Other Colors Identified: noted surrounding tissue maroon in color. Wound Drainage Amount: None Wound Drainage Odor: None/Absent Tissue Surrounding Wound: Macerated Wound General Appearance: Reddened Wound Assessment #2: Wound Number: #2 Wound Present on Admission: No New Wound: Yes Status Change of Wound: No Wound Location Body Site Modif: left Wound Location Body Site: heel Wound Type: pressure ulcer Lisa Test: Does not Lisa Pressure Ulcer Stage: deep tissue injury Wound Thickness: Full Thickness Wound Length: 5.0 Wound Width: 4.0 Wound Depth: utd Percent of Wound Purple/Maroon: 100 Wound Drainage Amount: None Wound Drainage Odor: None/Absent Tissue Surrounding Wound: Intact Wound General Appearance: Reddened Wound Assessment #3: Wound Number: #3 Wound Present on Admission: No New Wound: Yes Status Change of Wound: No Wound Location Body Site Modif: right Wound Location Body Site: heel Wound Type: pressure ulcer Lisa Test: Does not Lisa Pressure Ulcer Stage: deep tissue injury Wound Thickness: Full Thickness Wound Length: 5.0 Wound Width: 4.0 Wound Depth: utd Percent of Wound Purple/Maroon: 100 Wound Drainage Amount: None Wound Drainage Odor: None/Absent Tissue Surrounding Wound: Intact Wound General Appearance: Reddened Wound Assessment #4: Wound Number: #4 Wound Present on Admission: No New Wound: Yes Status Change of Wound: No Wound Location Body Site Modif: right Wound Location Body Site: metatarsal head - 5th Wound Type: pressure ulcer Lisa Test: Does not Lisa Pressure Ulcer Stage: deep tissue injury Wound Thickness: Full Thickness Wound Length: 1.0 Wound Width: 1.0 Wound Depth: utd Percent of Wound Purple/Maroon: 100 Wound Drainage Amount: None Wound Drainage Odor: None/Absent Tissue Surrounding Wound: Intact Wound General Appearance: Reddened Wound Assessment #5: Wound Number: #5 Wound Present on Admission: No New Wound: No Status Change of Wound: No Wound Location Body Site Modif: left Wound Location Body Site: foot - plantar, big toe and 5th toe , and scattered to 2nd,3rd, and 4th Wound Type: other - cyanosis. Lisa Test: Does not Lisa Percent of Wound Purple/Maroon: 100 - blue skin. Wound Drainage Amount: None Wound Drainage Odor: None/Absent Tissue Surrounding Wound: Intact Wound General Appearance: Open to air Wound Assessment #6: Wound Number: #6 Wound Present on Admission: No New Wound: Yes Wound Location Body Site Modif: other - upper lip Wound Type: scab - scattered scabs Lisa Test: Does not Lisa Percent of Wound Black/Brown: 100 Wound Drainage Description: Serosanguineous Wound Drainage Amount: Scant Wound Drainage Odor: None/Absent Tissue Surrounding Wound: Erythemic Wound Comment #1 Mid Sacral pressure ucler stage II. #2 Left heel deep tissue injury. #3 Right heel deep tissue injury. #4 Right 5th toe deep tissue injury. #5 Left plantar foot extending to toes cyanosis. #6 upper lip scattered scabs. Recommendation. -Local wound care as ordered. -Turn and reposition. -Keep clean and dry. -Optimize nutrition. -Heel protectors. -Offload heels. -Avoid shear and friction. -Apply Low air loss p200. -Assess and notify for any further changes of condition to skin. THOM AGGARWAL Oct 08, 2016 18:55
[2016-10-09] VITALS (24 sets, daily range): BP systolic 92–141; BP diastolic 55–78
[2016-10-09] MEDS: NovoLOG Insulin Flexpen SUBQ SCH ×3 (00:32→12:10)
[2016-10-09] MEDS: Piperacillin/Tazobactam 3.375 GM in D5W 110 ML IVPB SCH (04:35)
--- NOTE | 2016-10-09 05:15 | Progress Note ---
DATE: 10/08/2016 CARDIOLOGY PROGRESS NOTE: SUBJECTIVE: The patient remains on ventilator support. Condition remains critical. Prognosis guarded. OBJECTIVE: VITAL SIGNS: The patient's blood pressure is 107/61, heart rate 102, respiratory rate 28, he is afebrile. Orally intubated. Poorly responsive. LUNGS: Bilateral breath sounds with rhonchi. HEART: Regular rhythm and rate. Normal S1 and S2. ABDOMEN: Soft. EXTREMITIES: Trace edema. LABORATORY DATA: White count is 15.7 and hemoglobin 9.7. Sodium is 149, potassium 4.4, chloride 110, bicarbonate 24, BUN 39, and creatinine 1.4. Albumin 2.4. IMPRESSION: 1. Persistent dehydration. 2. Hypernatremia. 3. Hyperchloremia. 4. Acute renal failure, improved. 5. Acute cerebrovascular accident. 6. Acute myocardial infarction. 7. Aspiration pneumonia, severe protein-calorie malnutrition. 8. Respiratory failure. 9. Secondary sinus tachycardia despite beta-osiel therapy is likely physiologically appropriate. PLAN: 1. Titrate beta-osiel, continue anti-platelet therapy, and nitrates. 2. Hypotonic IV fluids. 3. Ventilator support. 4. Antimicrobials. 5. Respiratory hygiene. 6. Nutrition by feeding tube. Donald Baldwin M.D. DR: BAYRON/MOUNIKA JOB#: [id number] CC:
[2016-10-09] MEDS: Nitroglycerin 2% oint pkt TOPIC SCH ×3 (05:41→18:25)
[2016-10-09 06:18] LABS: MEAN CORPUSCULAR HEMOGLOBIN 29.7 PG (27.0-31.0); MEAN CORPUSCULAR HGB CONC 31.2 G/DL (32.0-36.0); MEAN CORPUSCULAR VOLUME 95 FL (80-99); MEAN PLATELET VOLUME 11.8 FL (6.5-10.1); PLATELET COUNT 200 K/UL (150-450); RED CELL DISTRIBUTION WIDTH 13.6 % (11.6-14.8); WHITE BLOOD COUNT 16.7 K/UL (4.8-10.8)
[2016-10-09 06:56] LABS: CALCIUM 8.8 mg/dL (8.6-10.2); CREATININE 1.3 mg/dL (0.7-1.2); GLOMERULAR FILTRATION RATE 55.1 mL/min (>60); POTASSIUM 4.6 mEQ/L (3.4-4.9)
[2016-10-09 08:47] LABS: ABG ALLEN TEST POSITIVE; ABG BASE EXCESS 0.5; ABG PCO2 38.3 mmHg (35.0-45.0)
[2016-10-09] MEDS: Aspirin Baby 81mg NG SCH (09:00)
[2016-10-09] MEDS: Pantoprazole Inj IVP SCH (09:00)
[2016-10-09] MEDS: Metoprolol 50mg tab ORAL SCH ×2 (09:00→20:57)
--- NOTE | 2016-10-09 09:18 | Pulmonology Progress Note ---
Assessment/Plan Assessment/Plan 1. Sepsis. 2. Respiratory failure. 3. Acute myocardial infarction. 4. Metabolic and toxic encephalopathy. 5. Severe dehydration. Resolved 6. Severe hypernatremia. Resolved 7. Metabolic acidosis. Resolved 8. Acute renal failure. Resolved 9. Severe protein-calorie malnutrition. 10. Acute frontal CVA seen on CT head PLAN: DC IV fluid hydration. Monitor for recurring gastrointestinal bleeding. On beta-blockade. Antimicrobials and ventilator support. Condition remains critical and prognosis is guarded. CT brain shows frontal infarct Discussed with family (brother and son) Full code for now Family leaning towards PEG and trach Will need to transfer to [facility] for trach/PEG Await family decision Subjective Interval Events: Remains unresponsive; Na 143 now; hyperglycemia Constitutional: Reports: no symptoms HEENT: Repors: no symptoms Respiratory: Reports: no symptoms Cardiovascular: Reports: no symptoms Allergies: Coded Allergies: No Known Allergies (Unverified , 09/22/14) Objective Last 24 Hour Vital Signs Date Time Temp Pulse Resp B/P Pulse Ox O2 Delivery O2 Flow Rate FiO2 10/09/16 08:33 109 38 40 10/09/16 07:13 106 39 40 10/09/16 07:00 106 29 141/78 95 Mechanical Ventilator 40 10/09/16 06:00 100 29 108/58 95 Mechanical Ventilator 40 10/09/16 05:41 114/60 10/09/16 05:29 94 36 40 10/09/16 05:00 99 29 114/60 93 Mechanical Ventilator 40 10/09/16 04:00 97.9 97 29 119/66 98 Mechanical Ventilator 40 10/09/16 04:00 40 10/09/16 04:00 97 10/09/16 03:15 94 36 40 10/09/16 03:00 95 29 118/68 98 Mechanical Ventilator 40 10/09/16 02:00 100 29 117/66 97 Mechanical Ventilator 40 10/09/16 01:06 94 35 40 10/09/16 01:00 98 26 117/66 97 Mechanical Ventilator 40 10/09/16 00:00 98.9 90 27 105/64 99 Mechanical Ventilator 40 10/09/16 00:00 98 10/09/16 00:00 40 10/08/16 23:20 87 30 40 10/08/16 23:00 88 27 105/60 99 Mechanical Ventilator 40 10/08/16 22:00 86 27 103/58 99 Mechanical Ventilator 40 10/08/16 21:14 103 34 40 10/08/16 21:01 103 110/64 10/08/16 21:00 95 27 104/56 99 Mechanical Ventilator 40 10/08/16 20:00 103 27 106/65 100 Mechanical Ventilator 40 10/08/16 20:00 40 10/08/16 20:00 99 10/08/16 19:09 99 34 40 10/08/16 19:00 102 27 110/67 100 Mechanical Ventilator 40 10/08/16 18:00 101 30 110/67 100 Mechanical Ventilator 40 10/08/16 18:00 110/60 10/08/16 17:00 103 21 114/71 100 Mechanical Ventilator 40 10/08/16 16:56 99 35 40 10/08/16 16:00 98.8 103 26 115/68 100 Mechanical Ventilator 40 10/08/16 16:00 103 10/08/16 15:00 101 22 108/65 100 Mechanical Ventilator 100 10/08/16 14:43 99 35 40 10/08/16 14:00 99 22 106/68 Mechanical Ventilator 100 10/08/16 13:00 103 28 109/66 98 Mechanical Ventilator 40 10/08/16 12:42 102 37 40 10/08/16 12:00 103 32 108/63 98 Mechanical Ventilator 40 10/08/16 12:00 103 10/08/16 12:00 99/63 10/08/16 12:00 40 10/08/16 11:00 101 35 40 10/08/16 11:00 98.5 99 32 99/53 100 Mechanical Ventilator 40 10/08/16 10:00 100 30 105/59 100 Mechanical Ventilator 40 Intake and Output 10/08/16 10/09/16 19:00 07:00 Intake Total 4780.0 ml 2570.0 ml Output Total 3330 ml 1950 ml Balance 1450.0 ml 620.0 ml Intake Oral 240 ml Free Water 600 ml 200 ml IV Total 1910.0 ml 1760.0 ml Tube Feeding 150 ml 550 ml Other 1880 ml 60 ml Output Urine Total 3330 ml 1950 ml # Voids 1 # Bowel Movements 1 1 General Appearance: no acute distress HEENT: normocephalic Respiratory/Chest: chest wall non-tender Cardiovascular: normal peripheral pulses, normal rate Abdomen: normal bowel sounds Laboratory Tests 10/09/16 04:00: Arterial Blood pH 7.429, Arterial Blood Partial Pressure CO2 38.3, Arterial Blood Partial Pressure O2 72.3L, Arterial Blood HCO3 24.7, Arterial Blood Oxygen Saturation 94.6, Arterial Blood Base Excess 0.5, Jace Test Positive 10/09/16 05:15: White Blood Count 16.7H, Red Blood Count 3.30L, Hemoglobin 9.8L, Hematocrit 31.4L, Mean Corpuscular Volume 95, Mean Corpuscular Hemoglobin 29.7, Mean Corpuscular Hemoglobin Concent 31.2L, Red Cell Distribution Width 13.6, Platelet Count 200, Mean Platelet Volume 11.8H, Neutrophils (%) (Auto) , Lymphocytes (%) (Auto) , Monocytes (%) (Auto) , Eosinophils (%) (Auto) , Basophils (%) (Auto) , Neutrophils % (Manual) [Pending], Lymphocytes % (Manual) [Pending], Platelet Estimate [Pending], Platelet Morphology [Pending], Sodium Level 143, Potassium Level 4.6, Chloride Level 106, Carbon Dioxide Level 24, Anion Gap 13, Blood Urea Nitrogen 35H, Creatinine 1.3H, Estimat Glomerular Filtration Rate 55.1, Glucose Level 354H, Calcium Level 8.8 Current Medications Medications (Trade) Dose Ordered Sig/Ramiro Route PRN Reason Start Time Stop Time Status Last Admin Dose Admin Acetaminophen (Tylenol) 650 mg Q4H PRN ORAL fever 09/30/16 07:15 10/30/16 07:14 10/01/16 08:09 Aspirin (ASA) 81 mg DAILY NG 10/03/16 09:00 11/02/16 08:59 10/08/16 09:06 Clonidine HCl (Catapres) 0.1 mg Q4H PRN ORAL For High Blood Pressure 09/30/16 06:49 10/30/16 06:48 Dextrose (D5W 1000ml) 1,000 ml @ 150 mls/hr Q6H40M IV 10/02/16 20:30 11/01/16 20:29 10/09/16 02:10 Dextrose (Dextrose 50%) STAT PRN IV Hypoglycemia 09/30/16 06:50 10/30/16 06:49 Insulin Aspart (NovoLOG) Q6HR SUBQ 10/07/16 12:00 11/06/16 11:59 10/09/16 05:43 Metoclopramide HCl (Reglan) 5 mg Q8H PRN IVP Nausea & Vomiting 10/04/16 08:45 11/03/16 08:44 Metoprolol Tartrate 50 mg 50 mg Q12HR ORAL 10/02/16 21:00 11/01/16 20:59 10/08/16 21:01 Nitroglycerin (Nitro-Bid) 1 inch TID@0600,1200,1800 TOPIC 10/03/16 06:00 11/02/16 05:59 10/09/16 05:41 Nitroglycerin (Ntg) 0.4 mg Every 5 Minutes PRN SL Prn Chest Pain 09/30/16 06:15 10/30/16 06:14 Ondansetron HCl (Zofran) 4 mg Q6H PRN IVP Nausea & Vomiting 09/30/16 06:51 10/30/16 06:50 Pantoprazole (Protonix) 40 mg DAILY IVP 10/02/16 09:00 11/01/16 08:59 10/08/16 09:06 Piperacillin Sod/ Tazobactam Sod/ Dextrose (Zosyn/D5W) 110 ml @ 27.5 mls/hr Q8HR@0500,1300,2100 IVPB 09/30/16 13:00 10/09/16 23:59 10/09/16 04:35 Polyethylene Glycol (Miralax) 17 gm DAILYPRN PRN ORAL Constipation 09/30/16 06:51 10/30/16 06:50 10/07/16 21:15 Rahul Lopez MD Oct 09, 2016 09:18
--- NOTE | 2016-10-09 09:53 | Diagnostic Imaging Report ---
Indication: Abdominal pain, prior history of abdominal aortic aneurysm Technique: Grayscale and duplex images of the abdominal aorta Comparison: 09/29/2016 abdominal ultrasound Findings: There is fusiform aneurysmal dilatation of the abdominal aorta. This measures Dr. 4.9 cm AP outer wall to outer wall dimension. There is mural thrombus seen occupying well over over half of the aortic lumen. Doppler flow velocities and waveforms are within normal limits. Common iliac arteries demonstrate normal caliber Impression: Positive for fusiform 4.9 cm infrarenal abdominal aortic aneurysm. Extensive mural thrombus, which does not appear to be flow-limiting.
[2016-10-09 10:04] LABS: BAND NEUTROPHILS % (MANUAL) 2 % (0-8); BASOPHILS % (MANUAL) 0 % (0-2); EOSINOPHILS % (MANUAL) 0 % (0-3); LYMPHOCYTES % (MANUAL) 3 % (20-45); NEUTROPHILS % (MANUAL) 92 % (45-75); PLATELET ESTIMATE ADEQUATE; PLATELET MORPHOLOGY NORMAL; TOTAL CELLS COUNTED 100
[2016-10-09 10:05] LABS: HYPOCHROMASIA 1+
[2016-10-09] MEDS ORDERED: Lacri-Lube Opth Oint 3.5gm BOTH EYES ONE (11:30)
--- NOTE | 2016-10-09 12:30 | Infectious Diseases Prog Note ---
Assessment/Plan Assessment/Plan A: 74 yold M w E coli bacteremia - repeat BCx(-) UTI Ro intra-abd sepsis Negative HIV Severe sepsis - improved lactic acidosis Fevers, low grade - Leukocytosis - increased Acute VDRF - intubated 09/29 NSTEMI - troponin downtrending - EF 35-40% AAA 4cm with mural thrombus ARF - improving Hypernatremia - improved Elevated LFTs TCP NKDA Full Code PLAN: start IV Merrem d# 1 and DC IV zosyn day # 14 ( 09/28 SP IV vancomycin D#2 ) monitor CBC, temperatures monitor BMP CT a/p with IV contrast , if Ok w Nephro vent support, wean as tolerated PEG and trach possible in LTAC Subjective Allergies: Coded Allergies: No Known Allergies (Unverified , 09/22/14) Subjective low grade fever Objective Vital Signs Last 24 Hour Vital Signs Date Time Temp Pulse Resp B/P Pulse Ox O2 Delivery O2 Flow Rate FiO2 10/09/16 12:13 99/52 10/09/16 12:00 50 10/09/16 12:00 85 10/09/16 12:00 99.0 85 29 99/55 95 Mechanical Ventilator 50 10/09/16 11:02 100.0 10/09/16 10:55 91 29 100/58 95 Mechanical Ventilator 50 10/09/16 10:00 104 29 105/61 95 Mechanical Ventilator 50 10/09/16 10:00 50 10/09/16 09:00 99.3 100 29 110/61 95 Mechanical Ventilator 50 10/09/16 09:00 110 114/61 10/09/16 08:33 109 38 40 10/09/16 08:00 100.3 110 29 130/71 95 Mechanical Ventilator 40 10/09/16 08:00 104 10/09/16 07:13 106 39 40 10/09/16 07:00 106 29 141/78 95 Mechanical Ventilator 40 10/09/16 06:00 100 29 108/58 95 Mechanical Ventilator 40 10/09/16 05:41 114/60 10/09/16 05:29 94 36 40 10/09/16 05:00 99 29 114/60 93 Mechanical Ventilator 40 10/09/16 04:00 97.9 97 29 119/66 98 Mechanical Ventilator 40 10/09/16 04:00 40 10/09/16 04:00 97 10/09/16 03:15 94 36 40 10/09/16 03:00 95 29 118/68 98 Mechanical Ventilator 40 10/09/16 02:00 100 29 117/66 97 Mechanical Ventilator 40 10/09/16 01:06 94 35 40 10/09/16 01:00 98 26 117/66 97 Mechanical Ventilator 40 10/09/16 00:00 98.9 90 27 105/64 99 Mechanical Ventilator 40 10/09/16 00:00 98 10/09/16 00:00 40 10/08/16 23:20 87 30 40 10/08/16 23:00 88 27 105/60 99 Mechanical Ventilator 40 10/08/16 22:00 86 27 103/58 99 Mechanical Ventilator 40 10/08/16 21:14 103 34 40 10/08/16 21:01 103 110/64 10/08/16 21:00 95 27 104/56 99 Mechanical Ventilator 40 10/08/16 20:00 103 27 106/65 100 Mechanical Ventilator 40 10/08/16 20:00 40 10/08/16 20:00 99 10/08/16 19:09 99 34 40 10/08/16 19:00 102 27 110/67 100 Mechanical Ventilator 40 10/08/16 18:00 101 30 110/67 100 Mechanical Ventilator 40 10/08/16 18:00 110/60 10/08/16 17:00 103 21 114/71 100 Mechanical Ventilator 40 10/08/16 16:56 99 35 40 10/08/16 16:00 98.8 103 26 115/68 100 Mechanical Ventilator 40 10/08/16 16:00 103 10/08/16 15:00 101 22 108/65 100 Mechanical Ventilator 100 10/08/16 14:43 99 35 40 10/08/16 14:00 99 22 106/68 Mechanical Ventilator 100 10/08/16 13:00 103 28 109/66 98 Mechanical Ventilator 40 10/08/16 12:42 102 37 40 Height (Feet): 6 Height (Inches): 1.00 Weight (Pounds): 126 HEENT: anicteric Respiratory/Chest: normal breath sounds Cardiovascular: no gallop/murmur Abdomen: non distended Laboratory Tests Test 10/09/16 04:00 10/09/16 05:15 Arterial Blood pH 7.429 (7.350-7.450) Arterial Blood Partial Pressure CO2 38.3 mmHg (35.0-45.0) Arterial Blood Partial Pressure O2 72.3 mmHg (75.0-100.0) L Arterial Blood HCO3 24.7 mmol/L (22.0-26.0) Arterial Blood Oxygen Saturation 94.6 % (92.0-98.0) Arterial Blood Base Excess 0.5 Jace Test Positive White Blood Count 16.7 K/UL (4.8-10.8) H Red Blood Count 3.30 M/UL (4.70-6.10) L Hemoglobin 9.8 G/DL (14.2-18.0) L Hematocrit 31.4 % (42.0-52.0) L Mean Corpuscular Volume 95 FL (80-99) Mean Corpuscular Hemoglobin 29.7 PG (27.0-31.0) Mean Corpuscular Hemoglobin Concent 31.2 G/DL (32.0-36.0) L Red Cell Distribution Width 13.6 % (11.6-14.8) Platelet Count 200 K/UL (150-450) Mean Platelet Volume 11.8 FL (6.5-10.1) H Neutrophils (%) (Auto) % (45.0-75.0) Lymphocytes (%) (Auto) % (20.0-45.0) Monocytes (%) (Auto) % (1.0-10.0) Eosinophils (%) (Auto) % (0.0-3.0) Basophils (%) (Auto) % (0.0-2.0) Differential Total Cells Counted 100 Neutrophils % (Manual) 92 % (45-75) H Lymphocytes % (Manual) 3 % (20-45) L Monocytes % (Manual) 3 % (1-10) Eosinophils % (Manual) 0 % (0-3) Basophils % (Manual) 0 % (0-2) Band Neutrophils 2 % (0-8) Platelet Estimate Adequate Platelet Morphology Normal Hypochromasia 1+ Sodium Level 143 mEQ/L (135-145) Potassium Level 4.6 mEQ/L (3.4-4.9) Chloride Level 106 mEQ/L (98-107) Carbon Dioxide Level 24 mEQ/L (20-30) Anion Gap 13 (5-15) Blood Urea Nitrogen 35 mg/dL (7-23) H Creatinine 1.3 mg/dL (0.7-1.2) H Estimat Glomerular Filtration Rate 55.1 mL/min (>60) Glucose Level 354 mg/dL (74-106) H Calcium Level 8.8 mg/dL (8.6-10.2) Current Medications Medications (Trade) Dose Ordered Sig/Ramiro Route PRN Reason Start Time Stop Time Status Last Admin Dose Admin Acetaminophen (Tylenol) 650 mg Q4H PRN ORAL fever 09/30/16 07:15 10/30/16 07:14 10/09/16 10:03 Aspirin (ASA) 81 mg DAILY NG 10/03/16 09:00 11/02/16 08:59 10/09/16 09:00 Clonidine HCl (Catapres) 0.1 mg Q4H PRN ORAL For High Blood Pressure 09/30/16 06:49 10/30/16 06:48 Dextrose (Dextrose 50%) STAT PRN IV Hypoglycemia 09/30/16 06:50 10/30/16 06:49 Insulin Aspart (NovoLOG) Q6HR SUBQ 10/07/16 12:00 11/06/16 11:59 10/09/16 12:10 Metoclopramide HCl (Reglan) 5 mg Q8H PRN IVP Nausea & Vomiting 10/04/16 08:45 11/03/16 08:44 Metoprolol Tartrate (Lopressor) 50 mg Q12HR ORAL 10/02/16 21:00 11/01/16 20:59 10/09/16 09:00 Nitroglycerin (Nitro-Bid) 1 inch TID@0600,1200,1800 TOPIC 10/03/16 06:00 11/02/16 05:59 10/09/16 12:13 Nitroglycerin (Ntg) 0.4 mg Every 5 Minutes PRN SL Prn Chest Pain 09/30/16 06:15 10/30/16 06:14 Ondansetron HCl (Zofran) 4 mg Q6H PRN IVP Nausea & Vomiting 09/30/16 06:51 10/30/16 06:50 Pantoprazole (Protonix) 40 mg DAILY IVP 10/02/16 09:00 11/01/16 08:59 10/09/16 09:00 Piperacillin Sod/ Tazobactam Sod/ Dextrose (Zosyn/D5W) 110 ml @ 27.5 mls/hr Q8HR@0500,1300,2100 IVPB 09/30/16 13:00 10/09/16 23:59 10/09/16 04:35 Polyethylene Glycol (Miralax) 17 gm DAILYPRN PRN ORAL Constipation 09/30/16 06:51 10/30/16 06:50 10/07/16 21:15 RADHA VARELA M.D. Oct 09, 2016 12:30
[2016-10-09] MEDS: Meropenem 1 GM in NS 110 ML IVPB SCH ×2 (14:00→22:10)
--- NOTE | 2016-10-09 14:59 | GI Progress Note ---
Assessment/Plan Problems: (1) Coffee ground emesis ICD Codes: K92.0 - Hematemesis SNOMED: 51152795, 310682909 (2) Severe sepsis ICD Codes: A41.9 - Sepsis, unspecified organism; R65.20 - Severe sepsis without septic shock SNOMED: 10926987 (3) Leukocytosis ICD Codes: D72.829 - Leukocytosis SNOMED: 582859231 (4) Protein-calorie malnutrition, severe ICD Codes: E43 - Unspecified severe protein-calorie malnutrition SNOMED: 500524317 Status: unchanged Status Narrative Discussed with Dr. Marion. Assessment/Plan gastric lavage >> no blood noted stable H&H OB stool positive hold GI procedures, will require cardiac clearance given elevated troponin levels pt to be transferred to [place] for trach and PEG. supportive care NGTFs per dietary monitor H&H, transfuse prn ppi gtt >> BID bowel regime abx fu labs Subjective Subjective limited Objective Last 24 Hour Vital Signs Date Time Temp Pulse Resp B/P Pulse Ox O2 Delivery O2 Flow Rate FiO2 10/09/16 13:02 88 35 50 10/09/16 13:00 89 29 98/57 98 Mechanical Ventilator 50 10/09/16 12:13 99/52 10/09/16 12:00 50 10/09/16 12:00 85 10/09/16 12:00 99.0 85 29 99/55 95 Mechanical Ventilator 50 10/09/16 11:19 89 33 50 10/09/16 11:02 100.0 10/09/16 10:55 91 29 100/58 95 Mechanical Ventilator 50 10/09/16 10:00 104 29 105/61 95 Mechanical Ventilator 50 10/09/16 10:00 50 10/09/16 09:00 99.3 100 29 110/61 95 Mechanical Ventilator 50 10/09/16 09:00 110 114/61 10/09/16 08:33 109 38 40 10/09/16 08:00 100.3 110 29 130/71 95 Mechanical Ventilator 40 10/09/16 08:00 104 10/09/16 07:13 106 39 40 10/09/16 07:00 106 29 141/78 95 Mechanical Ventilator 40 10/09/16 06:00 100 29 108/58 95 Mechanical Ventilator 40 10/09/16 05:41 114/60 10/09/16 05:29 94 36 40 7/20/17 05:00 99 29 114/60 93 Mechanical Ventilator 40 10/09/16 04:00 97.9 97 29 119/66 98 Mechanical Ventilator 40 10/09/16 04:00 40 10/09/16 04:00 97 10/09/16 03:15 94 36 40 10/09/16 03:00 95 29 118/68 98 Mechanical Ventilator 40 10/09/16 02:00 100 29 117/66 97 Mechanical Ventilator 40 10/09/16 01:06 94 35 40 10/09/16 01:00 98 26 117/66 97 Mechanical Ventilator 40 10/09/16 00:00 98.9 90 27 105/64 99 Mechanical Ventilator 40 10/09/16 00:00 98 10/09/16 00:00 40 10/08/16 23:20 87 30 40 10/08/16 23:00 88 27 105/60 99 Mechanical Ventilator 40 10/08/16 22:00 86 27 103/58 99 Mechanical Ventilator 40 10/08/16 21:14 103 34 40 10/08/16 21:01 103 110/64 10/08/16 21:00 95 27 104/56 99 Mechanical Ventilator 40 10/08/16 20:00 103 27 106/65 100 Mechanical Ventilator 40 10/08/16 20:00 40 10/08/16 20:00 99 10/08/16 19:09 99 34 40 10/08/16 19:00 102 27 110/67 100 Mechanical Ventilator 40 10/08/16 18:00 101 30 110/67 100 Mechanical Ventilator 40 10/08/16 18:00 110/60 10/08/16 17:00 103 21 114/71 100 Mechanical Ventilator 40 10/08/16 16:56 99 35 40 10/08/16 16:00 98.8 103 26 115/68 100 Mechanical Ventilator 40 10/08/16 16:00 103 10/08/16 15:00 101 22 108/65 100 Mechanical Ventilator 100 Intake and Output 10/08/16 10/09/16 19:00 07:00 Intake Total 4780.0 ml 2652.5 ml Output Total 3330 ml 1950 ml Balance 1450.0 ml 702.5 ml Intake Oral 240 ml Free Water 600 ml 200 ml IV Total 1910.0 ml 1842.5 ml Tube Feeding 150 ml 550 ml Other 1880 ml 60 ml Output Urine Total 3330 ml 1950 ml # Voids 1 # Bowel Movements 1 1 Laboratory Tests Test 10/09/16 04:00 10/09/16 05:15 Arterial Blood pH 7.429 (7.350-7.450) Arterial Blood Partial Pressure CO2 38.3 mmHg (35.0-45.0) Arterial Blood Partial Pressure O2 72.3 mmHg (75.0-100.0) L Arterial Blood HCO3 24.7 mmol/L (22.0-26.0) Arterial Blood Oxygen Saturation 94.6 % (92.0-98.0) Arterial Blood Base Excess 0.5 Jace Test Positive White Blood Count 16.7 K/UL (4.8-10.8) H Red Blood Count 3.30 M/UL (4.70-6.10) L Hemoglobin 9.8 G/DL (14.2-18.0) L Hematocrit 31.4 % (42.0-52.0) L Mean Corpuscular Volume 95 FL (80-99) Mean Corpuscular Hemoglobin 29.7 PG (27.0-31.0) Mean Corpuscular Hemoglobin Concent 31.2 G/DL (32.0-36.0) L Red Cell Distribution Width 13.6 % (11.6-14.8) Platelet Count 200 K/UL (150-450) Mean Platelet Volume 11.8 FL (6.5-10.1) H Neutrophils (%) (Auto) % (45.0-75.0) Lymphocytes (%) (Auto) % (20.0-45.0) Monocytes (%) (Auto) % (1.0-10.0) Eosinophils (%) (Auto) % (0.0-3.0) Basophils (%) (Auto) % (0.0-2.0) Differential Total Cells Counted 100 Neutrophils % (Manual) 92 % (45-75) H Lymphocytes % (Manual) 3 % (20-45) L Monocytes % (Manual) 3 % (1-10) Eosinophils % (Manual) 0 % (0-3) Basophils % (Manual) 0 % (0-2) Band Neutrophils 2 % (0-8) Platelet Estimate Adequate Platelet Morphology Normal Hypochromasia 1+ Sodium Level 143 mEQ/L (135-145) Potassium Level 4.6 mEQ/L (3.4-4.9) Chloride Level 106 mEQ/L (98-107) Carbon Dioxide Level 24 mEQ/L (20-30) Anion Gap 13 (5-15) Blood Urea Nitrogen 35 mg/dL (7-23) H Creatinine 1.3 mg/dL (0.7-1.2) H Estimat Glomerular Filtration Rate 55.1 mL/min (>60) Glucose Level 354 mg/dL (74-106) H Calcium Level 8.8 mg/dL (8.6-10.2) Height (Feet): 6 Height (Inches): 1.00 Weight (Pounds): 126 General Appearance: no apparent distress, alert, thin Cardiovascular: normal rate Respiratory/Chest: normal breath sounds, other - mech vent Abdominal Exam: other - NGT Genitourinary/Rectal: normal rectal exam, enlarged prostate Extremities: normal range of motion, non-tender Pam Shah N.P. Oct 09, 2016 14:59
[2016-10-09] MEDS: Insulin NovoLOG Flexpen S/S (Ins resistant) SUBQ SCH ×2 (18:25→23:39)
--- NOTE | 2016-10-09 22:33 | Nephrology Progress Note ---
Assessment/Plan Problem List: (1) Protein-calorie malnutrition, severe (2) UTI (urinary tract infection) (3) Hypernatremia Assessment: improving (4) Acute kidney injury superimposed on chronic kidney disease (5) Respiratory failure Assessment: intubated, on vent (6) Severe sepsis (7) Acute myocardial infarction Plan Continue vent PEG tube pending Continue current IVF Continue free water flushes Monitor sodium Monitor renal function Avoid nephrotoxic agents Abx per ID Cardio following Monitor neuro status AM labs Subjective Subjective in ICU. unresponsive. Objective Objective Last 24 Hour Vital Signs Date Time Temp Pulse Resp B/P Pulse Ox O2 Delivery O2 Flow Rate FiO2 10/09/16 20:57 106 109/64 10/09/16 20:51 105 39 40 10/09/16 20:24 104 37 Mechanical Ventilator 40 10/09/16 20:00 50 10/09/16 19:17 104 37 40 10/09/16 19:00 101 29 110/61 98 Mechanical Ventilator 50 10/09/16 18:25 109/63 10/09/16 18:00 101 29 104/61 98 Mechanical Ventilator 50 10/09/16 17:00 102 29 110/57 98 Mechanical Ventilator 50 10/09/16 16:52 101 39 50 10/09/16 16:00 98.9 101 29 101/61 98 Mechanical Ventilator 50 10/09/16 16:00 50 10/09/16 16:00 101 10/09/16 15:40 95 36 50 10/09/16 15:00 93 29 100/57 98 Mechanical Ventilator 50 10/09/16 14:00 92 29 102/58 98 Mechanical Ventilator 50 10/09/16 13:02 88 35 50 10/09/16 13:00 89 29 98/57 98 Mechanical Ventilator 50 10/09/16 12:13 99/52 10/09/16 12:00 50 10/09/16 12:00 85 10/09/16 12:00 99.0 85 29 99/55 95 Mechanical Ventilator 50 10/09/16 11:19 89 33 50 10/09/16 11:02 100.0 10/09/16 10:55 91 29 100/58 95 Mechanical Ventilator 50 10/09/16 10:00 104 29 105/61 95 Mechanical Ventilator 50 10/09/16 10:00 50 10/09/16 09:00 99.3 100 29 110/61 95 Mechanical Ventilator 50 10/09/16 09:00 110 114/61 10/09/16 08:33 109 38 40 10/09/16 08:00 100.3 110 29 130/71 95 Mechanical Ventilator 40 10/09/16 08:00 104 10/09/16 07:13 106 39 40 10/09/16 07:00 106 29 141/78 95 Mechanical Ventilator 40 10/09/16 06:00 100 29 108/58 95 Mechanical Ventilator 40 10/09/16 05:41 114/60 10/09/16 05:29 94 36 40 10/09/16 05:00 99 29 114/60 93 Mechanical Ventilator 40 10/09/16 04:00 97.9 97 29 119/66 98 Mechanical Ventilator 40 10/09/16 04:00 40 10/09/16 04:00 97 10/09/16 03:15 94 36 40 10/09/16 03:00 95 29 118/68 98 Mechanical Ventilator 40 10/09/16 02:00 100 29 117/66 97 Mechanical Ventilator 40 10/09/16 01:06 94 35 40 10/09/16 01:00 98 26 117/66 97 Mechanical Ventilator 40 10/09/16 00:00 98.9 90 27 105/64 99 Mechanical Ventilator 40 10/09/16 00:00 98 10/09/16 00:00 40 10/08/16 23:20 87 30 40 10/08/16 23:00 88 27 105/60 99 Mechanical Ventilator 40 Intake and Output 10/08/16 10/09/16 19:00 07:00 Intake Total 4780.0 ml 2652.5 ml Output Total 3330 ml 1950 ml Balance 1450.0 ml 702.5 ml Intake Oral 240 ml Free Water 600 ml 200 ml IV Total 1910.0 ml 1842.5 ml Tube Feeding 150 ml 550 ml Other 1880 ml 60 ml Output Urine Total 3330 ml 1950 ml # Voids 1 # Bowel Movements 1 1 Laboratory Tests 10/09/16 04:00: Arterial Blood pH 7.429, Arterial Blood Partial Pressure CO2 38.3, Arterial Blood Partial Pressure O2 72.3L, Arterial Blood HCO3 24.7, Arterial Blood Oxygen Saturation 94.6, Arterial Blood Base Excess 0.5, Jace Test Positive 10/09/16 05:15: White Blood Count 16.7H, Red Blood Count 3.30L, Hemoglobin 9.8L, Hematocrit 31.4L, Mean Corpuscular Volume 95, Mean Corpuscular Hemoglobin 29.7, Mean Corpuscular Hemoglobin Concent 31.2L, Red Cell Distribution Width 13.6, Platelet Count 200, Mean Platelet Volume 11.8H, Neutrophils (%) (Auto) , Lymphocytes (%) (Auto) , Monocytes (%) (Auto) , Eosinophils (%) (Auto) , Basophils (%) (Auto) , Differential Total Cells Counted 100, Neutrophils % ( Manual) 92H, Lymphocytes % (Manual) 3L, Monocytes % (Manual) 3, Eosinophils % ( Manual) 0, Basophils % (Manual) 0, Band Neutrophils 2, Platelet Estimate Adequate, Platelet Morphology Normal, Hypochromasia 1+, Sodium Level 143, Potassium Level 4.6, Chloride Level 106, Carbon Dioxide Level 24, Anion Gap 13, Blood Urea Nitrogen 35H, Creatinine 1.3H, Estimat Glomerular Filtration Rate 55.1, Glucose Level 354H, Calcium Level 8.8 Height (Feet): 6 Height (Inches): 1.00 Weight (Pounds): 126 General Appearance: no apparent distress Cardiovascular: normal rate, regular rhythm Respiratory/Chest: decreased breath sounds Abdomen: non tender, soft GENE BRIONES Oct 09, 2016 22:33
[2016-10-10] VITALS (24 sets, daily range): BP systolic 92–121; BP diastolic 50–76
--- NOTE | 2016-10-10 03:15 | Progress Note ---
DATE: 10/09/2016 CARDIOLOGY PROGRESS NOTE SUBJECTIVE: The patient remains on ventilator support, not able to wean at this time. Blood pressure is stable. He is poorly responsive. Monitored rhythm, sinus tachycardia. OBJECTIVE: VITAL SIGNS: Blood pressure 141/78, pulse 106, respirations 29, and afebrile. GENERAL: Poorly responsive. HEENT: Orally intubated. LUNGS: Bilateral rhonchi. HEART: Regular rhythm. Rapid rate. Normal S1 and S2. ABDOMEN: Soft. EXTREMITIES: No edema. LABORATORY DATA: White count 16.7, hemoglobin 9.8, and platelets 200,000. Sodium 143, potassium 4.6, bicarbonate 24, BUN 35, and creatinine 1.3. ABG, 7.42, 38, and 72. IMPRESSION: 1. Respiratory failure. 2. Acute myocardial infarction. 3. Sepsis with shock. 4. Acute cerebrovascular accident. 5. Dehydration. 6. Hypernatremia corrected. 7. Persistent leukocytosis. 8. Metabolic and toxic encephalopathies. 9. Secondary sinus tachycardia. 10. Condition remains critical with guarded prognosis. PLAN: 1. Recheck chest x-ray. 2. Continue ventilator support, possible trach. 3. Antimicrobials per Infectious Disease business solutions consultant. 4. Maintain and titrate beta-osiel. 5. Continue anti-platelet and anti-lipid drugs. 6. Prognosis remains guarded. 7. Condition is still critical. Donald Baldwin M.D. DR: MANDIE JOB#: [id number] CC:
[2016-10-10 05:12] LABS: MEAN CORPUSCULAR HEMOGLOBIN 29.9 PG (27.0-31.0); MEAN CORPUSCULAR VOLUME 94 FL (80-99); MEAN PLATELET VOLUME 11.5 FL (6.5-10.1); PLATELET COUNT 260 K/UL (150-450); RED BLOOD COUNT 3.52 M/UL (4.70-6.10); RED CELL DISTRIBUTION WIDTH 13.6 % (11.6-14.8); WHITE BLOOD COUNT 15.9 K/UL (4.8-10.8)
[2016-10-10] MEDS: Meropenem 1 GM in NS 110 ML IVPB SCH ×3 (05:42→22:19)
[2016-10-10] MEDS: Insulin NovoLOG Flexpen S/S (Ins resistant) SUBQ SCH ×3 (05:43→18:50)
[2016-10-10] MEDS: Nitroglycerin 2% oint pkt TOPIC SCH ×3 (05:48→18:50)
[2016-10-10 06:01] LABS: CALCIUM 9.7 mg/dL (8.6-10.2); CREATININE 1.4 mg/dL (0.7-1.2); GLOMERULAR FILTRATION RATE 50.5 mL/min (>60); POTASSIUM 4.7 mEQ/L (3.4-4.9)
[2016-10-10 07:57] LABS: BAND NEUTROPHILS % (MANUAL) 6 % (0-8); BASOPHILS % (MANUAL) 0 % (0-2); EOSINOPHILS % (MANUAL) 2 % (0-3); LYMPHOCYTES % (MANUAL) 5 % (20-45); NEUTROPHILS % (MANUAL) 77 % (45-75); PLATELET ESTIMATE ADEQUATE; PLATELET MORPHOLOGY NORMAL; TOTAL CELLS COUNTED 100
--- NOTE | 2016-10-10 08:50 | Pulmonology Progress Note ---
Assessment/Plan Assessment/Plan 1. Sepsis. 2. Respiratory failure. 3. Acute myocardial infarction. 4. Metabolic and toxic encephalopathy. 5. Severe dehydration. Resolved 6. Severe hypernatremia. Resolved 7. Metabolic acidosis. Resolved 8. Acute renal failure. Resolved 9. Severe protein-calorie malnutrition. 10. 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 Monitor for recurring gastrointestinal bleeding. On beta-blockade. Antimicrobials and ventilator support. Condition remains critical and prognosis is guarded. CT brain shows frontal infarct Discussed with family (brother and son) Full code for now Family leaning towards PEG and trach Will need to transfer to [place] for trach/PEG Await bed availability at [place] Subjective Interval Events: No change; Na now 151 Constitutional: Reports: no symptoms HEENT: Repors: no symptoms Respiratory: Reports: no symptoms Cardiovascular: Reports: no symptoms Allergies: Coded Allergies: No Known Allergies (Unverified , 09/22/14) Objective Last 24 Hour Vital Signs Date Time Temp Pulse Resp B/P Pulse Ox O2 Delivery O2 Flow Rate FiO2 10/10/16 08:00 98.5 114 20 121/75 98 Mechanical Ventilator 50 10/10/16 07:00 106 22 92/62 98 Mechanical Ventilator 50 10/10/16 06:58 107 22 40 10/10/16 06:00 106 31 109/68 98 Mechanical Ventilator 50 10/10/16 05:48 106/63 10/10/16 05:27 105 30 40 10/10/16 05:00 105 35 106/63 98 Mechanical Ventilator 50 10/10/16 04:00 103 10/10/16 04:00 50 10/10/16 04:00 98.2 103 33 108/63 98 Mechanical Ventilator 50 10/10/16 03:39 102 26 40 10/10/16 03:00 103 34 98/61 97 Mechanical Ventilator 50 10/10/16 02:00 102 34 106/63 98 Mechanical Ventilator 50 10/10/16 01:00 99 34 106/63 98 Mechanical Ventilator 50 10/10/16 00:33 97 34 40 10/10/16 00:00 50 10/10/16 00:00 98.5 100 34 107/65 97 Mechanical Ventilator 50 10/10/16 00:00 101 10/09/16 23:00 94 29 101/58 98 Mechanical Ventilator 50 10/09/16 22:40 91 36 40 7/20/17 22:00 91 30 101/58 98 Mechanical Ventilator 50 7/20/17 21:00 94 33 92/61 97 Mechanical Ventilator 50 7/20/17 20:57 106 109/64 7/20/17 20:51 105 39 40 7/20/17 20:24 104 37 Mechanical Ventilator 40 7/20/17 20:00 50 7/20/17 20:00 99.0 105 35 109/64 97 Mechanical Ventilator 50 720/17 20:00 105 720/17 19:17 104 37 40 7/20/17 19:00 101 29 110/61 98 Mechanical Ventilator 50 720/17 18:25 109/63 720/17 18:00 101 29 104/61 98 Mechanical Ventilator 50 720/17 17:00 102 29 110/57 98 Mechanical Ventilator 50 720/17 16:52 101 39 50 720/17 16:00 98.9 101 29 101/61 98 Mechanical Ventilator 50 717 16:00 50 717 16:00 101 717 15:40 95 36 50 720/17 15:00 93 29 100/57 98 Mechanical Ventilator 50 720/17 14:00 92 29 102/58 98 Mechanical Ventilator 50 720/17 13:02 88 35 50 720/17 13:00 89 29 98/57 98 Mechanical Ventilator 50 720/17 12:13 99/52 720/17 12:00 50 720/17 12:00 85 10/09/16 12:00 99.0 85 29 99/55 95 Mechanical Ventilator 50 7/17 11:19 89 33 50 720/17 11:02 100.0 20/17 10:55 91 29 100/58 95 Mechanical Ventilator 50 720/17 10:00 104 29 105/61 95 Mechanical Ventilator 50 720/17 10:00 50 17 09:00 99.3 100 29 110/61 95 Mechanical Ventilator 50 720/17 09:00 110 114/61 Intake and Output 10/09/17 7 19:00 07:00 Intake Total 1297.5 ml 660 ml Output Total 2500 ml 1235 ml Balance -1202.5 ml -575 ml Free Water 700 ml 100 ml IV Total 137.5 ml 220 ml Tube Feeding 460 ml 340 ml Output Urine Total 2500 ml 1235 ml # Bowel Movements 1 General Appearance: no acute distress HEENT: normocephalic Respiratory/Chest: chest wall non-tender Cardiovascular: normal peripheral pulses, normal rate Abdomen: normal bowel sounds Laboratory Tests 10/10/16 04:15: White Blood Count 15.9H, Red Blood Count 3.52L, Hemoglobin 10.5L, Hematocrit 33.0L, Mean Corpuscular Volume 94, Mean Corpuscular Hemoglobin 29.9, Mean Corpuscular Hemoglobin Concent 32.0, Red Cell Distribution Width 13.6, Platelet Count 260, Mean Platelet Volume 11.5H, Neutrophils (%) (Auto) , Lymphocytes (%) (Auto) , Monocytes (%) (Auto) , Eosinophils (%) (Auto) , Basophils (%) (Auto) , Differential Total Cells Counted 100, Neutrophils % (Manual) 77H, Lymphocytes % (Manual) 5L, Monocytes % (Manual) 10, Eosinophils % (Manual) 2, Basophils % ( Manual) 0, Band Neutrophils 6, Platelet Estimate Adequate, Platelet Morphology Normal, Sodium Level 151H, Potassium Level 4.7, Chloride Level 113H, Carbon Dioxide Level 26, Anion Gap 12, Blood Urea Nitrogen 49H, Creatinine 1.4H, Estimat Glomerular Filtration Rate 50.5, Glucose Level 209#H, Calcium Level 9.7 Current Medications Medications (Trade) Dose Ordered Sig/Ramiro Route PRN Reason Start Time Stop Time Status Last Admin Dose Admin Acetaminophen (Tylenol) 650 mg Q4H PRN ORAL fever 09/30/16 07:15 10/30/16 07:14 10/09/16 10:03 Aspirin (ASA) 81 mg DAILY NG 10/03/16 09:00 11/02/16 08:59 10/09/16 09:00 Clonidine HCl (Catapres) 0.1 mg Q4H PRN ORAL For High Blood Pressure 09/30/16 06:49 10/30/16 06:48 Dextrose (Dextrose 50%) STAT PRN IV Hypoglycemia 09/30/16 06:50 10/30/16 06:49 Insulin Aspart (NovoLOG) No Dose Q6HR SUBQ 10/09/16 18:00 11/08/16 17:59 10/10/16 05:43 Meropenem/Sodium Chloride (Merrem/Sodium Chloride) 110 ml @ 220 mls/hr Q8HR IVPB 10/09/16 14:00 10/14/16 13:59 10/10/16 05:42 Metoclopramide HCl 5 mg 5 mg Q8H PRN IVP Nausea & Vomiting 10/04/16 08:45 11/03/16 08:44 Metoprolol Tartrate (Lopressor) 50 mg Q12HR ORAL 10/02/16 21:00 11/01/16 20:59 10/09/16 20:57 Nitroglycerin (Nitro-Bid) 1 inch TID@0600,1200,1800 TOPIC 10/03/16 06:00 11/02/16 05:59 10/10/16 05:48 Nitroglycerin (Ntg) 0.4 mg Every 5 Minutes PRN SL Prn Chest Pain 09/30/16 06:15 10/30/16 06:14 Ondansetron HCl (Zofran) 4 mg Q6H PRN IVP Nausea & Vomiting 09/30/16 06:51 10/30/16 06:50 Pantoprazole (Protonix) 40 mg DAILY IVP 10/02/16 09:00 11/01/16 08:59 10/09/16 09:00 Polyethylene Glycol (Miralax) 17 gm DAILYPRN PRN ORAL Constipation 09/30/16 06:51 10/30/16 06:50 10/07/16 21:15 Rahul Lopez MD Oct 10, 2016 08:50
[2016-10-10] MEDS: Metoprolol 50mg tab ORAL SCH ×2 (09:48→20:44)
[2016-10-10] MEDS: Aspirin Baby 81mg NG SCH (09:48)
[2016-10-10] MEDS: Pantoprazole Inj IVP SCH (09:48)
--- NOTE | 2016-10-10 11:59 | GI Progress Note ---
Assessment/Plan Problems: (1) Coffee ground emesis ICD Codes: K92.0 - Hematemesis SNOMED: 20633238, 219188597 (2) Severe sepsis ICD Codes: A41.9 - Sepsis, unspecified organism; R65.20 - Severe sepsis without septic shock SNOMED: 18459091 (3) Leukocytosis ICD Codes: D72.829 - Leukocytosis SNOMED: 345320528 (4) Protein-calorie malnutrition, severe ICD Codes: E43 - Unspecified severe protein-calorie malnutrition SNOMED: 400007432 (5) GI bleed ICD Codes: K92.2 - Gastrointestinal hemorrhage, unspecified SNOMED: 55992833 Status: unchanged Status Narrative Discussed with Dr. Marion. Assessment/Plan gastric lavage >> no blood noted stable H&H OB stool positive >> bloody stool noted by RN hold GI procedures, will require cardiac clearance given elevated troponin levels pt to be transferred to [place] for trach and PEG. supportive care NGTFs per dietary monitor H&H, transfuse prn ppi gtt bowel regime abx fu labs Subjective Subjective limited Objective Last 24 Hour Vital Signs Date Time Temp Pulse Resp B/P Pulse Ox O2 Delivery O2 Flow Rate FiO2 10/10/16 11:01 92 25 40 10/10/16 11:00 91 24 102/64 99 Mechanical Ventilator 50 10/10/16 10:00 113 26 102/69 99 Mechanical Ventilator 50 10/10/16 09:48 113 117/76 10/10/16 09:04 109 20 40 10/10/16 09:00 112 22 117/76 99 Mechanical Ventilator 50 10/10/16 08:00 50 10/10/16 08:00 98.5 114 20 121/75 98 Mechanical Ventilator 50 10/10/16 08:00 106 10/10/16 07:00 106 22 92/62 98 Mechanical Ventilator 50 10/10/16 06:58 107 22 40 10/10/16 06:00 106 31 109/68 98 Mechanical Ventilator 50 10/10/16 05:48 106/63 10/10/16 05:27 105 30 40 10/10/16 05:00 105 35 106/63 98 Mechanical Ventilator 50 10/10/16 04:00 103 10/10/16 04:00 50 10/10/16 04:00 98.2 103 33 108/63 98 Mechanical Ventilator 50 10/10/16 03:39 102 26 40 7 03:00 103 34 98/61 97 Mechanical Ventilator 50 10/10/16 02:00 102 34 106/63 98 Mechanical Ventilator 50 10/10/16 01:00 99 34 106/63 98 Mechanical Ventilator 50 10/10/16 00:33 97 34 40 10/10/16 00:00 50 10/10/16 00:00 98.5 100 34 107/65 97 Mechanical Ventilator 50 10/10/16 00:00 101 10/09/16 23:00 94 29 101/58 98 Mechanical Ventilator 50 10/09/16 22:40 91 36 40 7/ 22:00 91 30 101/58 98 Mechanical Ventilator 50 10/09/16 21:00 94 33 92/61 97 Mechanical Ventilator 50 10/09/16 20:57 106 109/64 10/09/16 20:51 105 39 40 10/09/ 20:24 104 37 Mechanical Ventilator 40 10/09/16 20:00 50 10/09/16 20:00 99.0 105 35 109/64 97 Mechanical Ventilator 50 10/09/16 20:00 105 10/09/16 19:17 104 37 40 10/09/ 19:00 101 29 110/61 98 Mechanical Ventilator 50 10/09/16 18:25 109/63 10/09/16 18:00 101 29 104/61 98 Mechanical Ventilator 50 10/09/16 17:00 102 29 110/57 98 Mechanical Ventilator 50 10/09/16 16:52 101 39 50 10/09/16 16:00 98.9 101 29 101/61 98 Mechanical Ventilator 50 10/09/16 16:00 50 17 16:00 101 17 15:40 95 36 50 7/17 15:00 93 29 100/57 98 Mechanical Ventilator 50 17 14:00 92 29 102/58 98 Mechanical Ventilator 50 10/09/16 13:02 88 35 50 7/17 13:00 89 29 98/57 98 Mechanical Ventilator 50 10/09/17 12:13 99/52 10/09/16 12:00 50 10/09/16 12:00 85 10/09/16 12:00 99.0 85 29 99/55 95 Mechanical Ventilator 50 Intake and Output 10/09/16 10/10/16 19:00 07:00 Intake Total 1297.5 ml 660 ml Output Total 2500 ml 1235 ml Balance -1202.5 ml -575 ml Free Water 700 ml 100 ml IV Total 137.5 ml 220 ml Tube Feeding 460 ml 340 ml Output Urine Total 2500 ml 1235 ml # Bowel Movements 1 Laboratory Tests Test 10/10/16 04:15 White Blood Count 15.9 K/UL (4.8-10.8) H Red Blood Count 3.52 M/UL (4.70-6.10) L Hemoglobin 10.5 G/DL (14.2-18.0) L Hematocrit 33.0 % (42.0-52.0) L Mean Corpuscular Volume 94 FL (80-99) Mean Corpuscular Hemoglobin 29.9 PG (27.0-31.0) Mean Corpuscular Hemoglobin Concent 32.0 G/DL (32.0-36.0) Red Cell Distribution Width 13.6 % (11.6-14.8) Platelet Count 260 K/UL (150-450) Mean Platelet Volume 11.5 FL (6.5-10.1) H Neutrophils (%) (Auto) % (45.0-75.0) Lymphocytes (%) (Auto) % (20.0-45.0) Monocytes (%) (Auto) % (1.0-10.0) Eosinophils (%) (Auto) % (0.0-3.0) Basophils (%) (Auto) % (0.0-2.0) Differential Total Cells Counted 100 Neutrophils % (Manual) 77 % (45-75) H Lymphocytes % (Manual) 5 % (20-45) L Monocytes % (Manual) 10 % (1-10) Eosinophils % (Manual) 2 % (0-3) Basophils % (Manual) 0 % (0-2) Band Neutrophils 6 % (0-8) Platelet Estimate Adequate Platelet Morphology Normal Sodium Level 151 mEQ/L (135-145) H Potassium Level 4.7 mEQ/L (3.4-4.9) Chloride Level 113 mEQ/L (98-107) H Carbon Dioxide Level 26 mEQ/L (20-30) Anion Gap 12 (5-15) Blood Urea Nitrogen 49 mg/dL (7-23) H Creatinine 1.4 mg/dL (0.7-1.2) H Estimat Glomerular Filtration Rate 50.5 mL/min (>60) Glucose Level 209 mg/dL (74-106) #H Calcium Level 9.7 mg/dL (8.6-10.2) Height (Feet): 6 Height (Inches): 1.00 Weight (Pounds): 128 General Appearance: no apparent distress, thin Cardiovascular: normal rate Respiratory/Chest: other - [facility] Abdominal Exam: other - ngt Pam Shah N.P. Oct 10, 2016 11:59
--- NOTE | 2016-10-10 12:28 | Diagnostic Imaging Report ---
Indication: Abnormal breath sounds Comparison: 10/05/16 A single view chest radiograph was obtained. Findings: Heart size is normal. Interstitial opacities noted at the lung bases. Nasogastric tube and endotracheal tube are in good position. Impression: Interstitial opacities at the lung bases nonspecific. Pneumonitis or mild interstitial edema not excluded. No significant change compared to last study.
--- NOTE | 2016-10-10 15:56 | Diagnostic Imaging Report ---
Indication: Dysphasia, chest and abdominal pain Technique: Continuous helical transaxial imaging of the chest, abdomen and pelvis was obtained from the lung bases to the pubic symphysis during intravenous contrast administration. Multiple phases of enhancement obtained. Coronal 2-D reformats were also obtained. Study obtained in a Siemens sensation [address] Total Dose length Product (DLP): [address] Dose Index Volume (CTDIvol): 8, 16.2, 11.9, 11.0 mGy Comparison: None Findings: CT chest: Endotracheal tube is in good position. NG tube is noted and appears to be in good position. There are bilateral lower lobe infiltrates study worse on the left compared to the right with both alveolar and reticular interstitial densities. Small cystic foci demonstrated within the upper lobes consistent with emphysema. Paraseptal blebs noted. Few calcific foci are demonstrated within the lungs consistent with old granulomatous disease. In the left upper lobe there is a 3 mm noncalcified nodule (image 13, series 6) there is a 6 mm nodule at the left lung base probably pleural based in association with the left major fissure (image 31, series 6) 2 additional scattered nodules are present within portions of both upper and lower lobes bilaterally nonspecific. In the right middle lobe there is a 9 mm nodule (image 37, series 6). The thoracic aorta is notable for mural calcification but there is no aneurysm. The heart is unremarkable in appearance. No adenopathy or pleural or pericardial effusions are seen. 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 The upper aneurysm is about 4 cm in diameter and is widest in the transverse diameter. This aneurysm involves the left renal artery. The origin of the right renal artery is right at the margin of the upper extent of this aneurysm. The infrarenal portion of the bilobed aneurysm is larger and involves the distal aorta. This aneurysm has 5 cm diameter and is notable for moderate degree of mural thrombus. The common iliac arteries are somewhat ectatic. The right common iliac artery is 2 cm in size. The left common iliac artery is normal in size measuring about 1.4 CM. Moderate thickening of the urinary bladder wall noted consistent with cystitis. There is no hydronephrosis. There is some breathing motion limiting evaluation. There is a hiatal hernia. The liver and spleen are grossly unremarkable. There is suspicion of gallbladder sludge versus small stones. The pancreas shows no obvious abnormality. There is no obvious adrenal mass. No free fluid or free air identified. Normal appendix noted. 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 Mixed interstitial/alveolar bilateral lower lobe infiltrate suspicious for pneumonia. Please correlate clinically. Pulmonary emphysema. Paraseptal blebs and small intraparenchymal bulla noted. Multiple noncalcified nodules within the lungs bilaterally. Per Fleischner Society criteria, recommend 3, 6, then [address] evaluation. Old granulomatous disease. Nasogastric tube and endotracheal tubes in good position. Suspected urinary bladder cystitis. Please correlate clinically. Hiatal hernia Gallbladder sludge versus small stones. The CT scanner at [facility] is accredited by the [employer] and the scans are performed using dose optimization techniques as appropriate to a performed exam including Automatic Exposure control.
--- NOTE | 2016-10-10 19:41 | Nephrology Progress Note ---
Assessment/Plan Problem List: (1) Pneumonia (2) Severe sepsis (3) Hypernatremia (4) Acute kidney injury superimposed on chronic kidney disease (5) UTI (urinary tract infection) (6) Protein-calorie malnutrition, severe (7) NSTEMI (non-ST elevated myocardial infarction) Plan Continue vent settings Monitor sodium Monitor renal function Avoid nephrotoxic agents Abx per ID Glycemic control Cardio following Monitor neuro status Awaiting transfer to [place] for PEG and trach when bed available AM labs Subjective ROS Limited/Unobtainable: Yes Subjective intubated, in ICU, non responsive Objective Objective Last 24 Hour Vital Signs Date Time Temp Pulse Resp B/P Pulse Ox O2 Delivery O2 Flow Rate FiO2 10/10/16 19:00 110 24 98/72 98 Mechanical Ventilator 50 10/10/16 18:57 111 25 40 10/10/16 18:50 99/65 10/10/16 18:00 110 24 99/65 98 Mechanical Ventilator 50 10/10/16 17:00 98.5 110 24 94/72 97 Mechanical Ventilator 50 10/10/16 16:57 108 28 40 10/10/16 16:00 109 10/10/16 16:00 50 10/10/16 16:00 113 24 111/75 97 Mechanical Ventilator 50 10/10/16 15:18 78 24 40 10/10/16 15:00 101 23 101/56 97 Mechanical Ventilator 50 10/10/16 14:00 101 24 106/61 96 Mechanical Ventilator 50 10/10/16 13:00 98 24 102/65 99 Mechanical Ventilator 50 10/10/16 12:57 101 26 40 10/10/16 12:14 101/72 10/10/16 12:00 50 10/10/16 12:00 96 10/10/16 12:00 98.6 95 27 101/71 99 Mechanical Ventilator 50 10/10/16 11:01 92 25 40 10/10/16 11:00 91 24 102/64 99 Mechanical Ventilator 50 10/10/16 10:00 113 26 102/69 99 Mechanical Ventilator 50 10/10/16 09:48 113 117/76 10/10/16 09:04 109 20 40 10/10/16 09:00 112 22 117/76 99 Mechanical Ventilator 50 10/10/16 08:00 50 10/10/16 08:00 98.5 114 20 121/75 98 Mechanical Ventilator 50 10/10/16 08:00 106 10/10/16 07:00 106 22 92/62 98 Mechanical Ventilator 50 10/10/16 06:58 107 22 40 10/10/16 06:00 106 31 109/68 98 Mechanical Ventilator 50 10/10/16 05:48 106/63 10/10/16 05:27 105 30 40 10/10/16 05:00 105 35 106/63 98 Mechanical Ventilator 50 10/10/16 04:00 103 10/10/16 04:00 50 10/10/16 04:00 98.2 103 33 108/63 98 Mechanical Ventilator 50 10/10/16 03:39 102 26 40 10/10/16 03:00 103 34 98/61 97 Mechanical Ventilator 50 10/10/16 02:00 102 34 106/63 98 Mechanical Ventilator 50 10/10/16 01:00 99 34 106/63 98 Mechanical Ventilator 50 10/10/16 00:33 97 34 40 10/10/16 00:00 50 10/10/16 00:00 98.5 100 34 107/65 97 Mechanical Ventilator 50 10/10/16 00:00 101 10/09/16 23:00 94 29 101/58 98 Mechanical Ventilator 50 10/09/16 22:40 91 36 40 10/09/16 22:00 91 30 101/58 98 Mechanical Ventilator 50 10/09/16 21:00 94 33 92/61 97 Mechanical Ventilator 50 10/09/16 20:57 106 109/64 10/09/16 20:51 105 39 40 10/09/16 20:24 104 37 Mechanical Ventilator 40 10/09/16 20:00 50 10/09/16 20:00 99.0 105 35 109/64 97 Mechanical Ventilator 50 10/09/16 20:00 105 Intake and Output 10/09/16 10/10/16 19:00 07:00 Intake Total 1297.5 ml 660 ml Output Total 2500 ml 1235 ml Balance -1202.5 ml -575 ml Free Water 700 ml 100 ml IV Total 137.5 ml 220 ml Tube Feeding 460 ml 340 ml Output Urine Total 2500 ml 1235 ml # Bowel Movements 1 Laboratory Tests 10/10/16 04:15: White Blood Count 15.9H, Red Blood Count 3.52L, Hemoglobin 10.5L, Hematocrit 33.0L, Mean Corpuscular Volume 94, Mean Corpuscular Hemoglobin 29.9, Mean Corpuscular Hemoglobin Concent 32.0, Red Cell Distribution Width 13.6, Platelet Count 260, Mean Platelet Volume 11.5H, Neutrophils (%) (Auto) , Lymphocytes (%) (Auto) , Monocytes (%) (Auto) , Eosinophils (%) (Auto) , Basophils (%) (Auto) , Differential Total Cells Counted 100, Neutrophils % (Manual) 77H, Lymphocytes % (Manual) 5L, Monocytes % (Manual) 10, Eosinophils % (Manual) 2, Basophils % ( Manual) 0, Band Neutrophils 6, Platelet Estimate Adequate, Platelet Morphology Normal, Sodium Level 151H, Potassium Level 4.7, Chloride Level 113H, Carbon Dioxide Level 26, Anion Gap 12, Blood Urea Nitrogen 49H, Creatinine 1.4H, Estimat Glomerular Filtration Rate 50.5, Glucose Level 209#H, Calcium Level 9.7 Height (Feet): 6 Height (Inches): 1.00 Weight (Pounds): 128 General Appearance: no apparent distress EENT: normal ENT inspection Neck: normal alignment Cardiovascular: normal rate Respiratory/Chest: decreased breath sounds, other - vent Abdomen: soft Genitourinary/Rectal: other - [facility]mond Neurologic: unresponsive Shobha Nuñez N.P. Oct 10, 2016 19:41
[2016-10-10] MEDS ORDERED: NS 275ml ONE (22:53)
[2016-10-10] MEDS ORDERED: Tubing IV Secondary IV ONE ×2 (22:53)
[2016-10-11] VITALS (24 sets, daily range): BP systolic 95–126; BP diastolic 52–84
[2016-10-11] MEDS: Insulin NovoLOG Flexpen S/S (Ins resistant) SUBQ SCH ×5 (00:03→23:44)
[2016-10-11] MEDS: Meropenem 1 GM in NS 110 ML IVPB SCH ×3 (06:05→21:46)
[2016-10-11] MEDS: Nitroglycerin 2% oint pkt TOPIC SCH ×3 (06:05→17:21)
[2016-10-11 06:42] LABS: MEAN CORPUSCULAR HEMOGLOBIN 29.4 PG (27.0-31.0); MEAN CORPUSCULAR HGB CONC 31.1 G/DL (32.0-36.0); MEAN CORPUSCULAR VOLUME 95 FL (80-99); MEAN PLATELET VOLUME 11.6 FL (6.5-10.1); PLATELET COUNT 274 K/UL (150-450); RED BLOOD COUNT 3.16 M/UL (4.70-6.10); WHITE BLOOD COUNT 16.6 K/UL (4.8-10.8)
[2016-10-11 06:49] LABS: CALCIUM 9.4 mg/dL (8.6-10.2); CREATININE 1.4 mg/dL (0.7-1.2); GLOMERULAR FILTRATION RATE 50.5 mL/min (>60); POTASSIUM 4.6 mEQ/L (3.4-4.9)
--- NOTE | 2016-10-11 07:57 | Pulmonology Progress Note ---
Assessment/Plan Assessment/Plan 1. Sepsis. 2. Respiratory failure. 3. Acute myocardial infarction. 4. Metabolic and toxic encephalopathy. 5. Severe dehydration. Resolved 6. Severe hypernatremia. Resolved 7. Metabolic acidosis. Resolved 8. Acute renal failure. Resolved 9. Severe protein-calorie malnutrition. 10. 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 Monitor for recurring gastrointestinal bleeding. On beta-blockade. Antimicrobials and ventilator support. Condition remains critical and prognosis is guarded. CT brain shows frontal infarct Discussed with family (brother and son) Full code for now Family leaning towards PEG and trach Will need to transfer to [place] for trach/PEG Await bed availability at [place] or contracted hospital Subjective Interval Events: No change Constitutional: Reports: no symptoms HEENT: Repors: no symptoms Respiratory: Reports: no symptoms Cardiovascular: Reports: no symptoms Gastrointestinal/Abdominal: Reports: no symptoms Allergies: Coded Allergies: No Known Allergies (Unverified , 09/22/14) Objective Last 24 Hour Vital Signs Date Time Temp Pulse Resp B/P Pulse Ox O2 Delivery O2 Flow Rate FiO2 10/11/16 07:00 97 22 116/68 99 Mechanical Ventilator 50 10/11/16 06:05 108/72 10/11/16 06:00 96 22 107/72 99 Mechanical Ventilator 50 10/11/16 05:00 95 22 108/72 98 Mechanical Ventilator 50 10/11/16 04:51 94 23 40 10/11/16 04:00 93 10/11/16 04:00 98.0 95 23 108/67 99 Mechanical Ventilator 50 10/11/16 04:00 50 10/11/16 03:00 97 22 107/72 100 Mechanical Ventilator 50 10/11/16 02:57 98 25 40 10/11/16 02:00 96 22 105/70 99 Mechanical Ventilator 50 10/11/16 01:03 95 25 40 10/11/16 01:00 96 23 111/54 99 Mechanical Ventilator 50 10/11/16 00:00 98.5 94 24 95/60 100 Mechanical Ventilator 50 10/11/16 00:00 50 10/11/16 00:00 94 10/10/16 23:01 90 25 40 10/10/16 23:00 98 30 100/50 99 Mechanical Ventilator 50 10/10/16 22:00 93 24 98/55 98 Mechanical Ventilator 50 10/10/16 21:00 108 24 94/59 98 Mechanical Ventilator 50 10/10/16 20:51 109 27 40 10/10/16 20:44 110 96/50 10/10/16 20:00 98.7 109 22 96/50 99 Mechanical Ventilator 50 10/10/16 20:00 110 10/10/16 20:00 50 10/10/16 19:00 110 24 98/72 98 Mechanical Ventilator 50 10/10/16 18:57 111 25 40 10/10/16 18:50 99/65 10/10/16 18:00 110 24 99/65 98 Mechanical Ventilator 50 10/10/16 17:00 98.5 110 24 94/72 97 Mechanical Ventilator 50 10/10/16 16:57 108 28 40 10/10/16 16:00 109 10/10/16 16:00 50 10/10/16 16:00 113 24 111/75 97 Mechanical Ventilator 50 10/10/16 15:18 78 24 40 10/10/16 15:00 101 23 101/56 97 Mechanical Ventilator 50 10/10/16 14:00 101 24 106/61 96 Mechanical Ventilator 50 10/10/16 13:00 98 24 102/65 99 Mechanical Ventilator 50 10/10/16 12:57 101 26 40 10/10/16 12:14 101/72 10/10/16 12:00 50 10/10/16 12:00 96 10/10/16 12:00 98.6 95 27 101/71 99 Mechanical Ventilator 50 10/10/16 11:01 92 25 40 10/10/16 11:00 91 24 102/64 99 Mechanical Ventilator 50 10/10/16 10:00 113 26 102/69 99 Mechanical Ventilator 50 10/10/16 09:48 113 117/76 10/10/16 09:04 109 20 40 10/10/16 09:00 112 22 117/76 99 Mechanical Ventilator 50 10/10/16 08:00 50 10/10/16 08:00 98.5 114 20 121/75 98 Mechanical Ventilator 50 10/10/16 08:00 106 Intake and Output 10/10/16 10/11/16 19:00 07:00 Intake Total 1620 ml 2040 ml Output Total 1280 ml 1325 ml Balance 340 ml 715 ml Free Water 400 ml 200 ml IV Total 220 ml 1420 ml Tube Feeding 450 ml 420 ml Other 550 ml Output Urine Total 1280 ml 1325 ml # Bowel Movements 1 General Appearance: no acute distress HEENT: normocephalic Respiratory/Chest: chest wall non-tender, lungs clear Cardiovascular: normal peripheral pulses, normal rate Abdomen: normal bowel sounds, soft, non tender Laboratory Tests 10/11/16 04:45: White Blood Count 16.6H, Red Blood Count 3.16L, Hemoglobin 9.3L, Hematocrit 29.9L, Mean Corpuscular Volume 95, Mean Corpuscular Hemoglobin 29.4, Mean Corpuscular Hemoglobin Concent 31.1L, Red Cell Distribution Width 14.0, Platelet Count 274, Mean Platelet Volume 11.6H, Neutrophils (%) (Auto) , Lymphocytes (%) (Auto) , Monocytes (%) (Auto) , Eosinophils (%) (Auto) , Basophils (%) (Auto) , Neutrophils % (Manual) [Pending], Lymphocytes % (Manual) [Pending], Platelet Estimate [Pending], Platelet Morphology [Pending], Sodium Level 161*H, Potassium Level 4.6, Chloride Level 124H, Carbon Dioxide Level 25, Anion Gap 12, Blood Urea Nitrogen 66H, Creatinine 1.4H, Estimat Glomerular Filtration Rate 50.5, Glucose Level 263H, Calcium Level 9.4 Current Medications Medications (Trade) Dose Ordered Sig/Ramiro Route PRN Reason Start Time Stop Time Status Last Admin Dose Admin Acetaminophen (Tylenol) 650 mg Q4H PRN ORAL fever 09/30/16 07:15 10/30/16 07:14 10/09/16 10:03 Aspirin (ASA) 81 mg DAILY NG 10/03/16 09:00 11/02/16 08:59 10/10/16 09:48 Clonidine HCl (Catapres) 0.1 mg Q4H PRN ORAL For High Blood Pressure 09/30/16 06:49 10/30/16 06:48 Dextrose (Dextrose 50%) STAT PRN IV Hypoglycemia 09/30/16 06:50 10/30/16 06:49 Insulin Aspart (NovoLOG) No Dose Q6HR SUBQ 10/09/16 18:00 11/08/16 17:59 10/11/16 06:08 Lansoprazole 30 mg 30 mg DAILY GT 10/11/16 09:00 11/10/16 08:59 Meropenem/Sodium Chloride (Merrem/Sodium Chloride) 110 ml @ 220 mls/hr Q8HR IVPB 10/09/16 14:00 10/14/16 13:59 10/11/16 06:05 Metoclopramide HCl 5 mg 5 mg Q8H PRN IVP Nausea & Vomiting 10/04/16 08:45 11/03/16 08:44 Metoprolol Tartrate (Lopressor) 50 mg Q12HR ORAL 10/02/16 21:00 11/01/16 20:59 10/10/16 20:44 Nitroglycerin (Nitro-Bid) 1 inch TID@0600,1200,1800 TOPIC 10/03/16 06:00 11/02/16 05:59 10/11/16 06:05 Nitroglycerin (Ntg) 0.4 mg Every 5 Minutes PRN SL Prn Chest Pain 09/30/16 06:15 10/30/16 06:14 Ondansetron HCl (Zofran) 4 mg Q6H PRN IVP Nausea & Vomiting 09/30/16 06:51 10/30/16 06:50 Polyethylene Glycol (Miralax) 17 gm DAILYPRN PRN ORAL Constipation 09/30/16 06:51 10/30/16 06:50 10/07/16 21:15 Sodium Chloride (Sodium Chloride 1000ml bag) 1,000 ml @ 100 mls/hr Q10H IV 10/10/16 19:00 10/11/16 11:01 10/11/16 05:09 Rahul Lopez MD Oct 11, 2016 07:57
[2016-10-11] MEDS: Aspirin Baby 81mg NG SCH (08:50)
[2016-10-11] MEDS: Metoprolol 50mg tab ORAL SCH ×2 (08:51→20:30)
--- NOTE | 2016-10-11 09:14 | General Progress Note ---
Assessment/Plan Problem List: (1) Respiratory failure ICD Codes: J96.90 - Respiratory failure, unspecified, unspecified whether with hypoxia or hypercapnia SNOMED: 675051979 (2) COPD (chronic obstructive pulmonary disease) ICD Codes: J44.9 - Chronic obstructive pulmonary disease, unspecified SNOMED: 19769988 (3) Protein-calorie malnutrition, severe ICD Codes: E43 - Unspecified severe protein-calorie malnutrition SNOMED: 901078745 (4) NSTEMI (non-ST elevated myocardial infarction) ICD Codes: I21.4 - Non-ST elevation (NSTEMI) myocardial infarction SNOMED: 059360972 (5) Coffee ground emesis ICD Codes: K92.0 - Hematemesis SNOMED: 96754458, 450578637 (6) Sepsis ICD Codes: A41.9 - Sepsis, unspecified organism SNOMED: 95171008 Assessment/Plan ppi fu H&H prn blood transfusion patient not stable for GI procedures at this time may need PEG and trach Subjective ROS Limited/Unobtainable: No Allergies: Coded Allergies: No Known Allergies (Unverified , 09/22/14) Subjective elevated residuals Objective Last 24 Hour Vital Signs Date Time Temp Pulse Resp B/P Pulse Ox O2 Delivery O2 Flow Rate FiO2 10/11/16 08:51 102 117/79 10/11/16 08:00 99 10/11/16 08:00 50 10/11/16 08:00 98.2 100 22 117/79 98 Mechanical Ventilator 50 10/11/16 07:28 100 26 40 10/11/16 07:00 97 22 116/68 99 Mechanical Ventilator 50 10/11/16 06:05 108/72 10/11/16 06:00 96 22 107/72 99 Mechanical Ventilator 50 10/11/16 05:00 95 22 108/72 98 Mechanical Ventilator 50 10/11/16 04:51 94 23 40 10/11/16 04:00 93 10/11/16 04:00 98.0 95 23 108/67 99 Mechanical Ventilator 50 10/11/16 04:00 50 10/11/16 03:00 97 22 107/72 100 Mechanical Ventilator 50 10/11/16 02:57 98 25 40 10/11/16 02:00 96 22 105/70 99 Mechanical Ventilator 50 10/11/16 01:03 95 25 40 10/11/16 01:00 96 23 111/54 99 Mechanical Ventilator 50 10/11/16 00:00 98.5 94 24 95/60 100 Mechanical Ventilator 50 10/11/16 00:00 50 10/11/16 00:00 94 10/10/16 23:01 90 25 40 10/10/16 23:00 98 30 100/50 99 Mechanical Ventilator 50 10/10/16 22:00 93 24 98/55 98 Mechanical Ventilator 50 10/10/16 21:00 108 24 94/59 98 Mechanical Ventilator 50 10/10/16 20:51 109 27 40 10/10/16 20:44 110 96/50 10/10/16 20:00 98.7 109 22 96/50 99 Mechanical Ventilator 50 10/10/16 20:00 110 10/10/16 20:00 50 10/10/16 19:00 110 24 98/72 98 Mechanical Ventilator 50 10/10/16 18:57 111 25 40 10/10/16 18:50 99/65 10/10/16 18:00 110 24 99/65 98 Mechanical Ventilator 50 10/10/16 17:00 98.5 110 24 94/72 97 Mechanical Ventilator 50 10/10/16 16:57 108 28 40 10/10/16 16:00 109 10/10/16 16:00 50 10/10/16 16:00 113 24 111/75 97 Mechanical Ventilator 50 10/10/16 15:18 78 24 40 10/10/16 15:00 101 23 101/56 97 Mechanical Ventilator 50 10/10/16 14:00 101 24 106/61 96 Mechanical Ventilator 50 10/10/16 13:00 98 24 102/65 99 Mechanical Ventilator 50 10/10/16 12:57 101 26 40 10/10/16 12:14 101/72 10/10/16 12:00 50 10/10/16 12:00 96 10/10/16 12:00 98.6 95 27 101/71 99 Mechanical Ventilator 50 10/10/16 11:01 92 25 40 10/10/16 11:00 91 24 102/64 99 Mechanical Ventilator 50 10/10/16 10:00 113 26 102/69 99 Mechanical Ventilator 50 10/10/16 09:48 113 117/76 Intake and Output 10/10/16 10/11/16 19:00 07:00 Intake Total 1620 ml 2040 ml Output Total 1280 ml 1325 ml Balance 340 ml 715 ml Free Water 400 ml 200 ml IV Total 220 ml 1420 ml Tube Feeding 450 ml 420 ml Other 550 ml Output Urine Total 1280 ml 1325 ml # Bowel Movements 1 Laboratory Tests 10/11/16 04:45: White Blood Count 16.6H, Red Blood Count 3.16L, Hemoglobin 9.3L, Hematocrit 29.9L, Mean Corpuscular Volume 95, Mean Corpuscular Hemoglobin 29.4, Mean Corpuscular Hemoglobin Concent 31.1L, Red Cell Distribution Width 14.0, Platelet Count 274, Mean Platelet Volume 11.6H, Neutrophils (%) (Auto) , Lymphocytes (%) (Auto) , Monocytes (%) (Auto) , Eosinophils (%) (Auto) , Basophils (%) (Auto) , Neutrophils % (Manual) [Pending], Lymphocytes % (Manual) [Pending], Platelet Estimate [Pending], Platelet Morphology [Pending], Sodium Level 161*H, Potassium Level 4.6, Chloride Level 124H, Carbon Dioxide Level 25, Anion Gap 12, Blood Urea Nitrogen 66H, Creatinine 1.4H, Estimat Glomerular Filtration Rate 50.5, Glucose Level 263H, Calcium Level 9.4 Height (Feet): 6 Height (Inches): 1.00 Weight (Pounds): 128 General Appearance: lethargic EENT: normal ENT inspection Neck: supple Cardiovascular: normal rate Respiratory/Chest: decreased breath sounds Abdomen: normal bowel sounds, non tender, soft Extremities: non-tender AIMEE TELLEZ Oct 11, 2016 09:14
[2016-10-11 10:49] LABS: BAND NEUTROPHILS % (MANUAL) 2 % (0-8); BASOPHILS % (MANUAL) 0 % (0-2); EOSINOPHILS % (MANUAL) 0 % (0-3); HYPOCHROMASIA 1+; LYMPHOCYTES % (MANUAL) 6 % (20-45); NEUTROPHILS % (MANUAL) 87 % (45-75); PLATELET ESTIMATE ADEQUATE; PLATELET MORPHOLOGY NORMAL; TOTAL CELLS COUNTED 100
--- NOTE | 2016-10-11 11:32 | Nephrology Progress Note ---
Assessment/Plan Problem List: (1) Acute kidney injury superimposed on chronic kidney disease (2) Pneumonia (3) Severe sepsis (4) Hypernatremia (5) Acute myocardial infarction (6) Septicemia Assessment: bcx grew e. coli. Plan patient received NS prior to Ct with contrast study yesterday. continue water flush via NGT 200cc q6h. restart D5W at 50cc/hr. avoid fluid overload. monitor closely. d/w . Subjective Subjective remains intubated. obtunded. on NGT. Objective Objective Last 24 Hour Vital Signs Date Time Temp Pulse Resp B/P Pulse Ox O2 Delivery O2 Flow Rate FiO2 10/11/16 11:00 96 21 96/52 99 Mechanical Ventilator 50 10/11/16 10:45 95 25 40 10/11/16 10:00 91 20 96/60 98 Mechanical Ventilator 50 10/11/16 09:22 97 29 40 10/11/16 09:00 97 20 113/74 99 Mechanical Ventilator 50 10/11/16 08:51 102 117/79 10/11/16 08:00 99 10/11/16 08:00 50 10/11/16 08:00 98.2 100 22 117/79 98 Mechanical Ventilator 50 10/11/16 07:28 100 26 40 10/11/16 07:00 97 22 116/68 99 Mechanical Ventilator 50 10/11/16 06:05 108/72 10/11/16 06:00 96 22 107/72 99 Mechanical Ventilator 50 10/11/16 05:00 95 22 108/72 98 Mechanical Ventilator 50 10/11/16 04:51 94 23 40 10/11/16 04:00 93 10/11/16 04:00 98.0 95 23 108/67 99 Mechanical Ventilator 50 10/11/16 04:00 50 10/11/16 03:00 97 22 107/72 100 Mechanical Ventilator 50 10/11/16 02:57 98 25 40 10/11/16 02:00 96 22 105/70 99 Mechanical Ventilator 50 10/11/16 01:03 95 25 40 10/11/16 01:00 96 23 111/54 99 Mechanical Ventilator 50 10/11/16 00:00 98.5 94 24 95/60 100 Mechanical Ventilator 50 10/11/16 00:00 50 10/11/16 00:00 94 10/10/16 23:01 90 25 40 10/10/16 23:00 98 30 100/50 99 Mechanical Ventilator 50 10/10/16 22:00 93 24 98/55 98 Mechanical Ventilator 50 10/10/16 21:00 108 24 94/59 98 Mechanical Ventilator 50 10/10/16 20:51 109 27 40 10/10/16 20:44 110 96/50 10/10/16 20:00 98.7 109 22 96/50 99 Mechanical Ventilator 50 10/10/16 20:00 110 10/10/16 20:00 50 10/10/16 19:00 110 24 98/72 98 Mechanical Ventilator 50 10/10/16 18:57 111 25 40 10/10/16 18:50 99/65 10/10/16 18:00 110 24 99/65 98 Mechanical Ventilator 50 10/10/16 17:00 98.5 110 24 94/72 97 Mechanical Ventilator 50 10/10/16 16:57 108 28 40 10/10/16 16:00 109 10/10/16 16:00 50 10/10/16 16:00 113 24 111/75 97 Mechanical Ventilator 50 10/10/16 15:18 78 24 40 10/10/16 15:00 101 23 101/56 97 Mechanical Ventilator 50 10/10/16 14:00 101 24 106/61 96 Mechanical Ventilator 50 10/10/16 13:00 98 24 102/65 99 Mechanical Ventilator 50 10/10/16 12:57 101 26 40 10/10/16 12:14 101/72 10/10/16 12:00 50 10/10/16 12:00 96 10/10/16 12:00 98.6 95 27 101/71 99 Mechanical Ventilator 50 Intake and Output 10/10/16 10/11/16 19:00 07:00 Intake Total 1620 ml 2040 ml Output Total 1280 ml 1325 ml Balance 340 ml 715 ml Free Water 400 ml 200 ml IV Total 220 ml 1420 ml Tube Feeding 450 ml 420 ml Other 550 ml Output Urine Total 1280 ml 1325 ml # Bowel Movements 1 Laboratory Tests 10/11/16 04:45: White Blood Count 16.6H, Red Blood Count 3.16L, Hemoglobin 9.3L, Hematocrit 29.9L, Mean Corpuscular Volume 95, Mean Corpuscular Hemoglobin 29.4, Mean Corpuscular Hemoglobin Concent 31.1L, Red Cell Distribution Width 14.0, Platelet Count 274, Mean Platelet Volume 11.6H, Neutrophils (%) (Auto) , Lymphocytes (%) (Auto) , Monocytes (%) (Auto) , Eosinophils (%) (Auto) , Basophils (%) (Auto) , Differential Total Cells Counted 100, Neutrophils % ( Manual) 87H, Lymphocytes % (Manual) 6L, Monocytes % (Manual) 5, Eosinophils % ( Manual) 0, Basophils % (Manual) 0, Band Neutrophils 2, Platelet Estimate Adequate, Platelet Morphology Normal, Hypochromasia 1+, Sodium Level 161*H, Potassium Level 4.6, Chloride Level 124H, Carbon Dioxide Level 25, Anion Gap 12 , Blood Urea Nitrogen 66H, Creatinine 1.4H, Estimat Glomerular Filtration Rate 50.5, Glucose Level 263H, Calcium Level 9.4 Height (Feet): 6 Height (Inches): 1.00 Weight (Pounds): 128 General Appearance: no apparent distress, thin Cardiovascular: normal rate, regular rhythm Respiratory/Chest: lungs clear Abdomen: non tender, soft Extremities: non-pitting Neurologic: unresponsive AVE HAYS Oct 11, 2016 11:32
[2016-10-11] MEDS ORDERED: NS 275ml ONE (16:17)
--- NOTE | 2016-10-11 17:21 | Infectious Diseases Prog Note ---
Assessment/Plan Assessment/Plan A: 74 yold M w E coli bacteremia - repeat BCx(-) UTI , SP Rx Pneumonia CT a/p with IV contrast , : Mixed interstitial/alveolar bilateral lower lobe infiltrate suspicious for pneumonia., no abscess Negative HIV Severe sepsis - improved lactic acidosis Fevers, low grade - Leukocytosis - increased Acute VDRF - intubated 09/29 NSTEMI - troponin downtrending - EF 35-40% AAA 4cm with mural thrombus ARF - improving Hypernatremia - improved Elevated LFTs TCP NKDA Full Code PLAN: start IV Merrem d# 3 / 5- may stop AB Rx soon SP IV zosyn day # 14 ( 09/28 SP IV vancomycin D#2 ) monitor CBC, temperatures monitor BMP vent support, wean as tolerated PEG and trach possible in LTAC Subjective Constitutional: Denies: anorexia, chills, drenching sweats, fatigue, fever, no symptoms, other Allergies: Coded Allergies: No Known Allergies (Unverified , 09/22/14) Subjective low grade fever Objective Vital Signs Last 24 Hour Vital Signs Date Time Temp Pulse Resp B/P Pulse Ox O2 Delivery O2 Flow Rate FiO2 10/11/16 16:00 98.9 102 25 103/70 98 Mechanical Ventilator 50 10/11/16 16:00 97 10/11/16 16:00 50 10/11/16 15:00 100 24 120/71 99 Mechanical Ventilator 50 10/11/16 14:56 97 22 40 10/11/16 14:00 96 24 107/65 98 Mechanical Ventilator 50 10/11/16 13:03 98 24 40 10/11/16 13:00 99 23 112/78 98 Mechanical Ventilator 50 10/11/16 12:03 111/70 10/11/16 12:00 50 10/11/16 12:00 98 10/11/16 12:00 98.9 96 25 118/73 99 Mechanical Ventilator 50 10/11/16 11:00 96 21 96/52 99 Mechanical Ventilator 50 10/11/16 10:45 95 25 40 10/11/16 10:00 91 20 96/60 98 Mechanical Ventilator 50 10/11/16 09:22 97 29 40 10/11/16 09:00 97 20 113/74 99 Mechanical Ventilator 50 10/11/16 08:51 102 117/79 10/11/16 08:00 99 10/11/16 08:00 50 10/11/16 08:00 98.2 100 22 117/79 98 Mechanical Ventilator 50 10/11/16 07:28 100 26 40 10/11/16 07:00 97 22 116/68 99 Mechanical Ventilator 50 10/11/16 06:05 108/72 10/11/16 06:00 96 22 107/72 99 Mechanical Ventilator 50 10/11/16 05:00 95 22 108/72 98 Mechanical Ventilator 50 10/11/16 04:51 94 23 40 10/11/16 04:00 93 10/11/16 04:00 98.0 95 23 108/67 99 Mechanical Ventilator 50 10/11/16 04:00 50 10/11/16 03:00 97 22 107/72 100 Mechanical Ventilator 50 10/11/16 02:57 98 25 40 10/11/16 02:00 96 22 105/70 99 Mechanical Ventilator 50 10/11/16 01:03 95 25 40 10/11/16 01:00 96 23 111/54 99 Mechanical Ventilator 50 10/11/16 00:00 98.5 94 24 95/60 100 Mechanical Ventilator 50 10/11/16 00:00 50 10/11/16 00:00 94 10/10/16 23:01 90 25 40 10/10/16 23:00 98 30 100/50 99 Mechanical Ventilator 50 10/10/16 22:00 93 24 98/55 98 Mechanical Ventilator 50 10/10/16 21:00 108 24 94/59 98 Mechanical Ventilator 50 10/10/16 20:51 109 27 40 10/10/16 20:44 110 96/50 10/10/16 20:00 98.7 109 22 96/50 99 Mechanical Ventilator 50 10/10/16 20:00 110 10/10/16 20:00 50 10/10/16 19:00 110 24 98/72 98 Mechanical Ventilator 50 10/10/16 18:57 111 25 40 10/10/16 18:50 99/65 10/10/16 18:00 110 24 99/65 98 Mechanical Ventilator 50 Height (Feet): 6 Height (Inches): 1.00 Weight (Pounds): 128 HEENT: anicteric Respiratory/Chest: normal breath sounds Cardiovascular: no gallop/murmur Abdomen: non distended Laboratory Tests Test 10/11/16 04:45 White Blood Count 16.6 K/UL (4.8-10.8) H Red Blood Count 3.16 M/UL (4.70-6.10) L Hemoglobin 9.3 G/DL (14.2-18.0) L Hematocrit 29.9 % (42.0-52.0) L Mean Corpuscular Volume 95 FL (80-99) Mean Corpuscular Hemoglobin 29.4 PG (27.0-31.0) Mean Corpuscular Hemoglobin Concent 31.1 G/DL (32.0-36.0) L Red Cell Distribution Width 14.0 % (11.6-14.8) Platelet Count 274 K/UL (150-450) Mean Platelet Volume 11.6 FL (6.5-10.1) H Neutrophils (%) (Auto) % (45.0-75.0) Lymphocytes (%) (Auto) % (20.0-45.0) Monocytes (%) (Auto) % (1.0-10.0) Eosinophils (%) (Auto) % (0.0-3.0) Basophils (%) (Auto) % (0.0-2.0) Differential Total Cells Counted 100 Neutrophils % (Manual) 87 % (45-75) H Lymphocytes % (Manual) 6 % (20-45) L Monocytes % (Manual) 5 % (1-10) Eosinophils % (Manual) 0 % (0-3) Basophils % (Manual) 0 % (0-2) Band Neutrophils 2 % (0-8) Platelet Estimate Adequate Platelet Morphology Normal Hypochromasia 1+ Sodium Level 161 mEQ/L (135-145) *H Potassium Level 4.6 mEQ/L (3.4-4.9) Chloride Level 124 mEQ/L (98-107) H Carbon Dioxide Level 25 mEQ/L (20-30) Anion Gap 12 (5-15) Blood Urea Nitrogen 66 mg/dL (7-23) H Creatinine 1.4 mg/dL (0.7-1.2) H Estimat Glomerular Filtration Rate 50.5 mL/min (>60) Glucose Level 263 mg/dL (74-106) H Calcium Level 9.4 mg/dL (8.6-10.2) Current Medications Medications (Trade) Dose Ordered Sig/Ramiro Route PRN Reason Start Time Stop Time Status Last Admin Dose Admin Acetaminophen (Tylenol) 650 mg Q4H PRN ORAL fever 09/30/16 07:15 10/30/16 07:14 10/09/16 10:03 Aspirin (ASA) 81 mg DAILY NG 10/03/16 09:00 11/02/16 08:59 10/11/16 08:50 Clonidine HCl (Catapres) 0.1 mg Q4H PRN ORAL For High Blood Pressure 09/30/16 06:49 10/30/16 06:48 Dextrose (D5W 1000ml) 1,000 ml @ 50 mls/hr Q20H IV 10/11/16 12:00 11/10/16 11:59 10/11/16 12:06 Dextrose (Dextrose 50%) STAT PRN IV Hypoglycemia 09/30/16 06:50 10/30/16 06:49 Insulin Aspart (NovoLOG) No Dose Q6HR SUBQ 10/09/16 18:00 11/08/16 17:59 10/11/16 12:05 Lansoprazole 30 mg 30 mg DAILY GT 10/11/16 09:00 11/10/16 08:59 10/11/16 08:50 Meropenem/Sodium Chloride (Merrem/Sodium Chloride) 110 ml @ 220 mls/hr Q8HR IVPB 10/09/16 14:00 10/14/16 13:59 10/11/16 13:44 Metoclopramide HCl 5 mg 5 mg Q8H PRN IVP Nausea & Vomiting 10/04/16 08:45 11/03/16 08:44 Metoprolol Tartrate (Lopressor) 50 mg Q12HR ORAL 10/02/16 21:00 11/01/16 20:59 10/11/16 08:51 Nitroglycerin (Nitro-Bid) 1 inch TID@0600,1200,1800 TOPIC 10/03/16 06:00 11/02/16 05:59 10/11/16 12:03 Nitroglycerin (Ntg) 0.4 mg Every 5 Minutes PRN SL Prn Chest Pain 09/30/16 06:15 10/30/16 06:14 Ondansetron HCl (Zofran) 4 mg Q6H PRN IVP Nausea & Vomiting 09/30/16 06:51 10/30/16 06:50 Polyethylene Glycol (Miralax) 17 gm DAILYPRN PRN ORAL Constipation 09/30/16 06:51 10/30/16 06:50 10/07/16 21:15 RADHA VARELA M.D. Oct 11, 2016 17:21
--- NOTE | 2016-10-11 18:25 | General Progress Note ---
Assessment/Plan Status: unchanged Assessment/Plan Delirium -cont current meds -recommend low dose antipsychotics Subjective Allergies: Coded Allergies: No Known Allergies (Unverified , 09/22/14) Subjective intubated, critical, unresponsivepatient remains on ventilator support Objective Last 24 Hour Vital Signs Date Time Temp Pulse Resp B/P Pulse Ox O2 Delivery O2 Flow Rate FiO2 10/11/16 18:00 102 24 120/74 100 Mechanical Ventilator 50 10/11/16 17:29 100 26 40 10/11/16 17:21 118/79 10/11/16 17:00 98 24 118/79 100 Mechanical Ventilator 50 10/11/16 16:00 98.9 102 25 103/70 98 Mechanical Ventilator 50 10/11/16 16:00 97 10/11/16 16:00 50 10/11/16 15:00 100 24 120/71 99 Mechanical Ventilator 50 10/11/16 14:56 97 22 40 10/11/16 14:00 96 24 107/65 98 Mechanical Ventilator 50 10/11/16 13:03 98 24 40 10/11/16 13:00 99 23 112/78 98 Mechanical Ventilator 50 10/11/16 12:03 111/70 10/11/16 12:00 50 10/11/16 12:00 98 10/11/16 12:00 98.9 96 25 118/73 99 Mechanical Ventilator 50 10/11/16 11:00 96 21 96/52 99 Mechanical Ventilator 50 10/11/16 10:45 95 25 40 10/11/16 10:00 91 20 96/60 98 Mechanical Ventilator 50 10/11/16 09:22 97 29 40 10/11/16 09:00 97 20 113/74 99 Mechanical Ventilator 50 10/11/16 08:51 102 117/79 10/11/16 08:00 99 10/11/16 08:00 50 10/11/16 08:00 98.2 100 22 117/79 98 Mechanical Ventilator 50 10/11/16 07:28 100 26 40 10/11/16 07:00 97 22 116/68 99 Mechanical Ventilator 50 10/11/16 06:05 108/72 10/11/16 06:00 96 22 107/72 99 Mechanical Ventilator 50 10/11/16 05:00 95 22 108/72 98 Mechanical Ventilator 50 10/11/16 04:51 94 23 40 10/11/16 04:00 93 10/11/16 04:00 98.0 95 23 108/67 99 Mechanical Ventilator 50 10/11/16 04:00 50 10/11/16 03:00 97 22 107/72 100 Mechanical Ventilator 50 10/11/16 02:57 98 25 40 10/11/16 02:00 96 22 105/70 99 Mechanical Ventilator 50 10/11/16 01:03 95 25 40 10/11/16 01:00 96 23 111/54 99 Mechanical Ventilator 50 10/11/16 00:00 98.5 94 24 95/60 100 Mechanical Ventilator 50 10/11/16 00:00 50 10/11/16 00:00 94 10/10/16 23:01 90 25 40 10/10/16 23:00 98 30 100/50 99 Mechanical Ventilator 50 10/10/16 22:00 93 24 98/55 98 Mechanical Ventilator 50 10/10/16 21:00 108 24 94/59 98 Mechanical Ventilator 50 10/10/16 20:51 109 27 40 10/10/16 20:44 110 96/50 10/10/16 20:00 98.7 109 22 96/50 99 Mechanical Ventilator 50 10/10/16 20:00 110 10/10/16 20:00 50 10/10/16 19:00 110 24 98/72 98 Mechanical Ventilator 50 10/10/16 18:57 111 25 40 10/10/16 18:50 99/65 Intake and Output 10/10/16 10/11/16 19:00 07:00 Intake Total 1620 ml 2040 ml Output Total 1280 ml 1325 ml Balance 340 ml 715 ml Free Water 400 ml 200 ml IV Total 220 ml 1420 ml Tube Feeding 450 ml 420 ml Other 550 ml Output Urine Total 1280 ml 1325 ml # Bowel Movements 1 Laboratory Tests 10/11/16 04:45: White Blood Count 16.6H, Red Blood Count 3.16L, Hemoglobin 9.3L, Hematocrit 29.9L, Mean Corpuscular Volume 95, Mean Corpuscular Hemoglobin 29.4, Mean Corpuscular Hemoglobin Concent 31.1L, Red Cell Distribution Width 14.0, Platelet Count 274, Mean Platelet Volume 11.6H, Neutrophils (%) (Auto) , Lymphocytes (%) (Auto) , Monocytes (%) (Auto) , Eosinophils (%) (Auto) , Basophils (%) (Auto) , Differential Total Cells Counted 100, Neutrophils % ( Manual) 87H, Lymphocytes % (Manual) 6L, Monocytes % (Manual) 5, Eosinophils % ( Manual) 0, Basophils % (Manual) 0, Band Neutrophils 2, Platelet Estimate Adequate, Platelet Morphology Normal, Hypochromasia 1+, Sodium Level 161*H, Potassium Level 4.6, Chloride Level 124H, Carbon Dioxide Level 25, Anion Gap 12 , Blood Urea Nitrogen 66H, Creatinine 1.4H, Estimat Glomerular Filtration Rate 50.5, Glucose Level 263H, Calcium Level 9.4 Height (Feet): 6 Height (Inches): 1.00 Weight (Pounds): 128 General Appearance: no apparent distress, lethargic Neurologic: unresponsive Elda Hernandez M.D. Oct 11, 2016 18:25
[2016-10-11] MEDS ORDERED: Levemir Flexpen SUBQ SCH (22:15)
--- NOTE | 2016-10-11 23:15 | Progress Note ---
DATE: 10/10/2016 LATER ENTRY CARDIOLOGY PROGRESS NOTE: SUBJECTIVE: The patient was seen and evaluated. Case discussed with Dr. Lopez. The patient remains on ventilator support. OBJECTIVE: VITAL SIGNS: Blood pressure is 121/75, earlier 192/62, heart rate 105 to 120, and respiratory 20 to 30. He is not febrile. GENERAL: Unresponsive. LUNGS: Bilateral breath sounds. HEART: Regular rhythm. Rapid rate. Normal S1 and S2. ABDOMEN: Soft. EXTREMITIES: Trace edema. LABORATORY DATA: White count is 15.9 and hemoglobin 10.5. Sodium is 151, potassium 4.7, bicarbonate 26, BUN 49, and creatinine 1.4. IMPRESSION: 1. Worsening dehydration and hypernatremia. 2. Again acute myocardial infarction. 3. Acute cerebrovascular accident. 4. Respiratory failure. 5. Acute renal failure. PLAN: 1. Continue hypotonic IV fluids. 2. Antimicrobials. 3. Ventilator support. 4. Antiplatelet therapy. 5. Beta-osiel and nitrate. 6. Prognosis remains very poor. 7. Would not recommend extubation at this time, likely need trach. Donald Baldwin M.D. DR: Verito JOB#: [id number] CC:
--- NOTE | 2016-10-11 23:15 | Progress Note ---
DATE: 10/11/2016 CARDIOLOGY PROGRESS NOTE SUBJECTIVE: Condition remains critical. Prognosis guarded. The patient is in the intensive care unit. Orally intubated. OBJECTIVE: VITAL SIGNS: Blood pressure 116/68, pulse 97, respiratory rate 22, no fevers. GENERL: Unresponsive, orally intubated. LUNGS: Bilateral breath sounds. HEART: Regular rhythm and rate. Normal S1, S2. ABDOMEN: Soft. No edema. LABORATORY DATA: Sodium 161, potassium 4.3, chloride 124, bicarbonate 25, BUN 66, and creatinine 1.4. IMPRESSION: 1. Respiratory failure. 2. Metabolic and toxic encephalopathy. 3. Sepsis, recovered shock. 4. Dehydration and hypernatremia. 5. Hyperchloremia. 6. Acute on chronic renal failure, progressive worsening. 7. Acute cerebrovascular accident, remains critical and guarded. PLAN: 1. Increase hydration with hypotonic fluids. 2. Insulin coverage. 3. Continue aspirin, nitrates, and beta-osiel. 4. Not stable for weaning. 5. We would not treat with any antipsychotics at this time as the patient is unresponsive and has multiple electrolyte abnormalities. Mari Baumann JOB#: [id number] CC:
[2016-10-12] VITALS (21 sets, daily range): BP systolic 103–128; BP diastolic 56–83
[2016-10-12 05:06] LABS: MEAN CORPUSCULAR HEMOGLOBIN 28.8 PG (27.0-31.0); MEAN CORPUSCULAR VOLUME 96 FL (80-99); MEAN PLATELET VOLUME 10.5 FL (6.5-10.1); PLATELET COUNT 254 K/UL (150-450); RED BLOOD COUNT 3.09 M/UL (4.70-6.10); RED CELL DISTRIBUTION WIDTH 13.8 % (11.6-14.8); WHITE BLOOD COUNT 13.2 K/UL (4.8-10.8)
[2016-10-12 05:26] LABS: CALCIUM 9.7 mg/dL (8.6-10.2); CARBON DIOXIDE 27 mEQ/L (20-30); CHLORIDE 128 mEQ/L (98-107); CREATININE 1.1 mg/dL (0.7-1.2); GLOMERULAR FILTRATION RATE > 60 mL/min (>60); HEMOLYSIS 0; POTASSIUM 3.9 mEQ/L (3.4-4.9)
[2016-10-12] MEDS: Meropenem 1 GM in NS 110 ML IVPB SCH ×2 (05:31→13:57)
[2016-10-12] MEDS: Nitroglycerin 2% oint pkt TOPIC SCH ×3 (05:31→17:56)
[2016-10-12 05:44] LABS: ANION GAP 11 (5-15)
[2016-10-12 05:50] LABS: SODIUM 166 mEQ/L (135-145)
[2016-10-12] MEDS: Insulin NovoLOG Flexpen S/S (Ins resistant) SUBQ SCH ×3 (05:50→17:57)
[2016-10-12] MEDS: Aspirin Baby 81mg NG SCH (08:58)
[2016-10-12] MEDS: Metoprolol 50mg tab ORAL SCH (08:58)
--- NOTE | 2016-10-12 09:26 | Infectious Diseases Prog Note ---
Assessment/Plan Assessment/Plan A: E.colisepsis UTI Pneumonia VDRF Non ST PA AAA P: Continue Meropenem Subjective ROS Limited/Unobtainable: Yes Allergies: Coded Allergies: No Known Allergies (Unverified , 09/22/14) Objective Vital Signs Last 24 Hour Vital Signs Date Time Temp Pulse Resp B/P Pulse Ox O2 Delivery O2 Flow Rate FiO2 10/12/16 09:12 101 33 40 10/12/16 09:00 97 20 122/68 100 Mechanical Ventilator 50 10/12/16 08:58 98 113/67 10/12/16 08:00 50 10/12/16 08:00 98.7 96 25 113/67 98 Mechanical Ventilator 50 10/12/16 08:00 98 10/12/16 07:00 98 20 125/66 100 Mechanical Ventilator 50 10/12/16 06:49 98 32 40 10/12/16 06:00 96 28 112/70 100 Mechanical Ventilator 50 10/12/16 05:31 118/63 10/12/16 05:24 95 29 40 10/12/16 05:00 93 19 118/63 100 Mechanical Ventilator 50 10/12/16 04:00 98.3 97 26 117/70 100 Mechanical Ventilator 50 10/12/16 04:00 50 10/12/16 04:00 96 10/12/16 03:11 98 24 40 10/12/16 03:00 98 32 109/58 100 Mechanical Ventilator 50 10/12/16 02:00 95 27 110/58 100 Mechanical Ventilator 50 10/12/16 01:30 92 18 40 10/12/16 01:00 95 25 103/60 100 Mechanical Ventilator 50 10/12/16 00:10 50 10/12/16 00:00 94 10/12/16 00:00 98.4 94 26 111/63 99 Mechanical Ventilator 50 10/11/16 23:10 90 28 40 10/11/16 23:00 88 23 97/65 100 Mechanical Ventilator 50 10/11/16 22:00 85 26 105/63 99 Mechanical Ventilator 50 10/11/16 21:20 89 28 40 10/11/16 21:00 92 27 115/69 99 Mechanical Ventilator 50 10/11/16 20:30 103 116/75 10/11/16 20:00 50 10/11/16 20:00 97.6 102 26 116/75 99 Mechanical Ventilator 50 10/11/16 20:00 97 10/11/16 19:25 101 25 40 10/11/16 19:00 98 25 126/84 99 Mechanical Ventilator 50 10/11/16 18:00 102 24 120/74 100 Mechanical Ventilator 50 10/11/16 17:29 100 26 40 10/11/16 17:21 118/79 10/11/16 17:00 98 24 118/79 100 Mechanical Ventilator 50 10/11/16 16:00 98.9 102 25 103/70 98 Mechanical Ventilator 50 10/11/16 16:00 97 10/11/16 16:00 50 10/11/16 15:00 100 24 120/71 99 Mechanical Ventilator 50 10/11/16 14:56 97 22 40 10/11/16 14:00 96 24 107/65 98 Mechanical Ventilator 50 10/11/16 13:03 98 24 40 10/11/16 13:00 99 23 112/78 98 Mechanical Ventilator 50 10/11/16 12:03 111/70 10/11/16 12:00 50 10/11/16 12:00 98 10/11/16 12:00 98.9 96 25 118/73 99 Mechanical Ventilator 50 10/11/16 11:00 96 21 96/52 99 Mechanical Ventilator 50 10/11/16 10:45 95 25 40 10/11/16 10:00 91 20 96/60 98 Mechanical Ventilator 50 Height (Feet): 6 Height (Inches): 1.00 Weight (Pounds): 130 HEENT: other - orally intubated Respiratory/Chest: rhonchi - bilaterally, other - on ventilator Cardiovascular: tachycardia Abdomen: soft, non tender, other - NG tube feeding Extremities: no edema Neurologic/Psychiatric: unresponsiveness Laboratory Tests Test 10/12/16 03:50 10/12/16 04:30 Urine Random Sodium 22 mmol/L White Blood Count 13.2 K/UL (4.8-10.8) H Red Blood Count 3.09 M/UL (4.70-6.10) L Hemoglobin 8.9 G/DL (14.2-18.0) L Hematocrit 29.6 % (42.0-52.0) L Mean Corpuscular Volume 96 FL (80-99) Mean Corpuscular Hemoglobin 28.8 PG (27.0-31.0) Mean Corpuscular Hemoglobin Concent 30.0 G/DL (32.0-36.0) L Red Cell Distribution Width 13.8 % (11.6-14.8) Platelet Count 254 K/UL (150-450) Mean Platelet Volume 10.5 FL (6.5-10.1) H Neutrophils (%) (Auto) % (45.0-75.0) Lymphocytes (%) (Auto) % (20.0-45.0) Monocytes (%) (Auto) % (1.0-10.0) Eosinophils (%) (Auto) % (0.0-3.0) Basophils (%) (Auto) % (0.0-2.0) Sodium Level 166 mEQ/L (135-145) *H Potassium Level 3.9 mEQ/L (3.4-4.9) Chloride Level 128 mEQ/L (98-107) H Carbon Dioxide Level 27 mEQ/L (20-30) Anion Gap 11 (5-15) Blood Urea Nitrogen 54 mg/dL (7-23) H Creatinine 1.1 mg/dL (0.7-1.2) Estimat Glomerular Filtration Rate > 60 mL/min (>60) Glucose Level 173 mg/dL (74-106) H Calcium Level 9.7 mg/dL (8.6-10.2) Pro-B-Type Natriuretic Peptide 2279 pg/mL (0-125) H Current Medications Medications (Trade) Dose Ordered Sig/Ramiro Route PRN Reason Start Time Stop Time Status Last Admin Dose Admin Acetaminophen (Tylenol) 650 mg Q4H PRN ORAL fever 09/30/16 07:15 10/30/16 07:14 10/09/16 10:03 Aspirin (ASA) 81 mg DAILY NG 10/03/16 09:00 11/02/16 08:59 10/12/16 08:58 Clonidine HCl (Catapres) 0.1 mg Q4H PRN ORAL For High Blood Pressure 09/30/16 06:49 10/30/16 06:48 Dextrose (D5W 1000ml) 1,000 ml @ 125 mls/hr Q8H IV 10/12/16 01:15 11/11/16 01:14 10/12/16 09:05 Dextrose (Dextrose 50%) STAT PRN IV Hypoglycemia 09/30/16 06:50 10/30/16 06:49 Insulin Aspart (NovoLOG) No Dose Q6HR SUBQ 10/09/16 18:00 11/08/16 17:59 10/12/16 05:50 Insulin Detemir 10 units 10 units BEDTIME SUBQ 10/11/16 22:15 11/10/16 22:14 10/11/16 23:43 Lansoprazole (Prevacid) 30 mg DAILY GT 10/11/16 09:00 11/10/16 08:59 10/12/16 08:58 Meropenem/Sodium Chloride (Merrem/Sodium Chloride) 110 ml @ 220 mls/hr Q8HR IVPB 10/09/16 14:00 10/14/16 13:59 10/12/16 05:31 Metoclopramide HCl 5 mg 5 mg Q8H PRN IVP Nausea & Vomiting 10/04/16 08:45 11/03/16 08:44 Metoprolol Tartrate (Lopressor) 50 mg Q12HR ORAL 10/02/16 21:00 11/01/16 20:59 10/12/16 08:58 Nitroglycerin (Nitro-Bid) 1 inch TID@0600,1200,1800 TOPIC 10/03/16 06:00 11/02/16 05:59 10/12/16 05:31 Nitroglycerin (Ntg) 0.4 mg Every 5 Minutes PRN SL Prn Chest Pain 09/30/16 06:15 10/30/16 06:14 Ondansetron HCl (Zofran) 4 mg Q6H PRN IVP Nausea & Vomiting 09/30/16 06:51 10/30/16 06:50 Polyethylene Glycol (Miralax) 17 gm DAILYPRN PRN ORAL Constipation 09/30/16 06:51 10/30/16 06:50 10/07/16 21:15 ZENON VALENTINE Oct 12, 2016 09:26
--- NOTE | 2016-10-12 10:37 | General Progress Note ---
Assessment/Plan Problem List: (1) Respiratory failure ICD Codes: J96.90 - Respiratory failure, unspecified, unspecified whether with hypoxia or hypercapnia SNOMED: 928629012 (2) COPD (chronic obstructive pulmonary disease) ICD Codes: J44.9 - Chronic obstructive pulmonary disease, unspecified SNOMED: 77059567 (3) Protein-calorie malnutrition, severe ICD Codes: E43 - Unspecified severe protein-calorie malnutrition SNOMED: 686419147 (4) NSTEMI (non-ST elevated myocardial infarction) ICD Codes: I21.4 - Non-ST elevation (NSTEMI) myocardial infarction SNOMED: 527023893 (5) Coffee ground emesis ICD Codes: K92.0 - Hematemesis SNOMED: 00300305, 509614756 (6) Sepsis ICD Codes: A41.9 - Sepsis, unspecified organism SNOMED: 84376475 Assessment/Plan ppi fu H&H prn blood transfusion patient not stable for GI procedures at this time may need PEG and trach Subjective ROS Limited/Unobtainable: No Allergies: Coded Allergies: No Known Allergies (Unverified , 09/22/14) Subjective elevated residuals Objective Last 24 Hour Vital Signs Date Time Temp Pulse Resp B/P Pulse Ox O2 Delivery O2 Flow Rate FiO2 10/12/16 10:00 87 24 103/64 100 Mechanical Ventilator 50 10/12/16 09:12 101 33 40 10/12/16 09:00 97 20 122/68 100 Mechanical Ventilator 50 10/12/16 08:58 98 113/67 10/12/16 08:00 50 10/12/16 08:00 98.7 96 25 113/67 98 Mechanical Ventilator 50 10/12/16 08:00 98 10/12/16 07:00 98 20 125/66 100 Mechanical Ventilator 50 10/12/16 06:49 98 32 40 10/12/16 06:00 96 28 112/70 100 Mechanical Ventilator 50 10/12/16 05:31 118/63 10/12/16 05:24 95 29 40 10/12/16 05:00 93 19 118/63 100 Mechanical Ventilator 50 10/12/16 04:00 98.3 97 26 117/70 100 Mechanical Ventilator 50 10/12/16 04:00 50 10/12/16 04:00 96 10/12/16 03:11 98 24 40 10/12/16 03:00 98 32 109/58 100 Mechanical Ventilator 50 10/12/16 02:00 95 27 110/58 100 Mechanical Ventilator 50 10/12/16 01:30 92 18 40 10/12/16 01:00 95 25 103/60 100 Mechanical Ventilator 50 10/12/16 00:10 50 10/12/16 00:00 94 10/12/16 00:00 98.4 94 26 111/63 99 Mechanical Ventilator 50 10/11/16 23:10 90 28 40 10/11/16 23:00 88 23 97/65 100 Mechanical Ventilator 50 10/11/16 22:00 85 26 105/63 99 Mechanical Ventilator 50 10/11/16 21:20 89 28 40 10/11/16 21:00 92 27 115/69 99 Mechanical Ventilator 50 10/11/16 20:30 103 116/75 10/11/16 20:00 50 10/11/16 20:00 97.6 102 26 116/75 99 Mechanical Ventilator 50 10/11/16 20:00 97 10/11/16 19:25 101 25 40 10/11/16 19:00 98 25 126/84 99 Mechanical Ventilator 50 10/11/16 18:00 102 24 120/74 100 Mechanical Ventilator 50 10/11/16 17:29 100 26 40 10/11/16 17:21 118/79 10/11/16 17:00 98 24 118/79 100 Mechanical Ventilator 50 10/11/16 16:00 98.9 102 25 103/70 98 Mechanical Ventilator 50 10/11/16 16:00 97 10/11/16 16:00 50 10/11/16 15:00 100 24 120/71 99 Mechanical Ventilator 50 10/11/16 14:56 97 22 40 10/11/16 14:00 96 24 107/65 98 Mechanical Ventilator 50 10/11/16 13:03 98 24 40 10/11/16 13:00 99 23 112/78 98 Mechanical Ventilator 50 10/11/16 12:03 111/70 10/11/16 12:00 50 10/11/16 12:00 98 10/11/16 12:00 98.9 96 25 118/73 99 Mechanical Ventilator 50 10/11/16 11:00 96 21 96/52 99 Mechanical Ventilator 50 10/11/16 10:45 95 25 40 Intake and Output 10/11/16 10/12/16 19:00 07:00 Intake Total 1360 ml 1840 ml Output Total 1700 ml 1545 ml Balance -340 ml 295 ml Free Water 300 ml 500 ml IV Total 860 ml 1060 ml Tube Feeding 100 ml 280 ml Other 100 ml Output Urine Total 1700 ml 1545 ml # Bowel Movements 2 3 Laboratory Tests 10/12/16 03:50: Urine Random Sodium 22 10/12/16 04:30: White Blood Count 13.2H, Red Blood Count 3.09L, Hemoglobin 8.9L, Hematocrit 29.6L, Mean Corpuscular Volume 96, Mean Corpuscular Hemoglobin 28.8, Mean Corpuscular Hemoglobin Concent 30.0L, Red Cell Distribution Width 13.8, Platelet Count 254, Mean Platelet Volume 10.5H, Neutrophils (%) (Auto) , Lymphocytes (%) (Auto) , Monocytes (%) (Auto) , Eosinophils (%) (Auto) , Basophils (%) (Auto) , Sodium Level 166*H, Potassium Level 3.9, Chloride Level 128H, Carbon Dioxide Level 27, Anion Gap 11, Blood Urea Nitrogen 54H, Creatinine 1.1, Estimat Glomerular Filtration Rate > 60, Glucose Level 173H, Calcium Level 9.7, Pro-B-Type Natriuretic Peptide 2279H Height (Feet): 6 Height (Inches): 1.00 Weight (Pounds): 130 General Appearance: no apparent distress EENT: normal ENT inspection Neck: supple Cardiovascular: normal rate Respiratory/Chest: decreased breath sounds Abdomen: normal bowel sounds, non tender, soft Extremities: non-tender AIMEE TELLEZ Oct 12, 2016 10:37
--- NOTE | 2016-10-12 10:44 | Pulmonology Progress Note ---
Assessment/Plan Assessment/Plan 1. Sepsis. 2. Respiratory failure. 3. Acute myocardial infarction. 4. Metabolic and toxic encephalopathy. 5. Severe dehydration. Resolved 6. Severe hypernatremia.Recurrent 7. Metabolic acidosis. Resolved 8. Acute renal failure. Resolved 9. Severe protein-calorie malnutrition. 10. Acute frontal CVA seen on CT head PLAN: Back on IV fluid hydration. Monitor for recurring gastrointestinal bleeding. On beta-blockade. Antimicrobials and ventilator support. Condition remains critical and prognosis is guarded. CT brain shows frontal infarct Discussed with family (brother and son) Full code for now Family leaning towards PEG and trach Will need to transfer to [facility] for trach/PEG Await bed availability at [facility] or contracted hospital Subjective Interval Events: Remains unchanged; NA today 166 Constitutional: Reports: no symptoms HEENT: Repors: no symptoms Respiratory: Reports: no symptoms Cardiovascular: Reports: no symptoms Gastrointestinal/Abdominal: Reports: no symptoms Allergies: Coded Allergies: No Known Allergies (Unverified , 09/22/14) Objective Last 24 Hour Vital Signs Date Time Temp Pulse Resp B/P Pulse Ox O2 Delivery O2 Flow Rate FiO2 10/12/16 10:00 87 24 103/64 100 Mechanical Ventilator 50 10/12/16 09:12 101 33 40 10/12/16 09:00 97 20 122/68 100 Mechanical Ventilator 50 10/12/16 08:58 98 113/67 10/12/16 08:00 50 10/12/16 08:00 98.7 96 25 113/67 98 Mechanical Ventilator 50 10/12/16 08:00 98 10/12/16 07:00 98 20 125/66 100 Mechanical Ventilator 50 10/12/16 06:49 98 32 40 10/12/16 06:00 96 28 112/70 100 Mechanical Ventilator 50 10/12/16 05:31 118/63 10/12/16 05:24 95 29 40 10/12/16 05:00 93 19 118/63 100 Mechanical Ventilator 50 10/12/16 04:00 98.3 97 26 117/70 100 Mechanical Ventilator 50 10/12/16 04:00 50 10/12/16 04:00 96 10/12/16 03:11 98 24 40 10/12/16 03:00 98 32 109/58 100 Mechanical Ventilator 50 10/12/16 02:00 95 27 110/58 100 Mechanical Ventilator 50 10/12/16 01:30 92 18 40 10/12/16 01:00 95 25 103/60 100 Mechanical Ventilator 50 10/12/16 00:10 50 10/12/16 00:00 94 10/12/16 00:00 98.4 94 26 111/63 99 Mechanical Ventilator 50 10/11/16 23:10 90 28 40 10/11/16 23:00 88 23 97/65 100 Mechanical Ventilator 50 10/11/16 22:00 85 26 105/63 99 Mechanical Ventilator 50 10/11/16 21:20 89 28 40 10/11/16 21:00 92 27 115/69 99 Mechanical Ventilator 50 10/11/16 20:30 103 116/75 10/11/16 20:00 50 10/11/16 20:00 97.6 102 26 116/75 99 Mechanical Ventilator 50 10/11/16 20:00 97 10/11/16 19:25 101 25 40 10/11/16 19:00 98 25 126/84 99 Mechanical Ventilator 50 10/11/16 18:00 102 24 120/74 100 Mechanical Ventilator 50 10/11/16 17:29 100 26 40 10/11/16 17:21 118/79 10/11/16 17:00 98 24 118/79 100 Mechanical Ventilator 50 10/11/16 16:00 98.9 102 25 103/70 98 Mechanical Ventilator 50 10/11/16 16:00 97 10/11/16 16:00 50 10/11/16 15:00 100 24 120/71 99 Mechanical Ventilator 50 10/11/16 14:56 97 22 40 10/11/16 14:00 96 24 107/65 98 Mechanical Ventilator 50 10/11/16 13:03 98 24 40 10/11/16 13:00 99 23 112/78 98 Mechanical Ventilator 50 10/11/16 12:03 111/70 10/11/16 12:00 50 10/11/16 12:00 98 10/11/16 12:00 98.9 96 25 118/73 99 Mechanical Ventilator 50 10/11/16 11:00 96 21 96/52 99 Mechanical Ventilator 50 10/11/16 10:45 95 25 40 Intake and Output 10/11/16 10/12/16 19:00 07:00 Intake Total 1360 ml 1840 ml Output Total 1700 ml 1545 ml Balance -340 ml 295 ml Free Water 300 ml 500 ml IV Total 860 ml 1060 ml Tube Feeding 100 ml 280 ml Other 100 ml Output Urine Total 1700 ml 1545 ml # Bowel Movements 2 3 General Appearance: no acute distress HEENT: normocephalic Respiratory/Chest: chest wall non-tender, lungs clear Cardiovascular: normal peripheral pulses, normal rate Abdomen: normal bowel sounds Laboratory Tests 10/12/16 03:50: Urine Random Sodium 22 10/12/16 04:30: White Blood Count 13.2H, Red Blood Count 3.09L, Hemoglobin 8.9L, Hematocrit 29.6L, Mean Corpuscular Volume 96, Mean Corpuscular Hemoglobin 28.8, Mean Corpuscular Hemoglobin Concent 30.0L, Red Cell Distribution Width 13.8, Platelet Count 254, Mean Platelet Volume 10.5H, Neutrophils (%) (Auto) , Lymphocytes (%) (Auto) , Monocytes (%) (Auto) , Eosinophils (%) (Auto) , Basophils (%) (Auto) , Sodium Level 166*H, Potassium Level 3.9, Chloride Level 128H, Carbon Dioxide Level 27, Anion Gap 11, Blood Urea Nitrogen 54H, Creatinine 1.1, Estimat Glomerular Filtration Rate > 60, Glucose Level 173H, Calcium Level 9.7, Pro-B-Type Natriuretic Peptide 2279H Current Medications Medications (Trade) Dose Ordered Sig/Ramiro Route PRN Reason Start Time Stop Time Status Last Admin Dose Admin Acetaminophen (Tylenol) 650 mg Q4H PRN ORAL fever 09/30/16 07:15 10/30/16 07:14 10/09/16 10:03 Aspirin (ASA) 81 mg DAILY NG 10/03/16 09:00 11/02/16 08:59 10/12/16 08:58 Clonidine HCl (Catapres) 0.1 mg Q4H PRN ORAL For High Blood Pressure 09/30/16 06:49 10/30/16 06:48 Dextrose (D5W 1000ml) 1,000 ml @ 125 mls/hr Q8H IV 10/12/16 01:15 11/11/16 01:14 10/12/16 09:05 Dextrose (Dextrose 50%) STAT PRN IV Hypoglycemia 09/30/16 06:50 10/30/16 06:49 Insulin Aspart (NovoLOG) No Dose Q6HR SUBQ 10/09/16 18:00 11/08/16 17:59 10/12/16 05:50 Insulin Detemir 10 units 10 units BEDTIME SUBQ 10/11/16 22:15 11/10/16 22:14 10/11/16 23:43 Lansoprazole (Prevacid) 30 mg DAILY GT 10/11/16 09:00 11/10/16 08:59 10/12/16 08:58 Meropenem/Sodium Chloride (Merrem/Sodium Chloride) 110 ml @ 220 mls/hr Q8HR IVPB 10/09/16 14:00 10/14/16 13:59 10/12/16 05:31 Metoclopramide HCl 5 mg 5 mg Q8H PRN IVP Nausea & Vomiting 10/04/16 08:45 11/03/16 08:44 Metoprolol Tartrate (Lopressor) 50 mg Q12HR ORAL 10/02/16 21:00 11/01/16 20:59 10/12/16 08:58 Nitroglycerin (Nitro-Bid) 1 inch TID@0600,1200,1800 TOPIC 10/03/16 06:00 11/02/16 05:59 10/12/16 05:31 Nitroglycerin (Ntg) 0.4 mg Every 5 Minutes PRN SL Prn Chest Pain 09/30/16 06:15 10/30/16 06:14 Ondansetron HCl (Zofran) 4 mg Q6H PRN IVP Nausea & Vomiting 09/30/16 06:51 10/30/16 06:50 Polyethylene Glycol (Miralax) 17 gm DAILYPRN PRN ORAL Constipation 09/30/16 06:51 10/30/16 06:50 10/07/16 21:15 Rahul Lopez MD Oct 12, 2016 10:44
[2016-10-12] MEDS ORDERED: Sterile Water Irrig 1000ml IRRIG ONE (11:07)
[2016-10-12] MEDS ORDERED: NS 275ml ONE (11:07)
--- NOTE | 2016-10-12 22:47 | Nephrology Progress Note ---
Assessment/Plan Problem List: (1) Protein-calorie malnutrition, severe (2) UTI (urinary tract infection) (3) Hypernatremia Assessment: improving (4) Acute kidney injury superimposed on chronic kidney disease (5) Respiratory failure Assessment: intubated, on vent (6) Severe sepsis (7) Acute myocardial infarction Plan Pending probably trach and PEG. Pending transfer to [place]. Agree with increase IVF rate to 125. Cont H2O flush via NGT. Monitor labs. Subjective Subjective no acute events. remains intubated in ICU. Objective Objective Last 24 Hour Vital Signs Date Time Temp Pulse Resp B/P Pulse Ox O2 Delivery O2 Flow Rate FiO2 10/12/16 20:56 89 10/12/16 20:00 40 10/12/16 20:00 98.3 90 22 124/83 97 Mechanical Ventilator 50 10/12/16 19:35 97 33 40 10/12/16 19:00 96 24 125/69 100 Mechanical Ventilator 50 10/12/16 18:00 98.9 90 22 118/67 97 Mechanical Ventilator 50 10/12/16 17:56 121/66 10/12/16 17:00 96 24 121/66 100 Mechanical Ventilator 50 10/12/16 16:44 93 33 40 10/12/16 16:00 95 10/12/16 16:00 99.1 92 23 115/56 98 Mechanical Ventilator 50 10/12/16 16:00 50 10/12/16 15:13 94 27 40 10/12/16 15:00 94 24 111/61 98 Mechanical Ventilator 50 10/12/16 14:55 99.2 10/12/16 14:00 99.7 95 24 111/62 100 Mechanical Ventilator 50 10/12/16 13:05 92 22 40 10/12/16 13:00 90 24 104/67 98 Mechanical Ventilator 50 10/12/16 12:00 89 10/12/16 12:00 50 10/12/16 12:00 99.2 88 23 128/67 98 Mechanical Ventilator 50 10/12/16 11:37 114/61 10/12/16 11:00 85 23 114/61 98 Mechanical Ventilator 50 10/12/16 10:58 85 30 40 10/12/16 10:00 87 24 103/64 100 Mechanical Ventilator 50 10/12/16 09:12 101 33 40 10/12/16 09:00 97 20 122/68 100 Mechanical Ventilator 50 10/12/16 08:58 98 113/67 10/12/16 08:00 50 10/12/16 08:00 98.7 96 25 113/67 98 Mechanical Ventilator 50 10/12/16 08:00 98 10/12/16 07:00 98 20 125/66 100 Mechanical Ventilator 50 10/12/16 06:49 98 32 40 10/12/16 06:00 96 28 112/70 100 Mechanical Ventilator 50 10/12/16 05:31 118/63 10/12/16 05:24 95 29 40 10/12/16 05:00 93 19 118/63 100 Mechanical Ventilator 50 10/12/16 04:00 98.3 97 26 117/70 100 Mechanical Ventilator 50 10/12/16 04:00 50 10/12/16 04:00 96 10/12/16 03:11 98 24 40 10/12/16 03:00 98 32 109/58 100 Mechanical Ventilator 50 10/12/16 02:00 95 27 110/58 100 Mechanical Ventilator 50 10/12/16 01:30 92 18 40 10/12/16 01:00 95 25 103/60 100 Mechanical Ventilator 50 10/12/16 00:10 50 10/12/16 00:00 94 10/12/16 00:00 98.4 94 26 111/63 99 Mechanical Ventilator 50 10/11/16 23:10 90 28 40 10/11/16 23:00 88 23 97/65 100 Mechanical Ventilator 50 Intake and Output 10/11/16 10/12/16 19:00 07:00 Intake Total 1360 ml 1840 ml Output Total 1700 ml 1545 ml Balance -340 ml 295 ml Free Water 300 ml 500 ml IV Total 860 ml 1060 ml Tube Feeding 100 ml 280 ml Other 100 ml Output Urine Total 1700 ml 1545 ml # Bowel Movements 2 3 Laboratory Tests 10/12/16 03:50: Urine Random Sodium 22 10/12/16 04:30: White Blood Count 13.2H, Red Blood Count 3.09L, Hemoglobin 8.9L, Hematocrit 29.6L, Mean Corpuscular Volume 96, Mean Corpuscular Hemoglobin 28.8, Mean Corpuscular Hemoglobin Concent 30.0L, Red Cell Distribution Width 13.8, Platelet Count 254, Mean Platelet Volume 10.5H, Neutrophils (%) (Auto) , Lymphocytes (%) (Auto) , Monocytes (%) (Auto) , Eosinophils (%) (Auto) , Basophils (%) (Auto) , Sodium Level 166*H, Potassium Level 3.9, Chloride Level 128H, Carbon Dioxide Level 27, Anion Gap 11, Blood Urea Nitrogen 54H, Creatinine 1.1, Estimat Glomerular Filtration Rate > 60, Glucose Level 173H, Calcium Level 9.7, Pro-B-Type Natriuretic Peptide 2279H Height (Feet): 6 Height (Inches): 1.00 Weight (Pounds): 130 General Appearance: no apparent distress Cardiovascular: tachycardia Respiratory/Chest: decreased breath sounds Abdomen: non tender, soft Neurologic: unresponsive GENE BRIONES Oct 12, 2016 22:47
--- NOTE | 2016-10-13 03:46 | Progress Note ---
DATE: 10/12/2016 CARDIOLOGY PROGRESS NOTE SUBJECTIVE: The patient's condition remains critical. Prognosis remains guarded. The patient remains in the intensive care unit. The patient is on hypotonic IV fluids and full ventilator support. He remains unresponsive. OBJECTIVE: VITAL SIGNS: Blood pressure 122/68, pulse 97, and respirations 20. GENERAL: No fevers. Noncommunicative. HEENT: Orally intubated. LUNGS: Bilateral breath sounds with rhonchi. HEART: Regular rhythm and rate. Normal S1 and S2 with a fourth heart sound. ABDOMEN: Soft. EXTREMITIES: No edema. LABORATORY DATA: White count 13 and hemoglobin 8.9. Sodium 166, potassium 3.9, chloride 128, bicarb 27, BUN 54, creatinine 1.1, and pro-natriuretic peptide 2279. IMPRESSION: 1. Acute myocardial infarction. 2. Acute cerebrovascular accident. 3. Acute diastolic and systolic congestive heart failure, improved. 4. Severe hyponatremia and dehydration. 5. Worsening respiratory failure. 6. Toxic and metabolic encephalopathy. PLAN: 1. Continue hypotonic IV fluids at increasing rate. 2. Free water per feeding tube. 3. Antimicrobials per Infectious Disease erp implementation consultant. 4. Antiplatelet therapy. 5. Topical nitrates and beta blockade, not weanable at this time. 6. He will need tracheostomy and percutaneous endoscopic gastrostomy and long-term care. 7. Prognosis is very guarded. Donald Baldwin M.D. DR: MARY JOB#: [id number] CC:
--- NOTE | 2016-10-13 23:14 | General Progress Note ---
Assessment/Plan Assessment/Plan Delirium -cont current meds -recommend low dose antipsychotics Subjective Date patient seen: Oct 12, 2016 Allergies: Coded Allergies: No Known Allergies (Unverified , 09/22/14) Subjective intubated, critical, unresponsivepatient remains on ventilator support Objective Intake and Output 10/12/16 10/13/16 19:00 07:00 Intake Total 2275 ml 170 ml Output Total 1760 ml 200 ml Balance 515 ml -30 ml Free Water 450 ml IV Total 1420 ml 125 ml Tube Feeding 375 ml 45 ml Other 30 ml Output Urine Total 1760 ml 200 ml Height (Feet): 6 Height (Inches): 1.00 Weight (Pounds): 130 General Appearance: no apparent distress, lethargic Neurologic: unresponsive Elda Hernandez M.D. Oct 13, 2016 23:14
--- NOTE | 2016-10-14 08:53 | Discharge Summary ---
Discharge Summary Hospital Course Date of Admission Sep 25, 2016 at 22:53 Date of Discharge Oct 12, 2016 at 21:41 Admitting Diagnosis sepsis, pneumonia HPI Pierre Pena is a 65 year old male who was admitted on Sep 25, 2016 at 22:53 for Sepsis,Pneumonia Hospital Course dc summary #[id number] Discharge Condition Upon Discharge: stable Discharge Disposition Patient was transferred to LTAC for further management Discharge Diagnoses: Discharge Instructions Discharge Instructions Special Instructions I have been assigned to complete a D/C Summary on this account. I was not involved in the patient management Charla Galindo NP ([place]) Oct 14, 2016 08:53
--- NOTE | 2016-10-14 10:03 | Discharge Summary 2 SIG ---
DATE OF ADMISSION: 09/25/2016 DATE OF DISCHARGE: 10/12/2016 CONSULTANTS: 1. Marck Green M.D., restaurant floor manager. 2. Donald Baldwin M.D., recruit instructor. 3. Ricardo Razo M.D., infectious disease. 4. Steven Marion M.D., baby attendant. 5. Elda Hernandez M.D., psychiatrist. REASON FOR ADMISSION: This is a 65-year-old male with history of COPD and bipolar disorder, who was brought for generalized weakness, cough, and subjective fever. The patient was diagnosed with pneumonia and sepsis and was transferred to telemetry for further management. He had initially tachycardia and required telemetry placement. HOSPITAL COURSE: The patient admitted initially to telemetry floor due to sinus tachycardia. The patient started on IV fluids with volume resuscitation, started on empiric antibiotics. ID consult requested. Follow up with the culture. Supplemental oxygen and pulmonary toilet provided as needed. Pain management was addressed. DVT and GI prophylaxis provided. Psychiatrist seen and evaluated the patient due to the bipolar disorder and optimize lithium regimen. Director Of Extension Work seen and evaluated the patient and recommended monitor closely renal parameters and electrolytes and avoid nephrotoxics. Renal ultrasound revealed normal echogenicity in bilateral kidneys and distended bladder, possible outlet obstruction. However, on 09/29/2016, the patient's condition deteriorated. He became unresponsive, hypoxemic, bradycardic, and required emergency intubation. He was followed prior to that with a ABG was initially on 09/28/2016, he was on vent mask of 55%, which revealed severe hypoxemia and he was titrated to 100% nonrebreathing mask. ABG on nonrebreather mask revealed severe acidosis, pH of 7.27. The patient required an emergency intubation and transferred to ICU for further management. Cardiology consult was requested, secondary to arrhythmia. The patient exhibited junctional rhythm with heart rate of 60, sinus rhythm with AV block, sinus arrhythmia with frequent PAC. Echocardiogram revealed ejection fraction of 30% to 35%, right ventricular systolic pressure of 22, and mild to moderate aortic regurgitation. On 09/30/2016, the patient had troponin of . EKG shows diffuse ST depression. Troponin was trending. Last troponin is 11.22. The patient was started on IV nitroglycerin and IV beta-osiel. According to recruit instructor, the patient noted to have NG tube with coffee-ground drainage on 09/30/2016. According to recruit instructor, the patient is not a candidate for intervention at this time due to his condition. He is also not a candidate for thrombolytic therapy, secondary to altered mentation. Aspirin, anticoagulation were on hold, secondary to GI bleeding. GI consult was requested. The patient started on Protonix drip. He undergone gastric lavage with 500 mL. Hemoglobin and hematocrit were closely monitored. GI procedure was on hold, secondary to acute CO. The patient was closely monitored. CT of the head revealed acute right frontal CVA. An abdominal ultrasound revealed +4.9 cm infrarenal aortic abdominal aneurysm with extensive mural thrombosis. Initial blood culture grew E. coli. Repeat blood culture on 09/27/2016 were negative. Sputum was positive for Oma. ID was followed with antibiotic course. The patient's condition remain guarded and critical condition was discussed with the patient's family, who the patient to be a full code. The family wants PEG and trach. The patient was transferred to LTAC for further management for tracheostomy and PEG placement. The patient also noted to have acute renal failure and hyponatremia. Acute renal failure improving. On discharge, creatinine 1.1, BUN 54, and sodium 166. The patient with evidence of severe protein-calorie malnutrition with albumin of 2.4. FINAL DIAGNOSES: 1. Sepsis with bacteremia. 2. Bacteremia, E coli. 3. Acute myocardial infarction, possible ST elevation myocardial infarction. 4. Acute hypoxemic respiratory failure, requiring intubation. 5. Acute right frontal cerebrovascular accident. 6. Acute toxic metabolic encephalopathy. 7. Acute on chronic systolic and diastolic congestive heart failure. 8. Acute renal failure on possible chronic kidney disease. 9. Acute gastrointestinal bleeding. 10. Hyponatremia, secondary to dehydration. 11. Bipolar disorder. 12. Severe protein-calorie malnutrition. Of note, after GI bleeding stopped, hemoglobin and hematocrit stable prior to discharge, hemoglobin 8.9 and hematocrit 29.6. Mild leukocytosis of 13.2. According to recruit instructor, improved acute systolic and diastolic congestive heart failure. As mentioned, acute renal failure resolved. The patient was stable for transfer to LTAC for PEG and trach. DISCHARGE MEDICATIONS: See medication reconciliation list. DISCHARGE INSTRUCTIONS: The patient discharged to LTAC. Follow up with the scalehouse attendant and medical doctor at that facility. Rahul Lopez M.D. I have been assigned to dictate discharge summary on this account and I was not involved in the patient's management. Charla As[facility]iomaimonides [facility] hospitalJohnny Urbina DR: VIN JOB#: [id number] CC:
== END 2016-10-12 21:41 | DRG 870 ==
LOC: EMR 21:05 → 2E 22:53 → EDBEDREQ 23:11 → EDBEDREQSVC 23:29 → EDBEDREQ 23:30 → 2E 09-26 08:26 → ICU 09-29 18:21
DX: A41.51 Sepsis due to Escherichia coli [E. coli] (principal); I63.8 Other cerebral infarction; I21.3 ST elevation (STEMI) myocardial infarction of unspecified site; J96.01 Acute respiratory failure with hypoxia; E43 Unspecified severe protein-calorie malnutrition; R65.21 Severe sepsis with septic shock; J18.9 Pneumonia, unspecified organism; G93.41 Metabolic encephalopathy; I50.43 Acute on chronic combined systolic (congestive) and diastolic (congestive) heart failure; N17.9 Acute kidney failure, unspecified; N39.0 Urinary tract infection, site not specified; K92.2 Gastrointestinal hemorrhage, unspecified; Z68.1 Body mass index [BMI] 19.9 or less, adult; E87.0 Hyperosmolality and hypernatremia; J44.9 Chronic obstructive pulmonary disease, unspecified; Z68.20 Body mass index [BMI] 20.0-20.9, adult; F31.9 Bipolar disorder, unspecified; D69.6 Thrombocytopenia, unspecified; N18.9 Chronic kidney disease, unspecified; I35.1 Nonrheumatic aortic (valve) insufficiency; E86.0 Dehydration; Z87.891 Personal history of nicotine dependence; F25.9 Schizoaffective disorder, unspecified; E87.8 Other disorders of electrolyte and fluid balance, not elsewhere classified; A41.9 Sepsis, unspecified organism; I71.4 Abdominal aortic aneurysm, without rupture
CPT/HCPCS: 36415; 36600; 70450; 71010; 71250; 71260; 74000; 74177; 76700; 76705; 76775; 80048; 80053; 80178; 80202; 81001; 82248; 82270; 82330; 82436; 82550; 82553; 82803; 82962; 83605; 83735; 83880; 83930; 84100; 84133; 84153; 84300; 84439; 84484; 84550; 85007; 85025; 86703; 87040; 87070; 87086; 87181; 87205; 89050; 93005; 93306; 93970; 94002; 94003; 94640; 94664; 94760; J1815; J7620; S5561